=== PATIENT | male | born 1945 | race Caucasian/White ===

== ENCOUNTER 2017-08-15 12:27 | Inpatient (IN) | payer OTHER ==
[~2017-08-15] VITALS: Ht 170.2 cm; Wt 67.6 kg
--- NOTE | ~2017-08-15 | HC ---
[facility] [place] [address] CONSULTATION Name: BENIGNO CASTILLO Room #: 411-P [facility] IN M.R.#: [id number] Admission: 08/15/17 Attend Phys: Sushil De Santiago DO Discharge: 08/19/17 Date of : 41 Report #: [id number] THIS REPORT FOR: //name// CC: Sushil Frederick [facility] DATE OF SERVICE: 08/16/2017 REASON FOR CONSULTATION: COPD. IMPRESSION: 1. Possible bronchitis. 2. Probable chronic obstructive pulmonary disease. 3. Obstructive sleep apnea. 4. Recurrent ventral hernia. 5. History of Crohn's. 6. Coronary artery disease, paroxysmal atrial fibrillation. 7. Gastroesophageal reflux disease. 8. History of deep venous thrombosis. 9. Obstructive sleep apnea. 10. Tobacco use. PLAN: We will check a sputum culture and start Rocephin, aerosol therapy. Although, he is on Eliquis because of impending surgery, we will check venous Dopplers, may even need to consider a lung scan to check for PE. HISTORY OF PRESENT ILLNESS: A 72-year-old admitted through the Emergency Room because of abdominal pain. He does complain of some shortness of breath and discolored sputum. No fever, chills or night sweats. PAST SURGICAL HISTORY: Bowel resections, appendectomy, brain tumor, cholecystectomy. FAMILY HISTORY: Coronary artery disease. SOCIAL HISTORY: Positive tobacco. Negative ETOH. ALLERGIES: CLARITIN, DARVON AND SULFA. REVIEW OF SYSTEMS: Cough, sputum production, history of paroxysmal atrial fibrillation, DVT, question PE, neuropathy, hyperlipidemia, FRANCHESCA on CPAP of 14. PHYSICAL EXAMINATION: VITAL SIGNS: Temperature 97.9, pulse 85, respiratory rate 20, BP 116/59. EYES: Negative icterus. NECK: Negative JVD. [facility] [address] [place] [address] CONSULTATION Name: BENIGNO CASTILLO Quin Room #: 411-P [facility] IN M.R.#: [id number] Admission: 08/15/17 Attend Phys: Sushil De Santiago DO Discharge: 08/19/17 Date of : 41 Report #: [id number] LUNGS: Showed no definite wheeze. HEART: Regular with murmur. ABDOMEN: Bowel sounds present, tender. EXTREMITIES: Showed trace edema. NEUROLOGIC: Alert and oriented. LABORATORY DATA: CT abdomen yesterday showed base of lungs clear. No definite mass. White count 4.9, hemoglobin 10.8, platelets 203, bands 2. BUN 18, creatinine 1.3. We will follow closely with you. <ELECTRONICALLY SIGNED> By: Carolina Granger MD 09/04/17 2219 [id number] Carolina Granger MD /nt
--- NOTE | ~2017-08-15 | HC ---
[facility] [place] [address] CONSULTATION Name: BENIGNO CASTILLO Room #: 411-P [facility] IN M.R.#: [id number] Admission: 08/15/17 Attend Phys: Sushil De Santiago DO Discharge: 08/19/17 Date of : 41 Report #: [id number] THIS REPORT FOR: //name// CC: Sushil Frederick [facility] DATE OF SERVICE: 08/15/2017 HISTORY OF PRESENT ILLNESS: The patient is a 72-year-old male patient who is admitted today from the Emergency Room having marked and worsening of the abdominal discomfort. He has been seen by Dr. Claire and had had prior extensive surgery at , and I do not have those records. There are multiple areas of hernia through the ventral wall and CT scan is pending. The pain became worse. He is scheduled for surgery by Dr. Claire next week and a nuclear stress test in our office tomorrow, but he came to the office with significant abdominal discomfort. Recently saw his pulmonary physician who also suggested the Emergency Room. He has been fairly stable from my perspective. He has been anticoagulated with a novel agent, this is for recurrent DVT. The patient has moderate carotid disease, 60-70% on the right, which we have been following and stable. He has had prior cardioversions. His ejection fraction has been preserved. He has been compliant with medications, which have been Eliquis 5 b.i.d., baby aspirin, Lipitor 10, diltiazem 180, metformin 500 b.i.d., Protonix, Mirapex, Lyrica and Ambien. PAST MEDICAL HISTORY: Positive for Crohn disease with multiple bowel resections, mild disease from a catheterization in 2012, paroxysmal AFib, DVT, PE, diabetes, fibromyalgia, history of TIA, hypercholesterolemia, neuropathy, sleep apnea on CPAP and polycythemia requiring monthly phlebotomies, appendectomy, brain tumor excision and cholecystectomy. Prior hernia and multiple bowel resections as stated. FAMILY HISTORY: Father had premature coronary artery disease, had an infarct. SOCIAL HISTORY: He lives with his significant other. He is a daily smoker. No alcohol use, heavy caffeine, relatively sedentary. Had been more of an avid walker in the past. ALLERGIES: SULFA, DARVON AND CLARITIN. REVIEW OF SYSTEMS: Negative except for the intermittent and significant bowel issues, now with recurrent diarrhea and all as stated above. EKG is sinus rhythm with right bundle branch block. LABORATORY WORK: Lipase 259, potassium 4.3, chloride 24, creatinine 1.3, total protein 7.1. GFR 54. H and H are 10.8 and 33, white count 4.9[place] [address] CONSULTATION Name: BENIGNO CASTILLO Quin Room #: 411-P [facility] IN M.R.#: [id number] Admission: 08/15/17 Attend Phys: Sushil De Santiago DO Discharge: 08/19/17 Date of : 41 Report #: [id number] scan is pending of the abdomen. PHYSICAL EXAMINATION: VITAL SIGNS: Pulse is 90s, blood pressure 140/76. HEENT: Eyes reveal xanthelasmas. Pharynx is clear. NECK: Shows preserved upstrokes. A right-sided bruit is noted. No JVD. LUNGS: Prolonged expiratory phase, slightly diminished in the bases. CARDIOVASCULAR: S1, S2. Faint holosystolic murmur is noted. ABDOMEN: Diffusely tender. There are multiple well-healed incisions and irregularities with hernia formation and possible bowel within the hernia and diffusely tender. Bowel sounds are noted. EXTREMITIES: Reveal trace of edema. Distal pulses were intact. NEUROLOGIC: Nonfocal. SKIN: Warm and dry without xanthoma or ulcer. MUSCULOSKELETAL: Generalized arthritic changes, slow gait. ASSESSMENT: 1. Significant recurrent ventral hernia with possible bowel involvement. 2. History of multiple abdominal surgeries with history of Crohn's. 3. Moderate coronary artery disease from remote catheterization. 4. Paroxysmal atrial fibrillation. 5. History of deep venous thrombosis. 6. Reflux. 7. History of transient ischemic attack. 8. Sleep apnea. 9. Continued tobacco abuse. RECOMMENDATIONS AND PLAN: The patient is being admitted. Dr. Claire of general surgery is well aware. We will proceed with nuclear stress testing in the morning to clear him for surgery next week. We will need to hold on the novel agents over the weekend for surgery, hopefully early part of next week. I will review the echo, but it was relatively normal in the office previously. We will continue to follow with you. Thank you for asking me to assist in the care of this patient. <ELECTRONICALLY SIGNED> By: Gentry Macario MD, FACC 08/20/17 0902 1612 0112 Gentry Macario MD, FACC /nt
--- NOTE | ~2017-08-15 | HC ---
[facility] [place] [address] CONSULTATION Name: BENIGNO CASTILLO Room #: 411-P ADM IN M.R.#: [id number] Admission: 08/15/17 Attend Phys: Sushil De Santiago DO Discharge: Date of : 43 Report #: [id number] THIS REPORT FOR: //name// CC: Sushil Frederick [facility] DATE OF SERVICE: 08/15/2017 GENERAL SURGERY CONSULT REFERRING PROVIDER: Sushil De Santiago DO REASON FOR CONSULT: Abdominal pain. HISTORY OF PRESENT ILLNESS: The patient is a 72-year-old male with a past medical history of hypertension, Crohn's disease, diabetes, sleep apnea and multiple abdominal operations, who has been seeing me as an outpatient for recurrent incisional ventral herniation with a non-healing abdominal wall wound. The patient does have synthetic mesh, which was placed at his most recent operation and there is suspected mesh infection with this draining sinus tract. The patient was seeing Dr. Macario in the office to initiate cardiac clearance before complex abdominal wall reconstruction procedure and as he was having horrible abdominal pain and nausea, he presented to the Emergency Room for evaluation. The patient underwent workup in the form of laboratories and a CT scan of the abdomen and pelvis. While his laboratories are normal, his CT scan shows recurrent incisional hernia, but no evidence of bowel obstruction or any other intra-abdominal process. The patient is having a productive cough and shortness of breath and as such he is admitted and I am asked to evaluate from a surgical standpoint. PAST MEDICAL AND SURGICAL HISTORY: Hypertension, Crohn's disease, diabetes mellitus, obstructive sleep apnea and multiple abdominal operations for cholecystectomy, incisional ventral hernia repairs, he also has a diagnosis of fibromyalgia, prior DVT, TIAs, paroxysmal atrial fibrillation and slight dementia since craniotomy in 2006 for removal of a brain tumor. HOME MEDICATIONS: Omeprazole, metformin, Colace, vitamin D, Ambien, mesalamine, pramipexole, Lyrica, and modafinil. ALLERGIES: SULFA AND PROPOXYPHENE. FAMILY HISTORY: Reviewed and noncontributory. SOCIAL HISTORY: The patient smokes approximately 1 pack per day and has done so for 50 years, does not utilize alcohol or illicit drugs. He is accompanied by his boyfriend at the bedside today. [address] [address] CONSULTATION Name: BENIGNO CASTILLO Room #: [facility] IN .R.#: [id number] Admission: 08/15/17 Attend Phys: Sushil De Santiago DO Discharge: Date of : 43 Report #: [id number] REVIEW OF SYSTEMS: GENERAL: The patient denies nocturnal fevers or chills. HEENT: No change in vision, change in hearing. NECK: No swelling or difficulty swallowing. HEART: No chest pain or palpitations. LUNGS: No cough or shortness of breath. ABDOMEN: Chronic abdominal pain. GENITOURINARY: No dysuria or hematuria. ENDOCRINE: No polyuria or polydipsia. HEMATOLOGIC: No history of bleeding or easy bruising. EXTREMITIES: No history weakness or limited range of motion. NEUROLOGIC: No history of syncope or near syncopal episodes. SKIN AND INTEGUMENT: No history of abnormal lesions or moles outside of his non-healing abdominal wall wound. PSYCHIATRIC: History of dementia, but no depression. PHYSICAL EXAMINATION: VITAL SIGNS: Temperature 98.2, pulse 85, respirations 16, blood pressure 116/62, he is 5 feet 7 inches tall and weighs 149 pounds. GENERAL: He is alert, in no acute distress. HEENT: Normocephalic, atraumatic. Pupils equal, round, reactive to light. NECK: Supple, without lymphadenopathy. Trachea midline. HEART: Regular rate and rhythm. LUNGS: Clear to auscultation bilaterally. ABDOMEN: Soft, nondistended. He does have diffuse tenderness to palpation, although no guarding, rebound or peritoneal signs or symptoms. He has an easily palpable incisional ventral hernia with an overlying eschar and a small draining sinus tract. GENITOURINARY: Normal external male genitalia. EXTREMITIES: No clubbing, cyanosis or edema. NEUROLOGIC: Cranial nerves 2-12 are grossly intact. PSYCHIATRIC: Normal mood and affect. SKIN AND INTEGUMENT: No other abnormal lesions or moles. LABORATORY AND X-RAY DATA: CBC shows white blood cell count of 4.9000, hemoglobin 10.8, platelets 203,000. Creatinine is 1.3. Liver function enzymes are normal. Albumin is 3.4. Urinalysis is negative. Abdominal x-ray shows no acute process. CT scan of his abdomen and pelvis shows no evidence of bowel obstruction or inflammatory mass, ascites or mass effect. He does have a wide-mouthed hernia defect of the anterior abdominal wall. ASSESSMENT AND PLAN: A 72-year-old male with subjective chronic abdominal pain, although he does have recurrent incisional ventral hernia and a small eschar overlying with a draining sinus tract worrisome for mesh infection. As the patient does not have any evidence of an obstruction or other [address] [address] CONSULTATION Name: BENIGNO CASTILLO Room #: 411-P [facility] IN M.R.#: [id number] Admission: 08/15/17 Attend Phys: Sushil De Santiago DO Discharge: Date of : 43 Report #: [id number] intra-abdominal process ongoing, he is being seen by Cardiology and Pulmonology for preoperative clearance to proceed forward with definitive surgical management of his hernia and likely infected mesh. Once cleared from a medical standpoint, we will proceed to the operating room, although this might not be for up to 1 weeks' time due to scheduling issues with this long procedure. In addition, the patient does have a productive cough with green sputum and as such, I would request pulmonary to optimize him prior to operative intervention. All the above was discussed with the patient in detail and he agrees to proceed as outlined. I sincerely appreciate this consult. I will follow along and leave any further recommendations in the patient's chart as appropriate. <ELECTRONICALLY SIGNED> By: Eva Claire MD, FACS 08/18/17 1015 1255 51 Eva Claire MD, FACS /nt
[~2017-08-15 12:27] MED LIST: ADULT LOW DOSE81 MG; AMBIEN 10 MG TA10 MG PO; APRISO0.375 GM PO; ASACOL400 MG PO; ASPIRIN EC81 M1 PO; B12INJ; CIPROFLOXACIN500 M1 PO; COLACE100 MG PO; FLAGYL500 MG; FLAGYL500 MG PO; FLONASE 0.05%50 MCG NS; FLORANEX TABLE1 EACH; LORTAB PO; LYRICA 50 MG50 M1 PO; LYRICA 50 MG50 MG; LYRICA100 MG PO; METFORMIN HCL500 MG PO; MIRAPEX1 MG PO; MIRAPEX1.5 MG PO; MODAFINIL200 MG PO; NAMENDA 5 MG TAB5 M1; NAMENDA10 MG/5 ML PO; NORCO 5-325 TA1 EACH PO; OMEPRAZOLE 20 M20 M1 PO; OMEPRAZOLE20 MG PO; PERCOCET 5-3251 EACH PO; PREGABALIN PO; PROTONIX40 M2; REGLAN 10 MG TA10 MG PO; TAMSULOSIN HCL0.4 M1; VALIUM5 MG PO; VITAMIN B12 5500 MC1 IM; VITAMIN D 11000 UNIT PO; VITAMIN D1000 UNI1 PO; VITAMIN D400 UNI1; ZPAK PO
[2017-08-15 13:10] LABS: URINE BILIRUBIN NEGATIVE (Negative); URINE BLOOD TRACE (Negative); URINE CLARITY CLEAR; URINE COLOR YELLOW; URINE GLUCOSE-RANDOM* NEGATIVE (Negative); URINE KETONES NEGATIVE (Negative); URINE LEUKOCYTES-REFLEX NEGATIVE (Negative); URINE NITRITE-REFLEX NEGATIVE (Negative); URINE PROTEIN (DIPSTICK) TRACE (Negative); URINE SPECIFIC GRAVITY 1.025 (1.005-1.035); URINE UROBILINOGEN 0.2 E.U./dl (0.2-1.0)
[2017-08-15 14:11] VITALS: BP 116/62
[2017-08-15 15:01] LABS: HEMATOCRIT 33.2 % (42.0-52.0); HEMOGLOBIN 10.8 gm/dL (14.0-18.0); MCH 26.4 pg (26.0-34.0); MCHC 32.5 g/dL (28.0-37.0); MCV 81.4 fL (80.0-100.0); PLATELET COUNT 203 thou/uL (150-400); RBC 4.08 mil/uL (4.50-6.00); RDW 18.8 % (10.5-14.5); WBC 4.9 thou/uL (4.0-11.0)
[2017-08-15 15:08] LABS: CALCIUM 8.7 mg/dL (8.5-10.1); CREATININE 1.3 mg/dL (0.7-1.3); POTASSIUM 4.3 mmol/L (3.5-5.1)
[2017-08-15 15:14] LABS: ALBUMIN 3.4 g/dL (3.4-5.0); TOTAL BILIRUBIN 0.3 mg/dL (<0.1-1.0); TOTAL PROTEIN 7.1 g/dL (6.4-8.2)
[2017-08-15 15:43] LABS: ABSOLUTE NEUTROPHILS 3.4 thou/uL (1.4-8.2); ANISOCYTOSIS 1+
[2017-08-16 07:20] LABS: HEMATOCRIT 32.9 % (42.0-52.0); HEMOGLOBIN 10.4 gm/dL (14.0-18.0); MCH 26.1 pg (26.0-34.0); MCHC 31.5 g/dL (28.0-37.0); MCV 82.7 fL (80.0-100.0); PLATELET COUNT 202 thou/uL (150-400); RBC 3.98 mil/uL (4.50-6.00); RDW 18.5 % (10.5-14.5); WBC 4.7 thou/uL (4.0-11.0)
[2017-08-16 07:28] LABS: CALCIUM 8.1 mg/dL (8.5-10.1); CREATININE 1.1 mg/dL (0.7-1.3); MAGNESIUM 1.8 mg/dL (1.8-2.4); POTASSIUM 4.1 mmol/L (3.5-5.1)
[2017-08-16 09:18] LABS: ABSOLUTE NEUTROPHILS 3.2 thou/uL (1.4-8.2); PLATELET ESTIMATE NORMAL
[2017-08-16 09:19] LABS: ANISOCYTOSIS 1+
[2017-08-16 11:04] VITALS: BP 132/71
[2017-08-16 11:15] VITALS: BP 134/64
[2017-08-16 11:45] VITALS: BP 133/67
[2017-08-16 13:35] LABS: BE(vivo) -5.6 mmol/L (-2 to +3); HCO3 18.2 mmol/L (22.0-26.0); PCO2 30.1 mmHg (35.0-45.0); PO2 69.6 mmHg (80.0-100.0)
[2017-08-16 13:36] LABS: sO2 94.3 % (92.0-98.0)
[2017-08-16 16:25] VITALS: BP 116/59
[2017-08-16 20:00] VITALS: BP 135/68
[2017-08-17 04:00] VITALS: BP 138/71
[2017-08-17 08:00] VITALS: BP 138/63
[2017-08-17 16:26] VITALS: BP 129/72
[2017-08-17 19:40] VITALS: BP 144/73
[2017-08-18 03:27] VITALS: BP 122/69
[2017-08-18 03:57] LABS: ABSOLUTE NEUTROPHILS 3.2 thou/uL (1.4-8.2); BASOPHILS 0.4 % (0.0-2.0); EOSINOPHILS 0.9 % (0.0-3.0); HEMOGLOBIN 9.6 gm/dL (14.0-18.0); LYMPHOCYTES 15.9 % (24.0-44.0); MCH 26.4 pg (26.0-34.0); MCHC 32.2 g/dL (28.0-37.0); MCV 82.1 fL (80.0-100.0); MONOCYTES 11.6 % (1.0-8.0); PLATELET COUNT 187 thou/uL (150-400); POLYS 71.2 % (36.0-66.0); RBC 3.65 mil/uL (4.50-6.00); RDW 18.3 % (10.5-14.5); WBC 4.5 thou/uL (4.0-11.0)
[2017-08-18 04:10] LABS: CREATININE 1.1 mg/dL (0.7-1.3); POTASSIUM 3.5 mmol/L (3.5-5.1)
[2017-08-18 09:10] VITALS: BP 136/64
[2017-08-18 20:00] VITALS: BP 130/64
[2017-08-19 03:56] VITALS: BP 132/65
[2017-08-19 08:00] VITALS: BP 131/74
[2017-08-19] MEDS ORDERED: ATORVASTATIN CA10 MG PO (08:44)
[2017-08-19] MEDS ORDERED: ELIQUIS5 MG PO (08:44)
[2017-08-19] MEDS ORDERED: HYDROCODON-ACE1 EAC7 PO (08:45)
[2017-08-19 09:48] VITALS: BP 131/74
[2017-08-23] MEDS ORDERED: ASPIR 8181 MG PO (09:55)
[2017-08-23] MEDS ORDERED: B12INJ IM (09:56)
[2017-08-23] MEDS ORDERED: ONDANSETRON HCL4 M2 PO (09:57)
[2017-08-23] MEDS ORDERED: PROTONIX 20 MG20 M1 PO (09:58)
[2017-08-23] MEDS ORDERED: AMBIEN CR12.5 MG PO (09:59)
[2017-08-23] MEDS ORDERED: LYRICA 50 MG50 MG PO (09:59)
[2017-08-23] MEDS ORDERED: ELIQUIS5 MG PO (10:09)
[2017-08-23] MEDS ORDERED: LIPITOR10 MG PO (10:10)
[2017-08-23] MEDS ORDERED: NORCO 5-325 TA1 EACH PO (10:11)
== END 2017-08-19 10:00 | disposition home or self-care (01) | DRG 394 ==
LOC: ER 12:27 → EROBS 15:16 → 4N 15:16 → ENTRNSPT 08-19 09:55 → EDTRNSPTSTS 08-19 09:56 → 4N 08-19 10:00
PROVIDERS: Emergency Medicine; Family Medicine; Internal Medicine Pulmonary Disease; Nurse Practitioner
DX: K43.2 Incisional hernia without obstruction or gangrene (principal); K50.90 Crohn's disease, unspecified, without complications; I10 Essential (primary) hypertension; F17.210 Nicotine dependence, cigarettes, uncomplicated; I48.0 Paroxysmal atrial fibrillation; E78.00 Pure hypercholesterolemia, unspecified; E11.40 Type 2 diabetes mellitus with diabetic neuropathy, unspecified; I25.10 Atherosclerotic heart disease of native coronary artery without angina pectoris; K21.9 Gastro-esophageal reflux disease without esophagitis; G47.33 Obstructive sleep apnea (adult) (pediatric); J44.9 Chronic obstructive pulmonary disease, unspecified; Z86.718 Personal history of other venous thrombosis and embolism; Z86.73 Personal history of transient ischemic attack (TIA), and cerebral infarction without residual deficits; Z90.49 Acquired absence of other specified parts of digestive tract; Z79.899 Other long term (current) drug therapy; Z88.8 Allergy status to other drugs, medicaments and biological substances; Z86.711 Personal history of pulmonary embolism; Z82.49 Family history of ischemic heart disease and other diseases of the circulatory system; Z88.2 Allergy status to sulfonamides
CPT/HCPCS: 10790

== ENCOUNTER 2017-08-26 05:23 | Inpatient (IN) | payer OTHER ==
[~2017-08-26] VITALS: Ht 170.2 cm; Wt 61.5 kg
[2017-08-26] VITALS (10 sets, daily range): BP systolic 120–164; BP diastolic 62–86
--- NOTE | ~2017-08-26 | HC ---
[facility] [place] [address] CONSULTATION Name: BENIGNO CASTILLO Room #: 363-P [facility] IN ..#: [id number] Admission: 08/26/17 Attend Phys: Eva Claire MD, Discharge: 09/09/17 Date of : 41 Report #: [id number] THIS REPORT FOR: //name// CC: Otoniel Claire DATE OF SERVICE: 09/05/2017 HISTORY OF PRESENT ILLNESS: The patient is a 72-year-old white male with an incarcerated ventral incisional hernia, who was admitted and underwent exploratory laparotomy with debridement with complex abdominal wall reconstruction with mesh. Postoperative course has included ileus and healthcare-associated pneumonia with aspiration. He is being advanced to clear liquids. He does have COPD. He continues on TPN. We are seeing him in rehabilitation medicine consultation. He has medical complexity with generalized debilitation. PAST MEDICAL HISTORY: Includes hypertension, Crohn's disease, diabetes, obstructive sleep apnea, paroxysmal atrial fibrillation, TIAs, craniotomy in 2006 for a benign brain tumor, slight dementia, fibromyalgia, DVT, cholecystectomy, and partial right hemicolectomy. ALLERGIES: SULFA AND PROPOXYPHENE. MEDICATIONS: Please see the full medication listing. FAMILY HISTORY: Noncontributory. HABITS: History of tobacco abuse. No significant alcohol intake. 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 They live in a house, one step in. He did not utilize assistive devices. Significant other is retired. REVIEW OF SYSTEMS: Notes history of fibromyalgia. He was diagnosed with neuropathy before that. Apparently, went up to the [facility] for diagnosis. No current complaints of chest pain or shortness of breath. He has some abdominal discomfort as expected. He does have the chronic pain with his fibromyalgia. PHYSICAL EXAMINATION: GENERAL: The patient is a 72-year-old white male, no obvious distress. VITAL SIGNS: Last recorded temperature is 98.6, pulse 77, respirations 16, and blood pressure 117/56. The patient is alert. HEENT: Appeared to be benign. NEUROLOGIC: Cranial nerves are grossly intact. Facies are symmetric. He has [address] [address] CONSULTATION Name: BENIGNO CASTILLO Room #: 363-P [facility] IN M.R.#: [id number] Admission: 08/26/17 Attend Phys: Eva Claire MD, Discharge: 09/09/17 Date of : 41 Report #: [id number] functional range of motion of both upper extremities with strength grade 4-/5. DTRs are trace to 1. Lower extremities; no focal calf swelling, functional range of motion with strength grade 3+ to 4-/5. DTRs are trace to 1. He is min assist with sit to stand. Gait is 50 feet contact guard with front-wheeled walker. ASSESSMENT: A 72-year-old white male with the following problem list: 1. Medical complexity with generalized debilitation. 2. Incarcerated ventral incisional hernia, status post debridement and complex abdominal wall reconstruction with mesh, 08/26/2017. 3. Healthcare-associated pneumonia/aspiration. 4. Ileus. 5. Chronic obstructive pulmonary disease. 6. History of Crohn's disease. 7. History of fibromyalgia. 8. Prior history of a neuropathy. PLAN: We are monitoring the patient regarding his rehab therapy needs. Would anticipate that he could be a candidate for an acute in-hospital inpatient rehabilitation stay as he further medically stabilizes. We will be glad to follow along with you regarding his rehab therapy needs. <ELECTRONICALLY SIGNED> By: Jason Regalado MD 09/13/17 1408 1222 1850 Jason Regalado MD /nt
--- NOTE | ~2017-08-26 | EKG ---
[address] [place] [address] ELECTROCARDIOGRAM REPORT Name: BENIGNO CASTILLO Quin Room #: 246-P ADM IN M.R.#: [id number] Admission: 08/26/17 Attend Phys: Eva Claire MD, Discharge: Date of : 41 Report #: [id number] THIS REPORT FOR: //name// [facility] Test Date: 2017-08-27 Test Time: 19:36:06 Pat Name: BENIGNO CASTILLO Department: Room: 246 Gender: M Thoracic Medicine Specialist: Julio C ZULUAGA : 1945 Requested By: Suleiman Edmonds Order Number: [id number] MD: Goyo Mills Measurements Intervals [place] Rate: 97 P: 59 HI: 146 QRS: 92 QRSD: 105 T: 53 QT: 351 QTc: 446 Interpretive Statements Sinus rhythm Low voltage, extremity and precordial leads Consider right ventricular hypertrophy Compared to ECG 09/16/2012 02:18:05 Low QRS voltage now present Sinus tachycardia no longer present Electronically Signed On 08-28-2017 8:11:25 LARRY OPERATOR by Goyo Mills [email or web address] <ELECTRONICALLY SIGNED> By: Goyo Mills MD 08/28/17 0811 35 35 Goyo Mills MD /EPI
--- NOTE | ~2017-08-26 | HC ---
[facility] [address] [place] [address] CONSULTATION Name: BENIGNO CASTILLO Room #: 418-P ADM IN M.R.#: [id number] Admission: 08/26/17 Attend Phys: Eva Claire MD, Discharge: Date of : 41 Report #: [id number] THIS REPORT FOR: //name// CC: Otoniel Claire REASON FOR CONSULTATION: I was asked to evaluate concerning ventral hernia mesh infection. HISTORY OF PRESENT ILLNESS: The patient was a 72-year-old with a past history of Crohn's disease who is now off immunosuppression, who had had recurring ventral hernias. He had a small-bowel obstruction several months ago at [facility]. He has undergone a right hemicolectomy and small bowel resection previously. Subsequently, he had ventral mesh placed for his hernia. This became infected and up with a chronic sinus tract. From the previous records, no evidence of enterocutaneous fistula identified. He was taken to surgery today for explantation of the synthetic mesh and repair of the abdominal wall. An extensive surgery was undertaken including extensive lysis of adhesions, debridement of ischemic infected fascia with explantation of infected synthetic mesh, complex abdominal wall reconstruction with repair of incarcerated incisional ventral hernia using prior resorbable Phasix mesh, bilateral component separation of the abdominal wall, open repair of incarcerated right inguinal hernia with bioabsorbable Phasix mesh. No evidence of active Crohn's disease was identified. No intra-abdominal abscess. I do not have any predating cultures of his sinus tract. He was hospitalized here last week where he was diagnosed with Haemophilus bronchitis. No fevers prior to his admission, but continued abdominal pain. He tends to be constipated. PAST MEDICAL HISTORY: Hypertension, Crohn's disease, diabetes, obstructive sleep apnea, paroxysmal atrial fibrillation, TIAs, craniotomy in 2006 for benign brain tumor, slight dementia, fibromyalgia, DVT, incisional ventral hernia repairs, cholecystectomy, partial right hemicolectomy. ALLERGIES: SULFA, PROPOXYPHENE. MEDICATIONS: As noted on his MAR, now on cefazolin. FAMILY HISTORY: Noncontributory. SOCIAL HISTORY: Smoker of cigarettes. No significant alcohol intake. 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 PHYSICAL EXAMINATION: VITAL SIGNS: The patient was postop on pain meds, lethargic, but would arouse. HEENT: Unremarkable. NG tube in place. Nasal cannula oxygen in place. NECK: Supple. LUNGS: Coarse breath sounds bilaterally. Most of [place] [address] CONSULTATION Name: BENIGNO CASTILLO Room #: 418-P [facility] IN ..#: [id number] Admission: 08/26/17 Attend Phys: Eva Claire MD, Discharge: Date of : 41 Report #: [id number] HEART: Regular, without murmur. ABDOMEN: Diffusely tender, incisional VAC in place. Two KARLEY drains with bloody output. GENITOURINARY: External genitalia unremarkable with indwelling Antonio catheter. EXTREMITIES: Unremarkable. LABORATORY STUDIES: From 08/18/2017, creatinine is 1.1. From the same date, hemoglobin is 9.6, white count 4.5, platelet count 187,000. IMPRESSION: A 72-year-old with infected abdominal wall mesh. Underlying quiescent Crohn's disease. No evidence of enterocutaneous fistula identified at surgery. Unclear as to the microbiology of this current infection. No cultures were obtained today. I do not have any outpatient cultures to go off. With his recent hospitalizations and chronicity of this infection, would consider polymicrobial organisms possible including Gram negatives. Recommend Zosyn for the next couple of days until the patient stabilizes and we will adjust antibiotics once taking enterally. <ELECTRONICALLY SIGNED> By: Michael Garrido MD 08/27/17 1543 09 20 Michael Garrido MD /nt
--- NOTE | ~2017-08-26 | 2DMMODE ---
[facility] [address] [place] [address] 2 D/M-MODE ECHOCARDIOGRAM Name: ANNABENIGNO J Room #: 246-P [facility] IN ..#: [id number] Admission: 08/26/17 Attend Phys: Eva Claire, Discharge: Date of : 41 Date of Service: 08/28/17 1053 Report #: [id number] THIS REPORT FOR: //name// APPROVED REPORT Study performed: 08/28/2017 08:20:33 EXAM: Comprehensive 2D, Doppler, and color-flow Echocardiogram Patient Location: Bedside Room #: 246 Status: routine BSA: 1.79 HR: 92 bpm BP: 102/63 mmHg Rhythm: NSR Other Information Study Quality: Technically Difficult Technically limited study due to post operative dressings, inability to position patient, lung disease. Indications COPD Hypertension/HDD Pulmonary Edema 2D Dimensions RVDd: 42.98 mm LVEF(%): 52.98 (>50%) IVSd: 11.28 (7-11mm) LVOT Diam: 20.29 (18-24mm) LVDd: 40.99 mm PWd: 11.10 (7-11mm) Ascending Ao: 31.62 (22-36mm) LVDs: 29.96 (25-40mm) Aortic Root: 30.63 mm Bolaños's LVEF: 52.98 % Volumes Left Atrial Volume (Systole) Single Plane 4CH: 52.75 mL Single Plane 2CH: 34.86 mL LA ESV Index: 27.00 mL/m2 Aortic Valve AoV Peak Wiliam.: 1.43 m/s AO Peak Gr.: 8.22 mmHg LVOT Max P.51 mmHg LVOT Max V: 0.94 m/s [facility] [address] [place] [address] 2 D/M-MODE ECHOCARDIOGRAM Name: BENIGNO CASTILLO Room #: 246-[facility] IN ..#: [id number] Admission: 08/26/17 Attend Phys: Eva Claire, Discharge: Date of : 41 Date of Service: 08/28/17 1053 Report #: [id number] JAYMIE Vmax: 2.11 cm2 Mitral Valve E/A Ratio: 0.8 MV Decel. Time: 135.81 ms MV E Max Wiliam.: 0.77 m/s MV A Wiliam.: 0.96 m/s MV PHT: 39.39 ms IVRT: 55.36 ms Pulmonary Valve PV Peak Wiliam.: 0.86 m/s PV Peak Gr.: 2.97 mmHg Pulmonary Vein P Vein S: 0.57 m/s P Vein A: 0.31 m/s P Vein D: 0.36 m/s P Vein A Dur.: 133.8 msec P Vein S/D Ratio: 1.58 Tricuspid Valve TR Peak Wiliam.: 3.22 m/s TR Peak Gr.: 41.59 mmHg PA Pressure: 42.00 mmHg Left Ventricle The left ventricle is normal size. There is normal left ventricular wall thickness. Left ventricular systolic function is within lower limits of normal. LVEF is 50-55%. Grade I - abnormal relaxation pattern. Right Ventricle Right ventricle is at the upper limits of normal. The right ventricular systolic function is normal. Atria The left atrium size is normal. Right atrium is at the upper limits of normal. Aortic Valve The Aortic valve is calcified. Trace aortic regurgitation. There is no aortic valvular stenosis. Mitral Valve Mild mitral annular calcification. No evidence of mitral valve stenosis. Tricuspid Valve [facility] [address] [place] [address] 2 D/M-MODE ECHOCARDIOGRAM Name: BENIGNO CASTILLO Quin Room #: 246-P [facility] IN ..#: [id number] Admission: 08/26/17 Attend Phys: Eva Claire, Discharge: Date of : 41 Date of Service: 08/28/17 1053 Report #: [id number] The tricuspid valve is normal in structure. Mild to moderate tricuspid regurgitation. Estimated PAP 42 mmHg plus Right Atrial Pressure. Pulmonic Valve Pulmonic valve is grossly normal in structure. Trace pulmonic regurgitation. Great Vessels The aortic root is normal in size. The ascending aorta is normal in size. IVC is not well visualized due to post-operative dressings. Pericardium There is no pericardial effusion. <Conclusion> The left ventricle is normal size. LVEF is 50-55%. Grade I - abnormal relaxation pattern. Right ventricle is at the upper limits of normal. The right ventricular systolic function is normal. The left atrium size is normal. The Aortic valve is calcified. There is no aortic valvular stenosis. Mild mitral annular calcification. Mild to moderate tricuspid regurgitation. Estimated PAP 42 mmHg plus Right Atrial Pressure. There is no pericardial effusion. <ELECTRONICALLY SIGNED> By: Gentry Macario MD, FACC 08/28/17 [phone] Gentry Macario MD, FACC /INF
--- NOTE | ~2017-08-26 | D ---
[facility] [place] [address] [address] [place] [address] DISCHARGE SUMMARY Name: BENIGNO CASTILLO Room #: 363-P ADM IN M.R.#: [id number] Admission: 08/26/17 Attend Phys: Eva Claire MD, Discharge: Date of : 41 Report #: [id number] THIS REPORT FOR: //name// CC: Otoniel Sixtoglenis Claire DATE OF SERVICE: 09/07/2017 HOSPITAL COURSE: The patient was admitted and taken to the operating room for a complex abdominal wall reconstruction with explantation of infected mesh and repair of incarcerated recurrent incisional hernia. The patient's postoperative course was fairly uneventful with the exception of a prolonged ileus that ultimately resolved with conservative measures. The patient has now since been advanced to a regular diet for the past several days, which he is tolerating and having normal bowel movements with no abdominal distention and his abdominal pain is under good pain control at this time. The patient is ambulatory and participating in activities with physical and occupational therapy. The patient's wound is clean and healing nicely without breakdown. His blood sugars have been under good control as he is a diabetic. PLAN: At this time is to proceed with a dismissal to a longterm facility of his choice and he will follow up in 2 weeks' time for ongoing wound evaluation with likely staple removal at that time. He is discharged in stable condition. <ELECTRONICALLY SIGNED> By: Eva Claire MD, FACS 09/08/17 1041 [id number] Eva Claire MD, FACS /nt
--- NOTE | ~2017-08-26 | O ---
[facility] [place] [address] [place] [address] OPERATIVE REPORT Name: BENIGNO CASTILLO Quin Room #: 418-P ADM IN M.R.#: [id number] Admission: 08/26/17 Attend Phys: Eva Claire MD, Discharge: Date of : 41 Report #: [id number] THIS REPORT FOR: //name// CC: Otoniel Claire DATE OF SERVICE: 08/26/2017 PREOPERATIVE DIAGNOSES: 1. Incarcerated recurrent incisional ventral hernia. 2. Chronic abdominal pain. 3. Nonhealing abdominal wall wound with draining sinus tract. 4. Diabetes mellitus. 5. Prior Crohn's colitis. 6. Hypercholesterolemia. 7. History of transient ischemic attack. 8. Hypertension. 9. Coronary artery disease, status post stenting. 10. Chronic urinary incontinence. 11. Obstructive sleep apnea. POSTOPERATIVE DIAGNOSES: 1. Incarcerated recurrent incisional ventral hernia. 2. Chronic abdominal pain. 3. Nonhealing abdominal wall wound with draining sinus tract. 4. Diabetes mellitus. 5. Prior Crohn's colitis. 6. Hypercholesterolemia. 7. History of transient ischemic attack. 8. Hypertension. 9. Coronary artery disease, status post stenting. 10. Chronic urinary incontinence. 11. Obstructive sleep apnea. 12. 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 13. Incarcerated recurrent right inguinal hernia. 14. Loss of abdominal domain. 15. Ischemic abdominal wall fascia. PROCEDURES PERFORMED: 1. Exploratory laparotomy. 2. Extensive lysis of adhesions lasting 125 minutes. 3. Debridement of ischemic/infected fascia with explantation of infected synthetic mesh. 4. Complex abdominal wall reconstruction with open repair of an incarcerated recurrent incisional ventral hernia using bioresorbable Phasix mesh. 5. Bilateral component separation of the abdominal wall. [address] [address] OPERATIVE REPORT Name: BENIGNO CASTILLO Room #: 418-P [facility] IN .R.#: [id number] Admission: 08/26/17 Attend Phys: Eva Claire MD, Discharge: Date of : 41 Report #: [id number] 6. Open repair of an incarcerated recurrent right inguinal hernia with bioresorbable Phasix mesh. 7. Adjacent tissue transfer closure of the anterior abdominal wall measuring 39 x 36 cm in dimension (1404 square cm). 8. Excision of scar, redundant skin, and nonhealing sinus tract. 9. Placement of a topical wound VAC (Prevena) device. 10. Modifier 22 procedure for extreme difficulty of procedure secondary to the lengthy lysis of adhesions of greater than 2 hours and the need to explant infected synthetic mesh as well as perform complex abdominal wall closure techniques due to loss of abdominal domain to repair his incarcerated recurrent incisional ventral hernia. In addition, this necessitated takedown of a draining sinus tract that had fistulized to the infected mesh and total operative time was greater than 3 hours as opposed to the usual [id number] procedure, owed secondary to the overall complexity of the procedure. SURGEON: Eva Claire M.D. PATIENT REGISTRATION SPECIALIST: Guanako Corado DO ANESTHESIA: General endotracheal anesthesia. ESTIMATED BLOOD LOSS: Minimal (less than 50 mL). COMPLICATIONS: None appreciated. SPECIMENS: 1. Infected synthetic hernia mesh to Pathology. 2. Skin to Pathology. 3. Nonviable/ischemic and infected fascia to Pathology. INDICATIONS: The patient is a 72-year-old male who initially underwent an open right inguinal hernia repair in childhood that presumably was done without mesh. In addition, the patient had a prior appendectomy and most recently approximately 9 months ago underwent exploratory laparotomy with segmental colon resection for Crohn's colitis at [facility]. The patient developed an incisional hernia and underwent repair with synthetic mesh; however, has had easily palpable recurrence to his midline abdominal wound with a CT scan showing a recurrent incarcerated incisional hernia containing loops of small bowel and omentum. The patient does have significant pain as well as a nonhealing wound since his most recent incisional hernia repair, which showed a draining sinus tract, tunneling directly to the synthetic mesh, which by definition led to a diagnosis of infected synthetic abdominal wall mesh. Through the course of the exploration today, the patient had incarcerated omentum contained within a recurrent right inguinal hernia that required definitive management as well. [address] [address] OPERATIVE REPORT Name: HERSONLARYBENIGNO Room #: 418-P [facility] IN M.R.#: [id number] Admission: 08/26/17 Attend Phys: Eva Claire MD, Discharge: Date of : 41 Report #: [id number] DESCRIPTION OF PROCEDURE: After explaining the risks, benefits and alternatives of the procedure to the patient in detail and obtaining consent, the patient was brought to the operating room and placed supine on the operating room table. After conducting a thorough timeout procedure verifying correct patient and procedure, the patient was given general endotracheal anesthesia. Once adequate anesthesia was obtained, his SCDs were hooked up to pneumatic compression device. He was given a preoperative dose of antibiotics in line with the SCIP protocol. The patient's abdomen was prepped and draped in standard surgical sterile fashion. #10 bladed scalpel was used to create an elliptical incision longitudinally around his prior incision site and around the site of the draining sinus tract in the upper abdomen. Electrocautery was used to carry this down through skin and subcutaneous tissues to ensure hemostasis. In the subxiphoid region, I gained intra-abdominal access quite easily and proceeded to open the longitudinal midline wound in a controlled fashion with a finger in the abdomen to prevent injury to the underlying structures from electrocautery burn and was able to open the longitudinal midline wound, which incorporated transecting the synthetic mesh down the midline. I now carried out a greater than 2 hour lysis of adhesions using a combination of electrocautery and Metzenbaum scissor dissection to take down all adhesions in the abdomen as there were numerous segments of small bowel that appeared to have partial obstructive findings with marked adhesions causing stricturing and narrowing. At the completion of the lysis of adhesions, the entire enteric tract was without adhesions and was normal in caliber. It appears the patient had a prior right hemicolectomy with an ileocolic reanastomosis. Once we had taken all the adhesions of omentum and small bowel down from the abdominal wall, I proceeded to trace the draining sinus tract, which went directly to the synthetic mesh and by definition led to an infected mesh. The mesh itself had become dislodged from the fascia and led to the incarcerated recurrence nonetheless. The mesh itself was grasped with Alexander clamps and I proceeded to remove this with electrocautery, staying right on the level of the mesh to preserve as much of the abdominal wall as possible. This was done for both remaining halves of mesh and once removed, was passed off the field as specimen. I now proceeded to circumferentially debride all nonviable fascia from the mid portion of the wound and passed this off as a specimen as well, which led to healthy vascularized fascia down the midline. Unfortunately, due to the patient's numerous prior hernia repairs, there was no peritoneum or posterior fascia viable in the upper abdomen. As it was going to be extremely difficult to get into the transversus space at this juncture, we attempted to reapproximate the midline fascial wound with Alexander clamps, which could be brought together at the midline, but there was tension in the upper abdomen. As such, I did perform a bilateral component separation in a limited fashion from the umbilicus cephalad on each side, taking down the lateral border of the rectus abdominis muscle bilaterally with electrocautery. This allowed significant medial mobilization of the midline fascial wound. I could now bring the fascia together in a tension-free fashion down the midline. In order to do so, I did have to create a large subcutaneous flaps and as such, electrocautery was used to clean off fascia [address] [address] OPERATIVE REPORT Name: BENIGNO CASTILLO Room #: 418-P [facility] IN ..#: [id number] Admission: 08/26/17 Attend Phys: Eva Claire MD, Discharge: Date of : 41 Report #: [id number] circumferentially throughout the abdominal domain. Upon doing so, we did encounter an incarcerated omentum contained within a recurrent right inguinal hernia. This omentum was reduced and the inguinal ring was evaluated. I proceeded to elevate the fascia and take down the peritoneum in the lower right abdomen. This was carried as low on the abdominal wall and pelvic brim as possible, staying well away from the bladder, which appeared healthy throughout. I now selected a piece of Phasix mesh measuring 10 x 15 cm in dimension. The mesh was placed into the preperitoneal space in the right groin and anchored into position using 0 PDS in several locations staying away from the nerves and the triangle of doom. I now proceeded to reperitonealize with several sutures of 3-0 PDS. I now proceeded to place 2 pieces of Interceed and a large piece of Seprafilm into the abdomen to hopefully prevent future adhesion formation. Now that I debrided all infected fascia and explanted infected mesh as well as perform the bilateral component separation and fixed the incarcerated recurrent right inguinal hernia with mesh, I elected to close the midline fascial wound. This was closed using 2 separate sutures of looped #1 PDS in standard running fashion from inferior to superior and the second suture from superior to inferior. Where the sutures met, they were tied together completing the fascial closure. I then selected another piece of Phasix bioresorbable mesh that measured 20 x 25 cm in dimension. This was placed as an onlay in liv configuration, which gave us excellent overlap outside of the midline fascial wound as well as the bilateral component separation releases in the upper abdomen. We had approximately 5 cm overlap outside of the released fascia. I now proceeded to sew this into place using several sutures of 0 PDS in standard interrupted fashion throughout the abdominal wall. Approximately 40 sutures were placed to hold the mesh to the abdominal wall. I then utilized 20 mL of Tisseel and sprayed this all along the mesh ensuring that it penetrated the mesh and welded it to the fascia throughout. I then placed two 19-Syriac round Bladimir-Hong drains, one emanating from the right lower quadrant, the other from the left lower quadrant, which were anchored to the skin using 2-0 nylon in standard fashion. Each drain crossed low in the pelvis and ran up the subcutaneous gutter. I now performed an adjacent tissue transfer closure of the abdominal wall after excising all redundant skin. These large skin flaps were elevated and counterincisions were made internally using electrocautery, which allowed me to medially rotate vascularized pedicles of subcutaneous tissue to cover the bioresorbable mesh. These were anchored down the midline using several layers of interrupted inverted 3-0 Vicryl sutures and allowed for vascularized healthy tissue overlying the mesh in question. Additional 3-0 Vicryl was placed in the dermis to anchor the dermal layer and then skin malachi were placed longitudinally down the midline. The wound was then dressed with a topical wound VAC Prevena device showing no evidence of a leak. At the end of the procedure, all instrument, needle and sponge counts were correct. The patient tolerated the complex procedure without issue, was awakened in the [address] [address] OPERATIVE REPORT Name: BENIGNO CASTILLO Room #: 418-P [facility] IN M.R.#: [id number] Admission: 08/26/17 Attend Phys: Eva Claire MD, Discharge: Date of : 41 Report #: [id number] operating room and transitioned to the recovery room in stable condition with no apparent complications. <ELECTRONICALLY SIGNED> By: Eva Claire MD, FACS 08/27/17 0757 [id number] Eva Claire MD, FACS /nt
--- NOTE | ~2017-08-26 | HC ---
[facility] [place] [address] CONSULTATION Name: BENIGNO CASTILLO Room #: 356-P ADM IN M.R.#: [id number] Admission: 08/26/17 Attend Phys: Eva Claire MD, Discharge: Date of : 41 Report #: [id number] THIS REPORT FOR: //name// CC: Otoniel Claire HISTORY OF PRESENT ILLNESS: The patient is a 72-year-old male, known to myself. He is status post ventral abdominal surgery. He has had multiple prior surgeries. Dr. Claire did this yesterday. He had some transient issues of some shortness of breath and hypotension. Troponin of 0.1 is probably not clinically significant here. He had only mild coronary artery disease with a catheterization back in 2012, and there has been a more recent nuclear stress test at [facility]. He is hemodynamically stable and alert in the ICU right now. Echo Doppler preliminary looks to have preserved LV function with mild pulmonary hypertension. He has a history of moderate carotid disease with a 60-70% lesion on the right. He has been compliant with his medications. 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 HOME MEDICATIONS: Lipitor 10, diltiazem 180, metformin 500 b.i.d., Protonix, Mirapex, Lyrica and Ambien. PAST MEDICAL HISTORY: Positive for the mild coronary artery disease, diabetes, history of transient ischemic attack, carotid stenosis on the left, Crohn disease, sleep apnea, CPAP, polycythemia, cholecystectomy, brain tumor and multiple bowel resections. ALLERGIES: SULFA AND DARVON. FAMILY HISTORY: Father had an infarct prematurely. SOCIAL HISTORY: He lives with significant other. Still a tobacco user. No alcohol, heavy caffeine. He is retired. REVIEW OF SYSTEMS: Essentially negative except for stated above. LABORATORY DATA: Sodium 136, potassium 4.8, creatinine 1.8, this is elevated, baseline is around 1.3. Troponin 0.07, 0.12, not significant, do not need to repeat any further. H and H is 9.2 and 28, white count 10.9, platelets 214. Lower extremity venous study has been ordered. PHYSICAL EXAMINATION: GENERAL: He is in no significant distress currently. VITAL SIGNS: Pulse is 80s, blood pressure 100/50. HEENT: Eyes reveal xanthelasmas. Pharynx is clear. NECK: Shows preserved upstrokes without JVD or bruits. LUNGS: Clear anteriorly. CARDIAC: Regular rate and rhythm, S1, S2, distant heart sounds. Faint [facility] [address] [place] [address] CONSULTATION Name: BENIGNO CASTILLO Room #: 356-P [facility] IN .R.#: [id number] Admission: 08/26/17 Attend Phys: Eva Claire MD, Discharge: Date of : 41 Report #: [id number] holosystolic murmur. ABDOMEN: Postop. Minimal bowel sounds are noted. Obviously, mildly tender. EXTREMITIES: Reveal trace of edema. Distal pulses are markedly diminished. SKIN: Warm and dry without xanthoma or ulcer. MUSCULOSKELETAL: Generalized arthritic changes. ASSESSMENT: 1. Transient hypoxemia, hypotension, resolved postop. 2. Postop recurrent abdominal ventral hernia repair. 3. Troponin of 0.07 and 0.12, not clinically significant, does not signify an ischemic event. 4. Chronic obstructive pulmonary disease. 5. Diabetes. 6. History of transient ischemic attack. 7. History of sleep apnea. RECOMMENDATIONS AND PLAN: Preliminary echo Doppler does not show any significant change in left ventricular function, pulmonary pressure is elevated. Okay to transfer the patient to the CCU. His cardiac status appears to be stable. We will follow with you. Slowly reinstitute home medications, may need to use IV for rate control, is currently getting IV Lopressor. <ELECTRONICALLY SIGNED> By: Gentry Macario MD, FACC 08/29/17 2137 0917 1226 Gentry Macario MD, FACC /nt
--- NOTE | ~2017-08-26 | S ---
[facility] [address] [place] [address] SURGICAL PATH RPT PROCEDURE Name: VICTOR HUGO KENNEDY Room #: 418-P ADM IN M.R.#: [id number] Admission: 08/26/17 Date of : 41 Discharge: Report #: [id number] Path Case #: [id number] PATHOLOGY REPORT COLLECTION DATE: 08/26/2017 RECEIVED DATE: 08/26/2017 SUBMITTING PHYS: Dr. Eva Claire OTHER PHYS: Dr. Guanako Corado, DO Dr. Otoniel Orona SPECIMEN(S) RECEIVED: A.Explanted mesh B.Omentum C.Hernia sac D.Abdominal wall E.Abdominal skin * * * * * * * * * * * * FINAL DIAGNOSIS: A. Explanted mesh, removal: - Two synthetic material fragments received 15.7 cm and 10.0 cm. - Fibroadipose connective tissue with foreign body-type polarizable material as well as giant cell reaction. B. Omentum, omentectomy: - 17.5 cm of omentum showing fat necrosis, as well as dystrophic calcifications. C. Hernia sac, repair: - Fibrovascular connective tissue lined by mesothelium, consistent with hernia sac. - Reactive changes. D. Abdominal wall, resection: - Dense fibrovascular and fibroadipose connective tissue with giant cell reaction, macrophages, as well as mild chronic inflammation. E. Skin, abdominal skin, excision: - Congestion and reactive changes. - Negative for malignancy. (IUV:db; 08/27/2017) PATHOLOGIST: Sachi Solomon M.D. REPORT ELECTRONICALLY SIGNED BY: Sachi Solomon M.D. DATE/TIME: 08/27/2017 16:30 * * * * * * * * * * * * GROSS PATHOLOGY: A. The specimen is received in formalin, labeled "Victor Hugo Kennedy, explanted mesh," and consists of 2 [place] [address] SURGICAL PATH RPT PROCEDURE Name: VICTOR HUGO KENNEDY Room #: 418-P [facility] IN [facility].#: [id number] Admission: 08/26/17 Date of : 41 Discharge: Report #: [id number] Path Case #: [id number] with attached yellow-orange soft tissue measuring 15.7 x 8.8 x 0.7 cm and 10.0 x 5.3 x 0.5 cm. Dock Builder sections are submitted in cassette A1 and gross photos are taken. B. Received in formalin labeled "Victor Hugo Kennedy, omentum," is a segment of lobulated fibroadipose tissue measuring 17.5 x 6.3 x 2.4 cm in maximum dimensions. Sectioning reveals areas of fat necrosis with the remaining cut surfaces are unremarkable yellow lobulated. No additional masses or lesions identified. Dock Builder tissue is submitted in cassette B1 following decalcification. C. Received in formalin labeled "Victor Hugo Kennedy, hernia sac," are 3 segments of fibroadipose tissue measuring 5.1 x 2.8 x 1.1 cm in aggregate dimensions. No nodules or lesions are identified. Dock Builder tissue is submitted in cassette C1. D. The specimen is received in formalin, labeled "Victor Hugo Kennedy, abdominal wall," and consists of a segment of yellow-orange adipose tissue attached to pink-perry fibrous soft tissue measuring 6.2 x 2.6 x 1.1 cm. Sectioning reveals no masses or lesions. Dock Builder sections are submitted in cassette D1. E. The specimen is received in formalin, labeled "Victor Hugo Kennedy, skin," and consists of 4 segments of perry skin and yellow-orange to pink-perry fibroadipose tissue measuring 9.3 x 4.1 x 1.0 cm in aggregate dimensions. The skin shows areas of dark brown discoloration measuring up to 5.0 cm in greatest dimension. Dock Builder sections are submitted as follows: E1: Skin discoloration E2: Soft tissue (SDY; 08/26/2017) CLINICAL HISTORY: Ventral hernia INITIAL CPT CODE(S): A; 66945 B; 32122, 75384 C; 26077 D; 12813 E; 86734 Professional services performed by [facility] at [address], [place] [address] Technical services performed by [facility] at [address] [place] [address], [address], [place] [address]. [facility] [address] [address] SURGICAL PATH RPT PROCEDURE Name: VICTOR HUGO KENNEDY Room #: 418-P ADM IN M.R.#: [id number] Admission: 08/26/17 Date of : 41 Discharge: Report #: [id number] Path Case #: [id number] [address] PHONE: [phone] DIRECTOR: Mekhi Burr M.D. * * * END OF REPORT * * *
[~2017-08-26 05:23] MED LIST changes: +AMBIEN CR12.5 MG PO; +ASPIR 8181 MG PO; +ATORVASTATIN CA10 MG PO; +B12INJ IM; +ELIQUIS5 MG PO; +HYDROCODON-ACE1 EAC7 PO; +LIPITOR10 MG PO; +LYRICA 50 MG50 MG PO; +ONDANSETRON HCL4 M2 PO; +PROTONIX 20 MG20 M1 PO
[2017-08-27] VITALS (12 sets, daily range): BP systolic 74–125; BP diastolic 44–71
[2017-08-27 06:33] LABS: HEMOGLOBIN 12.2 gm/dL (14.0-18.0); MCH 26.2 pg (26.0-34.0); MCHC 31.3 g/dL (28.0-37.0); MCV 83.9 fL (80.0-100.0); RBC 4.65 mil/uL (4.50-6.00); RDW 19.6 % (10.5-14.5); WBC 14.8 thou/uL (4.0-11.0)
[2017-08-27 06:58] LABS: CALCIUM 7.9 mg/dL (8.5-10.1); CREATININE 1.3 mg/dL (0.7-1.3); POTASSIUM 5.6 mmol/L (3.5-5.1)
[2017-08-27 17:22] LABS: BE(vivo) -4.3 mmol/L (-2 to +3); HCO3 20.1 mmol/L (22.0-26.0); PCO2 34.5 mmHg (35.0-45.0); pH 7.384 (7.360-7.450); sO2 87.7 % (92.0-98.0)
[2017-08-27 17:24] LABS: PO2 53.5 mmHg (80.0-100.0)
[2017-08-28] VITALS (9 sets, daily range): BP systolic 90–123; BP diastolic 48–68
[2017-08-28 04:30] LABS: BE(vivo) -5.2 mmol/L (-2 to +3); HCO3 20.2 mmol/L (22.0-26.0); PCO2 38.7 mmHg (35.0-45.0); PO2 79.4 mmHg (80.0-100.0); pH 7.335 (7.360-7.450); sO2 95.1 % (92.0-98.0)
[2017-08-28 05:06] LABS: ABSOLUTE NEUTROPHILS 9.5 thou/uL (1.4-8.2); BASOPHILS 0.2 % (0.0-2.0); HEMATOCRIT 28.8 % (42.0-52.0); LYMPHOCYTES 4.9 % (24.0-44.0); MCH 26.1 pg (26.0-34.0); MCV 81.7 fL (80.0-100.0); MONOCYTES 8.4 % (1.0-8.0); PLATELET COUNT 214 thou/uL (150-400); POLYS 86.5 % (36.0-66.0); RBC 3.53 mil/uL (4.50-6.00); RDW 18.9 % (10.5-14.5); WBC 10.9 thou/uL (4.0-11.0)
[2017-08-28 05:11] LABS: HEMOGLOBIN 9.2 gm/dL (14.0-18.0)
[2017-08-28 05:31] LABS: ALBUMIN 2.3 g/dL (3.4-5.0); CALCIUM 7.4 mg/dL (8.5-10.1); CREATININE 1.8 mg/dL (0.7-1.3); MAGNESIUM 2.1 mg/dL (1.8-2.4); PHOSPHORUS 3.6 mg/dL (2.5-4.9); POTASSIUM 4.8 mmol/L (3.5-5.1); TOTAL BILIRUBIN 0.4 mg/dL (<0.1-1.0); TOTAL PROTEIN 6.2 g/dL (6.4-8.2); TROPONIN-I 0.12 ng/mL (<0.06)
[2017-08-29 03:35] VITALS: BP 125/74
[2017-08-29 04:29] LABS: ABSOLUTE NEUTROPHILS 6.8 thou/uL (1.4-8.2); BASOPHILS 0.1 % (0.0-2.0); EOSINOPHILS 0.1 % (0.0-3.0); HEMATOCRIT 27.7 % (42.0-52.0); LYMPHOCYTES 8.2 % (24.0-44.0); MCH 26.2 pg (26.0-34.0); MCHC 32.3 g/dL (28.0-37.0); MCV 80.9 fL (80.0-100.0); MONOCYTES 6.9 % (1.0-8.0); PLATELET COUNT 214 thou/uL (150-400); POLYS 84.7 % (36.0-66.0); RBC 3.43 mil/uL (4.50-6.00); RDW 19.3 % (10.5-14.5)
[2017-08-29 04:32] LABS: CALCIUM 7.6 mg/dL (8.5-10.1); CREATININE 1.6 mg/dL (0.7-1.3)
[2017-08-29 09:13] VITALS: BP 146/72
[2017-08-29 19:05] VITALS: BP 137/63
[2017-08-30 06:14] VITALS: BP 149/72
[2017-08-30 07:52] VITALS: BP 144/69
[2017-08-30 08:22] LABS: HEMATOCRIT 28.4 % (42.0-52.0); MCH 25.8 pg (26.0-34.0); MCHC 31.8 g/dL (28.0-37.0); RBC 3.51 mil/uL (4.50-6.00); RDW 19.3 % (10.5-14.5); WBC 5.8 thou/uL (4.0-11.0)
[2017-08-30 08:35] LABS: CALCIUM 8.4 mg/dL (8.5-10.1); CREATININE 1.1 mg/dL (0.7-1.3); POTASSIUM 4.3 mmol/L (3.5-5.1)
[2017-08-30 12:19] LABS: BE(vivo) -3.9 mmol/L (-2 to +3); HCO3 19.1 mmol/L (22.0-26.0); PCO2 28.3 mmHg (35.0-45.0); PO2 66.9 mmHg (80.0-100.0); pH 7.448 (7.360-7.450); sO2 94.4 % (92.0-98.0)
[2017-08-30 12:36] VITALS: BP 152/67
[2017-08-30 16:15] VITALS: BP 147/75
[2017-08-30 19:30] VITALS: BP 132/72
[2017-08-31 04:17] VITALS: BP 120/73
[2017-08-31 08:14] VITALS: BP 139/73
[2017-08-31 11:36] VITALS: BP 139/82
[2017-08-31 15:40] VITALS: BP 144/73
[2017-08-31 19:40] VITALS: BP 126/72
[2017-09-01 04:00] VITALS: BP 127/74
[2017-09-01 07:40] VITALS: BP 145/75
[2017-09-01 10:27] LABS: HEMATOCRIT 37.1 % (42.0-52.0); MCH 25.6 pg (26.0-34.0); MCHC 31.7 g/dL (28.0-37.0); MCV 80.8 fL (80.0-100.0); RBC 4.59 mil/uL (4.50-6.00); RDW 19.2 % (10.5-14.5); WBC 7.1 thou/uL (4.0-11.0)
[2017-09-01 10:33] LABS: HEMOGLOBIN 11.7 gm/dL (14.0-18.0)
[2017-09-01 10:36] LABS: CALCIUM 9.1 mg/dL (8.5-10.1); CREATININE 1.2 mg/dL (0.7-1.3); MAGNESIUM 2.4 mg/dL (1.8-2.4); POTASSIUM 4.7 mmol/L (3.5-5.1)
[2017-09-01 11:30] VITALS: BP 116/68
[2017-09-01 15:22] VITALS: BP 126/69
[2017-09-01 20:00] VITALS: BP 134/67
[2017-09-02 03:40] VITALS: BP 122/68
[2017-09-02 08:00] VITALS: BP 122/62
[2017-09-02 13:30] VITALS: BP 117/68
[2017-09-02 16:44] VITALS: BP 116/76
[2017-09-02 19:28] VITALS: BP 104/60
[2017-09-03 04:09] VITALS: BP 108/55
[2017-09-03 08:03] VITALS: BP 112/70
[2017-09-03 14:27] LABS: HEMATOCRIT 32.4 % (42.0-52.0); HEMOGLOBIN 10.3 gm/dL (14.0-18.0); MCH 25.5 pg (26.0-34.0); MCHC 31.9 g/dL (28.0-37.0); MCV 79.9 fL (80.0-100.0); RBC 4.05 mil/uL (4.50-6.00); RDW 19.1 % (10.5-14.5); WBC 6.1 thou/uL (4.0-11.0)
[2017-09-03 14:42] LABS: ALBUMIN 2.6 g/dL (3.4-5.0); CALCIUM 8.6 mg/dL (8.5-10.1); CREATININE 1.4 mg/dL (0.7-1.3); MAGNESIUM 2.7 mg/dL (1.8-2.4); PHOSPHORUS 4.4 mg/dL (2.5-4.9); POTASSIUM 4.2 mmol/L (3.5-5.1); TOTAL BILIRUBIN 0.3 mg/dL (<0.1-1.0); TOTAL PROTEIN 7.1 g/dL (6.4-8.2)
[2017-09-03 17:45] VITALS: BP 110/72
[2017-09-04 04:00] VITALS: BP 130/73
[2017-09-04 06:02] LABS: HEMATOCRIT 29.8 % (42.0-52.0); HEMOGLOBIN 9.6 gm/dL (14.0-18.0); MCH 25.9 pg (26.0-34.0); MCHC 32.4 g/dL (28.0-37.0); RBC 3.72 mil/uL (4.50-6.00); RDW 19.5 % (10.5-14.5); WBC 5.3 thou/uL (4.0-11.0)
[2017-09-04 06:21] LABS: ALBUMIN 2.4 g/dL (3.4-5.0); CALCIUM 8.4 mg/dL (8.5-10.1); CREATININE 1.4 mg/dL (0.7-1.3); MAGNESIUM 3.1 mg/dL (1.8-2.4); PHOSPHORUS 3.3 mg/dL (2.5-4.9); POTASSIUM 3.8 mmol/L (3.5-5.1); TOTAL BILIRUBIN 0.3 mg/dL (<0.1-1.0); TOTAL PROTEIN 6.6 g/dL (6.4-8.2)
[2017-09-04 08:43] VITALS: BP 127/65
[2017-09-04 14:24] VITALS: BP 144/67
[2017-09-04 16:02] VITALS: BP 125/64
[2017-09-04 19:09] VITALS: BP 116/70
[2017-09-05 03:45] VITALS: BP 127/62
[2017-09-05 06:11] LABS: HEMATOCRIT 32.1 % (42.0-52.0); HEMOGLOBIN 10.1 gm/dL (14.0-18.0); MCHC 31.6 g/dL (28.0-37.0); MCV 79.3 fL (80.0-100.0); RBC 4.05 mil/uL (4.50-6.00); RDW 19.7 % (10.5-14.5); WBC 6.1 thou/uL (4.0-11.0)
[2017-09-05 06:35] LABS: CALCIUM 8.6 mg/dL (8.5-10.1); CREATININE 1.4 mg/dL (0.7-1.3); MAGNESIUM 2.7 mg/dL (1.8-2.4); PHOSPHORUS 3.8 mg/dL (2.5-4.9); POTASSIUM 4.2 mmol/L (3.5-5.1)
[2017-09-05 08:36] VITALS: BP 117/56
[2017-09-05 13:29] VITALS: BP 120/72
[2017-09-05 15:04] VITALS: BP 123/66
[2017-09-05 20:00] VITALS: BP 126/73
[2017-09-06 04:00] VITALS: BP 132/69
[2017-09-06 06:22] LABS: HEMATOCRIT 32.3 % (42.0-52.0); HEMOGLOBIN 10.3 gm/dL (14.0-18.0); MCH 25.7 pg (26.0-34.0); MCV 80.3 fL (80.0-100.0); RBC 4.02 mil/uL (4.50-6.00); RDW 19.9 % (10.5-14.5); WBC 6.5 thou/uL (4.0-11.0)
[2017-09-06 06:33] LABS: CALCIUM 8.8 mg/dL (8.5-10.1); CREATININE 1.4 mg/dL (0.7-1.3); MAGNESIUM 2.4 mg/dL (1.8-2.4); PHOSPHORUS 4.1 mg/dL (2.5-4.9); POTASSIUM 4.2 mmol/L (3.5-5.1)
[2017-09-06 08:50] VITALS: BP 133/68
[2017-09-06 16:20] VITALS: BP 109/71
[2017-09-06 19:00] VITALS: BP 116/76
[2017-09-07 03:10] VITALS: BP 107/66
[2017-09-07 07:33] VITALS: BP 107/60
[2017-09-07] MEDS ORDERED: NYSTATIN100000 UNI SWISH&SPIT (09:38)
[2017-09-07] MEDS ORDERED: AUGMENTIN 875-1 EACH PO (09:38)
[2017-09-07 11:40] VITALS: BP 116/65
[2017-09-07 15:43] VITALS: BP 119/74
[2017-09-07 19:35] VITALS: BP 127/69
[2017-09-08 03:10] VITALS: BP 110/68
[2017-09-08 07:46] VITALS: BP 112/65
[2017-09-08 16:10] VITALS: BP 113/62
[2017-09-08 19:34] VITALS: BP 118/71
[2017-09-09 03:01] VITALS: BP 112/63
[2017-09-09 07:30] VITALS: BP 128/57
[2017-09-09 07:50] LABS: ABSOLUTE NEUTROPHILS 5.6 thou/uL (1.4-8.2); BASOPHILS 0.4 % (0.0-2.0); EOSINOPHILS 1.3 % (0.0-3.0); LYMPHOCYTES 11.8 % (24.0-44.0); MCH 25.3 pg (26.0-34.0); MCHC 31.2 g/dL (28.0-37.0); MCV 81.3 fL (80.0-100.0); MONOCYTES 7.6 % (1.0-8.0); PLATELET COUNT 262 thou/uL (150-400); POLYS 78.9 % (36.0-66.0); RBC 3.57 mil/uL (4.50-6.00); RDW 20.3 % (10.5-14.5); WBC 7.1 thou/uL (4.0-11.0)
[2017-09-09 08:02] LABS: CALCIUM 8.2 mg/dL (8.5-10.1); CREATININE 1.4 mg/dL (0.7-1.3); MAGNESIUM 2.1 mg/dL (1.8-2.4)
[2017-09-09 11:26] VITALS: BP 111/57
== END 2017-09-09 14:06 | DRG 901 ==
LOC: OR 05:23 → TBA 05:23 → EDSTATUS 06:00 → TBA 06:01 → 4E 06:01 → OR 09:09 → 4E 13:57 → ICU 08-27 18:27 → 3W 08-28 14:47
PROVIDERS: Hospitalist; Internal Medicine Pulmonary Disease; Nurse Practitioner; Surgery
PROC: 0WUF0JZ Supplement Abdominal Wall with Synthetic Substitute, Open Approach (ICD-10-PCS; principal; 2017-08-26)
PROC: 0DN80ZZ Release Small Intestine, Open Approach (ICD-10-PCS; principal; 2017-08-26)
PROC: 0JB80ZZ Excision of Abdomen Subcutaneous Tissue and Fascia, Open Approach (ICD-10-PCS; principal; 2017-08-26)
PROC: 0WPG0JZ Removal of Synthetic Substitute from Peritoneal Cavity, Open Approach (ICD-10-PCS; principal; 2017-08-26)
PROC: 0JX80ZZ Transfer Abdomen Subcutaneous Tissue and Fascia, Open Approach (ICD-10-PCS; principal; 2017-08-26)
PROC: 5A09357 Assistance with Respiratory Ventilation, Less than 24 Consecutive Hours, Continuous Positive Airway Pressure (ICD-10-PCS; 2017-08-28)
PROC: 02HV33Z Insertion of Infusion Device into Superior Vena Cava, Percutaneous Approach (ICD-10-PCS; 2017-09-03)
DX: T85.79XA Infection and inflammatory reaction due to other internal prosthetic devices, implants and grafts, initial encounter (principal); A41.9 Sepsis, unspecified organism; J69.0 Pneumonitis due to inhalation of food and vomit; J96.91 Respiratory failure, unspecified with hypoxia; K43.0 Incisional hernia with obstruction, without gangrene; K40.31 Unilateral inguinal hernia, with obstruction, without gangrene, recurrent; K50.90 Crohn's disease, unspecified, without complications; N17.9 Acute kidney failure, unspecified; K56.7 Ileus, unspecified; I50.30 Unspecified diastolic (congestive) heart failure; I13.0 Hypertensive heart and chronic kidney disease with heart failure and stage 1 through stage 4 chronic kidney disease, or unspecified chronic kidney disease; G89.29 Other chronic pain; R10.9 Unspecified abdominal pain; R32 Unspecified urinary incontinence; G47.33 Obstructive sleep apnea (adult) (pediatric); I48.0 Paroxysmal atrial fibrillation; F03.90 Unspecified dementia, unspecified severity, without behavioral disturbance, psychotic disturbance, mood disturbance, and anxiety; I95.9 Hypotension, unspecified; J44.9 Chronic obstructive pulmonary disease, unspecified; E11.40 Type 2 diabetes mellitus with diabetic neuropathy, unspecified; N18.9 Chronic kidney disease, unspecified; T40.605A Adverse effect of unspecified narcotics, initial encounter; E11.22 Type 2 diabetes mellitus with diabetic chronic kidney disease; R40.0 Somnolence; E78.00 Pure hypercholesterolemia, unspecified; I25.10 Atherosclerotic heart disease of native coronary artery without angina pectoris; Z95.5 Presence of coronary angioplasty implant and graft; Z86.718 Personal history of other venous thrombosis and embolism; Z86.73 Personal history of transient ischemic attack (TIA), and cerebral infarction without residual deficits; Z90.49 Acquired absence of other specified parts of digestive tract; Z88.2 Allergy status to sulfonamides; Z88.8 Allergy status to other drugs, medicaments and biological substances; Z79.82 Long term (current) use of aspirin; Z79.899 Other long term (current) drug therapy; Z86.711 Personal history of pulmonary embolism
CPT/HCPCS: 10078; 10779; 10790; 10879; 27000; 50010; 50093; 50101; 50331; 50386; 50455; 50953; 51412; 51437; 54109; 55075; 56524; 56525; 56527; 56530; 56771; 57092; 62110; 62900; 70005

== ENCOUNTER 2017-10-23 21:47 | Inpatient (IN) | payer OTHER ==
[~2017-10-23] VITALS: Ht 172.7 cm; Wt 65.9 kg
--- NOTE | ~2017-10-23 | 2DMMODE ---
[facility] [address] [place] [address] 2 D/M-MODE ECHOCARDIOGRAM Name: ANNABENIGNO J Room #: 457-P [facility] IN ..#: [id number] Admission: 10/24/17 Attend Phys: Dylon Ware, Discharge: Date of : 41 Date of Service: 10/28/17 1254 Report #: [id number] THIS REPORT FOR: //name// APPROVED REPORT Study performed: 10/28/2017 11:20:06 EXAM: Comprehensive 2D, Doppler, and color-flow Echocardiogram Patient Location: Bedside Room #: [facility] Status: routine BSA: 1.78 HR: 80 bpm BP: 128/59 mmHg Other Information Study Quality: Adequate Indications Diabetes Dyspnea Hypertension/HDD 2D Dimensions RVDd: 41.09 mm LVEF(%): 44.84 (>50%) IVSd: 10.64 (7-11mm) LVOT Diam: 19.40 (18-24mm) LVDd: 49.05 mm PWd: 10.72 (7-11mm) Ascending Ao: 27.27 (22-36mm) LVDs: 38.11 (25-40mm) Aortic Root: 30.12 mm IVC: 23.00 mm Bolaños's LVEF: 44.84 % Volumes Left Atrial Volume (Systole) Single Plane 4CH: 42.24 mL Single Plane 2CH: 38.16 mL LA ESV Index: 25.00 mL/m2 Aortic Valve AoV Peak Wiliam.: 1.60 m/s AO Peak Gr.: 10.27 mmHg LVOT Max P.05 mmHg LVOT Max V: 1.01 m/s JAYMIE Vmax: 1.85 cm2 Mitral Valve E/A Ratio: 1.4 [facility] [employer] [place] [address] 2 D/M-MODE ECHOCARDIOGRAM Name: BENIGNO CASTILLO Room #: 457-P [facility] IN ..#: [id number] Admission: 10/24/17 Attend Phys: Dylon Ware, Discharge: Date of : 41 Date of Service: 10/28/17 1254 Report #: [id number] MV Decel. Time: 147.05 ms MV E Max Wiliam.: 1.07 m/s MV A Wiliam.: 0.79 m/s MV PHT: 42.65 ms IVRT: 69.20 ms Pulmonary Valve PV Peak Wiliam.: 1.08 m/s PV Peak Gr.: 4.63 mmHg Pulmonary Vein P Vein S: 0.59 m/s P Vein A: 0.34 m/s P Vein D: 0.47 m/s P Vein A Dur.: 96.9 msec P Vein S/D Ratio: 1.26 Tricuspid Valve TR Peak Wiliam.: 3.58 m/s TR Peak Gr.: 51.27 mmHg PA Pressure: 61.00 mmHg Left Ventricle The left ventricle is normal size. There is normal left ventricular wall thickness. Left ventricular systolic function is borderline. LVEF is 50%. The left ventricular diastolic function is normal. Right Ventricle Right ventricle is at the upper limits of normal. The right ventricular systolic function is normal. Atria The left atrium size is normal. Right atrium is at the upper limits of normal. Aortic Valve The aortic valve is normal in structure. Trace aortic regurgitation. There is no aortic valvular stenosis. Mitral Valve The mitral valve is normal in structure. Trace mitral regurgitation. No evidence of mitral valve stenosis. Tricuspid Valve The tricuspid valve is normal in structure. There is mild tricuspid regurgitation. Estimated PAP 61 mmHg. There is [place] [address] 2 D/M-MODE ECHOCARDIOGRAM Name: BENIGNO CASTILLO Room #: 457-P [facility] IN ..#: [id number] Admission: 10/24/17 Attend Phys: Dylon Ware, Discharge: Date of : 41 Date of Service: 10/28/17 1254 Report #: [id number] Pulmonic Valve The pulmonary valve is normal in structure. There is no pulmonic valvular regurgitation. Great Vessels The aortic root is normal in size. IVC is dilated and collapses <50% with inspiration. Pericardium There is no pericardial effusion. <Conclusion> The left ventricle is normal size. Left ventricular systolic function is borderline. LVEF is 50%. The left ventricular diastolic function is normal. Right ventricle is at the upper limits of normal. The left atrium size is normal. The aortic valve is normal in structure. Trace mitral regurgitation. There is mild tricuspid regurgitation. Estimated PAP 61 mmHg. There is moderate pulmonary hypertension. IVC is dilated and collapses <50% with inspiration. There is no pericardial effusion. <ELECTRONICALLY SIGNED> By: Gentry Macario MD, FACC 10/28/17 1254 1254 1254 Gentry Macario MD, FACC /INF
--- NOTE | ~2017-10-23 | HC ---
[facility] [place] [address] [address] CONSULTATION Name: VICTOR HUGO KENNEDY Room #: 457-P [facility] IN M.R.#: [id number] Admission: 10/24/17 Attend Phys: Dylon Ware MD Discharge: Date of : 41 Report #: [id number] THIS REPORT FOR: //name// CC: Eva Ware DATE OF SERVICE: 10/26/2017 CONSULTATION: Infectious Diseases. HISTORY OF PRESENT ILLNESS: Victor Hugo Kennedy is a 72-year-old white male, admitted to [facility] on 10/24/2017 with complaints of increase of his chronic diarrhea, now associated with nausea and vomiting. CT scan was suggestive of a small-bowel obstruction or an ileus. The patient was treated with n.p.o. Surgical consultation felt that conservative therapy was appropriate. While the patient was on IV fluids and n.p.o., receiving pain medicine, he was quite somnolent. His GI symptoms did respond to this regimen, but he became increasingly hypoxic. A CT angiogram showed no clot, but what was described as extensive infiltrates, particularly on the right side. Infectious Disease consultation was requested to assist with antibiotic management. The patient has a long history of abdominal problems. He has had cholecystectomy, appendectomy and partial colectomy. He has a diagnosis of Crohn disease. He developed ventral hernia, repaired with mesh. 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 Most recently he had removal of a large amount of mesh on 08/26/2017. He was in the hospital for an additional 2 weeks and then discharged to rehabilitation. I do not know how long he has been home from rehab before he returns to the hospital with his complaints of nausea, vomiting, diarrhea and increased abdominal pain. PAST MEDICAL HISTORY: Includes diabetes, hypertension, deep vein thrombosis, atrial fibrillation, sleep apnea, fibromyalgia, chronic cough. 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 ALLERGIES: THE PATIENT NOTES ALLERGY TO SULFA DRUGS. MEDICATION RECONCILIATION: Current medications include guaifenesin 1200 mg p.o. b.i.d., hydrocodone q.4 hours p.r.n., fentanyl 25 mcg IV q.3 hours p.r.n., Tylenol 650 mg q.4 hours p.r.n., benzonatate 100 mg every 8 hours p.r.n., insulin sliding scale, pregabalin 25 mg at bedtime, aspirin 81 mg daily, dextrose and glucose as needed for glycemic control, albuterol 2.5 mg aerosol every 4 hours, pramipexole 1 mg t.i.d., nystatin swish and swallow, pantoprazole 20 mg p.o. b.i.d., docusate 100 mg p.o. b.i.d. p.r.n., Zofran 4 mg IV p.r.n., morphine 4 mg q.4 hours p[address]r.n. [address] [address] CONSULTATION Name: VICTOR HUGO KENNEDY Room #: 457-P 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 He does continue to smoke cigarettes about half a pack per day. No history of alcohol or drugs. REVIEW OF SYSTEMS: Somewhat difficult as the patient is somewhat somnolent. He will arouse and say that he does not feel good. He notes no fevers, chills or sweats. Denies any head or neck complaints. He does note cough and dyspnea. He notes that the nausea, vomiting and diarrhea have resolved. He continues to have a chronic abdominal pain described as a burning in his stomach. No urinary complaints. No pain in the extremities. PHYSICAL EXAMINATION: GENERAL: The patient appears older than his stated age, ill, uncomfortable, but not in distress. VITAL SIGNS: Show maximum measured temperature 100.3. Blood pressure 114/54. SKIN: Pale, but without rash, lesions nor exanthem. ENT: Negative. NECK: Supple. HEART: Sounds distant S1, S2. CHEST: Breath sounds are diminished. ABDOMEN: Belly shows midline surgical wound, which is well healed. There is no redness, warmth, fluctuance, nor any drainage from the abdominal wall. The abdomen is diffusely tender to a [id number] degree. There is no guarding of the abdomen. Bowel sounds are present. EXTREMITIES: Thin, warm, but otherwise unremarkable. LABORATORY DATA: White count is 9.2. Hemoglobin is down to 7.5. The platelets are 193,000. During the previous hospitalization, the hemoglobin was in the 9-12 range and was 9.0 upon discharge. The chemistries are unremarkable, BUN 19, creatinine 1.2, glucose is 51. The chest x-ray showed some diffuse infiltrates, right greater than left. CT angiogram was remarkable for extensive infiltrates on the right with a little bit on the left as well. Additional labs show the iron is very low at 11, TIBC in range at 295, but with only 4% saturation. B-type natriuretic peptide was 3190. B12 and folate were fine. The influenza antigen is negative. ASSESSMENT AND PLAN: In summary, the patient is chronically ill with cough and abdominal pain. He has a number of abdominal diagnoses including Crohn disease, recent removal of infected mesh and has recently had surgery and been in a rehab unit. He returned with GI symptoms, but then developed pulmonary symptoms. This certainly could represent community-acquired pneumonia. I do not know how long this patient has been out of the hospital and long term, so this could even be considered a healthcare-associated pneumonia. I suspect there is a significant component of heart failure given the fact that the patient has been [facility] [address] [place] [address] CONSULTATION Name: ANNAVICTOR HUGO Quin Room #: 457-P ADM IN M.R.#: [id number] Admission: 10/24/17 Attend Phys: Dylon Ware MD Discharge: Date of : 41 Report #: [id number] on IV fluids and now has a BNP of over 3000. At this time, I would like to check a nasal swab for respiratory viruses, not just influenza. I would like to obtain a sputum for culture if possible. I think we should initiate antibiotic therapy with azithromycin and ceftazidime. With the patient's GI history, we will give probiotics. The patient may need more aggressive treatment for possible fluid overload with followup chest x-rays. It would be good if we can minimize the narcotic sedation as I suspect this may be exacerbating the patient's atelectasis and pulmonary infiltrates. At this time, I do not think we have a significant acute infection in the abdomen. I appreciate the opportunity of input in the care of this complex gentleman. I will be happy to follow him through the weekend until Dr. Michael Garrido returns on Saturday. Thank you for requesting Infectious Disease consultation. <ELECTRONICALLY SIGNED> By: Otoniel Lopez MD 10/27/17 1823 1726 2159 Otoniel Lopez MD /nt
--- NOTE | ~2017-10-23 | HC ---
[facility] [place] [address] [address] [place] [address] CONSULTATION Name: BENIGNO CASTILLO Room #: 457-P [facility] IN M.R.#: [id number] Admission: 10/24/17 Attend Phys: Dylon Ware MD Discharge: Date of : 41 Report #: [id number] THIS REPORT FOR: //name// CC: Eva Ware DATE OF SERVICE: 10/24/2017 REFERRING PROVIDER: Dylon Ware MD. REASON FOR CONSULT: Abdominal pain, nausea and vomiting. HISTORY OF PRESENT ILLNESS: The patient is a 72-year-old male who presented to the hospital complaining of a 3-day history of abdominal pain, nausea and vomiting and diarrhea. The patient does have chronic abdominal pain, which he has had for several years and he states his pain is no worse than usual. However, he has continued with chronic coughing, which he feels exacerbates his abdominal pain as well. Workup in the Emergency Room in the form of laboratories and a CT scan of the abdomen and pelvis were obtained. The patient's labs were within normal limits and his CT scan showed air fluid levels within the small bowel without any overt transition zone and this was concerning for an ileus versus a partial small-bowel obstruction. As the patient is having overt diarrhea with nausea and vomiting, he was admitted and I am asked to evaluate. 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 HOME MEDICATIONS: Vitamin D, metformin, Mirapex ER, modafinil, Colace, aspirin, vitamin B12, Zofran, Protonix, Lyrica, Ambien, Eliquis, and Lipitor. ALLERGIES: SULFA AND PROPOXYPHENE. SOCIAL HISTORY: The patient does not utilize alcohol or illicit drugs. He does smoke a half a pack of cigarettes daily and has done so for many years. FAMILY HISTORY: Reviewed and noncontributory. REVIEW OF SYSTEMS: GENERAL: The patient denies nocturnal fevers or chills. HEENT: No change in vision or change in hearing. NECK: No swelling or difficulty swallowing. HEART: No chest pain or palpitations. LUNGS: No cough or shortness of breath. [address] [address] CONSULTATION Name: BENIGNO CASTILLO Quin Room #: 457-P [facility] IN M.R.#: [id number] Admission: 10/24/17 Attend Phys: Dylon Ware MD Discharge: Date of : 41 Report #: [id number] ABDOMEN: Positive for nausea and vomiting and diarrhea. GENITOURINARY: No dysuria or hematuria. ENDOCRINE: No polyuria or polydipsia. HEMATOLOGIC: No history of bleeding or easy bruising. EXTREMITIES: No history of weakness or limited range of motion. NEUROLOGIC: No history of syncope or near syncopal episodes. SKIN AND INTEGUMENT: No history of abnormal lesions or moles. PSYCHIATRIC: No history of anxiety or depression. PHYSICAL EXAMINATION: VITAL SIGNS: Temperature 98.5, pulse 96, respirations 20, blood pressure 113/64. He is 5 feet 8 inches tall and weighs 145 pounds. GENERAL: Alert and oriented, in no acute distress. HEENT: Normocephalic, atraumatic. Pupils equal, round, reactive to light. NECK: Supple, without lymphadenopathy. Trachea midline. HEART: Regular rate and rhythm. LUNGS: Clear to auscultation bilaterally. ABDOMEN: Soft, nondistended. He has normal bowel sounds. He is diffusely tender to deep palpation as per standard, but he has no rebound or guarding or other peritoneal signs or symptoms. GENITOURINARY: Normal external male genitalia. EXTREMITIES: No clubbing, cyanosis or edema. NEUROLOGIC: Cranial nerves 2-12 are grossly intact. PSYCHIATRIC: Normal mood and affect. SKIN AND INTEGUMENT: No abnormal lesions or moles. His midline abdominal incision is well healed without herniation appreciated. LABORATORY AND X-RAY DATA: CBC shows white blood cell count of 9700, hemoglobin 8.2, platelets 219,000. Creatinine 1.3. Liver function enzymes normal. Lipase is slightly elevated at 429. Lactic acid normal at 1.5. Urinalysis is negative. CT scan of the abdomen and pelvis as per HPI shows air fluid levels within the small bowel with no definite transition zone. Chest x-ray shows a lateral, right mid lung focal density thought to be atelectasis versus possible pneumonia. ASSESSMENT AND PLAN: A 72-year-old male with a complex abdominal surgical history who presents with air fluid levels within the small bowel, a 3-day history of nausea, vomiting and diarrhea and a baseline abdominal pain. It is possible the patient does have a partial small-bowel obstruction versus an ileus; however, this could also just be gastroenteritis with no evidence of an overt transition zone being seen. I did discuss the patient's workup for greater than 60 minutes with the patient at the bedside today and ultimately, he understands that the treatment for this is going to be supportive care with bowel rest and IV fluid rehydration. I will obtain a small bowel series on him tomorrow to further investigate his possible bowel obstruction versus an ileus. [address] [address] CONSULTATION Name: BENIGNO CASTILLO Room #: 457-P ADM IN M.R.#: [id number] Admission: 10/24/17 Attend Phys: Dylon Ware MD Discharge: Date of : 41 Report #: [id number] I sincerely appreciate this consult. I will follow along while he is hospitalized and leave any further recommendations in the patient's chart as appropriate. <ELECTRONICALLY SIGNED> By: Eva Claire MD, FACS 10/28/17 1014 1023 1927 Eva Claire MD, FACS /nt
[~2017-10-23 21:47] MED LIST changes: +AUGMENTIN 875-1 EACH PO; +NYSTATIN100000 UNI SWISH&SPIT
[2017-10-23 21:48] VITALS: BP 144/70
[2017-10-23 23:02] LABS: ABSOLUTE NEUTROPHILS 7.3 thou/uL (1.4-8.2); BASOPHILS 0.8 % (0.0-2.0); HEMOGLOBIN 8.2 gm/dL (14.0-18.0); MCH 23.6 pg (26.0-34.0); MCHC 31.5 g/dL (28.0-37.0); MCV 74.8 fL (80.0-100.0); MONOCYTES 7.6 % (1.0-8.0); PLATELET COUNT 219 thou/uL (150-400); POLYS 75.6 % (36.0-66.0); RBC 3.47 mil/uL (4.50-6.00); WBC 9.7 thou/uL (4.0-11.0)
[2017-10-23 23:06] LABS: CALCIUM 9.1 mg/dL (8.5-10.1); CREATININE 1.3 mg/dL (0.7-1.3); POTASSIUM 4.7 mmol/L (3.5-5.1)
[2017-10-23 23:27] LABS: ALBUMIN 3.3 g/dL (3.4-5.0); TOTAL BILIRUBIN 0.3 mg/dL (<0.1-1.0); TOTAL PROTEIN 7.8 g/dL (6.4-8.2)
[2017-10-24] VITALS (7 sets, daily range): BP systolic 108–126; BP diastolic 51–68
[2017-10-24 00:10] LABS: URINE BILIRUBIN NEGATIVE (Negative); URINE BLOOD TRACE (Negative); URINE CLARITY CLEAR; URINE COLOR YELLOW; URINE GLUCOSE-RANDOM* NEGATIVE (Negative); URINE KETONES NEGATIVE (Negative); URINE LEUKOCYTES-REFLEX NEGATIVE (Negative); URINE NITRITE-REFLEX NEGATIVE (Negative); URINE PROTEIN (DIPSTICK) TRACE (Negative); URINE SPECIFIC GRAVITY 1.015 (1.005-1.035); URINE UROBILINOGEN 0.2 E.U./dl (0.2-1.0)
[2017-10-25 04:48] VITALS: BP 123/54
[2017-10-25 05:33] LABS: CALCIUM 8.2 mg/dL (8.5-10.1); CREATININE 1.2 mg/dL (0.7-1.3); POTASSIUM 4.3 mmol/L (3.5-5.1)
[2017-10-25 06:47] LABS: HEMOGLOBIN 7.4 gm/dL (14.0-18.0); MCH 23.7 pg (26.0-34.0); MCHC 30.8 g/dL (28.0-37.0); MCV 76.8 fL (80.0-100.0); RBC 3.13 mil/uL (4.50-6.00); RDW 21.3 % (10.5-14.5); WBC 9.1 thou/uL (4.0-11.0)
[2017-10-25 08:00] VITALS: BP 126/60
[2017-10-25 16:00] VITALS: BP 124/67
[2017-10-25 21:12] VITALS: BP 134/70
[2017-10-26 04:05] VITALS: BP 131/73
[2017-10-26 06:03] LABS: HEMATOCRIT 24.9 % (42.0-52.0); HEMOGLOBIN 7.5 gm/dL (14.0-18.0); MCH 23.5 pg (26.0-34.0); MCHC 30.2 g/dL (28.0-37.0); MCV 77.8 fL (80.0-100.0); RBC 3.2 mil/uL (4.50-6.00); RDW 21.1 % (10.5-14.5); WBC 9.2 thou/uL (4.0-11.0)
[2017-10-26 07:28] VITALS: BP 123/60
[2017-10-26 15:25] LABS: % SATURATION 4 % (20-39); IRON 11 ug/dL (65-175); TIBC 295 ug/dL (250-450)
[2017-10-26 15:35] VITALS: BP 114/54
[2017-10-26 19:17] VITALS: BP 103/55
[2017-10-27 04:24] VITALS: BP 123/66
[2017-10-27 06:29] LABS: HEMATOCRIT 20.6 % (42.0-52.0); MCH 23.8 pg (26.0-34.0); MCHC 31.1 g/dL (28.0-37.0); MCV 76.7 fL (80.0-100.0); RBC 2.69 mil/uL (4.50-6.00); RDW 20.8 % (10.5-14.5); WBC 6.3 thou/uL (4.0-11.0)
[2017-10-27 06:32] LABS: HEMOGLOBIN 6.4 gm/dL (14.0-18.0)
[2017-10-27 06:34] LABS: CALCIUM 8.6 mg/dL (8.5-10.1); CREATININE 1.1 mg/dL (0.7-1.3); MAGNESIUM 2.3 mg/dL (1.8-2.4); POTASSIUM 3.9 mmol/L (3.5-5.1)
[2017-10-27 12:05] VITALS: BP 121/70; BP 124/65
[2017-10-27 16:00] VITALS: BP 112/62
[2017-10-27 16:57] LABS: HEMATOCRIT 26.1 % (42.0-52.0)
[2017-10-28 00:08] LABS: GLYCOHEMOGLOBIN (HGB A1C) 5.8 % (4.8-5.6)
[2017-10-28 03:53] VITALS: BP 110/54
[2017-10-28 06:33] LABS: HEMOGLOBIN 7.7 gm/dL (14.0-18.0); MCH 24.2 pg (26.0-34.0); MCHC 30.7 g/dL (28.0-37.0); MCV 78.7 fL (80.0-100.0); RBC 3.17 mil/uL (4.50-6.00); RDW 21.4 % (10.5-14.5); WBC 5.5 thou/uL (4.0-11.0)
[2017-10-28 06:47] LABS: CALCIUM 8.5 mg/dL (8.5-10.1); CREATININE 1.2 mg/dL (0.7-1.3); MAGNESIUM 1.9 mg/dL (1.8-2.4); POTASSIUM 3.6 mmol/L (3.5-5.1)
[2017-10-28 07:04] VITALS: BP 128/59
[2017-10-28 16:05] VITALS: BP 145/68
[2017-10-28 19:26] VITALS: BP 144/77
[2017-10-29 03:50] VITALS: BP 144/88
[2017-10-29 06:03] LABS: HEMATOCRIT 26.6 % (42.0-52.0); HEMOGLOBIN 8.4 gm/dL (14.0-18.0); MCH 24.4 pg (26.0-34.0); MCHC 31.5 g/dL (28.0-37.0); MCV 77.6 fL (80.0-100.0); RBC 3.43 mil/uL (4.50-6.00); RDW 22.2 % (10.5-14.5); WBC 5.4 thou/uL (4.0-11.0)
[2017-10-29 06:15] LABS: CALCIUM 8.7 mg/dL (8.5-10.1); MAGNESIUM 1.8 mg/dL (1.8-2.4)
[2017-10-29 08:19] VITALS: BP 148/80
[2017-10-29 15:44] VITALS: BP 142/69
[2017-10-29 20:05] VITALS: BP 133/53
[2017-10-29 22:09] LABS: ADENOVIRUS Negative (Negative); INFLUENZA A Negative (Negative); INFLUENZA B Negative (Negative); METAPNEUMOVIRUS Negative (Negative); PARAINFLUENZA 1 Negative (Negative); PARAINFLUENZA 2 Negative (Negative); PARAINFLUENZA 3 Negative (Negative); RHINOVIRUS Positive (Negative); RSV A Negative (Negative); RSV B Negative (Negative)
[2017-10-30 03:35] VITALS: BP 158/73
[2017-10-30 06:33] LABS: HEMATOCRIT 30.4 % (42.0-52.0); HEMOGLOBIN 9.5 gm/dL (14.0-18.0); MCH 24.5 pg (26.0-34.0); MCHC 31.4 g/dL (28.0-37.0); RBC 3.89 mil/uL (4.50-6.00); RDW 21.8 % (10.5-14.5); WBC 4.8 thou/uL (4.0-11.0)
[2017-10-30 06:44] LABS: CREATININE 1.1 mg/dL (0.7-1.3); POTASSIUM 4.4 mmol/L (3.5-5.1)
[2017-10-30 08:27] VITALS: BP 149/78
[2017-10-30 17:21] VITALS: BP 124/62
[2017-10-30 19:31] VITALS: BP 109/63
[2017-10-31 03:36] VITALS: BP 118/63
[2017-10-31 07:48] VITALS: BP 109/52
[2017-10-31] MEDS ORDERED: IRON325 PO (09:09)
[2017-10-31] MEDS ORDERED: NYSTATIN100000 UNI SWISH&SPIT (09:09)
[2017-10-31] MEDS ORDERED: AUGMENTIN 875-1 EACH PO (09:09)
[2017-10-31] MEDS ORDERED: REGLAN 5 MG TAB5 MG PO (09:10)
== END 2017-10-31 16:20 | DRG 388 ==
LOC: ER 21:47 → 4W 10-24 01:08 → EROBS 10-24 01:08 → 4W 10-24 01:50
PROVIDERS: Emergency Medicine; Family Medicine; Internal Medicine; Internal Medicine Infectious Disease
PROC: 30233N1 Transfusion of Nonautologous Red Blood Cells into Peripheral Vein, Percutaneous Approach (ICD-10-PCS; principal; 2017-10-27)
DX: K56.600 Partial intestinal obstruction, unspecified as to cause (principal); E43 Unspecified severe protein-calorie malnutrition; J96.01 Acute respiratory failure with hypoxia; J69.0 Pneumonitis due to inhalation of food and vomit; K50.90 Crohn's disease, unspecified, without complications; E11.9 Type 2 diabetes mellitus without complications; F03.90 Unspecified dementia, unspecified severity, without behavioral disturbance, psychotic disturbance, mood disturbance, and anxiety; F17.210 Nicotine dependence, cigarettes, uncomplicated; G89.29 Other chronic pain; R10.9 Unspecified abdominal pain; G47.33 Obstructive sleep apnea (adult) (pediatric); I48.0 Paroxysmal atrial fibrillation; D63.8 Anemia in other chronic diseases classified elsewhere; I50.9 Heart failure, unspecified; K43.9 Ventral hernia without obstruction or gangrene; D50.9 Iron deficiency anemia, unspecified; B34.8 Other viral infections of unspecified site; K56.7 Ileus, unspecified; I11.0 Hypertensive heart disease with heart failure; Z86.718 Personal history of other venous thrombosis and embolism; Z86.73 Personal history of transient ischemic attack (TIA), and cerebral infarction without residual deficits; Z90.49 Acquired absence of other specified parts of digestive tract; Z88.2 Allergy status to sulfonamides; Z88.8 Allergy status to other drugs, medicaments and biological substances; Z68.22 Body mass index [BMI] 22.0-22.9, adult
CPT/HCPCS: 10045

== ENCOUNTER 2017-12-31 16:31 | Inpatient (IN) | payer OTHER ==
[~2017-12-31] VITALS: Ht 170.2 cm; Wt 65.8 kg
--- NOTE | ~2017-12-31 | EKG ---
[address] [address] ELECTROCARDIOGRAM REPORT Name: BENIGNO CASTILLO Room #: 412-P ADM IN M.R.#: [id number] Admission: 12/31/17 Attend Phys: Dylon Ware MD Discharge: Date of : 41 Report #: [id number] THIS REPORT FOR: //name// [facility] Test Date: 2018-01-05 Test Time: 08:43:31 Pat Name: BENIGNO CASTILLO Department: Room: 412 P Gender: M Unit Coordinator: bs : 1945 Requested By: Dylon Ware Order Number: [id number] MD: Maykel aMthis Measurements Intervals [place] Rate: 73 P: 63 IA: 141 QRS: 68 QRSD: 144 T: 52 QT: 422 QTc: 465 Interpretive Statements Sinus rhythm Right bundle branch block Compared to ECG 08/27/2017 19:36:06 Right bundle-branch block now present Electronically Signed On 01-05-2018 13:01:07 CDT by Maykel Mathis [email or web address] <ELECTRONICALLY SIGNED> By: Maykel Mathis MD 01/05/18 1301 0843 MD ILSA Ortega
--- NOTE | ~2017-12-31 | HC ---
[facility] [place] [address] CONSULTATION Name: BENIGNO CASTILLO Room #: 412-P [facility] IN M.R.#: [id number] Admission: 12/31/17 Attend Phys: Dylon Ware MD Discharge: 01/05/18 Date of : 41 Report #: [id number] THIS REPORT FOR: //name// CC: Dylon Ware DATE OF SERVICE: 01/03/2018 GENERAL SURGERY CONSULTATION REFERRING PROVIDER: Dylon Ware MD REASON FOR CONSULTATION: Abdominal pain. HISTORY OF PRESENT ILLNESS: The patient is a 72-year-old male well known to me as he is approximately 4 months status post complex abdominal wall reconstruction with explantation of infected mesh. The patient has been admitted over the past few days for pneumonia in the setting of tobaccoism and has been undergoing therapy with IV antibiotics, breathing treatments and cough suppressants. The patient does continue to complain of ongoing abdominal pain and as such, I was asked to evaluate. PAST MEDICAL HISTORY: Extensive and includes chronic pain disorder, fibromyalgia, Crohn disease, diabetes mellitus, obstructive sleep apnea with CPAP dependency, prior DVTs and TIAs, hypertension, prior cholecystectomy, appendectomy, colon resection, atrial fibrillation and multiple abdominal hernia repairs. HOME MEDICATIONS: Include metformin, Mirapex, modafinil, Colace, aspirin, Protonix, Lyrica, Ambien, Eliquis and Lipitor. ALLERGIES: SULFA AND PROPOXYPHENE. SOCIAL HISTORY: The patient smokes a pack of cigarettes daily and denies alcohol or illicit drug use. FAMILY HISTORY: Reviewed and noncontributory. REVIEW OF SYSTEMS: GENERAL: The patient denies nocturnal fevers or chills. HEENT: No change in vision, change in hearing. NECK: No swelling or difficulty swallowing. HEART: No chest pain or palpitations. LUNGS: Chronic cough and intermittent shortness of breath. ABDOMEN: Chronic abdominal wall pain. No nausea, no vomiting. GENITOURINARY: No dysuria or hematuria. ENDOCRINE: No polyuria, polydipsia. [facility] [address] [place] [address] CONSULTATION Name: ANNABENIGNO Quin Room #: 412-[facility] IN M.R.#: [id number] Admission: 12/31/17 Attend Phys: Dylon Ware MD Discharge: 01/05/18 Date of : 41 Report #: [id number] HEMATOLOGIC: No history of bleeding or easy bruising. EXTREMITIES: No history weakness or limited range of motion. NEUROLOGIC: No history of syncope or near syncopal episodes. SKIN AND INTEGUMENT: No history of abnormal lesions or moles. PSYCHIATRIC: No history of anxiety or depression. PHYSICAL EXAMINATION: VITAL SIGNS: Temperature 97.5, pulse 86, respirations 18, blood pressure 136/78. He is 5 feet 7 inches tall and weighs 145 pounds. GENERAL: Alert and oriented, in no acute distress. HEENT: Normocephalic, atraumatic. Pupils equal, round, reactive to light. NECK: Supple, without lymphadenopathy. Trachea midline. HEART: Regular rate and rhythm. LUNGS: Decreased air entry at their bases bilaterally with crackles throughout both lung angeles. ABDOMEN: Soft, nontender, nondistended. He has normoactive bowel sounds. His wounds are well healed without palpable recurrent herniation. He complains of tenderness throughout his abdominal wall, but this is not elicited on physical examination. GENITOURINARY: Normal external male genitalia. EXTREMITIES: No clubbing, cyanosis or edema. NEUROLOGIC: Cranial nerves 2-12 are grossly intact. PSYCHIATRIC: Normal mood and affect. SKIN AND INTEGUMENT: No abnormal lesions or moles. LABORATORY AND X-RAY DATA: CBC shows white blood cell count of 6.4 thousand, hemoglobin 8.6, platelets 146,000. Creatinine is 1.4. Chest x-ray shows atelectasis versus pneumonitis. ASSESSMENT AND PLAN: A 72-year-old male, who is slightly greater than 4 months status post complex abdominal wall reconstruction with explantation of infected mesh, who has ongoing complaints of abdominal wall pain. The patient has no evidence of recurrent herniation and his wounds are well healed. I did have a long discussion with him regarding that this is likely nerve pain, especially in the setting of his chronic pain disorder and fibromyalgia. We will initiate Neurontin at this time to augment his pain control and hopefully that will work for him. If not, I recommend he see pain service for further evaluation. I sincerely appreciate this consult. I will follow along while hospitalized and leave any further recommendations in the patient's chart as appropriate. <ELECTRONICALLY SIGNED> By: Eva Claire MD, FACS 01/07/1809 1240 57 Eva Claire MD, FACS /nt
[~2017-12-31 16:31] MED LIST changes: +IRON325 PO; +REGLAN 5 MG TAB5 MG PO
[2017-12-31 16:35] VITALS: BP 124/58
[2017-12-31 17:23] LABS: URINE BILIRUBIN NEGATIVE (Negative); URINE BLOOD 1+ (Negative); URINE CLARITY CLEAR; URINE COLOR YELLOW; URINE GLUCOSE-RANDOM* NEGATIVE (Negative); URINE KETONES NEGATIVE (Negative); URINE LEUKOCYTES-REFLEX NEGATIVE (Negative); URINE NITRITE-REFLEX NEGATIVE (Negative); URINE PROTEIN (DIPSTICK) TRACE (Negative); URINE SPECIFIC GRAVITY 1.025 (1.005-1.035); URINE UROBILINOGEN 0.2 E.U./dl (0.2-1.0)
[2017-12-31 17:34] LABS: BACTERIA-REFLEX 1-9 Few /HPF (None Seen); CASTS None Seen /LPF (None Seen); CRYSTALS None Seen /LPF (None Seen); SQUAMOUS 0-3 Few /LPF (0-3); URINE RBC 0-2 Rare /HPF (0-2); URINE WBC-REFLEX None Seen /HPF (0-5)
[2017-12-31 18:11] LABS: CALCIUM 8.7 mg/dL (8.5-10.1); CREATININE 1.2 mg/dL (0.7-1.3); POTASSIUM 4.4 mmol/L (3.5-5.1)
[2017-12-31 18:14] LABS: ABSOLUTE NEUTROPHILS 4.6 thou/uL (1.4-8.2); BASOPHILS 0.6 % (0.0-2.0); EOSINOPHILS 1.6 % (0.0-3.0); HEMATOCRIT 30.1 % (42.0-52.0); HEMOGLOBIN 9.6 gm/dL (14.0-18.0); LYMPHOCYTES 13.9 % (24.0-44.0); MCH 25.3 pg (26.0-34.0); MCHC 31.8 g/dL (28.0-37.0); MCV 79.6 fL (80.0-100.0); MONOCYTES 9.1 % (1.0-8.0); PLATELET COUNT 179 thou/uL (150-400); POLYS 74.8 % (36.0-66.0); RBC 3.78 mil/uL (4.50-6.00); RDW 21.7 % (10.5-14.5); WBC 6.2 thou/uL (4.0-11.0)
[2017-12-31 18:17] LABS: ALBUMIN 3.6 g/dL (3.4-5.0); TOTAL BILIRUBIN 0.2 mg/dL (<0.1-1.0); TOTAL PROTEIN 7.1 g/dL (6.4-8.2)
[2017-12-31 19:25] LABS: ANISOCYTOSIS 2+; BURR CELLS OCCASIONAL
[2017-12-31 21:12] VITALS: BP 128/69
[2017-12-31 21:33] VITALS: BP 128/69
[2017-12-31 22:00] VITALS: BP 130/62
[2018-01-01 03:52] VITALS: BP 151/63
[2018-01-01 05:59] LABS: HEMATOCRIT 26.3 % (42.0-52.0); HEMOGLOBIN 8.2 gm/dL (14.0-18.0); MCH 24.9 pg (26.0-34.0); MCHC 31.1 g/dL (28.0-37.0); MCV 80.1 fL (80.0-100.0); RBC 3.29 mil/uL (4.50-6.00); RDW 21.5 % (10.5-14.5); WBC 4.8 thou/uL (4.0-11.0)
[2018-01-01 09:09] VITALS: BP 122/61
[2018-01-01 15:55] VITALS: BP 113/62
[2018-01-01 20:00] VITALS: BP 154/63
[2018-01-02 04:00] VITALS: BP 122/61
[2018-01-02 08:00] VITALS: BP 132/68
[2018-01-02 16:30] VITALS: BP 154/86
[2018-01-02 20:00] VITALS: BP 148/83
[2018-01-03 05:58] VITALS: BP 142/81
[2018-01-03 07:15] VITALS: BP 140/83
[2018-01-03 10:48] LABS: HEMATOCRIT 27.1 % (42.0-52.0); HEMOGLOBIN 8.6 gm/dL (14.0-18.0); MCH 25.2 pg (26.0-34.0); MCHC 31.6 g/dL (28.0-37.0); MCV 79.6 fL (80.0-100.0); RBC 3.41 mil/uL (4.50-6.00); RDW 21.6 % (10.5-14.5); WBC 6.4 thou/uL (4.0-11.0)
[2018-01-03 11:00] LABS: CALCIUM 8.3 mg/dL (8.5-10.1); CREATININE 1.4 mg/dL (0.7-1.3)
[2018-01-03 16:25] VITALS: BP 136/7
[2018-01-03 20:30] VITALS: BP 144/65
[2018-01-04 04:11] VITALS: BP 139/78
[2018-01-04 08:25] VITALS: BP 149/87
[2018-01-04 16:39] VITALS: BP 146/71
[2018-01-04 20:25] VITALS: BP 144/72
[2018-01-05 05:06] VITALS: BP 143/69
[2018-01-05 07:55] VITALS: BP 143/67
[2018-01-05] MEDS ORDERED: LEVAQUIN 500 M500 M2 PO (08:30)
[2018-01-05 10:59] VITALS: BP 143/67
== END 2018-01-05 15:43 | disposition home or self-care (01) | DRG 177 ==
LOC: ER 16:31 → 4N 20:38 → EROBS 20:38 → 4N 21:33
PROVIDERS: Family Medicine; Physician Assistant
DX: J15.6 Pneumonia due to other Gram-negative bacteria (principal); E43 Unspecified severe protein-calorie malnutrition; K50.90 Crohn's disease, unspecified, without complications; K52.9 Noninfective gastroenteritis and colitis, unspecified; D64.9 Anemia, unspecified; G89.29 Other chronic pain; E11.9 Type 2 diabetes mellitus without complications; G47.33 Obstructive sleep apnea (adult) (pediatric); F17.210 Nicotine dependence, cigarettes, uncomplicated; F03.90 Unspecified dementia, unspecified severity, without behavioral disturbance, psychotic disturbance, mood disturbance, and anxiety; S40.861A Insect bite (nonvenomous) of right upper arm, initial encounter; I48.91 Unspecified atrial fibrillation; I10 Essential (primary) hypertension; Z86.718 Personal history of other venous thrombosis and embolism; Z86.73 Personal history of transient ischemic attack (TIA), and cerebral infarction without residual deficits; Z90.49 Acquired absence of other specified parts of digestive tract; Z88.2 Allergy status to sulfonamides; Z88.8 Allergy status to other drugs, medicaments and biological substances
CPT/HCPCS: 10790

== ENCOUNTER 2018-02-10 13:51 | Inpatient (IN) | payer OTHER ==
[~2018-02-10] VITALS: Ht 172.7 cm; Wt 65.3 kg
--- NOTE | ~2018-02-10 | EKG ---
[place] [address] [facility] [place] [address] ELECTROCARDIOGRAM REPORT Name: BENIGNO CASTILLO Quin Room #: 170-4 ADM IN M.R.#: [id number] Admission: 02/10/18 Attend Phys: Dylon Ware MD Discharge: Date of : 43 Report #: [id number] THIS REPORT FOR: //name// [facility] ED Test Date: 2018-02-10 Test Time: 14:42:23 Pat Name: BENIGNO CASTILLO Department: Room: Gender: M Patient Companion: : 1945 Requested By: Yudi Palomino Order Number: [id number] MD: Edison Tate Measurements Intervals [place] Rate: 72 P: 46 WA: 168 QRS: 75 QRSD: 146 T: 42 QT: 443 QTc: 485 Interpretive Statements Sinus rhythm Right bundle branch block Compared to ECG 01/05/2018 08:43:31 No significant changes Electronically Signed On 02-10-2018 17:09:58 CDT by Edison Tate [email or web address] <ELECTRONICALLY SIGNED> By: Edison Tate MD, [facility] 02/10/18 1709 144 144 Edison Tate MD, FACC /EPI
[2018-02-10 13:51] VITALS: BP 134/62
[~2018-02-10 13:51] MED LIST changes: +LEVAQUIN 500 M500 M2 PO
[2018-02-10 14:53] LABS: ABSOLUTE NEUTROPHILS 4.1 thou/uL (1.4-8.2); BASOPHILS 0.3 % (0.0-2.0); EOSINOPHILS 1.2 % (0.0-3.0); HEMATOCRIT 34.9 % (42.0-52.0); HEMOGLOBIN 11.2 gm/dL (14.0-18.0); LYMPHOCYTES 19.4 % (24.0-44.0); MCH 25.8 pg (26.0-34.0); MCHC 32.1 g/dL (28.0-37.0); MCV 80.4 fL (80.0-100.0); MONOCYTES 7.3 % (1.0-8.0); PLATELET COUNT 159 thou/uL (150-400); POLYS 71.8 % (36.0-66.0); RBC 4.34 mil/uL (4.50-6.00); RDW 21.4 % (10.5-14.5); WBC 5.7 thou/uL (4.0-11.0)
[2018-02-10 15:08] LABS: ANION GAP 10 mmol/L (7-16); BUN 15 mg/dL (7-18); CALCIUM 8.5 mg/dL (8.5-10.1); CHLORIDE 107 mmol/L (98-107); CO2 21 mmol/L (21-32); CREATININE 1.4 mg/dL (0.7-1.3); GLUCOSE 163 mg/dL (74-106); SODIUM 138 mmol/L (136-145)
[2018-02-10 15:12] LABS: DIRECT BILIRUBIN 0.1 mg/dL (<0.1-0.3); LIPASE 378 U/L (73-393); SGOT 28 U/L (15-37); SGPT 34 U/L (30-65); TOTAL BILIRUBIN 0.4 mg/dL (<0.1-1.0); TROPONIN-I <0.06 ng/mL (<0.06)
[2018-02-10 15:31] LABS: ANISOCYTOSIS 2+; POLYCHROMASIA SLIGHT
[2018-02-10 18:20] VITALS: BP 117/60
[2018-02-10] MEDS ORDERED: CARDIZEM CD180 MG PO (20:45)
[2018-02-10] MEDS ORDERED: ONDANSETRON HCL4 M2 PO (20:48)
[2018-02-10] MEDS ORDERED: PROTONIX 20 MG20 M1 PO (20:49)
[2018-02-10] MEDS ORDERED: PRAMIPEXOLE DI1.5 MG PO (20:52)
[2018-02-10 21:33] LABS: URINE BILIRUBIN NEGATIVE (Negative); URINE BLOOD 1+ (Negative); URINE CLARITY CLEAR; URINE COLOR YELLOW; URINE GLUCOSE-RANDOM* NEGATIVE (Negative); URINE KETONES NEGATIVE (Negative); URINE LEUKOCYTES NEGATIVE (Negative); URINE NITRITE NEGATIVE (Negative); URINE PROTEIN (DIPSTICK) NEGATIVE (Negative); URINE UROBILINOGEN 0.2 E.U./dl (0.2-1.0)
[2018-02-10 21:40] LABS: CASTS None Seen /LPF (None Seen); CRYSTALS None Seen /LPF (None Seen); SQUAMOUS 0-3 Few /LPF (0-3); URINE WBC None Seen /HPF (0-5)
[2018-02-10 21:41] LABS: BACTERIA 1-9 Few /HPF (None Seen); URINE RBC 0-2 Rare /HPF (0-2)
[2018-02-11 04:57] VITALS: BP 129/68
[2018-02-11 07:37] VITALS: BP 117/64
[2018-02-11 08:00] VITALS: BP 117/64
[2018-02-11 16:20] VITALS: BP 128/64
[2018-02-11 19:36] VITALS: BP 121/66
[2018-02-12 03:04] VITALS: BP 127/68
[2018-02-12 04:47] LABS: URINE BILIRUBIN NEGATIVE (Negative); URINE BLOOD 2+ (Negative); URINE CLARITY CLEAR; URINE COLOR YELLOW; URINE GLUCOSE-RANDOM* NEGATIVE (Negative); URINE KETONES TRACE (Negative); URINE LEUKOCYTES-REFLEX NEGATIVE (Negative); URINE NITRITE-REFLEX NEGATIVE (Negative); URINE PROTEIN (DIPSTICK) NEGATIVE (Negative); URINE SPECIFIC GRAVITY 1.025 (1.005-1.035); URINE UROBILINOGEN 0.2 E.U./dl (0.2-1.0)
[2018-02-12 06:05] LABS: CASTS None Seen /LPF (None Seen); SQUAMOUS 0-3 Few /LPF (0-3)
[2018-02-12 06:06] LABS: AMORPHOUS URATES Few /LPF (None Seen); BACTERIA-REFLEX 1-9 Few /HPF (None Seen); URINE RBC 0-2 Rare /HPF (0-2); URINE WBC-REFLEX 0-5 Rare /HPF (0-5)
[2018-02-12 09:07] VITALS: BP 121/60
[2018-02-12 09:28] LABS: HEMATOCRIT 30.2 % (42.0-52.0); HEMOGLOBIN 9.5 gm/dL (14.0-18.0); MCH 25.9 pg (26.0-34.0); MCHC 31.3 g/dL (28.0-37.0); MCV 82.7 fL (80.0-100.0); RBC 3.66 mil/uL (4.50-6.00); RDW 22.7 % (10.5-14.5); WBC 5.9 thou/uL (4.0-11.0)
[2018-02-12 09:34] LABS: CALCIUM 7.7 mg/dL (8.5-10.1); CREATININE 1.3 mg/dL (0.7-1.3)
[2018-02-12 16:41] VITALS: BP 129/62
[2018-02-12 21:50] VITALS: BP 119/63
[2018-02-13 04:50] VITALS: BP 132/58
[2018-02-13 07:27] VITALS: BP 133/76
[2018-02-13 14:50] VITALS: BP 133/76
== END 2018-02-13 15:20 | disposition home or self-care (01) | DRG 388 ==
LOC: ER 13:51 → 4W 16:09 → EROBS 16:09 → 4W 18:31 → ENTRNSPT 02-13 15:07 → EDTRNSPTSTS 02-13 15:10 → 4W 02-13 15:20
PROVIDERS: Emergency Medicine; Family Medicine
DX: K56.7 Ileus, unspecified (principal); E43 Unspecified severe protein-calorie malnutrition; K50.90 Crohn's disease, unspecified, without complications; K91.2 Postsurgical malabsorption, not elsewhere classified; I10 Essential (primary) hypertension; I48.91 Unspecified atrial fibrillation; F03.90 Unspecified dementia, unspecified severity, without behavioral disturbance, psychotic disturbance, mood disturbance, and anxiety; E11.9 Type 2 diabetes mellitus without complications; D64.9 Anemia, unspecified; Z79.899 Other long term (current) drug therapy; Z68.21 Body mass index [BMI] 21.0-21.9, adult; Z86.718 Personal history of other venous thrombosis and embolism; Z86.73 Personal history of transient ischemic attack (TIA), and cerebral infarction without residual deficits; Z90.49 Acquired absence of other specified parts of digestive tract; Z88.2 Allergy status to sulfonamides; Z88.8 Allergy status to other drugs, medicaments and biological substances
CPT/HCPCS: 10040

== ENCOUNTER 2018-03-12 10:52 | Emergency (ER) | payer OTHER ==
[~2018-03-12] VITALS: Ht 170.2 cm; Wt 66.2 kg
--- NOTE | ~2018-03-12 | EKG ---
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
[~2018-03-12 10:52] MED LIST changes: +CARDIZEM CD180 MG PO; +PRAMIPEXOLE DI1.5 MG PO
[2018-03-12 11:24] LABS: ABSOLUTE NEUTROPHILS 5.4 thou/uL (1.4-8.2); BASOPHILS 0.7 % (0.0-2.0); EOSINOPHILS 1.1 % (0.0-3.0); HEMATOCRIT 35.4 % (42.0-52.0); HEMOGLOBIN 10.9 gm/dL (14.0-18.0); LYMPHOCYTES 15.9 % (24.0-44.0); MCH 25.1 pg (26.0-34.0); MCHC 30.7 g/dL (28.0-37.0); MCV 81.6 fL (80.0-100.0); MONOCYTES 6.4 % (1.0-8.0); PLATELET COUNT 187 thou/uL (150-400); POLYS 75.9 % (36.0-66.0); RBC 4.34 mil/uL (4.50-6.00); RDW 20.9 % (10.5-14.5); WBC 7.1 thou/uL (4.0-11.0)
[2018-03-12 11:31] LABS: ANION GAP 13 mmol/L (7-16); BUN 17 mg/dL (7-18); CALCIUM 8.9 mg/dL (8.5-10.1); CHLORIDE 103 mmol/L (98-107); CO2 20 mmol/L (21-32); CREATININE 1.3 mg/dL (0.7-1.3); GLUCOSE 128 mg/dL (74-106); POTASSIUM 4.4 mmol/L (3.5-5.1); SODIUM 136 mmol/L (136-145)
[2018-03-12 11:42] LABS: LIPASE 471 U/L (73-393); SGOT 45 U/L (15-37); SGPT 32 U/L (30-65); TOTAL BILIRUBIN 0.4 mg/dL (<0.1-1.0); TROPONIN-I <0.06 ng/mL (<0.06)
[2018-03-12] MEDS ORDERED: ZOFRAN ODT4 MG PO (14:15)
[2018-03-12] MEDS ORDERED: LOPERAMIDE 2 MG2 M1 PO (14:15)
== END 2018-03-12 14:56 | disposition home or self-care (01) ==
LOC: ER 10:52
PROVIDERS: Physician Assistant
DX: R19.7 Diarrhea, unspecified (principal); R11.2 Nausea with vomiting, unspecified; M79.7 Fibromyalgia; K50.90 Crohn's disease, unspecified, without complications; E11.9 Type 2 diabetes mellitus without complications; I10 Essential (primary) hypertension; I48.91 Unspecified atrial fibrillation; Z90.49 Acquired absence of other specified parts of digestive tract; G47.30 Sleep apnea, unspecified; F17.210 Nicotine dependence, cigarettes, uncomplicated; Z88.2 Allergy status to sulfonamides; Z88.8 Allergy status to other drugs, medicaments and biological substances

== ENCOUNTER 2018-03-14 12:37 | Inpatient (IN) | payer OTHER ==
[~2018-03-14] VITALS: Ht 170.2 cm; Wt 65.3 kg
[~2018-03-14 12:37] MED LIST changes: +LOPERAMIDE 2 MG2 M1 PO; +ZOFRAN ODT4 MG PO
[2018-03-14 12:53] VITALS: BP 138/83
[2018-03-14 14:28] LABS: HEMATOCRIT 32.6 % (42.0-52.0); HEMOGLOBIN 10.1 gm/dL (14.0-18.0); MCH 25.5 pg (26.0-34.0); MCV 82.2 fL (80.0-100.0); RBC 3.97 mil/uL (4.50-6.00); RDW 20.8 % (10.5-14.5); WBC 4.3 thou/uL (4.0-11.0)
[2018-03-14] MEDS ORDERED: ELIQUIS5 MG PO (14:32)
[2018-03-14 14:42] LABS: ALBUMIN 3.5 g/dL (3.4-5.0); CALCIUM 8.5 mg/dL (8.5-10.1); CREATININE 1.2 mg/dL (0.7-1.3); POTASSIUM 3.9 mmol/L (3.5-5.1); TOTAL BILIRUBIN 0.4 mg/dL (<0.1-1.0); TOTAL PROTEIN 6.7 g/dL (6.4-8.2)
[2018-03-14 15:18] VITALS: BP 126/68
[2018-03-14 19:46] VITALS: BP 128/73
[2018-03-15] VITALS (7 sets, daily range): BP systolic 124–155; BP diastolic 64–79
[2018-03-16 04:25] VITALS: BP 150/68
[2018-03-16 07:30] VITALS: BP 145/72
[2018-03-16 10:13] LABS: HEMATOCRIT 33.7 % (42.0-52.0); HEMOGLOBIN 10.4 gm/dL (14.0-18.0); MCH 25.1 pg (26.0-34.0); RBC 4.15 mil/uL (4.50-6.00); RDW 19.9 % (10.5-14.5); WBC 4.7 thou/uL (4.0-11.0)
[2018-03-16 10:23] LABS: CALCIUM 8.7 mg/dL (8.5-10.1); CREATININE 1.1 mg/dL (0.7-1.3); POTASSIUM 3.6 mmol/L (3.5-5.1)
[2018-03-16 11:20] VITALS: BP 145/69
[2018-03-16 15:45] VITALS: BP 148/76
[2018-03-16 19:25] VITALS: BP 149/67
[2018-03-17 03:04] VITALS: BP 152/85
[2018-03-17 07:37] VITALS: BP 149/77
[2018-03-17 11:13] VITALS: BP 148/81
[2018-03-17 14:13] VITALS: BP 148/81
[2018-03-17 14:26] VITALS: BP 148/81
== END 2018-03-17 14:49 | disposition home or self-care (01) | DRG 439 ==
LOC: 3W 12:37
PROVIDERS: Family Medicine
DX: K85.90 Acute pancreatitis without necrosis or infection, unspecified (principal); K91.2 Postsurgical malabsorption, not elsewhere classified; M79.7 Fibromyalgia; B37.9 Candidiasis, unspecified; E11.9 Type 2 diabetes mellitus without complications; F03.90 Unspecified dementia, unspecified severity, without behavioral disturbance, psychotic disturbance, mood disturbance, and anxiety; I48.91 Unspecified atrial fibrillation; I10 Essential (primary) hypertension; R19.7 Diarrhea, unspecified; Z79.01 Long term (current) use of anticoagulants; Z79.84 Long term (current) use of oral hypoglycemic drugs; Z79.899 Other long term (current) drug therapy; Z86.718 Personal history of other venous thrombosis and embolism; Z86.73 Personal history of transient ischemic attack (TIA), and cerebral infarction without residual deficits; Z90.49 Acquired absence of other specified parts of digestive tract; Z88.2 Allergy status to sulfonamides; Z88.8 Allergy status to other drugs, medicaments and biological substances
CPT/HCPCS: 10779

== ENCOUNTER 2018-04-17 12:33 | Inpatient (IN) | payer OTHER ==
[~2018-04-17] VITALS: Ht 154.9 cm; Wt 61.2 kg
--- NOTE | ~2018-04-17 | PATH ---
[facility] [address] [place] [address] PATHOLOGY RPT PROCEDURE Name: VICTOR HUGO KENNEDY Room #: 426-P DIS IN M.R.#: [id number] Admission: 04/17/18 Date of : 41 Discharge: 04/23/18 Report #: [id number] Path Case #: [id number] [facility] Accession Number: [id number] . 01 Material submitted: . PART A: BX, SUSPECTED ADENOMA IN DUODENUM PART B: BX, SMALL BOWEL R/O CROHN'S PART C: BX,ANTRUM R/O H. PYLORI PART D: BX, ILEUS ASSESS FOR CROHN'S PART E: BX,RANDOM COLON ASSESS FOR CROHN'S PART F: POLYP AT SIGMOID COLON X 2 . 01 Clinician provided ICD-10: D13.2 . 01 Clinical history: . Duodenum adenoma history Abdominal pain, colon polyps . 02 Diagnosis: A. Small bowel, suspected adenoma in duodenum, endoscopic biopsy: - Tubular adenoma. - Negative for high-grade dysplasia. . B. Small bowel mucosa, small bowel R/O Crohn's, endoscopic biopsy: - Mild peptic duodenitis. - Negative for Crohn's disease. - Negative for celiac disease. . C. Gastric mucosa, antrum R/O H. pylori, endoscopic biopsy: - Mild reactive gastropathy with focal intestinal metaplasia. - Negative for atrophy or dysplasia. - Negative for Helicobacter pylori (properly controlled immunohistochemical stain performed). . D. Small bowel mucosa, ileum assess for Crohn's, endoscopic biopsy: - Negative for acute inflammation. - No significant diagnostic abnormalities. - Negative for dysplasia or malignancy. . E. Large intestinal mucosa, random colon assess for Crohn's, endoscopic biopsy: - Focal nonspecific changes including mild focal acute inflammation, see comment. - Negative for microscopic colitis. - Negative for dysplasia or malignancy. . F. Polyp x 2, sigmoid colon, endoscopic biopsy: [facility] [address] [place] [address] PATHOLOGY RPT PROCEDURE Name: VICTOR HUGO KENNEDY Quin Room #: 426-P DIS IN M.R.#: [id number] Admission: 04/17/18 Date of : 41 Discharge: 04/23/18 Report #: [id number] Path Case #: [id number] - One fragment showing a tubular adenoma without high-grade dysplasia. - One fragment showing hyperplastic polyp without dysplasia. (IUV:andie; 04/23/2018) QMS/04/23/2018 . 02 Comment: Sections of the colonic mucosa designated "random colon" show focal cryptitis, and a moderately cellular lamina propria composed predominantly of lymphocytes and plasma cells and occasional eosinophils. Surface ulceration is not identified. There are no crypt abscesses, granulomas or viral inclusions. The process affects all the fragments with a similar intensity. Given the description, the differential diagnosis includes mild focal acute colitis of self-limited etiology, changes due to bowel preparation, acute colitis due to infectious-type of etiology, acute diverticulitis, early inflammatory bowel disease, as well as medication-induced colitis. Please correlate with clinical as well as endoscopic findings. (IUV:andie; 04/23/2018) . 02 Electronically signed: . Sachi Solomon MD, Pathologist NPI- [id number] . 01 Gross description: . A. The specimen is received in formalin, labeled "Victor Hugo Kennedy, KATIANA suspected adenoma in duodenum" and consists of 3 soft and friable fragments of pink-perry tissue measuring between 0.1 x 0.1 x 0.1 cm and 0.3 x 0.2 x 0.1 cm. They are entirely submitted in A1. . B. The specimen is received in formalin, labeled "Victor Hugo Kennedy, BX small bowel rule out Crohn's" and consists of 2 fragments of soft pink-perry tissue measuring 0.4 x 0.2 x 0.1 cm and 0.3 x 0.1 x 0.1 cm. They are entirely submitted in B1. . C. The specimen is received in formalin, labeled "Victor Hugo Kennedy, BX antrum rule out H. pylori" and consists of a fragment of soft pink-perry tissue measuring 0.3 x 0.2 x 0.1 cm which is entirely submitted in C1. . D. The specimen is received in formalin, labeled "Victor Hugo Kennedy, BX ileus assess for Crohn's" and consists of 2 fragments of soft perry tissue measuring 0.6 x 0.2 x 0.1 cm and 0.3 x 0.2 x 0.1 cm. They are entirely submitted in D1. . E. The specimen is received in formalin, labeled "Hunter Kennedyy, BX random colon assess for Crohn's" and consists of 4 fragments of soft perry tissue measuring between 0.2 x 0.2 x 0.1 cm and 0.4 x 0.2 x 0.1 cm. They are entirely submitted in E1. [facility] [address] [place] [address] PATHOLOGY RPT PROCEDURE Name: VICTOR HUGO KENNEDY Room #: 426-P DIS IN M.R.#: [id number] Admission: 04/17/18 Date of : 41 Discharge: 04/23/18 Report #: [id number] Path Case #: [id number] . F. The specimen is received in formalin, labeled "Victor Hugo Kennedy, polyp at sigmoid colon x2" and consists of 3 fragments of soft perry tissue measuring between 0.3 x 0.2 x 0.1 cm and 0.5 x 0.2 x 0.1 cm. They are entirely submitted in F1. (SDY; 04/22/2018) SYU/SYU . 02 Pathologist provided ICD-10: D13.2, K29.80, K31.9, D12.5, K63.5 . 02 CPT . 030980, 838845, 553375, 535099, 288962, 028080, [id number] Specimen Comment: A courtesy copy of this report has been sent to Specimen Comment: [phone], . Specimen Comment: Report sent to and Performed at: [address], [place], [place] [id number] MD Aureliano Gill MD Phone: [phone] Performed at: [address] [id number] MD Sachi Solomon MD Phone: [phone]
[2018-04-17 12:38] VITALS: BP 115/58
[2018-04-17 13:54] LABS: ABSOLUTE NEUTROPHILS 9.4 thou/uL (1.4-8.2); BASOPHILS 0.6 % (0.0-2.0); EOSINOPHILS 0.1 % (0.0-3.0); HEMATOCRIT 37.1 % (42.0-52.0); HEMOGLOBIN 11.7 gm/dL (14.0-18.0); LYMPHOCYTES 5.3 % (24.0-44.0); MCH 24.6 pg (26.0-34.0); MCHC 31.5 g/dL (28.0-37.0); MONOCYTES 5.9 % (1.0-8.0); PLATELET COUNT 194 thou/uL (150-400); POLYS 88.1 % (36.0-66.0); RBC 4.76 mil/uL (4.50-6.00); RDW 19.2 % (10.5-14.5); WBC 10.7 thou/uL (4.0-11.0)
[2018-04-17 14:04] LABS: CALCIUM 9.3 mg/dL (8.5-10.1); CREATININE 2.1 mg/dL (0.7-1.3); POTASSIUM 4.1 mmol/L (3.5-5.1)
[2018-04-17 14:10] LABS: ALBUMIN 4.3 g/dL (3.4-5.0); TOTAL BILIRUBIN 0.6 mg/dL (<0.1-1.0); TOTAL PROTEIN 8.8 g/dL (6.4-8.2)
[2018-04-17 14:20] LABS: ANISOCYTOSIS 1+; PLATELET ESTIMATE NORMAL; POLYCHROMASIA 1+
[2018-04-17 16:32] VITALS: BP 105/61
[2018-04-17 17:25] VITALS: BP 105/61
[2018-04-17 18:08] VITALS: BP 127/70
[2018-04-17 20:00] VITALS: BP 124/73; BP 127/123
[2018-04-17] MEDS ORDERED: LYRICA 50 MG50 MG PO (20:31)
[2018-04-17] MEDS ORDERED: GLUCOPHAGE XR500 MG PO (20:32)
[2018-04-17] MEDS ORDERED: MIRAPEX1.5 MG PO (20:34)
[2018-04-17] MEDS ORDERED: TRAMADOL 50 MG50 MG PO (20:37)
[2018-04-17] MEDS ORDERED: LANTUS100 UNIT/M SUBQ (23:44)
[2018-04-18 04:30] VITALS: BP 115/60
[2018-04-18 07:05] VITALS: BP 110/68
[2018-04-18 12:59] LABS: CREATININE 1.4 mg/dL (0.7-1.3); POTASSIUM 3.8 mmol/L (3.5-5.1)
[2018-04-18 14:41] VITALS: BP 127/68
[2018-04-18 19:50] VITALS: BP 124/71
[2018-04-19 04:14] VITALS: BP 132/71
[2018-04-19 07:41] VITALS: BP 123/73
[2018-04-19 10:26] LABS: WBC 3.7 thou/uL (4.0-11.0)
[2018-04-19 10:27] LABS: HEMATOCRIT 27.8 % (42.0-52.0); MCH 25.3 pg (26.0-34.0); MCHC 31.7 g/dL (28.0-37.0); MCV 79.7 fL (80.0-100.0); RBC 3.48 mil/uL (4.50-6.00); RDW 18.6 % (10.5-14.5)
[2018-04-19 10:38] LABS: HEMOGLOBIN 8.8 gm/dL (14.0-18.0)
[2018-04-19 10:42] LABS: CALCIUM 7.7 mg/dL (8.5-10.1); CREATININE 1.2 mg/dL (0.7-1.3); POTASSIUM 3.7 mmol/L (3.5-5.1)
[2018-04-19 15:36] VITALS: BP 117/63
[2018-04-20 04:30] VITALS: BP 116/58
[2018-04-20 07:50] VITALS: BP 115/59
[2018-04-20 09:52] LABS: HEMATOCRIT 27.4 % (42.0-52.0); HEMOGLOBIN 8.7 gm/dL (14.0-18.0); MCH 25.3 pg (26.0-34.0); MCHC 31.9 g/dL (28.0-37.0); MCV 79.2 fL (80.0-100.0); RBC 3.46 mil/uL (4.50-6.00); RDW 18.8 % (10.5-14.5); WBC 4.1 thou/uL (4.0-11.0)
[2018-04-20 09:58] LABS: CALCIUM 8.2 mg/dL (8.5-10.1); CREATININE 1.2 mg/dL (0.7-1.3)
[2018-04-20 16:23] VITALS: BP 132/55
[2018-04-20 20:34] VITALS: BP 12/63; BP 127/63
[2018-04-21 05:46] VITALS: BP 145/73
[2018-04-21 09:09] VITALS: BP 142/75
[2018-04-21 15:26] VITALS: BP 140/67
[2018-04-21 19:01] VITALS: BP 139/84
[2018-04-21 20:40] VITALS: BP 154/75
[2018-04-22 03:54] VITALS: BP 136/69
[2018-04-22 10:31] VITALS: BP 157/74
[2018-04-22 15:15] VITALS: BP 157/74
[2018-04-22 15:46] VITALS: BP 151/82
[2018-04-22 20:00] VITALS: BP 147/77
[2018-04-23 04:00] VITALS: BP 138/68
[2018-04-23] MEDS ORDERED: AUGMENTIN 875-1 EACH PO (07:47)
[2018-04-23] MEDS ORDERED: CARDIZEM CD 18180 M3 PO (07:47)
[2018-04-23] MEDS ORDERED: PREDNISONE 20 M20 M1 PO (07:48)
[2018-04-23] MEDS ORDERED: PANTOPRAZOLE SO40 M1 PO (07:48)
[2018-04-23] MEDS ORDERED: CARAFATE 11 GM/10 M1 PO (07:48)
[2018-04-23 08:14] VITALS: BP 125/51
[2018-04-23 09:24] VITALS: BP 125/51
[2018-04-23 10:52] VITALS: BP 125/51
== END 2018-04-23 12:34 | disposition home or self-care (01) | DRG 871 ==
LOC: ER 12:33 → EROBS 15:42 → 4E 15:42
PROVIDERS: Emergency Medicine; Family Medicine
PROC: 0DBE8ZX Excision of Large Intestine, Via Natural or Artificial Opening Endoscopic, Diagnostic (ICD-10-PCS; principal; 2018-04-22)
PROC: 0DBB8ZX Excision of Ileum, Via Natural or Artificial Opening Endoscopic, Diagnostic (ICD-10-PCS; principal; 2018-04-22)
PROC: 0DB98ZX Excision of Duodenum, Via Natural or Artificial Opening Endoscopic, Diagnostic (ICD-10-PCS; principal; 2018-04-22)
PROC: 0DBN8ZZ Excision of Sigmoid Colon, Via Natural or Artificial Opening Endoscopic (ICD-10-PCS; principal; 2018-04-22)
PROC: 0DB68ZX Excision of Stomach, Via Natural or Artificial Opening Endoscopic, Diagnostic (ICD-10-PCS; principal; 2018-04-22)
PROC: 0DB88ZX Excision of Small Intestine, Via Natural or Artificial Opening Endoscopic, Diagnostic (ICD-10-PCS; principal; 2018-04-22)
DX: A41.9 Sepsis, unspecified organism (principal); N17.0 Acute kidney failure with tubular necrosis; K29.71 Gastritis, unspecified, with bleeding; K29.81 Duodenitis with bleeding; K57.31 Diverticulosis of large intestine without perforation or abscess with bleeding; K22.11 Ulcer of esophagus with bleeding; K50.00 Crohn's disease of small intestine without complications; K52.9 Noninfective gastroenteritis and colitis, unspecified; E11.9 Type 2 diabetes mellitus without complications; I10 Essential (primary) hypertension; I48.91 Unspecified atrial fibrillation; F17.210 Nicotine dependence, cigarettes, uncomplicated; G89.29 Other chronic pain; R10.9 Unspecified abdominal pain; E87.6 Hypokalemia; D64.9 Anemia, unspecified; K44.9 Diaphragmatic hernia without obstruction or gangrene; D12.5 Benign neoplasm of sigmoid colon; K63.5 Polyp of colon; K64.8 Other hemorrhoids; Z86.718 Personal history of other venous thrombosis and embolism; Z86.73 Personal history of transient ischemic attack (TIA), and cerebral infarction without residual deficits; Z90.49 Acquired absence of other specified parts of digestive tract; Z79.899 Other long term (current) drug therapy; Z98.0 Intestinal bypass and anastomosis status
CPT/HCPCS: 10084; 62110; 62900

== ENCOUNTER 2018-06-02 09:56 | Inpatient (IN) | payer OTHER ==
[~2018-06-02] VITALS: Ht 170.2 cm; Wt 59.5 kg
--- NOTE | ~2018-06-02 | HC ---
[facility] [place] [address] [place] [address] CONSULTATION Name: BENIGNO CASTILLO Room #: 239-P [facility] IN M.R.#: [id number] Admission: 06/02/18 Attend Phys: Dylon Ware MD Discharge: Date of : 43 Report #: [id number] THIS REPORT FOR: //name// CC: Dylon Ware DATE OF SERVICE: 06/07/2018 CONSULTATION: Infectious diseases. HISTORY OF PRESENT ILLNESS: The patient is a 73-year-old white male admitted to [facility] on 06/02 when he came to the ER complaining of temperature of up to 105 with diffuse pain, particularly abdominal pain with nausea and shortness of breath. It was notable that the patient had a radiofrequency lumbar ablation 3 days prior to the fever. He said he had not felt well since that procedure was done. He also had a flu shot the day prior to coming to the hospital. The patient had an extensive workup. No specific etiology of his symptoms could be found. He developed respiratory failure and thought to be due to aspiration. He was bronchoscoped and intubated. He then cleared. He was moved from the ICU back to the floor. 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 Rapid response was called. The patient was moved to the ICU. Blood cultures times 2 were obtained. A PICC line was ordered and sepsis protocol was initiated. The patient was started on vancomycin plus Zosyn at dose appropriate for his renal function. Infectious disease consultation was requested when 2/2 blood cultures drawn yesterday are now growing Gram-positive cocci in clusters. PAST MEDICAL HISTORY: Very complex. The patient has a number of diagnoses including diabetes with hypertension. He has Crohn's disease, has had ectomy with complicated abdominal wall hernias. He has had several attempts to repair the hernias and I believe may have some infected mesh still remaining. Other diagnoses include fibromyalgia, sleep apnea, atrial fibrillation, and dementia. PAST SURGICAL HISTORY: Includes cholecystectomy, appendectomy, multiple herniorrhaphies and repairs, and craniotomy for benign tumor. ALLERGIES: The patient has a history of SULFA allergy. FAMILY HISTORY: Noncontributory. SOCIAL HISTORY: The patient has a long-term partner, although he is not . He, according to the chart, smokes about a quarter pack per day. No history of alcohol, nor drugs. [facility] [address] [place] [address] CONSULTATION Name: BENIGNO CASTILLO Room #: 239-P [facility] IN ..#: [id number] Admission: 06/02/18 Attend Phys: Dylon Ware MD Discharge: Date of : 43 Report #: [id number] REVIEW OF SYSTEMS: Unavailable, as the patient is now sedated on a ventilator. MEDICATION RECONCILIATION: The patient's current medications include diltiazem drip, Robitussin 5 mL q. 4h p.r.n., hydrocodone 10/325 q. 4h p.r.n., chlorhexidine mucous membrane swish 15 mL b.i.d., epinephrine drip 4 mg, Glucagon p.r.n., glucose p.r.n., heparin subcutaneous insulin p.r.n.; Venofer 200 mg, five bags, Lidoderm patch, lorazepam 1-2 mg IV q. 1h p.r.n., morphine 4 mg q. 1h p.r.n., saline, Levophed drip, Zofran p.r.n., Ditropan 5 mg b.i.d., pantoprazole 40 mg daily, Zosyn 3.375 mg IV every 8 hours, Mirapex 1.5 mg daily, Lyrica 50 mg b.i.d., Compazine 10 mg IV p.r.n. Diprivan drip, sodium bicarbonate, Carafate suspension, vancomycin 750 mg IV every 12 hours, Pitressin drip, Versed drip, and Ambien p.r.n. PHYSICAL EXAMINATION: GENERAL: The patient appears sedated on a ventilator, not uncomfortable, nor in distress. VITAL SIGNS: Show the temperature was up to 102 on 06/06. He has been afebrile, almost hypothermic through the course of today. SKIN: Shows no rash, no lesions. ENT: Negative. HEART: Sounds normal. LUNGS: Clear. ABDOMEN: Belly not tender. PICC line in the right arm appears unremarkable. EXTREMITIES: Unremarkable. LABORATORY DATA: The white count was 6.7 that went up to 15.7 with a rapid response and now down to 13,000. Hemoglobin was 6.9 yesterday and up to 10.4 after transfusion. Electrolytes normal. BUN 16, creatinine 1.7. IMAGING DATA: Chest x-ray shows bilateral cloudiness in the bases, which could be effusions and infiltrates or atelectasis. These really are not changed. IMPRESSION: Staphylococcus bacteremia. The patient has been in the hospital. I would most likely look to IV access devices as the source of sepsis. The PICC line, which is now present, was placed after the septic episode began, so it will not be the source. We would need to watch her for the past with a PICC line becoming secondarily infected and may need to be replaced after the bacteremia clears. The patient has a history of a number of abdominal wall procedures and it is possible there may be Methicillin-resistant Staphylococcus aureus related to his herniorrhaphy and mesh. For now, I will discontinue the Zosyn and treat the patient for staph bacteremia [facility] [address] [place] [address] CONSULTATION Name: BENIGNO CASTILLO Room #: 239-P ADM IN .R.#: [id number] Admission: 06/02/18 Attend Phys: Dylon Ware MD Discharge: Date of : 43 Report #: [id number] with vancomycin. When the cultures are complete, we may be able to deescalate if this is not a Methicillin-resistant Staphylococcus aureus. <ELECTRONICALLY SIGNED> By: Otoniel Lopez MD 06/09/18 0148 0022 0405 Otnoiel Lopez MD /nt
--- NOTE | ~2018-06-02 | PATH ---
[facility] [address] [place] [address] PATHOLOGY RPT PROCEDURE Name: BENIGNO CASTILLO Room #: 239-P ADM IN M.R.#: [id number] Admission: 06/02/18 Date of : 41 Discharge: Report #: [id number] Path Case #: [id number] Note [facility] Accession Number: [id number] TESTS RESULT FLAG UNITS REF RANGE LAB Clinician Provided Cytology Information No. of containers..01 Other (Miscellaneous) Source: LT PLEURAL FLUID DIAGNOSIS: LT PLEURAL FLUID NEGATIVE FOR MALIGNANT CELLS. REACTIVE MESOTHELIAL CELLS ARE PRESENT. Signed out by: 02 Sachi Solomon MD, Pathologist NPI- [id number] Performed by: Tess Kinsey, Battery Engineer ([facility]) Gross description: 01 15 ML, YELLOW, CLOUDY /LCS FLAG LEGEND: L-Low Normal,H-High Normal,LL-Alert Low,HH-Alert High <-Panic Low,>-Panic High,A-Abnormal,AA-Critical Abnormal Performed at: [address] [place] [address] Aureliano Gill MD, [address] [address] Sachi Solomon MD, Specimen Comment: A courtesy copy of this report has been sent to Specimen Comment: [phone]. Specimen Comment: Report sent to Specimen Comment: A duplicate report has been generated due to demographic updates. Performed at: [address], [place], [place] [id number] MD Aureliano Gill MD Phone: [phone]
--- NOTE | ~2018-06-02 | O ---
[facility] [place] [address] [place] [address] OPERATIVE REPORT Name: BENIGNO CASTILLO Room #: 239-P [facility] IN M.R.#: [id number] Admission: 06/02/18 Attend Phys: Dylon Ware MD Discharge: Date of : 43 Report #: [id number] THIS REPORT FOR: //name// CC: Dylon Ware PROCEDURE: Emergent intubation. CLINICAL HISTORY: This is a 73-year-old white male with recent aspiration, with severe respiratory distress. DESCRIPTION OF PROCEDURE: The patient was given approximately 5 mL of Diprivan. Following adequate sedation, a #3 blade was utilized to intubate. The vocal cords were noted. There was significant amount of bilious secretions emanating from the airways. There was also significant amount of bilious secretions from the esophagus. This was suctioned. Then, a 7 mm ET tube was then introduced with a stylet. ET tube was then secured at 24 cm at the lip. There was confirmation by the capnographic color change. Portable chest x-ray is pending. <ELECTRONICALLY SIGNED> By: Raul Solorio MD 06/06/18 1634 0348 0401 Raul Solorio MD /nt
--- NOTE | ~2018-06-02 | HC ---
[facility] [place] [address] CONSULTATION Name: BENIGNO CASTILLO Room #: 239-P [facility] IN .R.#: [id number] Admission: 06/02/18 Attend Phys: Dylon Ware MD Discharge: Date of : 41 Report #: [id number] THIS REPORT FOR: //name// CC: Dylon Ware DATE OF SERVICE: 06/23/2018 REASON FOR CONSULTATION: Tracheotomy tube request. HISTORY OF PRESENT ILLNESS: The patient is a 73-year-old male who was admitted with fever, low back pain, hip pain, abdominal pain and was treated for abdominal pain, sacral pain and anemia, who had respiratory distress on 06/06/2018. He was intubated and has been ventilated and intubated for over 20 days. We have been asked to evaluate him for possible tracheotomy tube placement. PAST MEDICAL HISTORY: Crohn's disease, hypertension, diabetes, atrial fibrillation, DVT, brain tumor, polycythemia, fibromyalgia, COPD and obstructive sleep apnea. PAST SURGICAL HISTORY: Appendectomy, cholecystectomy, ventral hernia repair, small-bowel obstruction. ALLERGIES: TO SULFA. MEDICATIONS: Listed in the MAR. SOCIAL HISTORY: No tobacco. No alcohol abuse. REVIEW OF SYSTEMS: Unobtainable as the patient is ventilated, sedated, and is minimally responsive. PHYSICAL EXAMINATION: GENERAL: He is a well-developed male who is resting comfortably supine in bed. NECK: Currently, extended to the right. He has normal anatomic structures on the anterior neck. No evidence of crepitation and the trachea is midline. IMPRESSION: Ventilator dependence for greater than 20 days. PLAN: He is a good candidate for tracheotomy tube placement. I will discuss this with my partners and we will proceed accordingly. By: 1652 1714 Robin Choi MD /nt
--- NOTE | ~2018-06-02 | O ---
[facility] [place] [place] [address] OPERATIVE REPORT Name: BENIGNO CASTILLO Room #: 239-P ADM IN M.R.#: [id number] Admission: 06/02/18 Attend Phys: Dylon Ware MD Discharge: Date of : 43 Report #: [id number] THIS REPORT FOR: //name// CC: Michael Macario MD [facility] Dylon Solorio MD DATE OF SERVICE: 06/26/2018 SURGEON: Freddy Torres M.D. PREOPERATIVE DIAGNOSES: Respiratory failure and aspiration pneumonia. POSTOPERATIVE DIAGNOSES: Respiratory failure and aspiration pneumonia. OPERATIVE PROCEDURE: Tracheostomy tube placement. ANESTHESIA: General. ESTIMATED BLOOD LOSS: Less than 5 mL. INDICATIONS FOR SURGERY: The patient is a 73-year-old male who has atrial fibrillation, diabetes, hypertension, and DVT. He was admitted on 06/02 with fever, abdominal pain and aspiration pneumonia with bacteremia. He has been intubated in the ICU. Tracheostomy has been requested for continued ventilator support. He is being seen by multiple consultants and managed in the Intensive Care Unit. DESCRIPTION OF PROCEDURE: The patient was positioned in the bed in the supine position in the operating room. His neck was extended. After general anesthesia was achieved via his endotracheal tube and intravenously, attention was turned to the neck. I injected the subcutaneous tissue above the sternal notch with 7 mL of lidocaine with epinephrine for vasoconstriction. The neck was then prepped with Betadine. A 2 cm horizontal incision was made just above the sternal notch. I dissected down through the subcutaneous tissue to the strap muscles and between the strap muscles down to the cricoid cartilage. Overlying the cricoid cartilage was the thyroid gland. I divided the isthmus of the thyroid gland with cautery. This was done to access the cricoid and the anterior trachea. I used cautery to get good hemostasis of the thyroid remnants laterally. I then used edge of the soft tissue dissection of the trachea to expose the first three tracheal rings with upward retraction on the cricoid. The patient has a very low neck with most of the trachea in the chest and only the cricoid in the neck. I then used a fit 11 blade knife to excise the anterior aspect of the third tracheal ring. The anterior 1.5 cm trachea was [address] [address] OPERATIVE REPORT Name: ANNABENIGNO Room #: 239-P [facility] IN .R.#: [id number] Admission: 06/02/18 Attend Phys: Dylon Ware MD Discharge: Date of : 43 Report #: [id number] removed exposing the trachea. The endotracheal tube was slowly withdrawn. A tracheostomy seamless tube drawer was used to stretch open this tracheostomy. A #8 Shiley cuffless tracheostomy tube was inserted into the tracheostomy. The disposable inner cannula was inserted. The cuff was inflated. The patient was successfully ventilated through the tracheostomy tube. The tracheostomy tube was secured to the neck with 2-0 nylon sutures. I packed around the tracheostomy tube a small amount of Surgicel to minimize bleeding. Tracheostomy ties were applied. The patient was taken to the Intensive Care Unit in stable condition. By: 1708 1812 Freddy Torres MD /nt
--- NOTE | ~2018-06-02 | PATH ---
[facility] [address] [place] [address] PATHOLOGY RPT PROCEDURE Name: VICTOR HUGO KENNEDY Room #: 239-P ADM IN M.R.#: [id number] Admission: 06/02/18 Date of : 43 Discharge: Report #: [id number] Path Case #: [id number] [facility] Accession Number: [id number] . 01 Material submitted: . PART A: DUODENAL BIOPSY PART B: DISTAL BULB BIOPSY PART C: GASTRITIS . 01 Clinical history: . History of duodenal adenoma, epigastric pain and distention, history Crohn's, anorexia Gastritis, history duodenal adenoma . 02 Diagnosis: A. Adenoma / periampullary duodenal, endoscopic biopsy: - Consistent with a tubular adenoma. - Negative for high grade dysplasia. - One separate fragment with squamous mucosa and bacterial aggregates, compatible with a floater from esophagus. . B. Adenoma-appearing tissue, distal bulb, endoscopic biopsy: - Fundic-type mucosa with features of reactive gastropathy and mild active inflammation, compatible with peptic duodenitis. - Negative for dysplasia or malignancy. . C. Gastric mucosa, gastritis, rule out H. pylori, endoscopic biopsy: - Mild reactive gastropathy. - Negative for antral vascular ectasia. - Negative for intestinal metaplasia or atrophy. - Negative for Helicobacter pylori (properly-controlled immunohistochemical stain performed). . (IUV:mml; 06/09/18) QL/06/09/2018 . 02 Electronically signed: . Sachi Solomon MD, Pathologist NPI- [id number] . 01 Gross description: . A. The specimen is received in formalin, labeled "Victor Hugo Kennedy, adenoma/periampullary duodenal biopsy" and consists of multiple fragments of soft perry tissue measuring 1.0 x 0.6 x 0.2 cm in aggregate which are entirely submitted in A1. . B. The specimen is received in formalin, labeled "Victor Hugo Kennedy, adenoma [address] [address] PATHOLOGY RPT PROCEDURE Name: VICTOR HUGO KENNEDY Room #: 239-P [facility] [place] ..#: [id number] Admission: 06/02/18 Date of : 41 Discharge: Report #: [id number] Path Case #: [id number] appearing tissue distal bulb bx" and consists of a fragment of soft perry tissue measuring 0.4 x 0.2 x 0.2 cm which is entirely submitted in B1. . C. The specimen is received in formalin, labeled "Malshady, Victor Hugo, gastritis rule out H. pylori BX" and consists of a fragment soft perry tissue measuring 0.4 x 0.3 x 0.2 cm which is entirely submitted in C1. (SDY; 06/06/2018) SYU/SYU . 02 Pathologist provided ICD-10: D13.2, K31.9, K29.80 . 02 CPT . 224738, 720375, 326403, N12131 Specimen Comment: A courtesy copy of this report has been sent to Specimen Comment: [phone], . Specimen Comment: Report sent to / DR SARMIENTO Performed at: [address], [place] [id number] MD Aureliano Gill MD Phone: [phone] Performed at: [address] [id number] MD Sachi Solomon MD Phone: [phone]
--- NOTE | ~2018-06-02 | HC ---
[facility] [place] [address] CONSULTATION Name: BENIGNO CASTILLO Room #: 239-P ADM IN M.R.#: [id number] Admission: 06/02/18 Attend Phys: Dyoln Ware MD Discharge: Date of : 43 Report #: [id number] THIS REPORT FOR: //name// CC: Dylon Ware DATE OF SERVICE: 06/25/2018 REFERRING PROVIDER: Dylon Ware MD. REASON FOR CONSULT: Abdominal distention. HISTORY OF PRESENT ILLNESS: The patient is a 73-year-old male, known to me, as he is 10 months status post a complex abdominal wall reconstruction for incarcerated recurrent incisional ventral hernias. The patient has done well in a postoperative standpoint until recently when he was admitted for aspiration pneumonia over 3 weeks ago. The patient has been in respiratory failure and sepsis with bacteremia and remains intubated and is scheduled to undergo tracheostomy placement tomorrow by ENT. The patient has gone into atrial fibrillation with RVR and is currently on a Cardizem drip, but is not requiring pressor support. I have been asked to evaluate the patient secondary to abdominal distention and concern for a small-bowel obstruction. The patient did receive a CT enterography yesterday showing uniform dilatation of the small bowel and the colon to the mid transverse colon all concerning for a severe ileus likely secondary to his underlying illness. PAST MEDICAL HISTORY: Extensive including chronic pain disorder, fibromyalgia, Crohn's disease, diabetes mellitus, obstructive sleep apnea, prior DVTs and TIAs, hypertension, atrial fibrillation and multiple abdominal hernia repairs. HOME MEDICATIONS: Metformin, Mirapex, modafinil, Colace, aspirin, Protonix, Lyrica, Ambien, Eliquis, and Lipitor. ALLERGIES: TO SULFA AND PROPOXYPHENE. FAMILY HISTORY: Reviewed and noncontributory. SOCIAL HISTORY: The patient has been smoking a pack of cigarettes daily and denies alcohol or illicit drug use, otherwise. REVIEW OF SYSTEMS: GENERAL: The patient is intubated, but awake and responsive and denies nocturnal fevers or chills. HEENT: No change in vision or change in hearing. NECK: No swelling or difficulty swallowing. HEART: No chest pain or palpitations. LUNGS: Chronic coughing and intermittent shortness of breath. [address] [address] CONSULTATION Name: BENIGNO CASTILLO Room #: 239-P [facility] IN M.R.#: [id number] Admission: 06/02/18 Attend Phys: Dylon Ware MD Discharge: Date of : 43 Report #: [id number] ABDOMEN: Chronic abdominal wall pain that is improved as of late. No nausea, no vomiting. GENITOURINARY: No dysuria or hematuria. ENDOCRINE: No polyuria or polydipsia. HEMATOLOGIC: No history of bleeding or easy bruising. EXTREMITIES: No history of weakness or limited range of motion. NEUROLOGIC: No history of syncope or near syncopal episodes. SKIN AND INTEGUMENT: No history of abnormal lesions or moles. PSYCHIATRIC: No history of anxiety or depression. PHYSICAL EXAMINATION: VITAL SIGNS: Temperature 98.8, pulse 77, respirations 26, blood pressure 111/56. GENERAL: Generally intubated and somnolent, but arouses with stimulation and he is in no distress. HEENT: Normocephalic, atraumatic. Pupils equal, round, reactive to light. NECK: Supple, without lymphadenopathy. Trachea midline. HEART: Irregularly irregular rhythm. LUNGS: Decreased air entry at the bases bilaterally. ABDOMEN: Soft, nontender, minimally distended. He has normoactive bowel sounds and has no evidence of recurrent herniation. GENITOURINARY: Normal external male genitalia. EXTREMITIES: No clubbing, cyanosis or edema. NEUROLOGIC: Cranial nerves 2-12 are grossly intact. PSYCHIATRIC: Somnolent, but otherwise with normal mood and affect. SKIN AND INTEGUMENT: No abnormal lesions or moles. LABORATORY AND X-RAY DATA: CBC this morning showed a white blood cell count 3800, hemoglobin 8.9, platelets 235,000. Creatinine 1.1. CT enterography was reviewed showing uniform dilatation of small bowel as well as colon to the mid transverse colon. This is concerning for an ileus versus less likely a small-bowel obstruction with no transition point identified. ASSESSMENT AND PLAN: A 73-year-old male 10 months status post complex abdominal wall reconstruction, who was admitted with bacteremia, sepsis and aspiration pneumonia as well as atrial fibrillation. At this time, I believe the patient likely has a severe ileus secondary to his overall condition. He is scheduled for tracheostomy placement tomorrow afternoon by ENT and at that time, he should be converted from an OG tube to an NG tube and we will therefore allow slow tube feeds to be initiated at that time. I sincerely appreciate this consult. I will follow along with serial abdominal [facility] [address] [place] [address] CONSULTATION Name: BENIGNO CASTILLO Room #: 239-P ADM IN M.R.#: [id number] Admission: 06/02/18 Attend Phys: Dylon Ware MD Discharge: Date of : 43 Report #: [id number] exams, labs and x-rays as indicated and leave all further recommendations in the patient's chart as appropriate. <ELECTRONICALLY SIGNED> By: Eva Claire MD, FACS 06/28/18 1558 1019 1324 Eva Claire MD, FACS /nt
--- NOTE | ~2018-06-02 | EKG ---
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
--- NOTE | ~2018-06-02 | HC ---
[facility] [place] [address] CONSULTATION Name: BENIGNO CASTILLO Room #: 239-P ADM IN M.R.#: [id number] Admission: 06/02/18 Attend Phys: Dylon Ware MD Discharge: Date of : 43 Report #: [id number] THIS REPORT FOR: //name// CC: Dylon Ware DATE OF SERVICE: 06/06/2018 PULMONARY CONSULTATION REFERRING PHYSICIAN: Dr. Ware. REASON FOR REFERRAL: Acute respiratory distress. HISTORY OF PRESENT ILLNESS: The patient is a 73-year-old gentleman who was admitted with fever, low back pain, hip pain and abdominal pain. Since admission, he has been treated for anemia, chronic abdominal pain and sacral pain. Overnight, the patient became acutely distressed. Nursing felt the patient may have aspirated. Chest x-ray performed just now shows bibasilar atelectasis. Arterial blood gas revealed pH 7.28, pCO2 of 36 and pO2 of 215. He is currently in moderately severe distress, tachypneic, respiratory rate in the 30s. He states that he just does not feel well. PAST MEDICAL HISTORY: Notable for history of Crohn's disease, hypertension, diabetes, atrial fibrillation, history of DVT, brain tumor, polycythemia, fibromyalgia, COPD, FRANCHESCA. PAST SURGICAL HISTORY: Remarkable for appendectomy, cholecystectomy, ventral herniorrhaphy, small bowel obstruction. ALLERGIES: SULFA, WHICH CAUSES TONGUE SWELLING AND BLEEDING AND PROPOXYPHENE, REACTIONS NOT SPECIFIED. MEDICATIONS: List are reviewed, is in the MAR. FAMILY HISTORY: Noncontributory. SOCIAL HISTORY: History of tobacco use. No history of alcohol abuse. REVIEW OF SYSTEMS: Deferred as the patient is in distress. [facility] [address] [place] [address] CONSULTATION Name: BENIGNO CASTILLO Room #: 239-P [facility] IN M.R.#: [id number] Admission: 06/02/18 Attend Phys: Dylon Ware MD Discharge: Date of : 43 Report #: [id number] PHYSICAL EXAMINATION: GENERAL: He is awake, moderately dyspneic, in distress. VITAL SIGNS: Temperature maximum is 100 degrees Fahrenheit, pulse currently is 98.6 degrees, pulse is 70, respiratory rate is 36, blood pressure 130/60 mmHg, saturation 97%. HEENT: Normocephalic, atraumatic. NECK: Supple, without any lymphadenopathy or thyromegaly. CHEST: Breath sounds are decreased, mild coarse breath sounds in the bases, rales. CARDIOVASCULAR: Normal S1, S2. There is no murmur or gallop. There is no JVD, no carotid bruit. Pulses are 2+/4+ bilaterally. ABDOMEN: Moderately distended, but soft. No masses felt. GENITOURINARY: Deferred. RECTAL: Deferred. EXTREMITIES: There is no edema, cyanosis or clubbing. LABORATORY DATA: Portable chest x-ray as mentioned above. ABG as mentioned above. BMP is pending. Recent BMP showed sodium 139, potassium 4.6, chloride 104, CO2 is 24, BUN is 19, creatinine is 1.7. Liver enzymes are mildly abnormal. Hemoglobin 7.5, WBC 3900. IMPRESSION: 1. Acute respiratory distress in this 73-year-old white male. He is felt to have aspirated. Chest x-ray now shows bibasilar atelectasis, infiltrates. 2. Anemia, question of gastrointestinal bleed. 3. Abdominal pain. 4. History of duodenal adenoma. 5. History of Crohn's disease. 6. Atrial fibrillation, on chronic anticoagulation. 7. Gastroesophageal reflux disease. RECOMMENDATIONS AND DISCUSSION: 1. Although his oxygenation is adequate on 100% nonrebreather, he is very tachypneic. Concerns are for eventual fatigue resulting in overt respiratory failure. Would recommend proceeding with intubation. 2. Broad spectrum antibiotics for presumed aspiration pneumonia. 3. Deep venous thrombosis and gastrointestinal prophylaxis will be addressed. Thank you for this consultation. <ELECTRONICALLY SIGNED> By: Raul Solorio MD 06/07/18 1538 0322 [id number] Raul Solorio MD /nt
--- NOTE | ~2018-06-02 | O ---
[facility] [place] [address] OPERATIVE REPORT Name: BENIGNO CASTILLO Room #: 239-P ADM IN M.R.#: [id number] Admission: 06/02/18 Attend Phys: Dylon Ware MD Discharge: Date of : 43 Report #: [id number] THIS REPORT FOR: //name// CC: Dylon Ware DATE OF SERVICE: 06/06/2018 CLINICAL HISTORY: A 73-year-old white male with massive aspiration. Therapeutic bronchoscopy was performed. Because of critical illness, the procedure was performed under medical necessity. POSTOPERATIVE DIAGNOSES: 1. Mild mucosal edema. 2. No evidence of significant secretions. DESCRIPTION OF PROCEDURE: Performed under medical necessity due to severity of illness. A flexible fiberoptic bronchoscope was introduced through the previously placed ET tube. Distal trachea was unremarkable. Michelle was unremarkable. Left main stem bronchus, left upper lobe, left lower lobe were unremarkable. Right mainstem bronchus, right upper lobe, right middle lobe and right lower lobe were unremarkable. The patient was given approximately 10 mL of 1% lidocaine. No specimen was obtained as there were no significant secretions. The patient tolerated the procedure well. Vital signs and saturation throughout the study were within normal range. <ELECTRONICALLY SIGNED> By: Raul Solorio MD 06/07/18 1538 1609 1804 Raul Solorio MD /cat
--- NOTE | ~2018-06-02 | 2DMMODE ---
[facility] [address] [place] [address] 2 D/M-MODE ECHOCARDIOGRAM Name: BENIGNO CASTILLO Quin Room #: 239-P [facility] IN [facility]#: [id number] Admission: 06/02/18 Attend Phys: Dylon Ware, Discharge: Date of : 43 Date of Service: 06/21/18 0738 Report #: [id number] THIS REPORT FOR: //name// APPROVED REPORT Study performed: 06/20/2018 14:45:54 EXAM: Comprehensive 2D, Doppler, and color-flow Echocardiogram Patient Location: In-Patient Room #: 239 Status: routine BSA: 1.79 HR: 89 bpm BP: 163/81 mmHg Other Information Study Quality: Adequate Indications Atrial Fibrillation 2D Dimensions IVSd: 10.66 (7-11mm) LVOT Diam: 21.61 (18-24mm) LVDd: 56.30 mm PWd: 9.89 (7-11mm) LVDs: 28.88 (25-40mm) Left Atrium: 32.82 (27-40mm) Aortic Root: 29.65 mm IVC: 2.60 mm Volumes Left Atrial Volume (Systole) Single Plane 4CH: 39.97 mL Aortic Valve AoV Peak Wiliam.: 1.42 m/s AO Peak Gr.: 9.60 mmHg LVOT Max P.28 mmHg LVOT Max V: 0.76 m/s JAYMIE Vmax: 1.95 cm2 Mitral Valve E/A Ratio: 1.0 MV Decel. Time: 148.10 ms MV E Max Wiliam.: 0.79 m/s MV A Wilaim.: 0.76 m/s MV PHT: 42.95 ms [facility] [address] [place] [address] 2 D/M-MODE ECHOCARDIOGRAM Name: BENIGNO CASTILLO Room #: 239-[facility]#: [id number] Admission: 06/02/18 Attend Phys: Dylon Ware, Discharge: Date of : 43 Date of Service: 06/21/18 0738 Report #: [id number] Pulmonary Valve PV Peak Wiliam.: 1.07 m/s PV Peak Gr.: 4.56 mmHg Pulmonary Vein P Vein A: 0.36 m/s P Vein A Dur.: 128.0 msec Tricuspid Valve TR Peak Wiliam.: 2.26 m/s RAP Estimate: 3.00 mmHg TR Peak Gr.: 20.35 mmHg PA Pressure: 23.00 mmHg Left Ventricle The left ventricle is normal size. Borderline concentric left ventricular hypertrophy. Left ventricular systolic function is normal. LVEF is >55%. Grade II - pseudonormal filling dynamics. Right Ventricle Right ventricle is dilated. Atria Left atrium is at the upper limits of normal. The right atrium size is normal. Aortic Valve Aortic valve is not well visualized. Trace aortic regurgitation. Mitral Valve The mitral valve is normal in structure. Trace mitral regurgitation. Tricuspid Valve The tricuspid valve is normal in structure. Trace tricuspid regurgitation. Pulmonic Valve Pulmonic valve is not well visualized. Trace pulmonic regurgitation. Great Vessels The aortic root is normal in size. IVC is normal in size and collapses >50% with inspiration. [facility] [address] [place] [address] 2 D/M-MODE ECHOCARDIOGRAM Name: ANNABENIGNO Quin Room #: 239-P [facility] IN ..#: [id number] Admission: 06/02/18 Attend Phys: Dylon Ware, Discharge: Date of : 43 Date of Service: 06/21/18737 Report #: [id number] Pericardium There is no pericardial effusion. <Conclusion> The left ventricle is normal size. LVEF is >55%. Right ventricle is dilated. The right atrium size is normal. Aortic valve is not well visualized. Trace aortic regurgitation. The mitral valve is normal in structure. Trace mitral regurgitation. The tricuspid valve is normal in structure. Trace tricuspid regurgitation. Pulmonic valve is not well visualized. Trace pulmonic regurgitation. There is no pericardial effusion. <ELECTRONICALLY SIGNED> By: Beni Worthy MD 06/21/18737 7 7 Beni Worthy MD /INF
--- NOTE | ~2018-06-02 | EKG ---
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1945 Requested By: Leonor Pineda Order Number: [id number] MD: Goyo Mills Measurements Intervals [place] Rate: 94 P: 49 AL: 157 QRS: 135 QRSD: 128 T: 35 QT: 376 QTc: 471 Interpretive Statements Sinus rhythm Nonspecific intraventricular conduction delay Borderline T abnormalities, anterior leads Compared to ECG 06/26/2018 08:15:16 T-wave abnormality now present Atrial flutter no longer present AV block, advanced (high-grade) no longer present Electronically Signed On 06-30-2018 8:27:14 RETURN TO SERVICE INSPECTOR by Goyo Mills [email or web address] <ELECTRONICALLY SIGNED> By: Goyo Mills MD 06/30/18 0827 0757 0757 Goyo Mills MD /EPI
--- NOTE | ~2018-06-02 | EKG ---
[place] [address] [facility] [employer] [place] [address] ELECTROCARDIOGRAM REPORT Name: HERSONLARYBENIGNO 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
--- NOTE | ~2018-06-02 | P ---
[facility] [place] [address] PROCEDURE REPORT Name: BENIGNO CASTILLO Room #: 455-P [facility] [place].R.#: [id number] Admission: 06/02/18 Attend Phys: Dylon Ware MD Discharge: Date of : 41 Report #: [id number] THIS REPORT FOR: //name// CC: Otoniel Ware MD DATE OF SERVICE: 06/05/2018 PROCEDURE: Esophagogastroduodenoscopy with biopsy. A patient of Dr. Dylon Ware and Otoniel Orona. INDICATION FOR PROCEDURE: This patient has had epigastric distention and pain, nausea, inability to eat. He has a history of Crohn disease. Informed consent for this procedure was obtained prior to the administration of any medication. The risks of the procedure, which include bleeding, perforation, infection, complications of sedation and the possibility I could miss something have been explained to the patient and he has indicated his consent by signing. Propofol was slowly titrated before and during this procedure for patient comfort by the Anesthesia Service. The Olympus upper videoscope was introduced through the upper esophageal sphincter and advanced under direct visualization to the third portion of the duodenum. Findings were noted on withdrawal of the scope. The visualized portions of the distal second portion of the duodenum appeared normal distal to the ampulla. The ampulla itself in the second portion of the duodenum is covered by what appears to be adenomatous tissue just grossly. Biopsies were obtained x 2 from this tissue for histopathology. There is further adenomatous tissue in the distal bulb and duodenal sweep and biopsies were obtained x 2 to evaluate this to be certain that is the correct diagnosis. The duodenal bulb itself contains normal appearing mucosa. Pylorus, normal mucosa. Antrum, in the antrum there is apparent faint appearance of a watermelon stomach with some erythema. Biopsies were obtained x2 for histopathology. Body, normal mucosa. Cardia and fundus, normal mucosa. Retroflexed view does reveal the presence of a small hiatal hernia. The scope was withdrawn into the esophagus. The Z-line is appropriately located at the top of the gastric folds and appears normal. The esophageal mucosa appears normal throughout its entirety. The scope was withdrawn. The patient went to the recovery area in stable condition. He tolerated the procedure well. Good hemostasis was noted after all biopsies. IMPRESSION: 1. Adenomatous appearing tissue surrounding the ampulla. Biopsies pending. [address] [address] PROCEDURE REPORT Name: ANNABENIGNO Quin Room #: 455-P [facility] [place].R.#: [id number] Admission: 06/02/18 Attend Phys: Dylon Ware MD Discharge: Date of : 41 Report #: [id number] 2. Adenomatous appearing tissue extending through the duodenal sweep and up into the distal bulb. Biopsies pending. 3. Normal pylorus. 4. Possible watermelon stomach with antral erythema. Biopsies pending. The more proximal stomach appears normal. 5. Small hiatal hernia. RECOMMENDATIONS: My recommendations are to await the biopsy results. I did not think that I saw anything that explained the patient's current symptomatology, and I think it might be spencer to proceed with the next test, which would be a Gastrografin small bowel follow through or possible enterography with CT scanning. Thank you very much once again for allowing me to participate in his care, Dr. Ware. <ELECTRONICALLY SIGNED> By: Bernie Pickett DO 06/05/18 [id number] Bernie Pickett DO /nt
[~2018-06-02 09:56] MED LIST changes: +CARAFATE 11 GM/10 M1 PO; +CARDIZEM CD 18180 M3 PO; +GLUCOPHAGE XR500 MG PO; +LANTUS100 UNIT/M SUBQ; +PANTOPRAZOLE SO40 M1 PO; +PREDNISONE 20 M20 M1 PO; +TRAMADOL 50 MG50 MG PO
[2018-06-02 09:58] VITALS: BP 115/46
[2018-06-02 11:11] LABS: HEMATOCRIT 22.8 % (42.0-52.0); MCH 23.6 pg (26.0-34.0); MCHC 30.8 g/dL (28.0-37.0); MCV 76.5 fL (80.0-100.0); PLATELET COUNT 169 thou/uL (150-400); RBC 2.98 mil/uL (4.50-6.00); RDW 22.3 % (10.5-14.5); WBC 3.9 thou/uL (4.0-11.0)
[2018-06-02 11:18] LABS: ANION GAP 11 mmol/L (7-16); BUN 19 mg/dL (7-18); CALCIUM 8.8 mg/dL (8.5-10.1); CHLORIDE 104 mmol/L (98-107); CO2 24 mmol/L (21-32); CREATININE 1.7 mg/dL (0.7-1.3); GLUCOSE 140 mg/dL (74-106); POTASSIUM 4.6 mmol/L (3.5-5.1); SODIUM 139 mmol/L (136-145)
[2018-06-02 11:26] LABS: ALBUMIN 3.3 g/dL (3.4-5.0); SGOT 28 U/L (15-37); SGPT 27 U/L (30-65); TOTAL BILIRUBIN 0.6 mg/dL (<0.1-1.0); TOTAL PROTEIN 7.1 g/dL (6.4-8.2); TROPONIN-I <0.06 ng/mL (<0.06)
[2018-06-02 12:24] LABS: ABSOLUTE NEUTROPHILS 3.1 thou/uL (1.4-8.2); ANISOCYTOSIS 1+
[2018-06-02 16:17] LABS: URINE BILIRUBIN NEGATIVE (Negative); URINE BLOOD NEGATIVE (Negative); URINE CLARITY CLEAR; URINE COLOR YELLOW; URINE GLUCOSE-RANDOM* NEGATIVE (Negative); URINE KETONES NEGATIVE (Negative); URINE LEUKOCYTES-REFLEX NEGATIVE (Negative); URINE NITRITE-REFLEX NEGATIVE (Negative); URINE PROTEIN (DIPSTICK) TRACE (Negative); URINE SPECIFIC GRAVITY 1.025 (1.005-1.035); URINE UROBILINOGEN 0.2 E.U./dl (0.2-1.0)
[2018-06-02 18:03] VITALS: BP 108/62
[2018-06-02 19:43] VITALS: BP 124/62
[2018-06-02] MEDS ORDERED: AMBIEN 5 MG TABL5 M1 PO (19:53)
[2018-06-02] MEDS ORDERED: MODAFINIL200 MG PO (19:55)
[2018-06-02] MEDS ORDERED: ONDANSETRON HCL4 M2 PO (19:56)
[2018-06-02] MEDS ORDERED: LIDOCAINE PAIN1 EACH TRANSDERM (19:57)
[2018-06-02] MEDS ORDERED: DETROL2 M1 PO (19:57)
[2018-06-02] MEDS ORDERED: CARAFATE1 GM PO (19:58)
[2018-06-02] MEDS ORDERED: B12INJ IM (20:00)
[2018-06-02 20:02] VITALS: BP 124/62
[2018-06-03 03:28] VITALS: BP 116/54
[2018-06-03 06:28] LABS: BASOPHILS 0.5 % (0.0-2.0); EOSINOPHILS 1.3 % (0.0-3.0); HEMATOCRIT 21.4 % (42.0-52.0); HEMOGLOBIN 6.6 gm/dL (14.0-18.0); LYMPHOCYTES 10.1 % (24.0-44.0); MCH 23.8 pg (26.0-34.0); MCHC 30.9 g/dL (28.0-37.0); MCV 77.2 fL (80.0-100.0); MONOCYTES 11.7 % (1.0-8.0); PLATELET COUNT 135 thou/uL (150-400); POLYS 76.4 % (36.0-66.0); RBC 2.77 mil/uL (4.50-6.00); RDW 22.2 % (10.5-14.5); WBC 3.9 thou/uL (4.0-11.0)
[2018-06-03 08:00] VITALS: BP 128/60
[2018-06-03 09:05] LABS: INR 1.1
[2018-06-03 09:10] LABS: APTT 22.6 Seconds (24.5-32.8)
[2018-06-03 10:10] LABS: ANISOCYTOSIS 3+; HYPOCHROMASIA 1+; MICROCYTES 2+
[2018-06-03 10:51] VITALS: BP 105/54; BP 107/56
[2018-06-03 12:25] VITALS: BP 107/56
[2018-06-03 14:00] VITALS: BP 114/55
[2018-06-03 14:36] LABS: HEMATOCRIT 22.6 % (42.0-52.0); HEMOGLOBIN 7.1 gm/dL (14.0-18.0)
[2018-06-03 20:03] VITALS: BP 107/54
[2018-06-04 03:28] VITALS: BP 114/59
[2018-06-04 04:48] LABS: % SATURATION 16 % (20-39); IRON 49 ug/dL (65-175); TIBC 307 ug/dL (250-450)
[2018-06-04 09:09] VITALS: BP 115/60
[2018-06-04 15:11] VITALS: BP 105/50
[2018-06-04 19:33] VITALS: BP 119/56
[2018-06-05 03:50] VITALS: BP 105/72
[2018-06-05 06:25] LABS: HEMATOCRIT 24.7 % (42.0-52.0); HEMOGLOBIN 7.5 gm/dL (14.0-18.0)
[2018-06-05 12:26] VITALS: BP 136/62
[2018-06-05 15:01] VITALS: BP 131/69
[2018-06-05 20:07] VITALS: BP 130/60
[2018-06-06] VITALS (58 sets, daily range): BP systolic 68–139; BP diastolic 34–67
[2018-06-06 02:59] LABS: BE(vivo) -8.7 mmol/L (-2 to +3); HCO3 17.2 mmol/L (22.0-26.0); PCO2 36.9 mmHg (35.0-45.0); sO2 99.3 % (92.0-98.0)
[2018-06-06 03:02] LABS: pH 7.286 (7.360-7.450)
[2018-06-06 04:01] LABS: CALCIUM 7.8 mg/dL (8.5-10.1); CREATININE 1.2 mg/dL (0.7-1.3); POTASSIUM 4.4 mmol/L (3.5-5.1)
[2018-06-06 04:02] LABS: FIBRINOGEN 442.2 mg/dL (210-360); INR 1.1; PROTIME 11.9 Seconds (9.3-11.4)
[2018-06-06 04:18] LABS: BE(vivo) -8.1 mmol/L (-2 to +3); HCO3 18.1 mmol/L (22.0-26.0); PCO2 39.9 mmHg (35.0-45.0); PO2 244.9 mmHg (80.0-100.0); sO2 99.5 % (92.0-98.0)
[2018-06-06 04:19] LABS: pH 7.275 (7.360-7.450)
[2018-06-06 04:36] LABS: MCHC 31.4 g/dL (28.0-37.0); WBC 6.7 thou/uL (4.0-11.0)
[2018-06-06 04:37] LABS: HEMATOCRIT 25.6 % (42.0-52.0); MCH 25.2 pg (26.0-34.0); MCV 80.4 fL (80.0-100.0); RBC 3.18 mil/uL (4.50-6.00); RDW 22.8 % (10.5-14.5)
[2018-06-06 15:04] LABS: BE(vivo) -8.5 mmol/L (-2 to +3); HCO3 16.8 mmol/L (22.0-26.0); PCO2 33.4 mmHg (35.0-45.0); PO2 104.8 mmHg (80.0-100.0); sO2 97.5 % (92.0-98.0)
[2018-06-06 16:30] LABS: ABSOLUTE NEUTROPHILS 6.9 thou/uL (1.4-8.2); HEMOGLOBIN 6.9 gm/dL (14.0-18.0); WBC 7.6 thou/uL (4.0-11.0)
[2018-06-06 16:32] LABS: BASOPHILS 0.2 % (0.0-2.0); HEMATOCRIT 22.2 % (42.0-52.0); LYMPHOCYTES 4.5 % (24.0-44.0); MCH 25.4 pg (26.0-34.0); MCHC 31.1 g/dL (28.0-37.0); MCV 81.8 fL (80.0-100.0); MONOCYTES 3.8 % (1.0-8.0); PLATELET COUNT 114 thou/uL (150-400); POLYS 91.5 % (36.0-66.0); RBC 2.71 mil/uL (4.50-6.00); RDW 22.7 % (10.5-14.5)
[2018-06-06 16:38] LABS: CREATININE 1.7 mg/dL (0.7-1.3); POTASSIUM 3.7 mmol/L (3.5-5.1)
[2018-06-06 16:43] LABS: ALBUMIN 2.1 g/dL (3.4-5.0); TOTAL BILIRUBIN 0.6 mg/dL (<0.1-1.0)
[2018-06-06 16:47] LABS: APTT 38.5 Seconds (24.5-32.8); FIBRINOGEN 432.1 mg/dL (210-360); INR 1.3; PROTIME 13.4 Seconds (9.3-11.4)
[2018-06-06 17:47] LABS: URINE BLOOD NEGATIVE (Negative); URINE CLARITY CLOUDY; URINE COLOR YELLOW; URINE GLUCOSE-RANDOM* NEGATIVE (Negative); URINE KETONES 1+ (Negative); URINE LEUKOCYTES-REFLEX NEGATIVE (Negative); URINE NITRITE-REFLEX NEGATIVE (Negative); URINE PROTEIN (DIPSTICK) 1+ (Negative); URINE SPECIFIC GRAVITY 1.025 (1.005-1.035); URINE UROBILINOGEN 0.2 E.U./dl (0.2-1.0)
[2018-06-06 17:53] LABS: ICTOTEST (BILI CONFIRMATORY) Negative (Negative); URINE BILIRUBIN NEGATIVE (Negative)
[2018-06-06 17:59] LABS: CASTS None Seen /LPF (None Seen); SQUAMOUS None Seen /LPF (0-3); URINE RBC None Seen /HPF (0-2)
[2018-06-06 18:00] LABS: AMORPHOUS URATES Moderate /LPF (None Seen); URINE WBC-REFLEX 0-5 Rare /HPF (0-5)
[2018-06-06 22:05] LABS: CALCIUM 6.8 mg/dL (8.5-10.1); CREATININE 1.7 mg/dL (0.7-1.3); POTASSIUM 3.8 mmol/L (3.5-5.1)
[2018-06-07] VITALS (97 sets, daily range): BP systolic 88–146; BP diastolic 38–71
[2018-06-07 00:47] LABS: CREATININE 1.7 mg/dL (0.7-1.3); POTASSIUM 3.9 mmol/L (3.5-5.1)
[2018-06-07 05:52] LABS: BE(vivo) -11.3 mmol/L (-2 to +3); HCO3 14.4 mmol/L (22.0-26.0); PCO2 31.6 mmHg (35.0-45.0); PO2 118.9 mmHg (80.0-100.0); sO2 97.9 % (92.0-98.0)
[2018-06-07 05:53] LABS: pH 7.276 (7.360-7.450)
[2018-06-07 06:30] LABS: HEMATOCRIT 30.4 % (42.0-52.0); MCH 26.3 pg (26.0-34.0); MCHC 31.4 g/dL (28.0-37.0); MCV 83.9 fL (80.0-100.0); RBC 3.63 mil/uL (4.50-6.00); RDW 21.7 % (10.5-14.5); WBC 15.7 thou/uL (4.0-11.0)
[2018-06-07 06:33] LABS: HEMOGLOBIN 9.5 gm/dL (14.0-18.0)
[2018-06-07 06:38] LABS: CALCIUM 6.9 mg/dL (8.5-10.1); CREATININE 1.7 mg/dL (0.7-1.3); POTASSIUM 4.1 mmol/L (3.5-5.1)
[2018-06-07 11:59] LABS: BE(vivo) -10.8 mmol/L (-2 to +3); HCO3 14.4 mmol/L (22.0-26.0); PCO2 30.1 mmHg (35.0-45.0); PO2 104.1 mmHg (80.0-100.0); pH 7.298 (7.360-7.450); sO2 97.3 % (92.0-98.0)
[2018-06-07 17:12] LABS: ABSOLUTE NEUTROPHILS 11.9 thou/uL (1.4-8.2); BASOPHILS 0.3 % (0.0-2.0); EOSINOPHILS 0.2 % (0.0-3.0); HEMATOCRIT 31.9 % (42.0-52.0); HEMOGLOBIN 10.4 gm/dL (14.0-18.0); LYMPHOCYTES 4.5 % (24.0-44.0); MCH 27.1 pg (26.0-34.0); MCHC 32.5 g/dL (28.0-37.0); MCV 83.3 fL (80.0-100.0); MONOCYTES 3.5 % (1.0-8.0); PLATELET COUNT 126 thou/uL (150-400); POLYS 91.5 % (36.0-66.0); RBC 3.83 mil/uL (4.50-6.00); RDW 21.8 % (10.5-14.5)
[2018-06-07 17:26] LABS: CALCIUM 7.2 mg/dL (8.5-10.1); CREATININE 1.7 mg/dL (0.7-1.3); POTASSIUM 3.9 mmol/L (3.5-5.1)
[2018-06-08] VITALS (53 sets, daily range): BP systolic 86–130; BP diastolic 43–72
[2018-06-08 05:11] LABS: CALCIUM 7.2 mg/dL (8.5-10.1); CREATININE 1.5 mg/dL (0.7-1.3); POTASSIUM 3.7 mmol/L (3.5-5.1)
[2018-06-08 05:23] LABS: BE(vivo) -7.5 mmol/L (-2 to +3); PCO2 36.6 mmHg (35.0-45.0); PO2 77.1 mmHg (80.0-100.0); sO2 94.4 % (92.0-98.0)
[2018-06-08 07:03] LABS: ABSOLUTE NEUTROPHILS 7.6 thou/uL (1.4-8.2); BASOPHILS 0.5 % (0.0-2.0); EOSINOPHILS 0.4 % (0.0-3.0); HEMATOCRIT 31.2 % (42.0-52.0); LYMPHOCYTES 5.1 % (24.0-44.0); MCV 84.4 fL (80.0-100.0); MONOCYTES 4.3 % (1.0-8.0); PLATELET COUNT 115 thou/uL (150-400); POLYS 89.7 % (36.0-66.0); RDW 22.5 % (10.5-14.5); WBC 8.4 thou/uL (4.0-11.0)
[2018-06-08 08:37] LABS: ANISOCYTOSIS 3+
[2018-06-08 08:38] LABS: OVALOCYTES FEW; POLYCHROMASIA SLIGHT
[2018-06-08 16:45] LABS: CALCIUM 7.9 mg/dL (8.5-10.1); CREATININE 1.4 mg/dL (0.7-1.3); POTASSIUM 3.3 mmol/L (3.5-5.1)
[2018-06-09] VITALS (24 sets, daily range): BP systolic 92–131; BP diastolic 46–76
[2018-06-09 05:34] LABS: BE(vivo) -5.6 mmol/L (-2 to +3); HCO3 18.8 mmol/L (22.0-26.0); PO2 62.1 mmHg (80.0-100.0); pH 7.374 (7.360-7.450); sO2 91.6 % (92.0-98.0)
[2018-06-09 05:50] LABS: HEMATOCRIT 29.3 % (42.0-52.0); HEMOGLOBIN 9.3 gm/dL (14.0-18.0); MCH 26.8 pg (26.0-34.0); MCHC 31.7 g/dL (28.0-37.0); MCV 84.5 fL (80.0-100.0); RBC 3.47 mil/uL (4.50-6.00); RDW 22.6 % (10.5-14.5); WBC 8.1 thou/uL (4.0-11.0)
[2018-06-09 06:02] LABS: CALCIUM 7.5 mg/dL (8.5-10.1); CREATININE 1.2 mg/dL (0.7-1.3); POTASSIUM 3.6 mmol/L (3.5-5.1)
[2018-06-10] VITALS (24 sets, daily range): BP systolic 102–153; BP diastolic 45–76
[2018-06-10 04:41] LABS: HEMATOCRIT 29.3 % (42.0-52.0); HEMOGLOBIN 9.3 gm/dL (14.0-18.0); MCH 26.8 pg (26.0-34.0); MCHC 31.6 g/dL (28.0-37.0); MCV 84.7 fL (80.0-100.0); RBC 3.46 mil/uL (4.50-6.00); RDW 23.8 % (10.5-14.5); WBC 6.3 thou/uL (4.0-11.0)
[2018-06-10 04:49] LABS: CALCIUM 7.7 mg/dL (8.5-10.1); CREATININE 1.1 mg/dL (0.7-1.3); POTASSIUM 3.6 mmol/L (3.5-5.1)
[2018-06-11] VITALS (24 sets, daily range): BP systolic 107–133; BP diastolic 51–68
[2018-06-11 05:02] LABS: CALCIUM 7.9 mg/dL (8.5-10.1); CREATININE 1.1 mg/dL (0.7-1.3); POTASSIUM 3.7 mmol/L (3.5-5.1)
[2018-06-11 11:27] LABS: BE(vivo) -5.8 mmol/L (-2 to +3); HCO3 19.3 mmol/L (22.0-26.0); PCO2 36.2 mmHg (35.0-45.0); PO2 73.4 mmHg (80.0-100.0); pH 7.344 (7.360-7.450); sO2 94.1 % (92.0-98.0)
[2018-06-12] VITALS (24 sets, daily range): BP systolic 116–143; BP diastolic 49–71
[2018-06-12 11:17] LABS: HEMATOCRIT 29.7 % (42.0-52.0); HEMOGLOBIN 9.5 gm/dL (14.0-18.0); MCHC 31.8 g/dL (28.0-37.0); MCV 84.9 fL (80.0-100.0); RBC 3.5 mil/uL (4.50-6.00); RDW 24.6 % (10.5-14.5); WBC 4.1 thou/uL (4.0-11.0)
[2018-06-12 11:29] LABS: ALBUMIN 1.5 g/dL (3.4-5.0); CALCIUM 8.4 mg/dL (8.5-10.1); CREATININE 1.1 mg/dL (0.7-1.3); POTASSIUM 3.6 mmol/L (3.5-5.1); TOTAL BILIRUBIN 0.3 mg/dL (<0.1-1.0)
[2018-06-13] VITALS (24 sets, daily range): BP systolic 116–151; BP diastolic 58–75
[2018-06-13 05:26] LABS: BE(vivo) 3.8 mmol/L (-2 to +3); HCO3 28.5 mmol/L (22.0-26.0); PCO2 43.3 mmHg (35.0-45.0); PO2 107.2 mmHg (80.0-100.0); pH 7.436 (7.360-7.450)
[2018-06-13 06:26] LABS: HEMATOCRIT 29.1 % (42.0-52.0); HEMOGLOBIN 9.4 gm/dL (14.0-18.0); MCH 27.2 pg (26.0-34.0); MCHC 32.3 g/dL (28.0-37.0); MCV 84.2 fL (80.0-100.0); PLATELET COUNT 226 thou/uL (150-400); RBC 3.45 mil/uL (4.50-6.00); RDW 25.1 % (10.5-14.5); WBC 4.2 thou/uL (4.0-11.0)
[2018-06-13 06:32] LABS: CALCIUM 8.3 mg/dL (8.5-10.1); POTASSIUM 3.3 mmol/L (3.5-5.1)
[2018-06-13 07:48] LABS: ABSOLUTE NEUTROPHILS 2.2 thou/uL (1.4-8.2); METAMYELOCYTES 3 %; MYELOCYTES 5 %; NUCLEATED RBCS 1 /100WBC
[2018-06-13 07:49] LABS: ANISOCYTOSIS 3+; POLYCHROMASIA SLIGHT
[2018-06-14] VITALS (24 sets, daily range): BP systolic 111–150; BP diastolic 47–74
[2018-06-14 07:23] LABS: ALBUMIN 2.2 g/dL (3.4-5.0); CALCIUM 8.1 mg/dL (8.5-10.1); CREATININE 0.9 mg/dL (0.7-1.3); MAGNESIUM 1.9 mg/dL (1.8-2.4); POTASSIUM 3.1 mmol/L (3.5-5.1); TOTAL BILIRUBIN 0.3 mg/dL (<0.1-1.0); TOTAL PROTEIN 6.1 g/dL (6.4-8.2)
[2018-06-14 09:52] LABS: BE(vivo) 2.2 mmol/L (-2 to +3); PCO2 43.2 mmHg (35.0-45.0); PO2 60.3 mmHg (80.0-100.0); pH 7.414 (7.360-7.450); sO2 91.4 % (92.0-98.0)
[2018-06-14 11:18] LABS: BE(vivo) 5.2 mmol/L (-2 to +3); HCO3 30.2 mmol/L (22.0-26.0); PCO2 46.3 mmHg (35.0-45.0); PO2 63.1 mmHg (80.0-100.0); pH 7.432 (7.360-7.450); sO2 92.6 % (92.0-98.0)
[2018-06-15] VITALS (22 sets, daily range): BP systolic 121–146; BP diastolic 57–74
[2018-06-15 04:41] LABS: CALCIUM 8.3 mg/dL (8.5-10.1); MAGNESIUM 1.9 mg/dL (1.8-2.4); PHOSPHORUS 3.6 mg/dL (2.5-4.9); POTASSIUM 3.4 mmol/L (3.5-5.1)
[2018-06-16] VITALS (17 sets, daily range): BP systolic 110–150; BP diastolic 55–79
[2018-06-17] VITALS (29 sets, daily range): BP systolic 114–161; BP diastolic 55–138
[2018-06-17 05:09] LABS: ALBUMIN 3.4 g/dL (3.4-5.0); CALCIUM 8.8 mg/dL (8.5-10.1); CREATININE 0.9 mg/dL (0.7-1.3); MAGNESIUM 2.3 mg/dL (1.8-2.4); PHOSPHORUS 4.1 mg/dL (2.5-4.9); POTASSIUM 3.9 mmol/L (3.5-5.1); TOTAL BILIRUBIN 0.4 mg/dL (<0.1-1.0); TOTAL PROTEIN 7.2 g/dL (6.4-8.2)
[2018-06-17 05:27] LABS: HEMOGLOBIN 9.3 gm/dL (14.0-18.0); MCH 26.9 pg (26.0-34.0); MCHC 30.9 g/dL (28.0-37.0); MCV 86.8 fL (80.0-100.0); RBC 3.45 mil/uL (4.50-6.00); RDW 25.9 % (10.5-14.5); WBC 4.7 thou/uL (4.0-11.0)
[2018-06-17 09:14] LABS: BE(vivo) 0.5 mmol/L (-2 to +3); HCO3 26.1 mmol/L (22.0-26.0); PCO2 46.1 mmHg (35.0-45.0); PO2 74.9 mmHg (80.0-100.0); sO2 94.6 % (92.0-98.0)
[2018-06-17 12:34] LABS: BE(vivo) -2.9 mmol/L (-2 to +3); HCO3 23.5 mmol/L (22.0-26.0); PCO2 47.6 mmHg (35.0-45.0); PO2 67.8 mmHg (80.0-100.0); sO2 91.8 % (92.0-98.0)
[2018-06-17 12:35] LABS: pH 7.311 (7.360-7.450)
[2018-06-18] VITALS (24 sets, daily range): BP systolic 122–180; BP diastolic 63–92
[2018-06-18 05:37] LABS: CALCIUM 8.9 mg/dL (8.5-10.1); CREATININE 0.9 mg/dL (0.7-1.3); POTASSIUM 3.9 mmol/L (3.5-5.1)
[2018-06-18 08:08] LABS: BE(vivo) -2.5 mmol/L (-2 to +3); HCO3 22.8 mmol/L (22.0-26.0); PCO2 41.4 mmHg (35.0-45.0); PO2 68.4 mmHg (80.0-100.0); pH 7.359 (7.360-7.450)
[2018-06-19] VITALS (24 sets, daily range): BP systolic 127–169; BP diastolic 63–90
[2018-06-19 06:52] LABS: CREATININE 0.9 mg/dL (0.7-1.3); POTASSIUM 4.1 mmol/L (3.5-5.1)
[2018-06-20] VITALS (12 sets, daily range): BP systolic 100–173; BP diastolic 49–90
[2018-06-20 05:51] LABS: HEMATOCRIT 31.3 % (42.0-52.0); HEMOGLOBIN 9.7 gm/dL (14.0-18.0); MCH 27.3 pg (26.0-34.0); MCHC 31.1 g/dL (28.0-37.0); MCV 87.9 fL (80.0-100.0); RBC 3.56 mil/uL (4.50-6.00); RDW 26.4 % (10.5-14.5); WBC 7.5 thou/uL (4.0-11.0)
[2018-06-20 06:05] LABS: ALBUMIN 4.4 g/dL (3.4-5.0); CREATININE 0.9 mg/dL (0.7-1.3); MAGNESIUM 2.2 mg/dL (1.8-2.4); PHOSPHORUS 4.1 mg/dL (2.5-4.9); POTASSIUM 4.2 mmol/L (3.5-5.1)
[2018-06-20 13:04] LABS: BE(vivo) -7.1 mmol/L (-2 to +3); HCO3 20.2 mmol/L (22.0-26.0); PCO2 48.6 mmHg (35.0-45.0); PO2 80.8 mmHg (80.0-100.0); sO2 93.8 % (92.0-98.0)
[2018-06-20 13:05] LABS: pH 7.237 (7.360-7.450)
[2018-06-21] VITALS (25 sets, daily range): BP systolic 87–139; BP diastolic 40–65
[2018-06-21 02:39] LABS: ANION GAP 8 mmol/L (7-16); BUN 51 mg/dL (7-18); CALCIUM 9.3 mg/dL (8.5-10.1); CHLORIDE 105 mmol/L (98-107); CO2 27 mmol/L (21-32); CREATININE 1.1 mg/dL (0.7-1.3); SODIUM 140 mmol/L (136-145); TROPONIN-I <0.06 ng/mL (<0.06)
[2018-06-21 02:49] LABS: POTASSIUM 5.6 mmol/L (3.5-5.1)
[2018-06-21 02:53] LABS: GLUCOSE 311 mg/dL (74-106)
[2018-06-21 04:49] LABS: BE(vivo) -6.8 mmol/L (-2 to +3); HCO3 23.1 mmol/L (22.0-26.0); PO2 81.9 mmHg (80.0-100.0); pH 7.122 (7.360-7.450); sO2 91.6 % (92.0-98.0)
[2018-06-21 04:50] LABS: PCO2 72.5 mmHg (35.0-45.0)
[2018-06-21 08:08] LABS: BE(vivo) -5.1 mmol/L (-2 to +3); HCO3 22.7 mmol/L (22.0-26.0); PCO2 55.9 mmHg (35.0-45.0); PO2 94.1 mmHg (80.0-100.0); pH 7.226 (7.360-7.450); sO2 95.7 % (92.0-98.0)
[2018-06-22] VITALS (25 sets, daily range): BP systolic 97–141; BP diastolic 45–67
[2018-06-22 09:59] LABS: BE(vivo) -3.4 mmol/L (-2 to +3); HCO3 23.3 mmol/L (22.0-26.0); PCO2 49.9 mmHg (35.0-45.0); PO2 99.4 mmHg (80.0-100.0); pH 7.287 (7.360-7.450); sO2 96.8 % (92.0-98.0)
[2018-06-23] VITALS (19 sets, daily range): BP systolic 98–125; BP diastolic 47–62
[2018-06-23 05:21] LABS: HEMATOCRIT 28.2 % (42.0-52.0); HEMOGLOBIN 8.7 gm/dL (14.0-18.0); MCH 27.6 pg (26.0-34.0); MCHC 30.9 g/dL (28.0-37.0); MCV 89.3 fL (80.0-100.0); RBC 3.15 mil/uL (4.50-6.00); RDW 26.1 % (10.5-14.5); WBC 4.2 thou/uL (4.0-11.0)
[2018-06-23 05:28] LABS: ALBUMIN 3.4 g/dL (3.4-5.0); CALCIUM 9.1 mg/dL (8.5-10.1); CREATININE 1.5 mg/dL (0.7-1.3); POTASSIUM 5.2 mmol/L (3.5-5.1); TOTAL BILIRUBIN 0.4 mg/dL (<0.1-1.0); TOTAL PROTEIN 7.2 g/dL (6.4-8.2)
[2018-06-23 05:29] LABS: APTT 32.9 Seconds (24.5-32.8); INR 1.2; PROTIME 12.3 Seconds (9.3-11.4)
[2018-06-23 11:06] LABS: CLARITY HAZY; COLOR YELLOW; SOURCE PLEURAL FLUID; TOTAL VOLUME 60 mL
[2018-06-23 13:11] LABS: BF NUCLEATED CELLS 502; BF RBC 1850
[2018-06-23 14:00] LABS: BF MACROPHAGE 42; BF NEUTROPHILS 3
[2018-06-24] VITALS (32 sets, daily range): BP systolic 109–136; BP diastolic 46–67
[2018-06-24 05:40] LABS: ALBUMIN 3.3 g/dL (3.4-5.0); CREATININE 1.3 mg/dL (0.7-1.3); TOTAL BILIRUBIN 0.4 mg/dL (<0.1-1.0); TOTAL PROTEIN 7.1 g/dL (6.4-8.2)
[2018-06-24 05:41] LABS: HEMATOCRIT 27.3 % (42.0-52.0); HEMOGLOBIN 8.8 gm/dL (14.0-18.0); MAGNESIUM 2.1 mg/dL (1.8-2.4); MCH 28.1 pg (26.0-34.0); MCHC 32.4 g/dL (28.0-37.0); MCV 86.7 fL (80.0-100.0); PHOSPHORUS 4.4 mg/dL (2.5-4.9); RBC 3.14 mil/uL (4.50-6.00); RDW 26.2 % (10.5-14.5)
[2018-06-24 05:44] LABS: POTASSIUM 3.8 mmol/L (3.5-5.1)
[2018-06-24 11:07] LABS: BODY FLUID ALBUMIN 2.7 g/dL (()); BODY FLUID AMYLASE 49 U/L (()); BODY FLUID CREATININE 1.5 mg/dL (()); BODY FLUID GLUCOSE 174 mg/dL (()); BODY FLUID LDH 184 IU/L (()); BODY FLUID PROTEIN 4.2 g/dL (())
[2018-06-25] VITALS (37 sets, daily range): BP systolic 91–154; BP diastolic 50–75
[2018-06-25 06:20] LABS: HEMATOCRIT 28.2 % (42.0-52.0); HEMOGLOBIN 8.9 gm/dL (14.0-18.0); MCH 27.9 pg (26.0-34.0); MCHC 31.7 g/dL (28.0-37.0); MCV 87.9 fL (80.0-100.0); RBC 3.21 mil/uL (4.50-6.00); RDW 25.6 % (10.5-14.5); WBC 3.8 thou/uL (4.0-11.0)
[2018-06-25 06:34] LABS: CALCIUM 9.1 mg/dL (8.5-10.1); CREATININE 1.1 mg/dL (0.7-1.3); MAGNESIUM 2.1 mg/dL (1.8-2.4); PHOSPHORUS 2.9 mg/dL (2.5-4.9); POTASSIUM 3.2 mmol/L (3.5-5.1)
[2018-06-25 09:20] LABS: SOURCE PLEURAL
[2018-06-26] VITALS (45 sets, daily range): BP systolic 103–140; BP diastolic 53–78
[2018-06-26 05:41] LABS: HEMATOCRIT 28.5 % (42.0-52.0); HEMOGLOBIN 9.3 gm/dL (14.0-18.0); MCH 28.5 pg (26.0-34.0); MCHC 32.6 g/dL (28.0-37.0); MCV 87.4 fL (80.0-100.0); RBC 3.26 mil/uL (4.50-6.00); RDW 25.3 % (10.5-14.5); WBC 4.1 thou/uL (4.0-11.0)
[2018-06-26 05:48] LABS: CALCIUM 8.8 mg/dL (8.5-10.1); MAGNESIUM 1.9 mg/dL (1.8-2.4); PHOSPHORUS 3.4 mg/dL (2.5-4.9)
[2018-06-26 05:54] LABS: POTASSIUM 2.8 mmol/L (3.5-5.1)
[2018-06-27] VITALS (24 sets, daily range): BP systolic 99–151; BP diastolic 58–76
[2018-06-27 06:45] LABS: HEMATOCRIT 31.1 % (42.0-52.0); HEMOGLOBIN 10.3 gm/dL (14.0-18.0); MCH 28.4 pg (26.0-34.0); MCHC 32.9 g/dL (28.0-37.0); MCV 86.2 fL (80.0-100.0); RBC 3.62 mil/uL (4.50-6.00); RDW 26.2 % (10.5-14.5); WBC 6.9 thou/uL (4.0-11.0)
[2018-06-27 07:05] LABS: CALCIUM 9.2 mg/dL (8.5-10.1); MAGNESIUM 1.9 mg/dL (1.8-2.4); PHOSPHORUS 3.4 mg/dL (2.5-4.9)
[2018-06-28] VITALS (26 sets, daily range): BP systolic 88–129; BP diastolic 46–72
[2018-06-28 05:35] LABS: HEMATOCRIT 31.1 % (42.0-52.0); HEMOGLOBIN 10.3 gm/dL (14.0-18.0); MCH 28.9 pg (26.0-34.0); MCHC 33.3 g/dL (28.0-37.0); RBC 3.57 mil/uL (4.50-6.00); RDW 26.1 % (10.5-14.5); WBC 6.2 thou/uL (4.0-11.0)
[2018-06-28 05:46] LABS: CALCIUM 8.8 mg/dL (8.5-10.1); CREATININE 1.1 mg/dL (0.7-1.3); POTASSIUM 3.6 mmol/L (3.5-5.1)
[2018-06-29] VITALS (19 sets, daily range): BP systolic 93–127; BP diastolic 45–70
[2018-06-29 05:20] LABS: CALCIUM 9.2 mg/dL (8.5-10.1); CREATININE 1.3 mg/dL (0.7-1.3); MAGNESIUM 2.1 mg/dL (1.8-2.4); PHOSPHORUS 4.9 mg/dL (2.5-4.9); POTASSIUM 3.8 mmol/L (3.5-5.1)
[2018-06-30] VITALS (16 sets, daily range): BP systolic 100–129; BP diastolic 55–71
[2018-06-30 05:41] LABS: CALCIUM 8.9 mg/dL (8.5-10.1); CREATININE 1.3 mg/dL (0.7-1.3); MAGNESIUM 2.2 mg/dL (1.8-2.4); POTASSIUM 3.9 mmol/L (3.5-5.1)
[2018-06-30 05:43] LABS: HEMATOCRIT 29.8 % (42.0-52.0); HEMOGLOBIN 9.6 gm/dL (14.0-18.0); MCH 28.1 pg (26.0-34.0); MCV 87.6 fL (80.0-100.0); RBC 3.4 mil/uL (4.50-6.00); RDW 26.4 % (10.5-14.5); WBC 6.3 thou/uL (4.0-11.0)
[2018-07-01] VITALS (21 sets, daily range): BP systolic 87–137; BP diastolic 45–67
[2018-07-01 11:41] LABS: BE(vivo) 3.6 mmol/L (-2 to +3); HCO3 27.7 mmol/L (22.0-26.0); PCO2 39.6 mmHg (35.0-45.0); PO2 105.4 mmHg (80.0-100.0); pH 7.462 (7.360-7.450); sO2 98.1 % (92.0-98.0)
[2018-07-02] VITALS (24 sets, daily range): BP systolic 86–128; BP diastolic 43–67
[2018-07-02 19:48] LABS: BE(vivo) 2.1 mmol/L (-2 to +3); HCO3 26.4 mmol/L (22.0-26.0); PCO2 40.1 mmHg (35.0-45.0); PO2 72.3 mmHg (80.0-100.0); pH 7.436 (7.360-7.450)
[2018-07-03] VITALS (19 sets, daily range): BP systolic 94–179; BP diastolic 43–82
[2018-07-03 05:49] LABS: CALCIUM 9.3 mg/dL (8.5-10.1); CREATININE 1.5 mg/dL (0.7-1.3); MAGNESIUM 2.3 mg/dL (1.8-2.4); POTASSIUM 3.3 mmol/L (3.5-5.1)
[2018-07-04] VITALS (8 sets, daily range): BP systolic 118–135; BP diastolic 62–74
[2018-07-05 05:00] VITALS: BP 136/75
[2018-07-05 05:35] VITALS: BP 136/75
[2018-07-05 07:55] LABS: CREATININE 1.7 mg/dL (0.7-1.3); MAGNESIUM 2.8 mg/dL (1.8-2.4); PHOSPHORUS 6.2 mg/dL (2.5-4.9); POTASSIUM 3.9 mmol/L (3.5-5.1)
[2018-07-05 07:59] VITALS: BP 128/66
[2018-07-05 16:11] VITALS: BP 132/66
[2018-07-05 19:20] VITALS: BP 123/63
[2018-07-06 04:52] VITALS: BP 142/74
[2018-07-06 06:48] LABS: CALCIUM 9.9 mg/dL (8.5-10.1); CREATININE 1.8 mg/dL (0.7-1.3); MAGNESIUM 2.8 mg/dL (1.8-2.4); PHOSPHORUS 4.6 mg/dL (2.5-4.9); POTASSIUM 3.5 mmol/L (3.5-5.1)
[2018-07-06 08:13] VITALS: BP 115/57
[2018-07-06 11:48] VITALS: BP 147/77
[2018-07-06 15:41] VITALS: BP 111/70
[2018-07-07 03:08] VITALS: BP 129/76
[2018-07-07 06:05] VITALS: BP 134/76
[2018-07-07 06:25] LABS: HEMATOCRIT 39.7 % (42.0-52.0); HEMOGLOBIN 12.7 gm/dL (14.0-18.0); MCH 28.5 pg (26.0-34.0); MCHC 32.1 g/dL (28.0-37.0); MCV 88.9 fL (80.0-100.0); PLATELET COUNT 240 thou/uL (150-400); RBC 4.46 mil/uL (4.50-6.00); RDW 24.6 % (10.5-14.5); WBC 8.9 thou/uL (4.0-11.0)
[2018-07-07 06:43] LABS: CALCIUM 9.9 mg/dL (8.5-10.1); CREATININE 1.9 mg/dL (0.7-1.3); MAGNESIUM 3.1 mg/dL (1.8-2.4); PHOSPHORUS 5.1 mg/dL (2.5-4.9); POTASSIUM 4.9 mmol/L (3.5-5.1)
[2018-07-07 07:42] VITALS: BP 129/73
[2018-07-07 09:05] LABS: ABSOLUTE NEUTROPHILS 6.9 thou/uL (1.4-8.2); ANISOCYTOSIS 2+; PLATELET ESTIMATE NORMAL
[2018-07-07 12:10] VITALS: BP 146/86
[2018-07-07 15:44] VITALS: BP 121/77
[2018-07-07 19:30] VITALS: BP 109/66
[2018-07-08 03:10] VITALS: BP 106/69
[2018-07-08 06:04] LABS: CALCIUM 9.6 mg/dL (8.5-10.1); CREATININE 1.7 mg/dL (0.7-1.3); MAGNESIUM 2.7 mg/dL (1.8-2.4); PHOSPHORUS 5.2 mg/dL (2.5-4.9); POTASSIUM 5.1 mmol/L (3.5-5.1)
[2018-07-08] MEDS ORDERED: MORPHINE 44 MG/1 ML IV PUSH (07:46)
[2018-07-08] MEDS ORDERED: IPRAT-ALBUT 0.5-3 ML INH (07:51)
[2018-07-08] MEDS ORDERED: PROTONIX IV40 MG IV PUSH (07:51)
[2018-07-08] MEDS ORDERED: SEROQUEL 25 MG25 M1 PO (07:52)
[2018-07-08] MEDS ORDERED: NORCO 10-325 T1 EACH PO (07:52)
[2018-07-08] MEDS ORDERED: LORAZEPAM 22 MG/1 ML IV PUSH (07:52)
[2018-07-08 08:15] VITALS: BP 137/77
[2018-07-08 12:45] VITALS: BP 128/71
== END 2018-07-08 15:03 | DRG 4 ==
LOC: ER 09:56 → 4W 16:03 → EROBS 16:03 → 4W 19:21 → ICU 06-06 02:47 → 3W 07-03 17:20
PROVIDERS: Family Medicine; Hospitalist; Internal Medicine Gastroenterology; Internal Medicine Pulmonary Disease; Nurse Practitioner; Pediatrics; Specialist; Student in an Organized Health Care Education/Training Program
PROC: 30233N1 Transfusion of Nonautologous Red Blood Cells into Peripheral Vein, Percutaneous Approach (ICD-10-PCS; principal; 2018-06-03)
PROC: 0DB98ZX Excision of Duodenum, Via Natural or Artificial Opening Endoscopic, Diagnostic (ICD-10-PCS; 2018-06-05)
PROC: 0DB68ZX Excision of Stomach, Via Natural or Artificial Opening Endoscopic, Diagnostic (ICD-10-PCS; 2018-06-05)
PROC: 02HV33Z Insertion of Infusion Device into Superior Vena Cava, Percutaneous Approach (ICD-10-PCS; 2018-06-06)
PROC: 0BJ08ZZ Inspection of Tracheobronchial Tree, Via Natural or Artificial Opening Endoscopic (ICD-10-PCS; 2018-06-06)
PROC: 0BH17EZ Insertion of Endotracheal Airway into Trachea, Via Natural or Artificial Opening (ICD-10-PCS; 2018-06-06)
PROC: 5A1955Z Respiratory Ventilation, Greater than 96 Consecutive Hours (ICD-10-PCS; 2018-06-06)
PROC: 0D9670Z Drainage of Stomach with Drainage Device, Via Natural or Artificial Opening (ICD-10-PCS; 2018-06-09)
PROC: 0B9D8ZX Drainage of Right Middle Lung Lobe, Via Natural or Artificial Opening Endoscopic, Diagnostic (ICD-10-PCS; 2018-06-16)
PROC: 0W9B3ZZ Drainage of Left Pleural Cavity, Percutaneous Approach (ICD-10-PCS; 2018-06-23)
PROC: 5A1955Z Respiratory Ventilation, Greater than 96 Consecutive Hours (ICD-10-PCS; 2018-06-26)
PROC: 0B110F4 Bypass Trachea to Cutaneous with Tracheostomy Device, Open Approach (ICD-10-PCS; 2018-06-26)
DX: A41.02 Sepsis due to Methicillin resistant Staphylococcus aureus (principal); J69.0 Pneumonitis due to inhalation of food and vomit; R65.21 Severe sepsis with septic shock; E43 Unspecified severe protein-calorie malnutrition; J15.212 Pneumonia due to Methicillin resistant Staphylococcus aureus; J96.21 Acute and chronic respiratory failure with hypoxia; N17.9 Acute kidney failure, unspecified; Z99.11 Dependence on respirator [ventilator] status; K56.690 Other partial intestinal obstruction; E87.2 Acidosis; K50.90 Crohn's disease, unspecified, without complications; K62.5 Hemorrhage of anus and rectum; E87.0 Hyperosmolality and hypernatremia; I50.30 Unspecified diastolic (congestive) heart failure; J90 Pleural effusion, not elsewhere classified; G93.40 Encephalopathy, unspecified; B37.0 Candidal stomatitis; E87.6 Hypokalemia; M79.7 Fibromyalgia; E11.9 Type 2 diabetes mellitus without complications; K44.9 Diaphragmatic hernia without obstruction or gangrene; E87.5 Hyperkalemia; I11.0 Hypertensive heart disease with heart failure; L89.91 Pressure ulcer of unspecified site, stage 1; G30.9 Alzheimer's disease, unspecified; F02.80 Dementia in other diseases classified elsewhere, unspecified severity, without behavioral disturbance, psychotic disturbance, mood disturbance, and anxiety; D13.2 Benign neoplasm of duodenum; D69.59 Other secondary thrombocytopenia; B95.62 Methicillin resistant Staphylococcus aureus infection as the cause of diseases classified elsewhere; B96.1 Klebsiella pneumoniae [K. pneumoniae] as the cause of diseases classified elsewhere; D50.9 Iron deficiency anemia, unspecified; I48.91 Unspecified atrial fibrillation; K21.9 Gastro-esophageal reflux disease without esophagitis; J44.9 Chronic obstructive pulmonary disease, unspecified; G47.33 Obstructive sleep apnea (adult) (pediatric); F17.210 Nicotine dependence, cigarettes, uncomplicated; Z86.73 Personal history of transient ischemic attack (TIA), and cerebral infarction without residual deficits; Z68.20 Body mass index [BMI] 20.0-20.9, adult; Z86.718 Personal history of other venous thrombosis and embolism; Z90.49 Acquired absence of other specified parts of digestive tract; Z79.01 Long term (current) use of anticoagulants; Z79.4 Long term (current) use of insulin; Z79.84 Long term (current) use of oral hypoglycemic drugs; Z88.2 Allergy status to sulfonamides; Z79.899 Other long term (current) drug therapy; Z88.8 Allergy status to other drugs, medicaments and biological substances
CPT/HCPCS: 10045; 10078; 10879; 27000; 50101; 50398; 50517; 56525; 56639; 62110; 62900

== ENCOUNTER 2018-08-26 09:12 | Inpatient (IN) | payer OTHER ==
[~2018-08-26] VITALS: Ht 172.7 cm; Wt 59.2 kg
[~2018-08-26 09:12] MED LIST changes: +AMBIEN 5 MG TABL5 M1 PO; +CARAFATE1 GM PO; +DETROL2 M1 PO; +IPRAT-ALBUT 0.5-3 ML INH; +LIDOCAINE PAIN1 EACH TRANSDERM; +LORAZEPAM 22 MG/1 ML IV PUSH; +MORPHINE 44 MG/1 ML IV PUSH; +NORCO 10-325 T1 EACH PO; +PROTONIX IV40 MG IV PUSH; +SEROQUEL 25 MG25 M1 PO
[2018-08-26 09:38] LABS: HEMATOCRIT 39.4 % (42.0-52.0); HEMOGLOBIN 13.2 gm/dL (14.0-18.0); MCH 31.2 pg (26.0-34.0); MCHC 33.4 g/dL (28.0-37.0); MCV 93.3 fL (80.0-100.0); RBC 4.22 mil/uL (4.50-6.00); RDW 19.5 % (10.5-14.5); WBC 6.7 thou/uL (4.0-11.0)
[2018-08-26 09:40] VITALS: BP 116/70
[2018-08-26 09:46] LABS: CALCIUM 9.7 mg/dL (8.5-10.1); CREATININE 1.7 mg/dL (0.7-1.3); POTASSIUM 5.6 mmol/L (3.5-5.1)
--- NOTE | 2018-08-26 13:09 | NUR ---
PT ARRIVED FROM DR. SARMIENTO'S OFFICE THIS MORNING WITH C/O N/V/DIARRHEA AND ABD PAIN. STATES ALL STARTED RELATIVELY SUDDENLY ON SATURDAY. REPORTS STOOLS TO BE LIQUID AND THE COLOR OF CHOCOLATE SYRUP. CANNOT HOLD FOOD OR FLUIDS DOWN. FINISHING 2ND LITER OF FLUIDS NOW. LABS DRAWN AND RESULTS SENT TO DR. SARMIENTO EARLIER WELL REPORT THAT PT IS STILL C/O TERRIBLE ABD PAIN AND NO RELIEF IN NAUSEA. ALSO PT JUST HAD ONE STOOL. PLANS ARE TO ADMIT PT.
--- NOTE | 2018-08-26 13:27 | NUR ---
COMPLETED INFUSION, 2ND DOSE OF ZOFRAN GIVEN, REFUSED LOPERAMIDE FEELING THAT HE WOULD THROW IT UP. DR. SARMIENTO SENT ADMISSION ORDERS TO ADMITTING. AWAITING BED FOR PT TO GO TO. HE IS WATCHING TV, SITTING IN RECLINER IN THE INFUSION CLINIC WHILE HE AWAITS. SALINE LOCK LEFT IN PLACE. TRANSFER OF CARE GIVEN TO BRO HARPER, WHO WILL BE HERE WITH PT UNTIL HE TRANSFERS TO THE UNIT.
[2018-08-26 15:54] VITALS: BP 133/79
--- NOTE | 2018-08-26 18:43 | NUR ---
ASSUMED CARE AT 1600, ADMISSION AND ASSESSMENT DONE, FLUIDS STARTED. MED REC DONE. VSS. WILL CONTINUE TO ASSESS AND ASSIST WITH ADLs NEEDED.
[2018-08-26 20:00] VITALS: BP 131/83
[2018-08-27 04:30] VITALS: BP 134/83
--- NOTE | 2018-08-27 05:08 | NUR ---
ASSUMED PT CARE AROUND 1900. A&OX4. C/O ABDOMINAL PAIN AFTER TAKING BEDTIME MEDS. MORPHINE GIVEN PER DR ORDER. PT STATED PAIN RESOLVED. UP WITH ASSIST AND CANE TO BTR. TOLERATED WELL. PT HAD ONE LOOSE STOOL THIS SHIFT. CDIFF SAMPLE SENT TO LAB. PT SLEPT MOST OF THE NIGHT. RESP EVEN AND UNLABORED. PT SLEPT WITH HOME CPAP MACHINE. FALL PRECAUTIONS IN PLACE. PROGRESSING TOWARD POC GOALS. WILL CONTINUE TO MONITOR FURTHER.
[2018-08-27 05:32] LABS: HEMATOCRIT 30.3 % (42.0-52.0); MCH 31.5 pg (26.0-34.0); MCHC 33.5 g/dL (28.0-37.0); RBC 3.22 mil/uL (4.50-6.00); RDW 18.7 % (10.5-14.5)
[2018-08-27 05:37] LABS: HEMOGLOBIN 10.2 gm/dL (14.0-18.0)
[2018-08-27 05:45] LABS: CREATININE 1.2 mg/dL (0.7-1.3)
[2018-08-27 05:53] LABS: POTASSIUM 3.9 mmol/L (3.5-5.1)
[2018-08-27 07:49] VITALS: BP 120/71
--- NOTE | 2018-08-27 15:10 | NUR ---
ASSESSMENT-PT LIVES AT HOME WITH HIS S.Juan HERRERA. PT DISCHARGED FROM [facility] 08/01/18. PT TELLS ME HE IS GOING TO OUTPT THERAPY USUALLY 2X A WEEK BUT CANNOT TELL ME THE NAME OF THE PLACE HE IS GOING. HIS S.O SHARON ASSIST WITH ALL HOUSEHOLD THINGS. PT USES A C-PAP AT NIGHT. PT HAS A CANE AND WALKER AT HOME IF NEEDED. FOLLOWING TO ASSIST WITH DC PLANNING. PT IS HOPEFUL TO RETURN HOME SOON.
[2018-08-27 17:35] VITALS: BP 153/97
[2018-08-27 19:21] VITALS: BP 123/83
[2018-08-27 20:27] LABS: HCO3 21.5 mmol/L (22.0-26.0); PCO2 36.5 mmHg (35.0-45.0); PO2 61.2 mmHg (80.0-100.0); pH 7.387 (7.360-7.450); sO2 91.4 % (92.0-98.0)
--- NOTE | 2018-08-27 20:35 | NUR ---
MAGISTRATE JUDGE ACTIVATED FOR DECREASING O2 SATS AND INCREASING O2 DEMANDS. PT ON RA PRIOR TO MAGISTRATE JUDGE BUT REQUIRING 6L AFTER EPISODE OF VOMITING. CALLED AND UPDATED ON PT STATUS WITH ORDERS TO TX TO CCT. SEE RAPID RESPONSE DOCUMENTATION FOR FURTHER DETAILS.
--- NOTE | 2018-08-27 22:30 | NUR ---
PATIENT WAS TRANSFERRED AT 2145 THIS SHIFT. HIS STATUS HAS CHANGED TO CCT. PATIENT HAS VOMITED COFFEE GROUND EMESIS AT TRANSFER. CXR SHOWED NG TUBE NOT IN CORRECT PLACE. NG TUBE PULLED WITH PATIENT REFUSING REPLACEMENT. DOCTOR TORSTEN CONTACTED AND INSTRUCTED NURSE TO ALLOW PATIENT TO MAKE OWN DECISION. PATIENT BREATHING BETTER SINCE NG REMOVED.
--- NOTE | 2018-08-27 22:51 | NUR ---
AT APPROX 1999,THIS NURSE WAS CALLED TO THE PT'S ROOM BC HIS O2 SAT WAS IN THE 7O'S.ON ARRIVAL TO PT'S ROOM,RT WAS IN THERE ALREADY TRYING TO PUT CONT PULSE OX ON PT.PT WAS PUT ON 02 AT 5L,SAT WAS ABLE TO COME UP TO LOWER 90'S.WHILE IN THERE,PT STARTED THROWING UP DARK BLACK EMESIS,GOT 500CC,LUNG SOUND COARSE AND ABD DISTENDED AND FIRM.RAT TEAM CALLED AND FOOD SUPERVISOR CALLED DR SARMIENTO AFTER PUTTING IN SOME OTHERS.XRAY OF CHEST AND ABD DONE,ABG ALSO DONE BY RT. NG TUBE PUT IN AND PT WAS TRANSFERRED TO CCT PER ORDERS AT APPROX 2119 IN A STABLE CONDITION.REPORT CALLED TO THE NURSE BEFORE PT WAS TRANSFERRED TO CCT.
[2018-08-28 00:05] VITALS: BP 145/88
--- NOTE | 2018-08-28 00:18 | NUR ---
CARE TRANSFERRED TO [facility] AT 0000.
--- NOTE | 2018-08-28 00:32 | NUR ---
ASSUMED CARE AT 2330, PT VERY RESTLESS, WILL NOT GIVE STRAIGHT ANSWER WHEN ASKED ORIENTATION QUESTION, WHEN ASKED WHERE HE IS HE ANSWERED THIS NURSE " I AM IN A PLACE WITH LOUD MOUTH NURSES", INFORMED PATIENT HE WILL BE ASKED THE QUESTION OVER AND OVER IF HE DOES NOT GIVE A STRAIGHT ANSWER. PT BECAME COOPERATIVE, ABLE TO ANSWER WHERE HE IS, CLEANED DUE TO INCONTINENT OF URINE, ON OXYGEN 4 L, CONTINUOUS SAT AT 91%, TACCHY AT 118, NO SOB NOTED, OCCASIONAL NPC COUGH, GIVEN MORPHINE 2 MG IV DUE TO ABD PAIN AND RESTLESS, SCDS TO BLE, EDUCATED TO LEAVE IV OUT FOR EITHER HE WILL BE STUCK AGAIN FOR A NEW ONE OR WILL APPLY RESTRAINT, CURRENTLY RESTING, WILL MONITOR.
[2018-08-28 03:25] VITALS: BP 128/64
--- NOTE | 2018-08-28 04:28 | NUR ---
PT CONTINUE TO REFUSE NGT, PT JUST VOMITTED 300 ML COFFEE GROUND EMESIS, REMAINS TACCHY ON TELE, CPAP ALL NOC. OFF AT THIS TIME DUE TO VOMITING, KEPT ON OXYGEN PER NC, 4 L, UP X1 ASSIST TO THE BEDSIDE COMMODE, DRIBBLED URINE DURING TRANSFER, REMAINS ON ISOLATION FOR MRSA TO NARES, BED ALARM ON, KEPT NPO, NO BM NOTED, MONITORED.
--- NOTE | 2018-08-28 04:53 | NUR ---
PROTONIX GIVEN EARLY DUE TO COFFEE GROUND EMESIS.
--- NOTE | 2018-08-28 05:01 | NUR ---
offered NGT again, pt continue to refuse saying " i am supposed to go home today", explained to him the possibility of not going home due to his change in condition. still refusing ngt insertion.
[2018-08-28 06:37] LABS: HEMATOCRIT 32.5 % (42.0-52.0); HEMOGLOBIN 10.4 gm/dL (14.0-18.0)
--- NOTE | 2018-08-28 07:00 | NUR ---
SENT A PAGE TO DR SARMIENTO, PT JUST VOMITED AGAIN, 250 ML COFFEEGROUND.
[2018-08-28 07:57] VITALS: BP 126/65
[2018-08-28 10:50] VITALS: BP 107/59
--- NOTE | 2018-08-28 13:45 | NUR ---
SW reviewed chart and spoke with nursing. Pt was transferred to from due to change in condition. Pt had NG tube placed due to nausea/vomiting. MARCIE is following to assist as needed with discharge planning.
[2018-08-28 15:16] VITALS: BP 114/61
--- NOTE | 2018-08-28 19:08 | NUR ---
PATIENT ACCEPTED TO HAVE NG PLACED THIS AM AND NG PLACED WITH 600MLS COLLECTED IN THE FIRST HOUR. XRAY LATER SHOWED TUBED WAS IMPROPERLY PLACED. TUBED TAKEN OUT AND REPLACED. DR SARMIENTO CALLED FOR ORDERS TO REPEAT XRAY AND HE STATED IT NOT NECESSARY AT THIS TIME. PATIENT IS IN NO DISTRESS. IN FACT HE HAS BEEN SLEEPING THROUGH THE DAY. ABLE TO SWALLOW MEDS. HE DENIE PAIN. ABLE TO AMBULATED TO BATHROOM WITH QUAD CANE. HE IS IMPULSIVE AT TIMES BUT EASILY REDIRECTED. WILL CONT WITH PLAN OF CARE.
[2018-08-28 19:50] VITALS: BP 114/54
[2018-08-29 04:35] VITALS: BP 124/63
--- NOTE | 2018-08-29 05:46 | NUR ---
PT MAKING PROGRESS TOWARDS GOALS. DENIES ANY NAUSEA THROUGHOUT THE NIGHT. ASKING IF THE DOCTOR MAY POSSIBLY ADVANCE HIS DIET TODAY. "I WANT SOME ORANGE JUICE IF THEY DO ADVANCE MY DIET." 450 ML GREENISH NGT DRAINAGE. X2 LARGE SOFT AND DARK BROWN STOOLS OVERNIGHT.
[2018-08-29 08:31] VITALS: BP 110/53
[2018-08-29 11:08] VITALS: BP 132/56
--- NOTE | 2018-08-29 13:38 | NUR ---
SW reviewed chart and spoke with nursing. Pt has NG tube in place. No weekend discharge anticipated. MARCIE is following to assist as needed with discharge planning.
[2018-08-29 14:31] LABS: HEMATOCRIT 26.3 % (42.0-52.0); HEMOGLOBIN 8.8 gm/dL (14.0-18.0); MCH 32.1 pg (26.0-34.0); MCHC 33.5 g/dL (28.0-37.0); MCV 95.7 fL (80.0-100.0); RBC 2.74 mil/uL (4.50-6.00); RDW 18.8 % (10.5-14.5); WBC 3.3 thou/uL (4.0-11.0)
[2018-08-29 14:49] LABS: ALBUMIN 2.5 g/dL (3.4-5.0); CALCIUM 8.1 mg/dL (8.5-10.1); CREATININE 1.1 mg/dL (0.7-1.3); POTASSIUM 3.6 mmol/L (3.5-5.1); TOTAL BILIRUBIN 0.4 mg/dL (<0.1-1.0); TOTAL PROTEIN 6.1 g/dL (6.4-8.2)
--- NOTE | 2018-08-29 14:59 | NUR ---
CONTACT DR. CHAVEZ TO INFORM OF PT'S UNABLE TO TOLERATE LIQUIDS AND INCREASING ABDOMINAL PAIN, AND BG OF 69. 'S RN TOOK THIS MESSAGE AND SAID THAT SHE WILL GIVE TO DR. SARMIENTO TO ADDRESS. WILL CONTINUE TO ASSESS.
[2018-08-29 16:37] VITALS: BP 125/60
[2018-08-29 19:21] VITALS: BP 121/55
[2018-08-30 03:50] VITALS: BP 126/6
--- NOTE | 2018-08-30 07:38 | NUR ---
PT MAKING SLOW PROGRESS TOWARDS GOALS. HAS DENIED ANY NAUSEA OVERNIGHT. TAKING SIPS OF WATER WITH MEDS WITHOUT REPORTED COMPLAINT. THIS AM, NGT NOTED TO BE OUT OF POSITION BY 6-7CM. DID ATTEMPT TO ADVANCE THE NGT BUT PT BECAME VERY AGITATED, YELLING AND ATTEMPTED TO HIT AND BITE THIS RN. SLIGHT SKIN TEAR OCCURREND TO PTS LEFT HAND. TO BE TREATED BY DAY RN. UNABLE TO GAIN PTS COOPERATION, REMOVE MYSELF FROM THE ROOM PER PT REQUEST.
[2018-08-30 07:49] VITALS: BP 130/58
[2018-08-30 10:41] LABS: HEMATOCRIT 28.5 % (42.0-52.0); HEMOGLOBIN 9.7 gm/dL (14.0-18.0); MCH 32.4 pg (26.0-34.0); MCHC 34.2 g/dL (28.0-37.0); MCV 94.8 fL (80.0-100.0); RBC 3.01 mil/uL (4.50-6.00); RDW 18.2 % (10.5-14.5); WBC 3.5 thou/uL (4.0-11.0)
[2018-08-30 10:51] LABS: ALBUMIN 2.6 g/dL (3.4-5.0); CALCIUM 8.5 mg/dL (8.5-10.1); TOTAL BILIRUBIN 0.3 mg/dL (<0.1-1.0); TOTAL PROTEIN 6.4 g/dL (6.4-8.2)
[2018-08-30 11:27] LABS: POTASSIUM 2.9 mmol/L (3.5-5.1)
[2018-08-30 11:55] VITALS: BP 140/67
--- NOTE | 2018-08-30 14:19 | NUR ---
ASSUMED PATIENT CARE AT 0715. A&OX4. COMPLAINTS OF GENERALIZED PAIN. NG TUBE IN PLACE. ADVANCED TO 60. PUTTING OUT GREEN BILE. PATIENT HAS BEEN INCONTINENT SEVERAL TIMES TODAY. ABLE TO USE URINAL IF STAFF IS AT BEDSIDE. KUB AND CXR DONE TODAY. K+ 2.9. K+ ADDED TO FLUIDS AND 20 MEQ GIVEN. NPO FOR NOW. FAMILY AT BEDSIDE. VERY SLOWLY WORKING TOWARDS GOALS.
[2018-08-30 16:19] VITALS: BP 140/66
--- NOTE | 2018-08-30 18:33 | NUR ---
VASCULAR ACCESS CONSULTED TO PLACE PIV ONLY LASTED [address] SARMIENTO DID NOT WANT A PICC LINE SO 4FR ML INSERTED IN JAIDA BASILIC. DISCUSSED WITH PT AND PARTNER BENEFITS AND RISK OF MIDLINE, VERBALIZED UNDERSTANDING. PT WAS PREPPED AND DRAPED FOR MAX BARRIER PRECAUTIONS. 1% LIDOCAINE GIVEN SQ. JAIDA BASILIC WAS WIDELY PATENT WITH USG. 4FR POWER ML TRIMMED TO 12CM INSERTED TO 0CM WITH BRISK BR. ML SECURED AND RELEASED FOR IMMEDIATE USE TO VLADIMIR CRABTREE PER PROTOCOL.
[2018-08-30 19:20] VITALS: BP 140/70
[2018-08-31 03:20] VITALS: BP 132/66
[2018-08-31 07:35] VITALS: BP 143/83
--- NOTE | 2018-08-31 07:54 | NUR ---
PATIENT IS ALERT TO SELF. PATIENT WAS CHARMING AT START OF SHIFT BUT AROND 2 BECAME IMPULSIVE AND COMBATIVE. SECURITY, CALL FROM PARTNER, AND MEDICATION WAS ENFORCED TO PREVENT PATIENT FROM HURTING SELF OR STAFF. PATIENT IS ON 4L NC. PATIENTS LUNG ARE COURSE. PATIENT HAS REDDNESS ON COCCYX BARRIER CREAM APPILIED. PATIENT HAS NG ON LOW INTERMIENT SUCTION. PATIENT IS ACHS. PATIENT IS NSR C BBB. PATIENT HAS LT MIDLINE. PATIENT IS INCONTIENT. WCM
[2018-08-31 08:55] LABS: HEMATOCRIT 27.4 % (42.0-52.0); HEMOGLOBIN 9.2 gm/dL (14.0-18.0); MCH 31.1 pg (26.0-34.0); MCHC 33.6 g/dL (28.0-37.0); MCV 92.6 fL (80.0-100.0); RBC 2.95 mil/uL (4.50-6.00); RDW 17.4 % (10.5-14.5); WBC 4.1 thou/uL (4.0-11.0)
[2018-08-31 09:09] LABS: ALBUMIN 2.7 g/dL (3.4-5.0); CALCIUM 8.5 mg/dL (8.5-10.1); CREATININE 0.9 mg/dL (0.7-1.3); POTASSIUM 3.4 mmol/L (3.5-5.1); TOTAL BILIRUBIN 0.4 mg/dL (<0.1-1.0); TOTAL PROTEIN 6.6 g/dL (6.4-8.2)
[2018-08-31 13:28] VITALS: BP 156/75
[2018-08-31 16:52] VITALS: BP 143/77
--- NOTE | 2018-08-31 19:14 | NUR ---
PATIENT WAS QUIT AGITATIVE THIS AM . ATTEPTING TO LEAVE HIS ROOM. THREATENING NURSE. PRN HALDOL ADMINISTERED AND IT WAS EFFECTIVE HE WAS CALM THE REST OF THE DAY. PATIENT HAS RESTED IN BED MOST OF THE DAY AND USES URINAL CORRECTLY. WILL CONT WITH PLAN OF CARE. NG TUBE DC THIS PM AND NEW DIET ORDER FOR CLEAR LIQUID DIETS.
[2018-08-31 19:15] VITALS: BP 135/70
--- NOTE | 2018-09-01 04:37 | NUR ---
PATIENT IS ALERT TO SELF. PATIENT IS CALM. PATIENT IS ON CPAP. DO NOT RECOMMEND AMBIEN FOR SLEEP AID IN FUTURE. NG TUBE DC YESTERDAY. NO N/V. PATIENT BOWEL SOUNDS HYOACTIVE. NO BM. PATIENT COMPLIENT WITH TREATMENT. PATIENT PENDING DISCHARGE TODAY PER DR SARMIENTO. PATIENT IS ON 3L NC DURING THE DAY AND C PAP HS. PATIENTS PAIN IS TREATED WITH PAIN MEDICATION. WCM. PATIENT IS RESTNG COMFORTABLEY IN BED. PATIENT IS PROGRESSING? TO GOALS.
[2018-09-01 04:50] VITALS: BP 136/65
[2018-09-01 08:06] VITALS: BP 132/67
[2018-09-01 11:53] VITALS: BP 134/56
--- NOTE | 2018-09-01 15:14 | NUR ---
SW reviewed chart and spoke with nursing and attending physician. Pt is progressing towards goals for discharge. Pt's diet is being advanced. PT/OT ordered to evaluate pt for discharge needs. Plan is for pt to discharge home when medically stable. SW is following to assist as needed with discharge planning.
--- NOTE | 2018-09-01 17:16 | NUR ---
DID HAVE A SMALL FORMED BLACK STOOL THIS PM. STATES IT HURTS WHEN HE HAD A BOWEL AND DESCRIBED WHAT SEEMS LIKE ABDOMINAL CRAPS. PRN MS ADMINISTERED TWICE BEFORE HE COULD HAVE RELIEVE. HE ATE BOTH LUNCH AND DINNER REGULAR MEALS AND HAS TOLERATED WELL. USES THE URINAL. TAKE MEDS WHOLE.
[2018-09-01 19:22] VITALS: BP 137/75
--- NOTE | 2018-09-02 02:01 | NUR ---
ASSUMED CARE FOR THE PT THIS EVENING AND HAVE PROVIDED CARE FOR HIM IN THE PAST. VSS, WITH PAIN MANAGEMENT, IVPB ANTIBIOTICS, FLUIDS, AND SLEEP FOR THE MAIN FOCUS. ONLY COMPLAINT THAT WAS VOICED WAS THAT PT COULD NOT SLEEP EVEN WITH THE HELP OF THE AMBIEN. AT REPORT WAS TOLD PT SLEPT ALOT DURING THE DAY. CPAP WAS INITIATED AT APPROX 2200 HOURS. HOURLY ROUNDING.
[2018-09-02 04:06] VITALS: BP 132/75
[2018-09-02 08:07] VITALS: BP 134/73
--- NOTE | 2018-09-02 14:53 | NUR ---
SW reviewed chart and spoke with nursing. Pt is progressing towards goals for discharge. Discharge home is anticipated for tomorrow. MARCIE spoke with pt's s/o, Bernabe, via phone to provide update and notify of anticipated discharge. Bernabe is agreeable with plan. Pt will resume outpatient therapy. MARCIE is following to assist as needed with discharge planning.
[2018-09-02 16:00] VITALS: BP 138/77
--- NOTE | 2018-09-02 18:07 | NUR ---
Assumed care of Pt at 0700. Pt AOx3 in no acute distress. pt reports not felling well enough to d/c. relayed message to attending physician. pt voicing no other concerns at this time. uneventful on telemetry. denies nausea/vomitting. anticipating d/c tomorrow.
[2018-09-02 19:12] VITALS: BP 137/75
[2018-09-03 04:00] VITALS: BP 143/68
--- NOTE | 2018-09-03 04:30 | NUR ---
PT IN [facility] TONIGHT AND SEEMS READY TO GO HOME. PT USES URINAL AT NIGHT, AND CAN AMBULATE WITH WALKER TO BATHROOM. PT CALLS WHEN HE NEEDS SOMETHING. VSS, MANAGING PAIN, AND FOLLOWING POC WITH IVPB ANTIBIOTICS. HOURLY ROUNDING.
[2018-09-03 06:10] LABS: HEMATOCRIT 24.7 % (42.0-52.0); HEMOGLOBIN 8.7 gm/dL (14.0-18.0); MCH 31.7 pg (26.0-34.0); MCHC 35.1 g/dL (28.0-37.0); MCV 90.1 fL (80.0-100.0); RBC 2.74 mil/uL (4.50-6.00); RDW 17.8 % (10.5-14.5); WBC 4.2 thou/uL (4.0-11.0)
[2018-09-03 08:03] VITALS: BP 146/78
[2018-09-03 12:05] VITALS: BP 123/69
--- NOTE | 2018-09-03 12:17 | NUR ---
DISCHARGE PLANNING. ATTENDING RECOMMENDING POST ACUTE CARE AT DISCHARGE. REFERRAL FAXED TO [facility], [facility], PER PATIENT REQUEST. [facility] TO DO BEDSIDE EVAL THIS AFTERNOON. PATIENT IS READY FOR DC TODAY. [facility] AWARE. FOLLOWING TO ASSIST WITH DISCHARGE NEEDS.
--- NOTE | 2018-09-03 12:17 | NUR ---
SW reviewed chart and spoke with nursing and attending physician. Recommendation made for pt to go to post-acute for continued therapy services and medical mgmt. SW met with pt at bedside to discuss discharge plan. Pt has been to [facility] and [facility] in the past. Pt does not wish to return to either facility. Pt requests SW speak with his s/o, Bernabe. SW spoke with Bernabe via phone to provide update and discuss post-acute placement. Per Bernabe, pt was at [facility] and would like for pt to return there. SW explained that insurance auth will be needed and if they do not authorize acute rehab, they will need to consider SNF. Pt's s/o verbalized understanding. SW to leave list of in-network SNFs for pt and s/o to review. Pt's s/o does not know if he will be coming to the hospital, due to the weather. nurse discharge planner faxed info to [facility]. MARCIE notified [facility] liaison, who will do onsite eval this afternoon. MARCIE updated attending physician. Chart copy ordered. MARCIE is following to assist as needed with discharge planning.
--- NOTE | 2018-09-03 13:05 | NUR ---
ASSUMED PATIENT CARE AT 0715. A&OX4, SLIGHTLY FORGETFUL. TOLERATING CARB CONTROL DIET. NO BM TODAY SO FAR. PHYSICIAN IS WANTING TO DC PATIENT TO SNF. CASE MANAGEMENT NOTIFIED. UP WITH ASSISTX1 WITH QUAD CANE. PATIENT WORKING TOWARD DISCHARGE GOALS.
[2018-09-03 17:26] VITALS: BP 140/72
[2018-09-03 19:50] VITALS: BP 121/62
[2018-09-04 03:11] VITALS: BP 155/60
--- NOTE | 2018-09-04 04:38 | NUR ---
Patient making progress towards outcome goals. Vital signs and rhythm stable. Uses call light appropriately for needs. alert and oriented but forgetful Wants to be discharged today. Planned SNF dc today. intake and output adequate. Ambulated around unit with SBA with walker, gait steady. Oxygenation optimal on room air. Tolerated home cpcp x 4 hours. Good low back pain relief after morphine. Sitting up in chair, demanded IVFluids stopped and changed to street clothes.
[2018-09-04 07:24] VITALS: BP 149/82
[2018-09-04 10:04] LABS: HEMATOCRIT 30.2 % (42.0-52.0); HEMOGLOBIN 10.3 gm/dL (14.0-18.0); MCH 31.3 pg (26.0-34.0); MCHC 34.2 g/dL (28.0-37.0); MCV 91.6 fL (80.0-100.0); RBC 3.3 mil/uL (4.50-6.00); RDW 18.2 % (10.5-14.5); WBC 4.4 thou/uL (4.0-11.0)
[2018-09-04 11:24] VITALS: BP 139/81
--- NOTE | 2018-09-04 13:31 | NUR ---
MARCIE reviewed chart and spoke with nursing and attending physician. Pt is medically stable for discharge to post-acute placement. MARCIE discussed with [facility] liaison, who states info has been submitted to insurance for authorization. Awaiting input from insurance at this time. Pt has list of in-network SNFs for review, should insurance deny inpt acute rehab. MARCIE is following to assist as needed with discharge planning.
--- NOTE | 2018-09-04 14:26 | NUR ---
ASSUMED PATIENT CARE AT 0715. A&OX3-4, FORGETFUL. PATIENT STATED THEY THOUGHT IT WAS 10PM INSTEAD OF 10AM THIS MORNING. UP WITH ASSIST OF ONE WITH A GAIT BELT AND CANE. PATIENT DOES NOT USE CAN PROPERLY. EDUCATION WAS GIVEN BY THERAPY AND MYSELF. IV FLUIDS DC'D. WAITING ON INSURANCE AUTH FOR [facility]. PATIENT ANXIOUS TO DISCHARGE. PROBABLY WON'T GET AUTH TODAY PER CASE MANAGEMENT.
[2018-09-04 16:21] VITALS: BP 142/81
[2018-09-04 19:17] VITALS: BP 136/74
[2018-09-05 03:13] VITALS: BP 147/78
--- NOTE | 2018-09-05 04:08 | NUR ---
Patient making progress towards outcome goals. Vital signs and rhythm stable. Uses call light appropriately for needs. Gait steady ambulating with cane/walker. Forgetful at times but easily reoriented. Fluid intake and output adequate. Incontinent of urine most of the time. No nausea.
[2018-09-05 07:27] VITALS: BP 151/80
[2018-09-05] MEDS ORDERED: CEFDINIR300 MG PO (07:56)
[2018-09-05 09:18] VITALS: BP 150/80
--- NOTE | 2018-09-05 14:21 | NUR ---
MARCIE notified by [facility] liaison that insurance denied inpt acute rehab. Option for peer to peer provided. ( [phone]). This information provided to attending physician. Recommendation for SNF. MARCIE met with pt and s/o, Bernabe, via phone to provide update and notify of insurance determination. Reviewed in-network providers. Pt and s/o are agreeable [facility] referral to [facility]. planner scheduler to fax clinical info for review. Will require insurance authorization for SNF. MARCIE updated nursing and attending physician. MARCIE is following to assist as needed with discharge planning.
--- NOTE | 2018-09-05 14:42 | NUR ---
ASSUMED PATIENT CARE AT 0715. A&OX3-4 BUT FORGETFUL. COMPLAINTS OF BACK PAIN. MORPHINE FOR PAIN. SIGNIFICANT OTHER AT BEDSIDE. INSURANCE DENIED [facility] STAY. PHYSICIAN NOTIFIED. SNF SUGGESTED. NOW WAITING ON INSURANCE AUTH FOR [facility]. UP WITH ASSISTX1. INCONTINENT. COCCYX RED, BARRIER CREAM APPLIED. ABLE TO MAKE NEEDS KNOWN.
== END 2018-09-05 17:17 | DRG 177 ==
LOC: LAB 09:12 → OPONC 09:12 → 4E 15:33 → OPONC 15:35 → 3W 15:35 → 4E 15:35 → 3W 08-27 21:20
PROVIDERS: ADMIT Family Medicine
DX: J69.0 Pneumonitis due to inhalation of food and vomit (principal); E43 Unspecified severe protein-calorie malnutrition; N17.9 Acute kidney failure, unspecified; K56.600 Partial intestinal obstruction, unspecified as to cause; K50.90 Crohn's disease, unspecified, without complications; Z68.1 Body mass index [BMI] 19.9 or less, adult; E11.9 Type 2 diabetes mellitus without complications; I48.91 Unspecified atrial fibrillation; I10 Essential (primary) hypertension; F03.90 Unspecified dementia, unspecified severity, without behavioral disturbance, psychotic disturbance, mood disturbance, and anxiety; G89.29 Other chronic pain; E87.6 Hypokalemia; R10.9 Unspecified abdominal pain; E87.5 Hyperkalemia; Z87.11 Personal history of peptic ulcer disease; Z88.2 Allergy status to sulfonamides; Z88.8 Allergy status to other drugs, medicaments and biological substances; Z86.718 Personal history of other venous thrombosis and embolism; Z90.49 Acquired absence of other specified parts of digestive tract; Z87.891 Personal history of nicotine dependence; Z86.73 Personal history of transient ischemic attack (TIA), and cerebral infarction without residual deficits; Z79.899 Other long term (current) drug therapy
CPT/HCPCS: 10183; 10779; 10783; 10879; 27000; 95113

== ENCOUNTER 2018-10-12 08:54 | Inpatient (IN) | payer OTHER ==
[~2018-10-12] VITALS: Ht 172.7 cm; Wt 60.8 kg
[~2018-10-12 08:54] MED LIST changes: +CEFDINIR300 MG PO
[2018-10-12 09:10] VITALS: BP 118/77
[2018-10-12 10:04] LABS: ABSOLUTE NEUTROPHILS 8.9 thou/uL (1.4-8.2); BASOPHILS 0.3 % (0.0-2.0); EOSINOPHILS 0.3 % (0.0-3.0); HEMATOCRIT 37.4 % (42.0-52.0); HEMOGLOBIN 12.3 gm/dL (14.0-18.0); LYMPHOCYTES 13.6 % (24.0-44.0); MCH 29.9 pg (26.0-34.0); MCHC 32.9 g/dL (28.0-37.0); MCV 90.9 fL (80.0-100.0); MONOCYTES 6.2 % (1.0-8.0); PLATELET COUNT 267 thou/uL (150-400); POLYS 79.6 % (36.0-66.0); RBC 4.11 mil/uL (4.50-6.00); WBC 11.1 thou/uL (4.0-11.0)
[2018-10-12 10:09] LABS: CALCIUM 9.9 mg/dL (8.5-10.1); CREATININE 1.6 mg/dL (0.7-1.3); POTASSIUM 5.1 mmol/L (3.5-5.1)
[2018-10-12 10:15] LABS: ALBUMIN 4.4 g/dL (3.4-5.0); DIRECT BILIRUBIN 0.1 mg/dL (<0.1-0.3); TOTAL BILIRUBIN 0.4 mg/dL (<0.1-1.0); TOTAL PROTEIN 9.2 g/dL (6.4-8.2)
[2018-10-12] MEDS ORDERED: REGLAN 10 MG TA10 MG PO (11:10)
[2018-10-12] MEDS ORDERED: LIPITOR10 MG PO (11:10)
[2018-10-12] MEDS ORDERED: PROTONIX40 M2 PO (11:11)
[2018-10-12] MEDS ORDERED: AMBIEN CR12.5 MG PO (11:12)
[2018-10-12 11:13] VITALS: BP 116/58
[2018-10-12 12:28] VITALS: BP 105/55; BP 105/72
[2018-10-12 13:00] VITALS: BP 125/80
--- NOTE | 2018-10-12 14:04 | NUR ---
ADM PT CAME IN FROM ER. PROVIDER NOTIFIED. ADM ORDERS CARIED OUT. L NARE NG TUBE INTACT, LOW INT. SUCTIONING STARTED WITH LARGE AMOUNT OF BROWNSH OUTPUT. PRN PAIN AND NAUSEA MED GIVEN-SEE SEP. WILL CONTINUE TO MONITOR.
[2018-10-12 20:19] VITALS: BP 122/79
--- NOTE | 2018-10-13 04:06 | NUR ---
PATIENT AOX4 MAKES NEEDS KNOWN. PATIENT HAS NG TUBE, ON LEFT NARE. PATIENT IS NPO THIS SHIFT. NAUSEA AND PAIN CONTRLED. PATIENT HAS BEEN HAVING .1,000ML OF OUT PUT. PATIENT BLOOD SUGAR HAS BEEN WNL. PATIENT HAS BEEN INCONTINENT THIS SHIFT.PERICARE AND BARRIER CREAM APPLIED NEEDED. PATIENT NEED MAXIMUM ASSISTANCE WITH ADL, BED MOBILITY, AND TOILETING. PATIENT IN BED ASLEEP AT THIS TIME BREATHING REGULAR AND UNLABOURED.
[2018-10-13 06:04] VITALS: BP 126/76
[2018-10-13 07:20] VITALS: BP 123/77
[2018-10-13 08:29] LABS: URINE BILIRUBIN NEGATIVE (Negative); URINE BLOOD NEGATIVE (Negative); URINE CLARITY CLEAR; URINE COLOR YELLOW; URINE GLUCOSE-RANDOM* NEGATIVE (Negative); URINE KETONES NEGATIVE (Negative); URINE LEUKOCYTES-REFLEX NEGATIVE (Negative); URINE NITRITE-REFLEX NEGATIVE (Negative); URINE PROTEIN (DIPSTICK) 1+ (Negative); URINE UROBILINOGEN 0.2 E.U./dl (0.2-1.0)
[2018-10-13 08:38] LABS: AMORPHOUS URATES Few /LPF (None Seen); BACTERIA-REFLEX 1-9 Few /HPF (None Seen); CASTS None Seen /LPF (None Seen); SQUAMOUS None Seen /LPF (0-3); URINE RBC None Seen /HPF (0-2); URINE WBC-REFLEX None Seen /HPF (0-5)
--- NOTE | 2018-10-13 13:42 | NUR ---
INITIAL ASSESSMENT: SW reviewed chart and spoke with nursing and attending physician. Pt was admitted from home due to SBO. Pt has NG tube in place. Pt to have xray this afternoon. MARCIE met with pt at bedside. Introduced role of SW. Pt is alert/orientated x 4. Pt reports he lives at home with his s/o, Bernabe. Prior to admission, pt was using a cane to assist with ambulation. Pt was recently discharged from [facility] to [facility] on 09/05. Pt has also been to [facility] in the past. Pt requesting SW contact his s/o, Bernabe for additional info. SW left voice message for Bernabe. Pt has declined HH in the past. Pt's PCP is Dr. Ware. SW is following to assist as needed with discharge planning.
[2018-10-13 14:25] LABS: ALBUMIN 3.1 g/dL (3.4-5.0); CALCIUM 8.3 mg/dL (8.5-10.1); CREATININE 1.4 mg/dL (0.7-1.3); POTASSIUM 4.7 mmol/L (3.5-5.1); TOTAL BILIRUBIN 0.3 mg/dL (<0.1-1.0); TOTAL PROTEIN 6.9 g/dL (6.4-8.2)
[2018-10-13 16:24] VITALS: BP 134/85
--- NOTE | 2018-10-13 16:50 | EKG ---
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1945 Requested By: Trina Garza Order Number: [id number] MD: Edison Tate Measurements Intervals [place] Rate: 110 P: -24 CT: 129 QRS: 94 QRSD: 137 T: 54 QT: 366 QTc: 496 Interpretive Statements Sinus tachycardia RBBB and LPFB Consider right ventricular hypertrophy Compared to ECG 06/30/2018 07:57:14 No significant change was found Electronically Signed On 10-13-2018 16:50:42 CDT by Edison Tate [email or web address] ��������������������������������������������� <ELECTRONICALLY SIGNED> ���������������������������������������� By: Edison Tate MD, [facility] ��������������������������������������������� 10/13/18 1650 0939 [id number] Edison Tate MD, [facility] /EPI
[2018-10-13 19:33] VITALS: BP 134/70
[2018-10-14 03:16] VITALS: BP 145/82
--- NOTE | 2018-10-14 04:06 | NUR ---
PATIENT AOX3 MAKES NEEDS KNOWN. PATIENT HAD SEVERAL BOWEL MOVEMENT THIS SHIFT, BROWN LIQUID STOOL IN COLOR. PATIENT INCONTINENT PERICARE AND BARRIER CREAM APPLIED NEEDED. PAIN CONTROLLED THIS SHIFT. PATIENT HAD NAUSEA AND VOMIT X1 THIS SHIFT. PATIENT NG IS CLAMPED AT THIS TIME PER ORDER. PATIENT IN BED ASLEEP AT THIS TIME BREATHING REGULAR AND UNLABOURED.
[2018-10-14 08:20] VITALS: BP 138/84
--- NOTE | 2018-10-14 13:58 | NUR ---
SW reviewed chart and spoke with nursing. NG Tube clamped earlier today. Surgery consulted. SW met with pt and s/o, Bernabe. Pt was at [facility] for about 3 weeks. Pt and s/o are hoping to return home when medically stable. Pt has done outpatient therapy in the past. Pt states he would not want HH services. Pt and s/o would be agreeable with short term SNF placement if needed. SW is following to assist as needed with discharge planning.
[2018-10-14 15:03] VITALS: BP 156/86
--- NOTE | 2018-10-14 19:45 | NUR ---
PATIENT RESTED QUIETLY IN BED MOST OF THE DAY. MEDICATED X 1 WITH FENTANYL FOR ALL OVER PAIN AND PATIENT THEN SLEPT. INCONTINENT, PERICARE GIVEN. NO SKIN BREAKDOWN NOTED. NO OUTPUT NOTED FROM NG TUBE. PATIENT TOOK IN SOME ICE CHIPS AND APPLE JUICE. HAD LARGE LOOSE INCONTINENT BOWELL MOVEMENT. CLAMPED NG NO OUTPUT THROUGHOUT THE DAY. FALL PRECAUTIONS IN PLACE.
[2018-10-14 20:10] VITALS: BP 143/82
[2018-10-15 04:03] VITALS: BP 137/65
--- NOTE | 2018-10-15 05:10 | NUR ---
A/O, calm and cooperative; c/o abd pain, pain medication given and worked; abd soft, bowl sound present; reported passing gas; no n/v; day nurse voiced during the report that patient is on lear liquid, the Diet Order is still NPO, will pass this to the day nurse.
[2018-10-15 08:00] VITALS: BP 147/72
[2018-10-15 15:00] VITALS: BP 138/56
[2018-10-15 19:52] VITALS: BP 165/84
--- NOTE | 2018-10-15 20:37 | NUR ---
Assumed pt care this am, NG tube intact but clampped. VEry minimam output noted. Pt reports faltus through out the night and has had no nausea or vomiting during the shift. Seen by Dr. Ware, pt to start clear liquids to be taken slowly and if tolerated NG tube it to be removed. Pt has tried nectar thich liquids and is tolerating well, pt requested to keep tube untile before he slept to try and observe tonight, endorsed to the night nurse. POC followed.
--- NOTE | 2018-10-16 02:23 | NUR ---
Assumed care at 1845. Pt resting in bed no episode of N/V. Pt has been able to drink honey thick nectar and sips of water without issue. Also checked for residual which wasnt significant. Was able to pull out the NG tube with no issues. No identified needs at the moment. Will continue to monitor.
[2018-10-16 04:00] VITALS: BP 146/79
[2018-10-16 08:10] VITALS: BP 158/82
[2018-10-16 11:41] VITALS: BP 158/82
[2018-10-16 12:31] VITALS: BP 166/81
--- NOTE | 2018-10-16 13:27 | NUR ---
DISCHARGE NOTE: SW reviewed chart and spoke with nursing and attending physician. Pt is medically stable for discharge home today. Pt's s/o to provide transportation home. No discharge needs identified at this time, but is available to assist should needs arise.
--- NOTE | 2018-10-16 14:49 | NUR ---
PT A&OX4, VSS. PT HAD C/O OF ABD PAIN, FENTANYL WAS GIVEN AND CONTROLLED PAIN. PT HAS ALL BELONGINGS. PT HAS DISCHARGE PAPERWORK WITH INSTRUCTIONS TO FOLLOW UP WITH PRIMARY. NO PRESCRIPTIONS SENT HOME.
== END 2018-10-16 15:10 | disposition home or self-care (01) | DRG 389 ==
LOC: ER 08:54 → 4W 11:12 → EROBS 11:12 → 4W 12:41 → ENTRNSPT 10-16 14:12 → 4W 10-16 15:10
PROVIDERS: Emergency Medicine; ADMIT Family Medicine
PROC: 0D9670Z Drainage of Stomach with Drainage Device, Via Natural or Artificial Opening (ICD-10-PCS; principal; 2018-10-13)
DX: K56.600 Partial intestinal obstruction, unspecified as to cause (principal); K91.2 Postsurgical malabsorption, not elsewhere classified; N17.9 Acute kidney failure, unspecified; K50.90 Crohn's disease, unspecified, without complications; I48.91 Unspecified atrial fibrillation; I10 Essential (primary) hypertension; K56.609 Unspecified intestinal obstruction, unspecified as to partial versus complete obstruction; E11.9 Type 2 diabetes mellitus without complications; Z86.718 Personal history of other venous thrombosis and embolism; Z86.73 Personal history of transient ischemic attack (TIA), and cerebral infarction without residual deficits; Z90.49 Acquired absence of other specified parts of digestive tract; Z88.2 Allergy status to sulfonamides; Z88.8 Allergy status to other drugs, medicaments and biological substances; Z87.891 Personal history of nicotine dependence
CPT/HCPCS: 10045

== ENCOUNTER 2018-11-26 10:41 | Inpatient (IN) | payer OTHER ==
[~2018-11-26] VITALS: Ht 172.7 cm; Wt 60.3 kg
--- NOTE | ~2018-11-26 | HC ---
[facility] [place] [address] CONSULTATION Name: BENIGNO CASTILLO Room #: 364-P [facility] IN M.R.#: [id number] Admission: 11/26/18 ������������������ Attend Phys: Dylon Ware MD Discharge: ������������������ Date of : 41 Report #: [id number] THIS REPORT FOR: //name// CC: Dylon Ware TYPE OF REPORT: Nephrology consultation. REASON FOR CONSULTATION: Acute kidney injury. HISTORY OF PRESENT ILLNESS: A 73-year-old patient with recurrent GI illnesses, most recently recurrent small-bowel obstruction versus ileus and a past history of Crohn's disease and bowel resection. He has had nausea, vomiting and diarrhea over the last 24 hours. He became progressively weak and had abdominal pain. He came to the Emergency Room. Creatinine was elevated to 2.3 from a recent baseline of 1.0. PAST MEDICAL HISTORY: He has had some degree of incontinence and urinary retention and has been on Detrol. He has had the recurrent small-bowel obstruction and history of Crohn's disease. There has been history of csb-igvdrwa-malqxymyj diabetes, sleep apnea for which he uses CPAP. He had a brain tumor removed. He has had mild dementia and previous cholecystectomy and appendectomy. He has had polycythemia, previous AFib and has been on Eliquis. He has also had respiratory failure last year with aspiration pneumonia and prolonged ICU stay. HOME MEDICATIONS: As listed include: Seroquel 12.5 mg at bedtime, diltiazem 180 mg daily, Ativan as needed, Lyrica 25 mg b.i.d., Mirapex 1.5 mg at bedtime, modafinil 200 mg p.r.n., Detrol 2 mg b.i.d., Carafate 1 gram q.i.d., Eliquis 2.5 mg b.i.d., metoclopramide 5 mg a.c. and at bedtime, atorvastatin 10 mg daily, Protonix 40 mg daily and Ambien p.r.n. ALLERGIES: Reportedly to SULFA and DARVON. FAMILY HISTORY: Noncontributory. REVIEW OF SYSTEMS: GENERAL: He was feeling reasonably well until the last 24 hours or so. EYES: His vision is reasonably good. ENT: Hearing okay, swallows okay. Mouth seems a little dry and he is thirsty. ENDOCRINE: Positive for the diabetes. RESPIRATORY: Denies shortness of air. CARDIAC: No chest pain, angina or palpitations. GASTROINTESTINAL: No nausea, vomiting, diarrhea as mentioned. GENITOURINARY: Urinary incontinence. No dysuria. MUSCULOSKELETAL: Denies arthritis. NEUROLOGICAL: Apparently, he has just a little bit of confusion and his history is not quite exact. [facility] [address] [place] [place] [address] CONSULTATION Name: BENIGNO CASTILLO Room #: 364-P [facility] IN M.R.#: [id number] Admission: 11/26/18 ������������������ Attend Phys: Dylon Ware MD Discharge: ������������������ Date of : 41 Report #: [id number] PHYSICAL EXAMINATION: GENERAL: This is a reasonably comfortable appearing patient, in no acute distress. SKIN: Unremarkable. MUSCULOSKELETAL: Shows him to be well developed and well nourished. HEENT: Extraocular movements are full. Vision intact. No scleral icterus. Hearing intact. Mucous membranes are dry. Tongue is dry. NECK: Veins are flat. CHEST: Clear to auscultation. HEART: Regular. ABDOMEN: Diffusely tender and somewhat quiet. EXTREMITIES: Show no peripheral edema. Pulses are intact. NEUROLOGICAL: Shows just a little bit of confusion as mentioned. LABORATORY DATA: White count 12.4 with 18% bands and platelets 295. Sodium 137, potassium 4.5, chloride 101, bicarbonate 19, creatinine 2.3 and BUN 35. ASSESSMENT AND PLAN: 1. Acute kidney injury. Creatinine up, likely volume depletion. IV fluids will be given because of the apparent metabolic acidosis. I will add some bicarbonate. 2. Recurrent small-bowel obstruction versus ileus. 3. History of Crohn's disease and bowel resection. 4. Mild dementia. 5. History of hypertension. 6. History of atrial fibrillation. 7. History of obstructive sleep apnea, on continuous positive airway pressure. 8. History of urinary incontinence. ��������������������������������������������� ���������������������������������������� By: ��������������������������������������������� [id number] Gentry Briceno MD /nt
[~2018-11-26 10:41] MED LIST changes: +PROTONIX40 M2 PO
[2018-11-26 10:42] VITALS: BP 97/54
[2018-11-26 11:15] LABS: HEMATOCRIT 38.3 % (42.0-52.0); HEMOGLOBIN 12.4 gm/dL (14.0-18.0); MCH 27.9 pg (26.0-34.0); MCHC 32.4 g/dL (28.0-37.0); MCV 86.1 fL (80.0-100.0); PLATELET COUNT 295 thou/uL (150-400); RBC 4.45 mil/uL (4.50-6.00); RDW 17.5 % (10.5-14.5); WBC 12.4 thou/uL (4.0-11.0)
[2018-11-26 11:21] LABS: ANION GAP 17 mmol/L (7-16); BUN 35 mg/dL (7-18); CALCIUM 9.5 mg/dL (8.5-10.1); CHLORIDE 101 mmol/L (98-107); CO2 19 mmol/L (21-32); CREATININE 2.3 mg/dL (0.7-1.3); GLUCOSE 200 mg/dL (74-106); POTASSIUM 4.5 mmol/L (3.5-5.1); SODIUM 137 mmol/L (136-145)
[2018-11-26 11:32] LABS: ALBUMIN 4.2 g/dL (3.4-5.0); LIPASE 155 U/L (73-393); SGOT 13 U/L (15-37); SGPT 17 U/L (30-65); TOTAL BILIRUBIN 0.6 mg/dL (<0.1-1.0); TOTAL PROTEIN 8.8 g/dL (6.4-8.2); TROPONIN-I <0.06 ng/mL (<0.06)
--- NOTE | 2018-11-26 11:35 | EKG ---
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 : 1945 Requested By: Michael An Order Number: [id number] MD: Goyo Mills Measurements Intervals [place] Rate: 118 P: -1 VA: 142 QRS: 98 QRSD: 133 T: 26 QT: 369 QTc: 518 Interpretive Statements Sinus tachycardia RBBB and LPFB Compared to ECG 10/12/2018 09:39:18 No significant changes Electronically Signed On 11-26-2018 11:35:09 CDT by Goyo Mills [email or web address] ��������������������������������������������� <ELECTRONICALLY SIGNED> ���������������������������������������� By: Goyo Mills MD ��������������������������������������������� 11/26/18 1135 1109 1109 MD ILSA Acevedo
[2018-11-26 12:05] LABS: ABSOLUTE NEUTROPHILS 9.1 thou/uL (1.4-8.2); ANISOCYTOSIS 1+
[2018-11-26 14:13] VITALS: BP 102/64
[2018-11-26] MEDS ORDERED: CARDIZEM CD120 MG PO (14:50)
[2018-11-26] MEDS ORDERED: METFORMIN HCL500 MG PO (14:51)
[2018-11-26 15:19] VITALS: BP 100/63
[2018-11-26 16:25] VITALS: BP 101/65
--- NOTE | 2018-11-26 16:56 | NUR ---
PATIENT ARRIVED FROM ED VIA STRECHER, ALERT AND ORIETED X4. FAMILY AT BEDSIDE. ABD TENDER AND SOFT. VSS AND SR ON THE MONITOR. POC INTIATED AND WILL CONTINUE TO MONITOR.
[2018-11-26 19:39] VITALS: BP 108/69
[2018-11-26 23:25] LABS: URINE BILIRUBIN NEGATIVE (Negative); URINE BLOOD NEGATIVE (Negative); URINE CLARITY CLEAR; URINE COLOR YELLOW; URINE GLUCOSE-RANDOM* NEGATIVE (Negative); URINE KETONES NEGATIVE (Negative); URINE LEUKOCYTES-REFLEX NEGATIVE (Negative); URINE NITRITE-REFLEX NEGATIVE (Negative); URINE PROTEIN (DIPSTICK) TRACE (Negative); URINE SPECIFIC GRAVITY >= 1.030 (1.005-1.035); URINE UROBILINOGEN 0.2 E.U./dl (0.2-1.0)
[2018-11-27 03:29] VITALS: BP 119/74
[2018-11-27 05:34] LABS: HEMATOCRIT 27.5 % (42.0-52.0); MCH 28.8 pg (26.0-34.0); MCHC 33.1 g/dL (28.0-37.0); MCV 86.8 fL (80.0-100.0); RBC 3.17 mil/uL (4.50-6.00); RDW 17.2 % (10.5-14.5); WBC 4.4 thou/uL (4.0-11.0)
[2018-11-27 05:45] LABS: ALBUMIN 2.9 g/dL (3.4-5.0); CALCIUM 8.3 mg/dL (8.5-10.1); CREATININE 1.5 mg/dL (0.7-1.3); PHOSPHORUS 4.4 mg/dL (2.5-4.9); POTASSIUM 3.9 mmol/L (3.5-5.1)
[2018-11-27 05:53] LABS: HEMOGLOBIN 9.1 gm/dL (14.0-18.0); PLATELET COUNT 166 thou/uL (150-400)
--- NOTE | 2018-11-27 06:09 | NUR ---
PT IS FAMILIAR WITH STAFF HERE AT [facility]. PT COMPLAINTS OF NAUSEA WITHOUT ANY EMESIS. OTHER CHIEF COMPLAINT IS ABDOMINAL PAIN. PT IS NPO SINCE ARRIVAL. FOLLOWING POC WITH IVF 1/2NS WITH BICARB INFUSING. PT IN ISOLATION FOR MRSA(RESPIRATORY) ON PAST VISIT AT BEGINNING OF THE YEAR. HOURLY ROUNDING.
[2018-11-27 06:40] LABS: ABSOLUTE NEUTROPHILS 2.9 thou/uL (1.4-8.2); ANISOCYTOSIS 2+; METAMYELOCYTES 5 %
[2018-11-27 07:04] LABS: URINE CREATININE-RANDOM* 176.1 mg/dL
[2018-11-27 08:07] VITALS: BP 125/74
[2018-11-27 12:00] VITALS: BP 125/74
--- NOTE | 2018-11-27 13:56 | NUR ---
INITIAL ASSESSMENT: SW reviewed chart and spoke with nursing. Pt was admitted from home due to SBO. Pt remains NPO at this time. SW met with pt and s/o, Bernabe, at bedside. Introduced role of SW. Pt is alert/orientated x 4. Pt reports he lives at home with his s/o, Bernabe. Prior to admission, pt was using a cane to assist with ambulation. Pt has been to [facility] in the past. Pt has declined HH in the past. Pt's PCP is Dr. Ware. Pt states his plan is to return home when medically stable. SW is following to assist as needed with discharge planning.
[2018-11-27 15:41] VITALS: BP 135/78
--- NOTE | 2018-11-27 18:12 | NUR ---
ASSUMED PATIENT CARE AT 0700. A/O X4. GENERLIZED WEAKNESS. NO N/V. DENIES PAIN. SLOWLY TOWARDS POC GOALS.
[2018-11-27 19:07] VITALS: BP 129/78
[2018-11-28 03:21] VITALS: BP 125/69
--- NOTE | 2018-11-28 04:37 | NUR ---
Medicated for pain and nausea at HS with some relief. He slept fair during the night. Kept NPO per order. Up with assist to bathroom x1 and use of cane. He verbalized feeling weak and had to walk slow. Bed alarm on and SCD's in placed. Cont. on isolation precautions. Wears brief for incontinence and uses urinal at times. Will continue to monitor.
[2018-11-28 06:07] LABS: ALBUMIN 2.8 g/dL (3.4-5.0); CALCIUM 7.8 mg/dL (8.5-10.1); CREATININE 1.1 mg/dL (0.7-1.3); PHOSPHORUS 2.9 mg/dL (2.5-4.9); POTASSIUM 3.5 mmol/L (3.5-5.1)
[2018-11-28 08:04] VITALS: BP 136/78
--- NOTE | 2018-11-28 11:37 | NUR ---
care of pt assumed this am @ ~0700. pt noted to be sleeping in bed. states he is weak and fatigued and needs "some applesauce or i am going to pass out". pt npo, w/ ice chips and ivf's at this time. kub taken this am in bed. pt verbalized his urgency and stress incontinence w/ use of briefs and pads. pt denies soa, pain this am w/ slight nausea w/ activity and movement.
--- NOTE | 2018-11-28 13:51 | NUR ---
SW reviewed chart and spoke with nursing and attending physician. Pt remains NPO. Pt to have repeat KUB due to partial SBO. Discharge plan is for pt to return home when medically stable. Pt has refused HH services in the past. MARCIE is following to assist as needed with discharge planning.
[2018-11-28 16:05] VITALS: BP 131/76
[2018-11-28 20:31] VITALS: BP 138/73
[2018-11-29 04:53] VITALS: BP 140/72
--- NOTE | 2018-11-29 07:18 | NUR ---
Pt. slept better last night. Medicated for pain with good relief (soreness on abdomen). No nausea or vomiting. Active bowel sounds and passing gas. Tolerating full liquids though not much intake last night. Cont. on isolation. Up with assist x1 to bathroom using cane. Wears brief for incontinence then uses urinal at times. Making progress towards care plan goals.
[2018-11-29 07:52] VITALS: BP 155/83
[2018-11-29 11:32] VITALS: BP 146/83
[2018-11-29 15:43] VITALS: BP 133/75
--- NOTE | 2018-11-29 18:29 | NUR ---
assumed patient care at 0700. a/o x4. pleasant. tolerated full liquid diet. c/o nausea but no vomit. slowly towards poc goals.
[2018-11-29 20:15] VITALS: BP 147/84
[2018-11-30 05:00] VITALS: BP 130/76
--- NOTE | 2018-11-30 05:04 | NUR ---
Pt. ambulated to bathroom x1 with assist using his cane. He requested pain med x1 for abdominal soreness worst when he's moving. He verbalized some relief and stated he slept really good last night. No nausea,vomiting or diarrhea. Passing gas but no bm this shift. Tolerated full liquids had a cup of orange juice then iced water. Wears brief for incontinence then other times he uses urinal while standing at bedside. Bed alarm and SCD's on. Making progress towards care plan goals.
[2018-11-30 08:14] VITALS: BP 143/83
[2018-11-30 09:45] LABS: HEMATOCRIT 29.1 % (42.0-52.0); HEMOGLOBIN 9.6 gm/dL (14.0-18.0); MCH 28.3 pg (26.0-34.0); MCHC 32.9 g/dL (28.0-37.0); RBC 3.39 mil/uL (4.50-6.00); RDW 16.8 % (10.5-14.5); WBC 3.7 thou/uL (4.0-11.0)
[2018-11-30 10:00] LABS: CALCIUM 8.8 mg/dL (8.5-10.1); CREATININE 1.1 mg/dL (0.7-1.3); POTASSIUM 4.2 mmol/L (3.5-5.1)
[2018-11-30 12:14] VITALS: BP 1410/79
[2018-11-30 16:35] VITALS: BP 131/70
--- NOTE | 2018-11-30 18:22 | NUR ---
ASSUMED PATIENT CARE AT 0700. A/O X4. C/O ABD PAIN. KUB SHOWS PARALYTIC ILEUS. PATIENT NPO AGIAN. ASSISTED PAIENT AMBULATED IN ROOM THREE TIMES. NOT TOWARDS POC GOALS.
[2018-11-30 19:31] VITALS: BP 152/81
[2018-12-01 04:41] VITALS: BP 141/71
--- NOTE | 2018-12-01 05:05 | NUR ---
Patient complained of no pain but tenderness only upon touch of abdomen. No nausea or vomiting. Patient remained in bed all shift besides to urinate. Patient slept most of shift. Patient noted to be incontinent of urine once in briefs. Bed alarm on, bed in low position, and call light within reach. Progress is being made toward plan of care goals at this time.
[2018-12-01 07:27] VITALS: BP 142/82
--- NOTE | 2018-12-01 15:39 | NUR ---
SW reviewed chart and spoke with nursing and attending physician. Pt's diet is slowly being advanced. Repeat KUB today. Plan is for pt to d/c home when medically stable. SW is following to assist as needed with discharge planning.
[2018-12-01 16:50] VITALS: BP 143/76
--- NOTE | 2018-12-01 18:06 | NUR ---
ASSUMED PATIENT CARE AT 0700. A/O X4. NPO DUE TO ILUES. PATIENT DOES NOT LIKE OUT OFF BED TO WALK. NOT TOWARDS POC GOALS.
[2018-12-01 19:25] VITALS: BP 148/80
[2018-12-02 05:00] VITALS: BP 124/70
--- NOTE | 2018-12-02 05:30 | NUR ---
No acute changes overnight. Patient started to have a "sore pain" in the abdomen region and requested pain meds. Patient had a little nausea from pain but went away once the morphine started to work. Patient ambulated to bathroom and back with cane; he tolerated well. Partial progress toward plan of care at this time.
[2018-12-02 07:45] VITALS: BP 136/75
[2018-12-02 12:00] VITALS: BP 116/54
[2018-12-02 13:08] VITALS: BP 136/75
--- NOTE | 2018-12-02 13:58 | NUR ---
Assumed care of patient at 0700. Patient is alert and oriented x4, forgetful at times. Pleasant and cooperative with staff today. Denies pain. Vitals stable. Able to advance diet per Dr. Ware. If tolerates breakfast and lunch, may discharge home later today. Tolerated both meals; reports no nausea / vomiting or pain. Patient passing gas and had small BM this morning. Up with SBA, gait belt and cane. Sat up in chair after breakfast. Fall precautions in place. Discharge orders received. Reviewed instructions with patient and significant other at bedside. Spoke with patient's pharmacy and Dr. Ware to verify correct home dose of Diltiazem; patient to continue taking 180 mg daily. Also okay to continue taking Eliquis daily per Dr. Ware. Updated patient and significant other. Verbalize understanding. IV and telemetry discontinued. Belongings gathered. Patient denies any home meds in pharmacy or any other belongings locked in security. Patient to transport to private vehicle via wheelchair to discharge home.
--- NOTE | 2018-12-02 14:05 | NUR ---
DISCHARGE NOTE: SW reviewed chart and spoke with nursing. Pt had repeat KUB and diet advanced today. Pt is medically stable for discharge home today. No SW discharge needs identified at this time. Pt's family to provide transportation home. SW is available to assist should needs arise.
== END 2018-12-02 14:28 | disposition home or self-care (01) | DRG 388 ==
LOC: ER 10:41 → EROBS 12:11 → 3W 12:11 → ENTRNSPT 12-02 13:58 → 3W 12-02 14:28
PROVIDERS: Emergency Medicine; Internal Medicine Nephrology; ADMIT Family Medicine
DX: K56.600 Partial intestinal obstruction, unspecified as to cause (principal); N17.0 Acute kidney failure with tubular necrosis; K50.90 Crohn's disease, unspecified, without complications; E11.9 Type 2 diabetes mellitus without complications; M79.7 Fibromyalgia; G47.33 Obstructive sleep apnea (adult) (pediatric); I48.91 Unspecified atrial fibrillation; F41.9 Anxiety disorder, unspecified; R32 Unspecified urinary incontinence; I10 Essential (primary) hypertension; F03.90 Unspecified dementia, unspecified severity, without behavioral disturbance, psychotic disturbance, mood disturbance, and anxiety; K40.90 Unilateral inguinal hernia, without obstruction or gangrene, not specified as recurrent; Z86.73 Personal history of transient ischemic attack (TIA), and cerebral infarction without residual deficits; Z86.718 Personal history of other venous thrombosis and embolism; Z79.84 Long term (current) use of oral hypoglycemic drugs; Z90.49 Acquired absence of other specified parts of digestive tract; Z88.2 Allergy status to sulfonamides; Z88.8 Allergy status to other drugs, medicaments and biological substances; Z87.891 Personal history of nicotine dependence
CPT/HCPCS: 10879

== ENCOUNTER 2019-02-13 12:07 | Inpatient (IN) | payer OTHER ==
[~2019-02-13] VITALS: Ht 172.7 cm; Wt 60.8 kg
[~2019-02-13 12:07] MED LIST changes: +CARDIZEM CD120 MG PO
[2019-02-13 13:08] LABS: HEMATOCRIT 25.2 % (42.0-52.0); HEMOGLOBIN 7.9 gm/dL (14.0-18.0); MCH 25.1 pg (26.0-34.0); MCHC 31.5 g/dL (28.0-37.0); MCV 79.7 fL (80.0-100.0); RBC 3.17 mil/uL (4.50-6.00); WBC 5.7 thou/uL (4.0-11.0)
[2019-02-13 13:33] LABS: ALBUMIN 3.7 g/dL (3.4-5.0); CALCIUM 9.1 mg/dL (8.5-10.1); CREATININE 1.4 mg/dL (0.7-1.3); POTASSIUM 4.7 mmol/L (3.5-5.1); TOTAL BILIRUBIN 0.3 mg/dL (<0.1-1.0); TOTAL PROTEIN 7.4 g/dL (6.4-8.2)
[2019-02-13 13:34] LABS: % SATURATION 7 % (20-39); IRON 28 ug/dL (65-175); TIBC 402 ug/dL (250-450)
[2019-02-13 14:00] VITALS: BP 115/52
--- NOTE | 2019-02-13 15:05 | NUR ---
ASSESSMENT-PT LIVES AT HOME WITH HIS Ingris.Juan HERRERA. PT USES A CANE TO GET AROUND AND DOES HIS OWN ADLS. PT USES A C-PAP AT NIGHT. [facility] THE [facility]ST BUT HAS DECLINED SERVICES. HE HAS ALOS BEEN TO [facility], AND [facility] THE PAST. SHARON ASSIST WITH COOKING, CLEANING, LAUNDRY AND TRANSPORTATION. FOLLOWING TO ASSIST WITH DC PLANNING.
--- NOTE | 2019-02-13 18:14 | NUR ---
PATIENT ADMITTED A DIRECT ADMIT FROM THE DOCTOR'S OFFICE. ALERT AND ORIENTED X 4. UP WITH ASSIST X 1. PATIENT C/O WEAKNESS AND TINGLING WITH BILATERAL LEGS. PATIENT HAS REDNESS BETWEEN CHEEKS, AND MOLES OVER BACK AND CHEST AREA, C/O SORENESS AND TENDERNESS TO ABDOMEN, NO C/O NAUSEA. GI/SANTOS SAW PATIENT, PATIENT ON CLEAR LIQUID DIET. WILL CONTINUE TO MONITOR.
[2019-02-13 19:50] VITALS: BP 113/51
--- NOTE | 2019-02-14 00:59 | NUR ---
CALLED BY PT'S NURSE AND ASKED TO START AN IV. KNOCKED ON DOOR, INTRODUCED MYSELF, AND EXPLAINED WHY I WAS IN THE ROOM. PREPARED SUPPLIES, RAISED THE BED, AND LOWERED A SIDE RAIL TO LOOK AT THE LEFT ARM; ALL WHILE EXPLAINING WHAT I WAS DOING. PT STATED IV TEAM USUALLY PLACED HIS IV'S; EXPLAINED THAT WE NEEDED TO TRY AND PLACE AN IV TONIGHT BUT IF WERE NOT SUCCESSFUL THEN IV TEAM WOULD BE ABLE TO DO IT IN THE AM. MOVED A PILLOW SLIGHTLY AND BEGAN LOOKING AT THE LEFT FOREARM, SLIGHTLY MOVING THE PT'S WATCH; PT STATED THE IV'S CAN'T GO DOWN THAT FAR, THEY NEEDED TO START AT MID ARM. ASKED PT TO EXPLAIN WHY THIS WAS NECCESARY, IF IT WAS JUST A PREFERENCE OR AN ANATOMICAL ISSUE. PT JERKED HIS ARM AWAY, YELLING IV TEAM WOULD JUST DO THE IV. AGAIN, EXPLAINED I NEEDED TO LOOK, AND THAT SOMETIMES AN IV MIGHT BE INCONVENIENTLY LOCATED. PT BEGAN SCREAMING AND CURSING AT THIS RN; ASKED PT NOT TO SPEAK TO ME THAT WAY, AND THAT I WAS TRYING TO DO MY JOB. PT BEGAN YELLING HE WOULD CALL SECURITY, FLAPPING HIS ARM RAPIDLY INTO MY FACE THOUGH SLAPPING WITH THE BACK OF HIS HAND. SCREAMING "BITCH" "WHORE" "DON'T TELL ME WHAT I NEED, YOU AREN'T THE DOCTOR, YOU FUCKING BITCH." AT THIS TIME, THE SHOT BLASTER ENTERED THE ROOM, AND WITNESSED THE PT SCREAMING AND SWINGING HIS ARM INTO MY FACE. ATTEMPTED TO EXPLAIN THE ESCALATION OF THE PT'S BEHAVIOR, AND PT YELLED "YOU'RE A LYING BITCH." SINGLE PASS SOIL STABILIZER OPERATOR ATTEMPTED TO EXPLAIN WHY THE PT NEEDED AN IV AND WHY HIS BEHAVIOR WAS UNACCEPTABLE; PT CONTINUED TO YELL AND SCREAM. THEN YELLING ABOUT WHERE THE BEDSIDE TABLE WAS; EXPLAINED IT WAS STILL THERE BUT THE BED WAS HIGHER UP TO TRY TO START AN IV. PT JUST YELLING ABOUT HOW HE NEEDED HIS STUFF; LOWERED THE BED; LOCKED THE RAILS BACK IN PLACE. SAFETY PRECAUTIONS IN PLACE, EXITED THE ROOM; PT CONTINUED CURSING AND YELLING AT BOTH THIS RN AND THE SHOT BLASTER. INFORMED PT'S NURSE HE WOULD NOT ALLOW AN IV TO BE STARTED.
--- NOTE | 2019-02-14 03:23 | NUR ---
ASSUMED PT CARE 1899. PT ALERT AND ORIENTED. REASSESSMENT COMPLETE. VSS. NO IV ACCESS AT THIS TIME. REPORTS ABDOMINAL PAIN, SEE EMAR. DENIES N/V. CALL LIGHT WITHIN REACH. WILL CONTINUE POC UNTIL EOS.
[2019-02-14 05:55] VITALS: BP 117/62
[2019-02-14 08:29] VITALS: BP 130/75
--- NOTE | 2019-02-14 11:58 | NUR ---
CONSULTED TO PLACE A PIV. PATIENT IS NEEDING CT WITH CONTRAST WELL. HE IS KNOWN WELL TO OUT IV TEAM. MIDLINE SUGGESTED AND VERBAL CONSENT OBTAINED FROM THE PATIENT. PROCEDURE WELL BENIFITS AND RISKS DISCUSSED WITH THE PATIENT AND HE VERBALIZED UNDERSTANDING. THE LUE BASILIC WAS WIDLEY PATENT. A #4F POWER MIDLINE WAS PLACED PER POLICY. LINE WAS TRIMMED TO 15CM AND ADVANCED WITHOUT DIFFICULTY. BRISK BLOOD RETURN AND FLUSH. LINE SECURED AND RELEASED FOR USE
--- NOTE | 2019-02-14 15:13 | NUR ---
ASSESMENT COMPLETED. VSS. A/O. PAIN MANAGED BY MEDS ORDERED. NO NOTED SOA. NO NV. UP WITH STAND BY. MIDLINE TO JAIDA. PT RESTING IN BED. NO CONCERNS VOICED AT THIS TIME. WILL CONT. TO MONITOR.
[2019-02-14 17:04] VITALS: BP 111/63
[2019-02-14 20:00] VITALS: BP 105/60
--- NOTE | 2019-02-15 03:42 | NUR ---
ASSUMED CARE OF PT @1900. PT A&OX4 @ THIS SHIFT. DENIES N/V. PT STATED WILL HE WANTS HIS EVENING MEDS CLOSE TRO MIDNIGHT @23OO. PT EDUCATED AND THIS NURSE DOC MEDS FOR 2300. PT UP TO THE BATHROOM WITH SBA. SLEEPING MEDS GIVEN AND PT USES CPAP AT NIGHT. CALLS AND LETS NEEDS KNOWN. POC DONE AND CALL LIGHT WITHIN REACH WILL CONITNUE TO MONITOR
[2019-02-15 05:00] VITALS: BP 117/72
[2019-02-15 06:02] LABS: HEMATOCRIT 25.9 % (42.0-52.0); HEMOGLOBIN 8.2 gm/dL (14.0-18.0); MCH 24.9 pg (26.0-34.0); MCHC 31.6 g/dL (28.0-37.0); RBC 3.28 mil/uL (4.50-6.00); RDW 18.7 % (10.5-14.5); WBC 6.1 thou/uL (4.0-11.0)
[2019-02-15 06:20] LABS: CREATININE 1.5 mg/dL (0.7-1.3); POTASSIUM 4.2 mmol/L (3.5-5.1)
[2019-02-15 08:07] VITALS: BP 118/54
--- NOTE | 2019-02-15 10:12 | NUR ---
PATIENT CARE WAS ASSUMED AT 0715.PATIENT IS ALERT AND ORIENTED X4.PATIENT HAS IV INTACT AND SALINE LOCKED.PATIENT IS ABLE TO AMBULATE ON HIS OWN .ROOM AIR DURING THE DAY AND CPAP AT NIGHT.ON CONTACT ISOLATIN FOR MRSA IN RESPIRTORY.PATIENT HAS SOME REDNESS ON BUTTOCKS FROM FREQUENT DIARRHEA STOOLS.PT WEARS BRIEF.HAS NO PAIN AT THIS TIME.CALL LIGHT,PHONE, AND PERSONAL BELONGINGS ARE WITHIN REACH.
[2019-02-15 16:42] VITALS: BP 103/45
[2019-02-15 21:40] VITALS: BP 115/63
[2019-02-16 05:05] VITALS: BP 100/58
--- NOTE | 2019-02-16 06:39 | NUR ---
NOC ASSUMED CARE OF PT@ 1900 PT A&OX4 AT THIS SHIFT WITH C/O PAIN , N/V. PAIN AND NAUSEA MEDS GIVEN VIA IV. EMESIS NOTED AFTER GIVEN. PT REFUSED EVENING PO MEDS AND EYE DROP. PT ED PERFORMED. IV FLUIDS INFUSING. POC DONE AND FALL PREC IN PLACE. HOURLY ROUDS DONE. @0500 LAB CAME IN TO DRAW SOME BLOOD PT COMPLAINED OF BEING IN PAIN. FENTANYLGIVEN AND LAB WASN'T ABLE TO GET BLOOD DRAWN. PT REFUSED FOR LABORATORY PHLEBOTOMIST TO TRY AND REDRAW BLOOD STATED IT HURTS. THSI NURSE EDUCATED PT. WILL CONTINUE TO MONITOR TILL EOS
[2019-02-16 08:15] VITALS: BP 115/69
[2019-02-16 08:35] LABS: HEMOGLOBIN 7.3 gm/dL (14.0-18.0); MCHC 31.5 g/dL (28.0-37.0); MCV 79.3 fL (80.0-100.0); RBC 2.9 mil/uL (4.50-6.00); RDW 18.9 % (10.5-14.5); WBC 5.2 thou/uL (4.0-11.0)
[2019-02-16 08:58] LABS: CALCIUM 8.3 mg/dL (8.5-10.1); CREATININE 1.4 mg/dL (0.7-1.3); POTASSIUM 4.3 mmol/L (3.5-5.1)
[2019-02-16 16:50] VITALS: BP 106/55
--- NOTE | 2019-02-16 18:03 | NUR ---
PT ASSESSED AT START OF SHIFT. REFUSED ANYTHING PO EXCEPT CERTAIN MEDS W/ SIP WATER. IV FENTANYL AND ZOFRAN GIVEN W/ RELIEF. NO VOMITING THIS SHIFT. UP TO THE BR W/ STANDBY. NO BM BUT PASSED SOME FLATUS. KUB SHOWING AIR AND STOOL. DULCOLAX SUPP GIVEN W/O RESULTS.
[2019-02-16 23:50] VITALS: BP 127/69
[2019-02-17 05:00] VITALS: BP 127/61
--- NOTE | 2019-02-17 06:39 | NUR ---
ASSUMED CARE OF PT @1900 PT A&OX4 AT THIS SHIFT. PAIN MEDS GIVEN FOR MANAGEMENT SEE EMAR. NAUSEA MEDS GIVEN BUT NO EMESIS NOTED. POC DONE AND FLUIDS INFUSING. PT UP BY SBA TO THE BATHROOM. EVENING MEDS GIVEN. PT STATED HE FEELS ALOT BETTER THAN YESTERDAY. WILL CONTINUE TO MONITOR TILL EOS
[2019-02-17 07:40] VITALS: BP 118/64
[2019-02-17 09:08] LABS: HEMATOCRIT 24.9 % (42.0-52.0); HEMOGLOBIN 7.6 gm/dL (14.0-18.0); MCH 25.3 pg (26.0-34.0); MCHC 30.6 g/dL (28.0-37.0); MCV 82.5 fL (80.0-100.0); RBC 3.02 mil/uL (4.50-6.00); RDW 19.3 % (10.5-14.5); WBC 4.1 thou/uL (4.0-11.0)
[2019-02-17 09:19] LABS: CALCIUM 8.5 mg/dL (8.5-10.1); CREATININE 1.1 mg/dL (0.7-1.3); POTASSIUM 4.2 mmol/L (3.5-5.1)
--- NOTE | 2019-02-17 12:07 | NUR ---
PT A&OX4, AMBULATE WITH STANDBY ASSIST AND CANE.IV INTACT IN L UA. DENIES PAIN, NAUSEA OR VOMITING AT THIS TIME. WILL CONT POC.
[2019-02-17 16:19] VITALS: BP 120/61
[2019-02-17 22:03] VITALS: BP 118/67
--- NOTE | 2019-02-18 05:51 | NUR ---
PATIENT IS PROGRESSING IN HIS CARE PLAN. VITAL SIGNS STABLE WITH PATIENT HAVING NO COMPLAINTS OF PAIN OR NAUSEA. FULLY ORIENTED, PATIENT WAS ABLE TO CALL APPROPRIATELY FOR NEEDS. PATIENT CAN BE ARGUMENTATIVE AT TIMES BUT RESPONDS WHEN STAFF DOES THINGS IN THE ORDER HE IS ACCUSTOMED TO. BREATHING STABLE WITH PATIENT TOLERATING CPAP WELL. PATIENT HAS BEEN UP TO BATHROOM MULTIPLE TIMES WITH ASSISTANCE INCIDENT FREE. CONTINUE PLAN OF CARE.
[2019-02-18 08:52] VITALS: BP 138/70
[2019-02-18 14:10] VITALS: BP 138/70
[2019-02-18 14:16] VITALS: BP 138/70
--- NOTE | 2019-02-18 14:57 | NUR ---
DC ORDERS RECEIVED. MIDLINE REMOVED FROM L UA, DC INSTRUCTIONS AND F/U REVIEWED WITH PT. 3D MODELER ESCORTED PT TO EMERGENCY ENTRANCE WHERE S/O IS WAITING FOR PT.
== END 2019-02-18 15:03 | disposition home or self-care (01) | DRG 388 ==
LOC: 4E 12:07
PROVIDERS: ADMIT Family Medicine
PROC: 05HY33Z Insertion of Infusion Device into Upper Vein, Percutaneous Approach (ICD-10-PCS; principal; 2019-02-14)
DX: K56.699 Other intestinal obstruction unspecified as to partial versus complete obstruction (principal); N17.0 Acute kidney failure with tubular necrosis; K50.90 Crohn's disease, unspecified, without complications; M79.7 Fibromyalgia; E11.9 Type 2 diabetes mellitus without complications; G47.30 Sleep apnea, unspecified; I10 Essential (primary) hypertension; I48.91 Unspecified atrial fibrillation; F17.200 Nicotine dependence, unspecified, uncomplicated; D50.9 Iron deficiency anemia, unspecified; K59.00 Constipation, unspecified; Z88.2 Allergy status to sulfonamides; Z88.8 Allergy status to other drugs, medicaments and biological substances; Z79.899 Other long term (current) drug therapy; Z79.84 Long term (current) use of oral hypoglycemic drugs; Z86.73 Personal history of transient ischemic attack (TIA), and cerebral infarction without residual deficits; Z86.718 Personal history of other venous thrombosis and embolism; Z90.49 Acquired absence of other specified parts of digestive tract; Z90.89 Acquired absence of other organs; Z87.01 Personal history of pneumonia (recurrent); Z87.19 Personal history of other diseases of the digestive system
CPT/HCPCS: 10783; 27000

== ENCOUNTER 2019-05-17 10:58 | Inpatient (IN) | payer OTHER ==
[~2019-05-17] VITALS: Ht 170.2 cm; Wt 61.2 kg
[2019-05-17 11:01] VITALS: BP 120/40
--- NOTE | 2019-05-17 11:10 | NUR ---
PT YELLING AT NURSE WHEN ATTEMPTING VITALS, EKG, TRANSPORTING IN WHEELCHAIR AND ASSISTING WITH GOWN. PT YANKS AWAY FROM STAFF WHEN ATTEMPTING VITALS OR TRANSFER. PT ASKED "WHERE ARE MY BLANKETS?!" IN ROOM WHEN ATTEMPTING TO PROVIDE GOWN & PREP PT FOR MONITORING. PT KICKED NURSE WHEN TELLING PT THAT WE WOULD GET GOWN & MONITORING THEN WOULD GET BLANKETS FOR HIM DIRECTLY AFTER. SECURITY CALLED, CHARGE NURSE TO ROOM, REPORTED TO CHARGE AND
[2019-05-17 11:30] LABS: HEMOGLOBIN 10.5 gm/dL (14.0-18.0); MCHC 31.7 g/dL (28.0-37.0); MCV 91.3 fL (80.0-100.0); PLATELET COUNT 186 thou/uL (150-400); RBC 3.62 mil/uL (4.50-6.00); RDW 18.1 % (10.5-14.5); WBC 10.1 thou/uL (4.0-11.0)
[2019-05-17 11:39] LABS: ANION GAP 10 mmol/L (7-16); BUN 18 mg/dL (7-18); CALCIUM 8.9 mg/dL (8.5-10.1); CHLORIDE 105 mmol/L (98-107); CO2 22 mmol/L (21-32); CREATININE 1.3 mg/dL (0.7-1.3); GLUCOSE 186 mg/dL (74-106); SODIUM 137 mmol/L (136-145)
[2019-05-17 11:46] LABS: TROPONIN-I <0.06 ng/mL (<0.06)
[2019-05-17 11:58] LABS: ALBUMIN 3.7 g/dL (3.4-5.0); DIRECT BILIRUBIN < 0.1 mg/dL (<0.1-0.3); SGOT 12 U/L (15-37); SGPT 10 U/L (30-65); TOTAL BILIRUBIN 0.3 mg/dL (<0.1-1.0); TOTAL PROTEIN 7.5 g/dL (6.4-8.2)
[2019-05-17 12:26] LABS: ABSOLUTE NEUTROPHILS 7.1 thou/uL (1.4-8.2)
[2019-05-17 12:27] LABS: ANISOCYTOSIS 2+; TEARDROPS OCCASIONAL
[2019-05-17 14:06] LABS: URINE BILIRUBIN NEGATIVE (Negative); URINE BLOOD TRACE (Negative); URINE CLARITY CLEAR; URINE COLOR YELLOW; URINE GLUCOSE-RANDOM* NEGATIVE (Negative); URINE KETONES NEGATIVE (Negative); URINE LEUKOCYTES-REFLEX NEGATIVE (Negative); URINE NITRITE-REFLEX NEGATIVE (Negative); URINE PROTEIN (DIPSTICK) TRACE (Negative); URINE SPECIFIC GRAVITY <= 1.005 (1.005-1.035); URINE UROBILINOGEN 0.2 E.U./dl (0.2-1.0)
[2019-05-17 15:01] VITALS: BP 136/70
[2019-05-17 19:38] VITALS: BP 141/87
[2019-05-17 20:04] LABS: ALBUMIN 3.8 g/dL (3.4-5.0); TOTAL PROTEIN 7.2 g/dL (6.4-8.2)
[2019-05-17 20:29] LABS: TSH 2.951 uIU/mL (0.358-3.740)
--- NOTE | 2019-05-18 00:24 | NUR ---
ADMISSION NOTE: HE IS ACCOMPANIED BY HIS S/O AT TIME OF ADMISSION. COMPLAINS OF PAIN. WANTING DIAPERS. HE HAS A CONGESTED COUGH AND STATED THAT HE IS COUGHING UP WHITE SPUTUM. ORIENTED TO ROOM AND SURROUNDINGS. MEDICATIONS STARTED ORDERED.
[2019-05-18 03:07] VITALS: BP 142/84
--- NOTE | 2019-05-18 05:46 | NUR ---
PT REFUSES TO ALLOW NURSING TO CHANGE HIS BRIEF. HE SAYS HE HAS URINATE TONIGHT INTO IT. HE IS WANTING HIS SPECAIL KIND FROM HOME. HE STATED THAT [facility]IAS WILL BRING THEM.
[2019-05-18 06:35] LABS: HEMATOCRIT 30.6 % (42.0-52.0); HEMOGLOBIN 9.8 gm/dL (14.0-18.0); MCH 29.2 pg (26.0-34.0); MCHC 32.1 g/dL (28.0-37.0); MCV 90.9 fL (80.0-100.0); RBC 3.37 mil/uL (4.50-6.00); RDW 17.6 % (10.5-14.5); WBC 8.1 thou/uL (4.0-11.0)
[2019-05-18 06:55] LABS: CALCIUM 8.1 mg/dL (8.5-10.1); CREATININE 1.4 mg/dL (0.7-1.3); POTASSIUM 3.5 mmol/L (3.5-5.1)
[2019-05-18 08:17] VITALS: BP 123/67
--- NOTE | 2019-05-18 09:21 | EKG ---
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
--- NOTE | 2019-05-18 10:15 | NUR ---
ASSESSMENT: CM REVIEWED CHART AND MET WITH PATIENT AT THE BEDSIDE. PT WAS ADMITTED WITH PLEURITIC CHEST PAIN/BRONCHITIS/ABDOMINAL PAIN. PT HAS HX OF CROHNS. PT REPORTS HE LIVES IN A HOUSE WITH HIS SIGNIFICANT OTHER. PT REPORTS NO STEPS TO ENTER THE HOME OR ONCE INSIDE. PT REPORTS HE AMBULATES USING A CANE. PT HAS A CPAP AT HOME. PT REPORTS HAVING A GRAB BAR IN THE SHOWER AND IS INDEPENDENT WITH ADLS. CM DISCUSSED ROLE. [facility]. PT REPORTS HE HAS NOT HAD HH IN THE PAST AND REPORTS HE DOES NOT WANT IT. PT ANTICIPATES DISCHARGING HOME WITH NO NEEDS. CM WILL CONTINUE TO FOLLOW TO ASSIST NEEDED.
[2019-05-18 11:50] VITALS: BP 128/71
[2019-05-18 15:28] VITALS: BP 120/65
[2019-05-18 20:11] VITALS: BP 125/66
[2019-05-19 04:00] VITALS: BP 112/57
[2019-05-19 05:40] LABS: HEMATOCRIT 27.6 % (42.0-52.0); HEMOGLOBIN 9.1 gm/dL (14.0-18.0); MCH 29.8 pg (26.0-34.0); MCHC 33.1 g/dL (28.0-37.0); MCV 89.9 fL (80.0-100.0); RBC 3.07 mil/uL (4.50-6.00); RDW 17.9 % (10.5-14.5); WBC 9.5 thou/uL (4.0-11.0)
[2019-05-19 05:46] LABS: CALCIUM 8.3 mg/dL (8.5-10.1); CREATININE 1.3 mg/dL (0.7-1.3); MAGNESIUM 2.2 mg/dL (1.8-2.4); POTASSIUM 3.6 mmol/L (3.5-5.1)
[2019-05-19 08:04] VITALS: BP 116/69
--- NOTE | 2019-05-19 14:05 | NUR ---
ON-GOING ASSESSMENT: CM REVIEWED CHART AND SPOKE WITH ATTENDING. PT IS TO HAVE COLONOSCOPY TODAY. CM WILL CONTINUE TO FOLLOW TO ASSIST NEEDED.
--- NOTE | 2019-05-19 16:05 | NUR ---
Assumed care approx. 0700 this AM. Patient had light brown, watery stools this AM prior to colonoscopy. Tap water enema administered per orders before colonoscopy. Patient oriented x4, irritable and anxious most of the morning. Patient relieved to have had his colonoscopy complete. Patient concerned about coughing up sputum-pt encouraged to speak with hospitalist about his concerns. Flu swab came back negative. Full liquid diet initiated. Maintenance fluids infusing. Patient progressing toward plan of care.
[2019-05-19 16:32] VITALS: BP 122/66
[2019-05-19 20:28] VITALS: BP 134/69
--- NOTE | 2019-05-20 01:27 | NUR ---
REPORT GIVEN TO 4W NURSE, ALLOWED FOR QUESTIONS. PT AWARE HE IS BEING TRANSFERED TO ROOM 459. WILL COLLECT PT BELONGINGS AND TRANSFER TO NEW ROOM.
--- NOTE | 2019-05-20 01:58 | NUR ---
PT OFF UNIT IN STABLE CONDITION WITH ALL BELONGINGS.
--- NOTE | 2019-05-20 04:26 | NUR ---
PT WAS TRANSFERED FROM FROM 3W THIS AM.PT IS ON CONTACT ISOLATION PREC.PT HAD A COLOSCOPY YESTERDAY.PT IS A/O X4.PT C/O ABDOMINAL PAIN AND ON HYDROMORPHINE FOR PAIN MGT.IV ACCCESS ON RFA ON 0.9%NS /80MLS/HR.PT IS UP WITH SBA TO BSC..SKIN INTACT .PT IS CONTINENT WITH URGENCY.CONTINUE POC TILL EOS
[2019-05-20 05:55] LABS: HEMATOCRIT 28.4 % (42.0-52.0); HEMOGLOBIN 9.3 gm/dL (14.0-18.0); MCH 29.3 pg (26.0-34.0); MCHC 32.8 g/dL (28.0-37.0); MCV 89.2 fL (80.0-100.0); RBC 3.18 mil/uL (4.50-6.00); WBC 6.7 thou/uL (4.0-11.0)
[2019-05-20 06:13] LABS: CALCIUM 7.9 mg/dL (8.5-10.1); CREATININE 1.1 mg/dL (0.7-1.3); MAGNESIUM 1.9 mg/dL (1.8-2.4); POTASSIUM 3.3 mmol/L (3.5-5.1)
--- NOTE | 2019-05-20 06:29 | NUR ---
PY REFUSED TO TAKE OXYBUTYN THIS AM THAT IT DOESNT HELP HIM.
[2019-05-20 07:55] VITALS: BP 144/67
[2019-05-20 13:15] VITALS: BP 144/67
[2019-05-20 13:54] VITALS: BP 144/67
--- NOTE | 2019-05-20 14:13 | NUR ---
RECEIVED PT AROUND 0700. AGGRAVATED AND RUDE. WHEN TRYING TO PROVIDE GATEBELT TO STAND UP AND URINATE PT SWUNG AT NURSE AND REFUSED GAITBELT. AFTER PAINMEDICATION GIVEN MOOD CHANGED BACK TO MORE PLEASANT. PT. INSISTED ON DC TODAY AND MD SARMIENTO PUT IN ORDERS AFTER SPEEKING TO PT. PT. DISCHARGED APPROXIMAL 1400 WITH SIGNIFICANT OTHER. TRANSPORTATION WAS PROVIDED WITH WHEELCHAIR TO EMERGENCY ROOM EXIT. DISCHARGED TO SO. IV REMOVED. DC WITH ALL BELONGINGS TO HOME.
--- NOTE | 2019-05-20 17:06 | PATH ---
[facility] [address] [place] [address] PATHOLOGY RPT PROCEDURE Name: VICTOR HUGO KENNEDY Room #: 458-P DIS IN M.R.#: [id number] Admission: 05/17/19 Date of : 41 Discharge: 05/20/19 Report #: [id number] Path Case #: [id number] LCA Accession Number: [id number] . 01 Material submitted: . small bowel - BIOPSY OF SMALL BOWEL TO R/O CROHNS VS INFX COLITIS . 01 Clinical history: . Abdominal pain, diarrhea . 02 Diagnosis: Small bowel, R/O Crohn's versus infectious colitis, endoscopic biopsy: - Several foci of active inflammation, see comment. - Negative for dysplasia or malignancy. (IUV:andie; 05/20/2019) QMS 05/20/2019 1453 Local . 02 Comment: Examination shows several scattered foci of active surface epithelial inflammation. Ulceration is not identified. There are no crypt abscesses, or areas of granulomatous inflammation. There are no viral inclusions as well. Overall findings may be suggestive of an acute process such as a self-limited process, infectious process, medication/drug induced, including that of bowel preparation. Please correlate clinically. (IUV:andie; 05/20/2019) . 02 Electronically signed: . Sachi Solomon MD, Pathologist NPI- [id number] . 01 Gross description: . Received in formalin labeled "Victor Hugo Kennedy, BX of small bowel," and additionally labeled on the requisition as "to rule out Crohn's versus infx colitis," are 6 segments of perry soft tissue measuring 1.5 x 1.0 x 0.3 cm in aggregate dimensions and ranging from 0.3 to 0.6 cm in maximum dimension. The specimen is submitted entirely in cassette A1. (TSD; 05/19/2019) TOB/TOB 05/19/2019 1650 Local . 02 Pathologist provided ICD-10: K52.9, R10.9, R19.7 . 02 CPT . 304845 Specimen Comment: A courtesy copy of this report has been sent to Specimen Comment: [phone], [place] [address] PATHOLOGY RPT PROCEDURE Name: ANNAVICTOR HUGO Room #: 458-P DIS IN M.R.#: [id number] Admission: 05/17/19 Date of : 41 Discharge: 05/20/19 Report #: [id number] Path Case #: [id number] Specimen Comment: Report sent to / DR CHRISTENSEN Performed at: [address], [place] [id number] MD Aureliano Gill MD Phone: [phone] Performed at: [address] [id number] MD Sachi Solomon MD Phone: [phone]
== END 2019-05-20 14:24 | disposition home or self-care (01) | DRG 386 ==
LOC: ER 10:58 → EROBS 14:51 → 3W 14:51 → 4W 14:51 → 3W 19:12 → 4W 05-20 02:22 → ENTRNSPT 05-20 13:27 → EDTRNSPTSTS 05-20 13:30 → 4W 05-20 14:24
PROVIDERS: Emergency Medicine; Internal Medicine; Nurse Practitioner Family; ADMIT Family Medicine
PROC: 0DBB8ZX Excision of Ileum, Via Natural or Artificial Opening Endoscopic, Diagnostic (ICD-10-PCS; principal; 2019-05-19)
DX: K50.10 Crohn's disease of large intestine without complications (principal); J44.1 Chronic obstructive pulmonary disease with (acute) exacerbation; I50.30 Unspecified diastolic (congestive) heart failure; K52.9 Noninfective gastroenteritis and colitis, unspecified; I48.0 Paroxysmal atrial fibrillation; E11.9 Type 2 diabetes mellitus without complications; I11.0 Hypertensive heart disease with heart failure; F03.90 Unspecified dementia, unspecified severity, without behavioral disturbance, psychotic disturbance, mood disturbance, and anxiety; F17.210 Nicotine dependence, cigarettes, uncomplicated; E78.5 Hyperlipidemia, unspecified; G89.29 Other chronic pain; K63.89 Other specified diseases of intestine; K57.30 Diverticulosis of large intestine without perforation or abscess without bleeding; Z86.718 Personal history of other venous thrombosis and embolism; Z86.73 Personal history of transient ischemic attack (TIA), and cerebral infarction without residual deficits; Z90.49 Acquired absence of other specified parts of digestive tract; Z88.2 Allergy status to sulfonamides; Z88.8 Allergy status to other drugs, medicaments and biological substances; Z76.5 Malingerer [conscious simulation]
CPT/HCPCS: 10879; 62110; 62900; 70005

== ENCOUNTER 2019-05-23 10:57 | Inpatient (IN) | payer OTHER ==
[~2019-05-23] VITALS: Ht 172.7 cm; Wt 65.3 kg
[2019-05-23 10:57] VITALS: BP 116/67
[2019-05-23 12:05] LABS: ABSOLUTE NEUTROPHILS 9.1 thou/uL (1.4-8.2); BASOPHILS 0.3 % (0.0-2.0); HEMATOCRIT 34.5 % (42.0-52.0); HEMOGLOBIN 11.2 gm/dL (14.0-18.0); LYMPHOCYTES 5.7 % (24.0-44.0); MCH 28.8 pg (26.0-34.0); MCHC 32.6 g/dL (28.0-37.0); MCV 88.4 fL (80.0-100.0); MONOCYTES 8.8 % (1.0-8.0); PLATELET COUNT 217 thou/uL (150-400); POLYS 85.2 % (36.0-66.0); RDW 17.9 % (10.5-14.5); WBC 10.7 thou/uL (4.0-11.0)
[2019-05-23 12:20] LABS: CALCIUM 8.8 mg/dL (8.5-10.1); CREATININE 1.7 mg/dL (0.7-1.3); POTASSIUM 3.6 mmol/L (3.5-5.1)
[2019-05-23 12:26] LABS: ALBUMIN 3.2 g/dL (3.4-5.0); TOTAL BILIRUBIN 0.5 mg/dL (<0.1-1.0); TOTAL PROTEIN 7.8 g/dL (6.4-8.2)
[2019-05-23 13:18] LABS: URINE BILIRUBIN NEGATIVE (Negative); URINE BLOOD 1+ (Negative); URINE CLARITY CLEAR; URINE COLOR YELLOW; URINE GLUCOSE-RANDOM* NEGATIVE (Negative); URINE KETONES NEGATIVE (Negative); URINE LEUKOCYTES-REFLEX NEGATIVE (Negative); URINE NITRITE-REFLEX NEGATIVE (Negative); URINE PROTEIN (DIPSTICK) 1+ (Negative); URINE SPECIFIC GRAVITY <= 1.005 (1.005-1.035); URINE UROBILINOGEN 0.2 E.U./dl (0.2-1.0)
[2019-05-23 13:22] VITALS: BP 114/55
[2019-05-23 13:27] LABS: CASTS None Seen /LPF (None Seen); CRYSTALS None Seen /LPF (None Seen); SQUAMOUS 0-3 Few /LPF (0-3)
[2019-05-23 13:28] LABS: BACTERIA-REFLEX 1-9 Few /HPF (None Seen); URINE RBC None Seen /HPF (0-2); URINE WBC-REFLEX None Seen /HPF (0-5)
[2019-05-23 15:14] VITALS: BP 121/66
[2019-05-23 15:37] VITALS: BP 116/65
[2019-05-23 16:44] VITALS: BP 120/66
--- NOTE | 2019-05-23 18:25 | NUR ---
PATIENT ADMITTED TO ROOM AT THIS TIME FROM ER. HE COMPLAINED OF PAIN AND PRN PAIN MEDICATION ADMINISTERED. SEEN BY SURGERY AND NG TUBE PLACEMENT RECOMMENDED BUT PATIENT ABRUPTLY REFUSED. STATES HE DOES NOT NEED IT NOW. RESPIRATIONS ARE EVEN NON LABORED. WILL CONT WITH PLAN OF CARE.
[2019-05-23 19:57] VITALS: BP 118/73
[2019-05-24 04:08] VITALS: BP 115/56
--- NOTE | 2019-05-24 04:20 | NUR ---
PT PLACED BACK IN ISOLATION PRECAUTIONS SINCE LAST MRSA IN RESPIRATORY WAS 01/14. PT REFUSING NG TUBE. PT IS ONLY WANTING PAIN MEDICATION AND NAUSEA MEDICATION. ORDERED HURRICAIN SPRAY TO HELP NUMB PT BUT HE STILL REFUSES. ABDOMEN IS VERY DISTENDED. TRIED MULTIPLE TIMES TO GET PT TO ALLOW. HE STATES HE HAS BLOODY EMESIS DUE TO 2X ATTEMPTS ON DAY SIDE. WILL CONTINUE TO MONITOR AND ASSESS.
[2019-05-24 08:08] VITALS: BP 113/47
[2019-05-24 09:40] LABS: CALCIUM 8.1 mg/dL (8.5-10.1); CREATININE 1.3 mg/dL (0.7-1.3); POTASSIUM 3.9 mmol/L (3.5-5.1)
[2019-05-24 11:10] LABS: HEMATOCRIT 31.7 % (42.0-52.0); HEMOGLOBIN 10.1 gm/dL (14.0-18.0); MCH 28.6 pg (26.0-34.0); MCHC 31.8 g/dL (28.0-37.0); RBC 3.52 mil/uL (4.50-6.00); RDW 17.6 % (10.5-14.5); WBC 6.5 thou/uL (4.0-11.0)
[2019-05-24 11:38] VITALS: BP 122/61
[2019-05-24 17:34] VITALS: BP 133/59
[2019-05-24 19:42] VITALS: BP 114/50
[2019-05-25 03:36] VITALS: BP 130/60
--- NOTE | 2019-05-25 05:48 | NUR ---
PT STILL REFUSING NG TUBE. FOLLOWING POC WITH IVF AND PAIN/NAUSEA CONTROL. PT UP TO BSC WITH X1 ASSIST. PT HAD 1X BOUT OF INCONTINENCE AT 0300. PT WANTS TO EAT AND HAVE SOMETHING TO DRINK. PT STILL NPO. WILL CONTINUE TO MONITOR. HOURLY ROUNDING.
[2019-05-25 08:29] VITALS: BP 128/63
[2019-05-25 09:32] LABS: ABSOLUTE NEUTROPHILS 4.1 thou/uL (1.4-8.2); EOSINOPHILS 0.4 % (0.0-3.0); HEMATOCRIT 28.4 % (42.0-52.0); MCH 28.6 pg (26.0-34.0); MCHC 31.7 g/dL (28.0-37.0); MCV 90.5 fL (80.0-100.0); MONOCYTES 10.7 % (1.0-8.0); PLATELET COUNT 180 thou/uL (150-400); POLYS 78.9 % (36.0-66.0); RBC 3.14 mil/uL (4.50-6.00); RDW 17.5 % (10.5-14.5); WBC 5.2 thou/uL (4.0-11.0)
[2019-05-25 09:52] LABS: ALBUMIN 2.1 g/dL (3.4-5.0); CALCIUM 7.8 mg/dL (8.5-10.1); CREATININE 1.1 mg/dL (0.7-1.3); POTASSIUM 3.4 mmol/L (3.5-5.1); TOTAL BILIRUBIN 0.2 mg/dL (<0.1-1.0); TOTAL PROTEIN 5.9 g/dL (6.4-8.2)
--- NOTE | 2019-05-25 11:47 | NUR ---
Assess due to RD consult received. Admit with recurrent SBO. Pt recently discharged 05/20, readmit 05/23. Hx small bowel resection, crohns, dm. No wt change x 10 months, however did previously lose about 20 lb a yr ago with other past admission. Held NPO for now. Refuses NGT and any surgical intervention. Dehydrated and on ivf at 100ml/hr. SBFT today is pending. No further emesis. Low nutrition risk but continue to follow for timely diet advance with tolerance.
[2019-05-25 11:55] VITALS: BP 138/64
--- NOTE | 2019-05-25 14:15 | NUR ---
INITIAL ASSESSMENT: Received high risk nursing referral. SW reviewed chart and spoke with nursing. Pt was admitted from home due to SBO. Pt is refusing placement of NG tube at this time. Pt was recently discharged home from [facility] on 05/20. SW attempted to meet with pt at bedside. Pt not feeling well and requested SW return at a later time. Pt known to SW from previous hospitalizations. Pt lives at home with his s/o, Bernabe. Pt has a cane to assist with ambulation. Pt has been to [facility] and [facility] in the past for post-acute care. Pt's PCP is Dr. Ware. Pt declines services. SW is following to assist as needed with discharge planning.
--- NOTE | 2019-05-25 16:05 | NUR ---
ASSUMED CARE OF PATIENT AT 0700. VSS. ALERT AND ORIENTED X4. COMPLAINT OF PAIN EARLIER THIS MORNING AND GIVE PAIN MEDICATION. NO COMPLAINT OF PAIN SINCE THEN. PATIENT HAD BARIUM SWALLOW ABDOMINAL XRAY TODAY. PATIENT HAS BEEN SLEEPING AND DROWSY THROUGHOUT DAY. CONTINUING TO MONITOR.
[2019-05-25 16:32] VITALS: BP 142/65
[2019-05-25 19:15] VITALS: BP 131/64
[2019-05-26 05:03] VITALS: BP 135/57
--- NOTE | 2019-05-26 05:36 | NUR ---
ASSUMED CARE OF PT AT 1900. A&Ox4, COOPERATIVE WITH THIS RN. VS STABLE, AFEBRILE. C/O NOT BEING ABLE TO HAVE WATER D/T NPO STATUS. WATER TO RINSE MOUTH PROVIDED. C/O ABDOMINAL PAIN, RATED 7/10. PT REQUESTED PAIN MEDICATION, PROVIDED 1X W/ PARTIAL RELIEF. BED BATH GIVEN BY RESEARCH DEVELOPMENT DIRECTOR. NO ACUTE DISTRESS. PROGRESSING TOWARDS POC GOALS.
[2019-05-26 07:52] VITALS: BP 147/62
[2019-05-26 11:41] VITALS: BP 144/67
--- NOTE | 2019-05-26 15:26 | NUR ---
Assumed care approx. 0700 this AM. Patient oriented x4, but drowsy most of the day. Patient stands to use the urinal to void. No nausea, vomiting or bowel movments noted today. Abdominal discomfort to palpation-pt stated its usually not this bad. Pt stated he hasn't been in pain unless he is touched. Maintenance fluids still infusing. Blood sugars have been stable. GI consulted today due to crohns-pt placed on a clear liquid diet. Pt has been refusing surgical treatment. No interventions planned at this time. Plan of care goals haven't progressed much farther this shift.
[2019-05-26 15:38] VITALS: BP 146/68
[2019-05-26 19:05] VITALS: BP 138/57
[2019-05-27 03:16] VITALS: BP 155/64
--- NOTE | 2019-05-27 06:45 | NUR ---
ASSUMED CARE OF PT AT 1900. A&Ox4, COOPERATIVE W/ THIS RN. VS STABLE. C/O PAIN, MORPHINE GIVEN 1X PER PT REQUEST, PARTIAL RELIEF. HE BECAME CONFUSED THIS MORNING, STATING THERE IS A ROOM NEXT DOOR WITH CANS OF HIS STUFF AND BBQ PLACE BEHIND IS BEDROOM WALL. TOOK PT FOR A SHORT WALK TO LOOK AROUND, WAS STEADY W/ CANE AND 1 ASSIST. TRIED TO HAVE A BM ON WAY BACK, NO BM BUT DID HAVE FLATUS ON THE TOLIET. ASSISTED BACK TO BED, PT WAS MORE ORIENTED. CURRENTLY RESTING. PROGRESSING TOWARDS POC GOALS.
[2019-05-27 07:28] VITALS: BP 147/69
[2019-05-27 11:21] VITALS: BP 142/61
[2019-05-27 13:31] VITALS: BP 142/61
--- NOTE | 2019-05-27 14:19 | NUR ---
ASSUMED CARE OF PATIENT AT 0700. VSS. PATIENT REFUSED HELP AND MEDICATION. ALERT AND ORIENTED X 4 WITH SOME CONFUSION. PATIENT STABLE.
--- NOTE | 2019-05-27 14:25 | NUR ---
DISCHARGE NOTE: SW reviewed chart and spoke with nursing. Pt stable for discharge home today. No discharge needs identified. Pt's s/o to provide transportation home. SW is available to assist should needs arise.
== END 2019-05-27 14:30 | disposition home or self-care (01) | DRG 388 ==
LOC: ER 10:57 → 3W 13:40 → EROBS 13:40 → 3W 15:44 → ENTRNSPT 05-27 14:21 → EDTRNSPTSTS 05-27 14:24 → 3W 05-27 14:30
PROVIDERS: Internal Medicine; Physician Assistant; ADMIT Family Medicine
PROC: 5A09357 Assistance with Respiratory Ventilation, Less than 24 Consecutive Hours, Continuous Positive Airway Pressure (ICD-10-PCS; principal; 2019-05-24)
PROC: 5A09357 Assistance with Respiratory Ventilation, Less than 24 Consecutive Hours, Continuous Positive Airway Pressure (ICD-10-PCS; 2019-05-25)
PROC: 5A09357 Assistance with Respiratory Ventilation, Less than 24 Consecutive Hours, Continuous Positive Airway Pressure (ICD-10-PCS; 2019-05-26)
PROC: 5A09357 Assistance with Respiratory Ventilation, Less than 24 Consecutive Hours, Continuous Positive Airway Pressure (ICD-10-PCS; 2019-05-27)
DX: K56.600 Partial intestinal obstruction, unspecified as to cause (principal); J18.9 Pneumonia, unspecified organism; N17.9 Acute kidney failure, unspecified; K50.90 Crohn's disease, unspecified, without complications; I48.91 Unspecified atrial fibrillation; G89.29 Other chronic pain; M54.2 Cervicalgia; M79.7 Fibromyalgia; E11.9 Type 2 diabetes mellitus without complications; I10 Essential (primary) hypertension; F03.90 Unspecified dementia, unspecified severity, without behavioral disturbance, psychotic disturbance, mood disturbance, and anxiety; F17.210 Nicotine dependence, cigarettes, uncomplicated; D64.9 Anemia, unspecified; G47.30 Sleep apnea, unspecified; E11.649 Type 2 diabetes mellitus with hypoglycemia without coma; K57.30 Diverticulosis of large intestine without perforation or abscess without bleeding; J44.9 Chronic obstructive pulmonary disease, unspecified; Z90.49 Acquired absence of other specified parts of digestive tract; Z88.2 Allergy status to sulfonamides; Z86.718 Personal history of other venous thrombosis and embolism; Z86.73 Personal history of transient ischemic attack (TIA), and cerebral infarction without residual deficits; Z79.899 Other long term (current) drug therapy; Z88.8 Allergy status to other drugs, medicaments and biological substances; Z99.81 Dependence on supplemental oxygen; Z23 Encounter for immunization
CPT/HCPCS: 10879

== ENCOUNTER 2019-08-07 09:33 | Inpatient (IN) | payer OTHER ==
[~2019-08-07] VITALS: Ht 170.2 cm; Wt 60.8 kg
[2019-08-07] VITALS (8 sets, daily range): BP systolic 104–124; BP diastolic 44–85
[2019-08-07 11:49] LABS: BASOPHILS 0.2 % (0.0-2.0); MONOCYTES 9.7 % (1.0-8.0); WBC 3.6 thou/uL (4.0-11.0)
[2019-08-07 11:51] LABS: ABSOLUTE NEUTROPHILS 2.6 thou/uL (1.4-8.2); EOSINOPHILS 0.5 % (0.0-3.0); LYMPHOCYTES 16.3 % (24.0-44.0); MCH 24.8 pg (26.0-34.0); MCHC 29.7 g/dL (28.0-37.0); MCV 83.4 fL (80.0-100.0); PLATELET COUNT 159 thou/uL (150-400); POLYS 73.3 % (36.0-66.0); RBC 1.74 mil/uL (4.50-6.00); RDW 20.6 % (10.5-14.5)
[2019-08-07 11:55] LABS: HEMATOCRIT 14.5 % (42.0-52.0); HEMOGLOBIN 4.3 gm/dL (14.0-18.0)
[2019-08-07 12:05] LABS: ALBUMIN 3.3 g/dL (3.4-5.0); CREATININE 1.3 mg/dL (0.7-1.3); POTASSIUM 4.2 mmol/L (3.5-5.1); TOTAL BILIRUBIN 0.3 mg/dL (<0.1-1.0); TOTAL PROTEIN 6.7 g/dL (6.4-8.2)
[2019-08-07 12:07] LABS: MAGNESIUM 2.3 mg/dL (1.8-2.4); TROPONIN-I <0.06 ng/mL (<0.06)
[2019-08-07 12:10] LABS: CALCIUM 8.3 mg/dL (8.5-10.1)
[2019-08-07 12:28] LABS: FIBRINOGEN 386.4 mg/dL (210-360); PROTIME 10.3 Seconds (9.3-11.4)
[2019-08-07 12:34] LABS: ANISOCYTOSIS 2+
[2019-08-07 12:35] LABS: HYPOCHROMASIA 2+; MICROCYTES 2+
--- NOTE | 2019-08-07 14:30 | EKG ---
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
[2019-08-07 15:32] LABS: % SATURATION 5 % (20-39); IRON 20 ug/dL (65-175); TIBC 367 ug/dL (250-450)
[2019-08-08 02:20] VITALS: BP 124/64
[2019-08-08 09:24] LABS: HEMATOCRIT 18.5 % (42.0-52.0); HEMOGLOBIN 5.9 gm/dL (14.0-18.0)
[2019-08-08 09:44] VITALS: BP 112/61
[2019-08-08 10:43] VITALS: BP 121/63; BP 131/71
[2019-08-08 14:48] LABS: HEMATOCRIT 27.5 % (42.0-52.0)
[2019-08-08 14:52] LABS: HEMOGLOBIN 8.5 gm/dL (14.0-18.0)
[2019-08-08 19:50] VITALS: BP 144/76
[2019-08-09 04:20] VITALS: BP 139/77
[2019-08-09 07:44] VITALS: BP 136/79
--- NOTE | 2019-08-09 09:43 | P ---
[facility] [place] [address] PROCEDURE REPORT Name: BENIGNO CASTILLO Room #: 356-P [facility] IN M.R.#: [id number] Admission: 08/07/19 Attend Phys: Dylon Ware MD Discharge: Date of : 41 Report #: [id number] THIS REPORT FOR: //name// CC: Dylon Ware DATE OF SERVICE: 08/08/2019 PROCEDURE: Upper endoscopy at [facility] in [place] 9. INDICATION: Melena and anemia. The patient has a history of Crohn's disease, status post ileocecectomy and not currently on any treatment. He is on Plavix. Hemoglobin noted to be 4.3. DESCRIPTION OF PROCEDURE: The patient was transfused 2 units of packed red blood cells. After inserting an IV, obtaining patient consent, the patient was placed in the left lateral decubitus position and the adult upper endoscope was advanced under sedation with monitored anesthesia care. The scope was introduced through the mouth and all the way to the second portion of the duodenum and withdrawn carefully with careful inspection. In the esophagus, there was a mild Schatzki's ring that was identified. In the stomach, there was a small hiatal hernia and there was mild diffuse watermelon stomach. This was biopsied for Helicobacter pylori. 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 This was biopsied as well and the exam was then aborted. The patient was recovered per established procedures and protocols. RECOMMENDATIONS: To await biopsy results. Change Protonix drip to 40 mg daily p.o., since the patient has had a colonoscopy in 2017, 2018. Recommend a M2 capsule endoscopy as that has not been performed recently to my knowledge for further evaluation of the small bowel causes of anemia. We will advance his diet to a soft diet and then as tolerated. Trend hemoglobin and hematocrit, transfuse as needed. We will follow along with you. <ELECTRONICALLY SIGNED> By: Baltazar Grier MD 08/09/19 0943 30 Baltazar Grier MD /nt
[2019-08-09 11:44] VITALS: BP 126/73
[2019-08-09 15:27] VITALS: BP 126/61
[2019-08-09 19:17] VITALS: BP 106/47
[2019-08-10 03:14] VITALS: BP 108/48
[2019-08-10 07:51] VITALS: BP 114/59
[2019-08-10 11:21] VITALS: BP 116/55
[2019-08-10 16:50] VITALS: BP 116/55
--- NOTE | 2019-08-11 16:06 | PATH ---
[facility] [address] [place] [address] PATHOLOGY RPT PROCEDURE Name: VICTOR HUGO KENNEDY Room #: 356-P DIS IN M.R.#: [id number] Admission: 08/07/19 Date of : 41 Discharge: 08/10/19 Report #: [id number] Path Case #: [id number] LCA Accession Number: [id number] . 01 Material submitted: . PART A: duodenum - BIOPSY OF DUODENAL NODULE PART B: stomach - BIOPSY OF ANTRUM TO RULE OUT H PYLORI . 01 Clinical history: . Melena, anemia Duodenal nodule, gastritis, hiatal hernia, Schatzki's ring B. Rule out H. pylori . 02 Diagnosis: A. Duodenum, duodenal nodule, endoscopic biopsy: - Tubular adenoma. - Negative for high-grade dysplasia. . B. Gastric mucosa, antrum to rule out H. pylori, endoscopic biopsy: - Moderate reactive gastropathy. - Negative for intestinal metaplasia or atrophy. - Negative for Helicobacter pylori (properly controlled immunohistochemical stain performed). . (IUV:golf course ranger; 08/11/2019) MBR 08/11/2019 1204 Local . 02 Electronically signed: . Sachi Solomon MD, Pathologist NPI- [id number] . 01 Gross description: . A. The specimen is received in formalin, labeled "Victor Hugo Kennedy BX of a duodenal nodule" and consists of multiple fragments of pink-perry tissue measuring 0.9 x 0.6 x 0.3 cm in aggregate which are entirely submitted in A1. . B. The specimen is received in formalin, labeled "Victor Hugo Kennedy BX of antrum" and consists of 3 fragments of pink-perry tissue measuring between 0.2 x 0.2 cm and 0.3 x 0.3 cm which are entirely submitted in B1. (SDY; 08/10/2019) SYU/SYU 08/10/2019 1240 Local . 02 Pathologist provided ICD-10: D13.2, K31.9 . 02 CPT . [address] [address] PATHOLOGY RPT PROCEDURE Name: VICTOR HUGO KENNEDY Room #: 356-P DIS IN M.R.#: [id number] Admission: 08/07/19 Date of : 41 Discharge: 08/10/19 Report #: [id number] Path Case #: [id number] Specimen Comment: A courtesy copy of this report has been sent to [phone] Specimen Comment: [phone] Specimen Comment: Report sent to / DR SARMIENTO Performed at: [address], [place] [id number] MD Aureliano Gill MD Phone: [phone] Performed at: [address] [id number] MD Sachi Solomon MD Phone: [phone]
== END 2019-08-10 17:41 | disposition home or self-care (01) | DRG 378 ==
LOC: ER 09:33 → EROBS 12:19 → 3W 12:19 → ENTRNSPT 08-10 17:19 → 3W 08-10 17:41
PROVIDERS: Anesthesiology; Emergency Medicine; Internal Medicine Gastroenterology; Nurse Practitioner; Physician Assistant; ADMIT Family Medicine
PROC: 30233N1 Transfusion of Nonautologous Red Blood Cells into Peripheral Vein, Percutaneous Approach (ICD-10-PCS; principal; 2019-08-07)
PROC: 0DB68ZX Excision of Stomach, Via Natural or Artificial Opening Endoscopic, Diagnostic (ICD-10-PCS; 2019-08-08)
PROC: 0DB98ZX Excision of Duodenum, Via Natural or Artificial Opening Endoscopic, Diagnostic (ICD-10-PCS; 2019-08-08)
PROC: 5A09357 Assistance with Respiratory Ventilation, Less than 24 Consecutive Hours, Continuous Positive Airway Pressure (ICD-10-PCS; 2019-08-10)
DX: K29.81 Duodenitis with bleeding (principal); D62 Acute posthemorrhagic anemia; K50.90 Crohn's disease, unspecified, without complications; I48.91 Unspecified atrial fibrillation; M79.7 Fibromyalgia; E11.9 Type 2 diabetes mellitus without complications; G47.30 Sleep apnea, unspecified; I10 Essential (primary) hypertension; R05 Cough; F17.210 Nicotine dependence, cigarettes, uncomplicated; J44.9 Chronic obstructive pulmonary disease, unspecified; D13.30 Benign neoplasm of unspecified part of small intestine; I95.9 Hypotension, unspecified; K22.2 Esophageal obstruction; K44.9 Diaphragmatic hernia without obstruction or gangrene; D13.2 Benign neoplasm of duodenum; Z79.01 Long term (current) use of anticoagulants; Z90.89 Acquired absence of other organs; Z90.49 Acquired absence of other specified parts of digestive tract; Z86.718 Personal history of other venous thrombosis and embolism; Z79.899 Other long term (current) drug therapy; Z88.2 Allergy status to sulfonamides; Z88.8 Allergy status to other drugs, medicaments and biological substances; Z87.01 Personal history of pneumonia (recurrent)
CPT/HCPCS: 10879; 62110; 62900; 70005

== ENCOUNTER → 2020-04-27 | Outpatient (CLI) | payer OTHER | LOC: SJCVC 15:02 | PROVIDERS: ATTEND Internal Medicine Cardiovascular Disease | DX: R94.31 Abnormal electrocardiogram [ECG] [EKG] (principal); I45.2 Bifascicular block; I48.0 Paroxysmal atrial fibrillation; D68.59 Other primary thrombophilia; I65.23 Occlusion and stenosis of bilateral carotid arteries; I10 Essential (primary) hypertension; E78.00 Pure hypercholesterolemia, unspecified; E11.9 Type 2 diabetes mellitus without complications; F17.210 Nicotine dependence, cigarettes, uncomplicated; Z79.899 Other long term (current) drug therapy; Z87.19 Personal history of other diseases of the digestive system ==

== ENCOUNTER 2020-07-28 14:11 | Emergency (ER) | payer OTHER ==
[~2020-07-28] VITALS: Ht 172.7 cm; Wt 59.0 kg
[2020-07-28 19:39] LABS: ABSOLUTE NEUTROPHILS 9.3 thou/uL (1.4-8.2); BASOPHILS 0.2 % (0.0-2.0); EOSINOPHILS 0.4 % (0.0-3.0); HEMATOCRIT 34.8 % (42.0-52.0); HEMOGLOBIN 10.9 gm/dL (14.0-18.0); LYMPHOCYTES 11.1 % (24.0-44.0); MCH 24.7 pg (26.0-34.0); MCHC 31.2 g/dL (28.0-37.0); MCV 79.1 fL (80.0-100.0); MONOCYTES 7.8 % (1.0-8.0); PLATELET COUNT 219 thou/uL (150-400); POLYS 80.5 % (36.0-66.0); RBC 4.41 mil/uL (4.50-6.00); WBC 11.6 thou/uL (4.0-11.0)
[2020-07-28 19:46] LABS: ANION GAP 9 mmol/L (7-16); BUN 38 mg/dL (7-18); CALCIUM 9.1 mg/dL (8.5-10.1); CHLORIDE 104 mmol/L (98-107); CO2 23 mmol/L (21-32); CREATININE 1.8 mg/dL (0.7-1.3); GLUCOSE 110 mg/dL (74-106); POTASSIUM 4.4 mmol/L (3.5-5.1); SODIUM 136 mmol/L (136-145)
[2020-07-28 19:56] LABS: ALBUMIN 3.8 g/dL (3.4-5.0); LIPASE 171 U/L (73-393); SGOT 18 U/L (15-37); SGPT 19 U/L (16-63); TOTAL BILIRUBIN 0.4 mg/dL (0.2-1.0); TOTAL PROTEIN 7.4 g/dL (6.4-8.2); TROPONIN-I <0.06 ng/mL (<0.06)
[2020-07-28] MEDS ORDERED: ZOFRAN ODT4 MG PO (21:52)
[2020-07-28 22:19] VITALS: BP 111/57
--- NOTE | 2020-07-29 15:15 | EKG ---
[place] [address] [place] [address] ELECTROCARDIOGRAM REPORT Name: BENIGNO CASTILLO 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: KM : 1945 Requested By: Michael An Order Number: [id number] MD: Edison Tate Measurements Intervals [place] Rate: 90 P: 57 OR: 160 QRS: 101 QRSD: 133 T: 47 QT: 375 QTc: 459 Interpretive Statements Sinus rhythm RBBB and LPFB Baseline wander in lead(s) V1 Compared to ECG 08/07/2019 09:59:50 No significant changes Electronically Signed On 07-29-2020 15:15:10 INDUSTRIAL SALES MANAGER by Edison Tate [email or web address] <ELECTRONICALLY SIGNED> By: Edison Tate MD, [facility] 07/29/20 1515 1657 56 Edison Tate MD, FACC /EPI
== END 2020-07-28 22:06 | disposition home or self-care (01) ==
LOC: ER 14:11
PROVIDERS: Emergency Medicine
DX: K52.9 Noninfective gastroenteritis and colitis, unspecified (principal); I10 Essential (primary) hypertension; E11.9 Type 2 diabetes mellitus without complications; I48.91 Unspecified atrial fibrillation; F17.210 Nicotine dependence, cigarettes, uncomplicated; Z86.73 Personal history of transient ischemic attack (TIA), and cerebral infarction without residual deficits; Z90.49 Acquired absence of other specified parts of digestive tract; Z86.2 Personal history of diseases of the blood and blood-forming organs and certain disorders involving the immune mechanism; Z79.899 Other long term (current) drug therapy; Z88.2 Allergy status to sulfonamides; Z88.8 Allergy status to other drugs, medicaments and biological substances

== ENCOUNTER 2020-11-18 11:13 | Inpatient (IN) | payer OTHER ==
[~2020-11-18] VITALS: Ht 172.7 cm; Wt 57.2 kg
[2020-11-18 12:48] LABS: ABSOLUTE NEUTROPHILS 11.8 thou/uL (1.4-8.2); BASOPHILS 0.3 % (0.0-2.0); EOSINOPHILS 0.3 % (0.0-3.0); HEMATOCRIT 35.2 % (42.0-52.0); HEMOGLOBIN 10.9 gm/dL (14.0-18.0); LYMPHOCYTES 4.6 % (24.0-44.0); MCH 24.6 pg (26.0-34.0); MCV 79.3 fL (80.0-100.0); MONOCYTES 4.3 % (1.0-8.0); PLATELET COUNT 266 thou/uL (150-400); POLYS 90.5 % (36.0-66.0); RBC 4.43 mil/uL (4.50-6.00); RDW 19.7 % (10.5-14.5); WBC 13.1 thou/uL (4.0-11.0)
[2020-11-18 13:17] LABS: CALCIUM 9.6 mg/dL (8.5-10.1); CREATININE 1.8 mg/dL (0.7-1.3); POTASSIUM 4.5 mmol/L (3.5-5.1)
[2020-11-18 13:25] LABS: ALBUMIN 4.2 g/dL (3.4-5.0); DIRECT BILIRUBIN 0.1 mg/dL (<0.1-0.2); TOTAL BILIRUBIN 0.4 mg/dL (0.2-1.0); TOTAL PROTEIN 8.7 g/dL (6.4-8.2)
--- NOTE | 2020-11-18 13:39 | EKG ---
[place] [address] [facility] [place] [address] ELECTROCARDIOGRAM REPORT Name: BENIGNO CASTILLO Room #: [facility].#: [id number] Admission: 11/18/20 Attend Phys: Discharge: Date of : 41 Report #: [id number] [facility] ED Test Date: 2020-11-18 Test Time: 11:36:47 Pat Name: BENIGNO CASTILLO Department: Room: Gender: M Work Adjustment Instructor: GEOVANNY : 1945 Requested By: Rogerio Angel Order Number: [id number] MD: Angel Warren Measurements Intervals [place] Rate: 116 P: 45 DC: 100 QRS: 101 QRSD: 136 T: 54 QT: 335 QTc: 466 Interpretive Statements Sinus tachycardia RBBB and LPFB Compared to ECG 07/28/2020 16:57:25 Sinus rhythm no longer present Electronically Signed On 11-18-2020 13:39:20 CDT by Angel Warren [email or web address] <ELECTRONICALLY SIGNED> By: Angel Warren MD, [facility] 11/18/20 1339 1136 1136 Angel Warren MD, FACC /EPI
[2020-11-18 14:03] LABS: ANISOCYTOSIS 1+; PLATELET ESTIMATE NORMAL
[2020-11-18 16:07] VITALS: BP 112/64
[2020-11-18 17:00] VITALS: BP 114/71
--- NOTE | 2020-11-18 18:46 | NUR ---
ASSUMED PT CARE AROUND 1645. PT ALERT X ORIENTED X 4, IRRITABLE AND ANGRY. DIFFICULTY TO UNDERSTAND IF HE IS IN DISTRESS. IV RT UA WITH NS/80MLS/HR. C/O PAIN, NOT YET TIME TO GIVE PAIN MEDICINE DURING THE SHIFT. REFUSING TO EAT. REFUSED TO CHECK SKIN OF BACK. DOESN'T ALLOW TO TOUCH. PARTNER IN THE ROOM.PARTNER WAS ANSWERING MOST OF THE QUESTION. TEMPERATURE OF 99.3. COUGH. REFUSED TO EXAMINE THE ABDOMEN. PT HAS UPPER AND LOWER DENTURES ON THE TABLE, WATCH ON HAND, MOBILE AND TIE PULLER, CLOTHES IN THE BAG AND A PAIR OF SHOES. FALL EDUCATION GIVEN. FALL PRECAUTION IN PLACE. WILL CONT TO MONITOR. SHIFT REPORT GIVEN TO BRO ALVAREZ.
[2020-11-18 19:37] VITALS: BP 114/71
[2020-11-18 19:51] VITALS: BP 114/71
--- NOTE | 2020-11-19 02:31 | NUR ---
PT AOX4. PT REPORTS 8/10 ABDOMINAL PAIN. PT RECEIVING PRN IV MORPHINE Q4HR. PT DENIES SOB WITH EXERTION, REPORTS SOB WITH PAIN. NO O2 DESATURATIONS NOTED. PT REFUSING O2 ADMINISTRATION, REPORTS CPAP USE AT HS. RT NOTIFIED, CPAP TO BE BROUGHT TO PT ROOM. PT TOLERATING PO INTAKE OF FLUIDS AND CLEAR LIQUID DIET WITHOUT ISSUE. PT REPORTS NAUSEA WITHOUT EMESIS. PT RECEIVING PRN IV ZOFRAN Q4HR. PT VOIDING PER URINAL. PT RESTING IN BED THROUGHOUT SHIFT, FREQUENT REPOSITIONING ENCOURAGED, PT NOTED TO SHIFT INDEPENDENTLY WITH WEAKNESS, REPOSITIONING ASSISTANCE REFUSED. PT REPORTS NUMBNESS AND TINGLING IN BOTH HANDS AND FEET. CAPILLARY REFILL LESS THAN 3SEC IN ALL EXTREMITIES. UPON REVIEW OF ATTENDING PROVIDER PROGRESS NOTES, DIET ORDER TO BE NPO. DIET ORDERS CHANGED FROM CLEAR LIQUIDS TO NPO. PT ENCOURAGED TO NOTIFY STAFF FOR ALL NEEDS, CALL LIGHT WITHIN REACH, BED ALARM ON, BED LOCKED IN LOWEST POSITION, FREQUENT MONITORING WILL CONTINUE.
[2020-11-19 05:22] VITALS: BP 101/61
[2020-11-19 05:25] LABS: HEMATOCRIT 30.5 % (42.0-52.0); HEMOGLOBIN 9.2 gm/dL (14.0-18.0); MCH 24.8 pg (26.0-34.0); MCHC 30.1 g/dL (28.0-37.0); MCV 82.4 fL (80.0-100.0); RBC 3.7 mil/uL (4.50-6.00); RDW 19.8 % (10.5-14.5); WBC 5.2 thou/uL (4.0-11.0)
[2020-11-19 05:29] LABS: CREATININE 1.6 mg/dL (0.7-1.3); POTASSIUM 4.1 mmol/L (3.5-5.1)
[2020-11-19 05:32] LABS: CALCIUM 7.5 mg/dL (8.5-10.1)
[2020-11-19 07:21] VITALS: BP 107/65
--- NOTE | 2020-11-19 13:50 | NUR ---
ASSUMED PT CARE AROUND 0715. PT ALERT X ORIENTED X4, IRRITABLE. IV/RT UA/NS/80MLS/HR. ON ROOM AIR. ON CLEAR LIQUID DIET SINCE TODAY NOON. LIQUIDS TOLERATING WELL. HAD A BM TODAY. NO C/O NAUSEA OR VOMITING. PAIN ABDOME PARTIALLY CONTROLLED BY PAIN MEDS. PARTNER IN THE ROOM. FALL PRECAUTION IN PLACE. REFUSED TO WEAR YELLOW SOCKS. CALL LIGHT IN REACH. WILL CONTINUE TO MONITOR.
[2020-11-19 15:29] VITALS: BP 122/72
[2020-11-19 20:30] VITALS: BP 122/72
--- NOTE | 2020-11-20 02:36 | NUR ---
ASSUMED CARE OF PT AT 1900. PT IS A/O X4 AND IS UP WITH SBA ASSISTANCE WITH A CANE. ROOM AIR. CONTINOUS PULSE OX IN PLACE AND CPAP IN ROOM. PT REFUSED TO USE CPAP THIS NOC. HAS BEEN HESITANT WITH ALL CARES PROVIDED AND REFUSES TO COMPLY WITH FALL PRECAUTIONS. HAS YELLED AT STAFF MEMBERS AND IS AGRESSIVE BOTH PHYSCIALLY AND VERBALLY. C/O PAIN IN HIS ABDOMEN AND NAUSEA. PRN PAIN AND NAUSEA MEDICATION GIVEN DIRECTED. VSS. AFEBRILE. AT THIS TIME PT IS LYING IN HIS BED WITH HOB ELEVATED AND APPEARS TO BE SLEEPING WITH EYES CLOSED. REFUSES TO WEAR SCD'S OR ELEVATE HEELS FROM THE BED DESPITE EDUCATION GIVEN ON THE BENEFITS TO WEARING THEM OR ELEVATING HIS HEELS. BEDALARM IMPLEMENTED, CALL LIGHT IS WITHIN REACH.CALLS OUT APPROPRIATELY.
[2020-11-20 04:54] LABS: HEMATOCRIT 25.3 % (42.0-52.0); HEMOGLOBIN 7.8 gm/dL (14.0-18.0); MCH 24.7 pg (26.0-34.0); MCHC 30.8 g/dL (28.0-37.0); RBC 3.17 mil/uL (4.50-6.00); RDW 19.2 % (10.5-14.5); WBC 4.7 thou/uL (4.0-11.0)
[2020-11-20 05:08] LABS: CALCIUM 7.5 mg/dL (8.5-10.1); CREATININE 1.3 mg/dL (0.7-1.3); POTASSIUM 3.8 mmol/L (3.5-5.1)
[2020-11-20 07:15] VITALS: BP 123/70
--- NOTE | 2020-11-20 12:45 | NUR ---
ASSUMED PT CARE AROUND 0700. PT ALERT X ORIENTED X4. ON 2L/O2/NC. PAIN PARTIALLY CONTROLLED BY PAIN MEDS. IV RT UA/NS/80. ARGUMENTATIVE. REFUSES TO WEAR YELLOW SOCKS. NOT GOOD AT FOLLOWING PRECAUTION. PT'S PARTNER IN THE ROOM. WILL CONTINUE TO MONITOR.
[2020-11-20 15:50] VITALS: BP 125/70
[2020-11-20 19:18] VITALS: BP 123/69
--- NOTE | 2020-11-21 04:00 | NUR ---
ASSUMED PT CARE AT 1900.PT ALERT/CONFUSED AND FORGETFUL.PT'S IV CAME OUT WHILE PT WAS GETTING OUT OF BED WITHOUT ASSIST.PT EDUCATED ON THE NEED TO CALL FOR ASSISTANCE.PT SLEPT WITH HIS CPAP OFF AND ON AT HS.USING HIS NC INTERMITTENTLY.UP WITH A CANE AND SBA TO THE TOILET.PT WITH NON PRODUCTIVE LOOSE COUGH.BG MONITORED NO COVERAGE GIVEN.ATTEMPTED TO REPLACE HI IV,NOT SUCCESSFUL SO FAR.HOUS SENIOR PRODUCTION MANAGER NOTIFIED.
[2020-11-21 04:20] VITALS: BP 136/72
[2020-11-21 05:45] LABS: HEMATOCRIT 26.5 % (42.0-52.0); HEMOGLOBIN 8.2 gm/dL (14.0-18.0); MCH 24.5 pg (26.0-34.0); MCHC 30.8 g/dL (28.0-37.0); MCV 79.5 fL (80.0-100.0); RBC 3.34 mil/uL (4.50-6.00); RDW 19.2 % (10.5-14.5); WBC 4.1 thou/uL (4.0-11.0)
[2020-11-21 05:58] LABS: CALCIUM 7.6 mg/dL (8.5-10.1); CREATININE 1.1 mg/dL (0.7-1.3); POTASSIUM 3.6 mmol/L (3.5-5.1)
[2020-11-21 07:20] VITALS: BP 141/69
--- NOTE | 2020-11-21 12:49 | NUR ---
assessment: CM REVIEWED CHART AND SPOKE WITH PTAIENT AT THE BEDSIDE. PT WAS ADMITTED DUE TO PARTIAL SBO, ABDOMAINL PAIN. PT IS CURRENTLY ON IV FLUIDS AND ANTIEMETICS. PT REPORTS THAT HE LIVES AT HOME WITH HIS SPOUSE SHARON IN A HOUSE. PT REPORTS HAVING NO STEPS TO ENTER OR ONCE INSIDE. PT REPORTS THAT HE HAS A CANE AT HOME, A WALKER, AND A CPAP MACHINE. PT [facility]. CM DISCUSSED ROLE WELL POSSIBLE NEED FOR HH VS POST ACUTE CARE. PT REPORTS HE WANTS TO GO BACK HOME. PT STATING HE DOES NOT WANT HOME HEALTH CARE AND DOES NOT WANT A REFERRAL SENT. PT WANTS TO CONTINUE TO SEE HOW HE IMPROVES. CM WILL CONTINUE TO FOLLOW TO ASSIST NEEDED.
[2020-11-21 15:50] VITALS: BP 134/69
[2020-11-21 16:07] VITALS: BP 139/80
[2020-11-21 18:54] VITALS: BP 124/68
--- NOTE | 2020-11-21 20:35 | NUR ---
Received awake on bed. Due medications given as prescribed. On O2 at 2lpm via nasal cannula; on continous pulse ox. On clear liquid diet- tolerating well; no nausea, no vomiting and no abdominal pain noted. On MS, not on telemetry; no complains and signs of chest pain, crushing sensation and heaviness. Assisted in ADLs. On blood sugar monitoring, taken and recorded accordingly. Pt complaining that he has been having diarrhea- assisted in going to the toilet- none noted- night RN informed re: this. Falls bundle in palce. With NS at 80cc/hr infusing at L FA- pt refusing to be rehooked to IVF- Dr Ware informed re: this; may leave off IVF if no active vomiting and diarrhea- Night RN informed. Complained of pain, due PRN pain meds given as prescribed. Pt's partner/relative at bedside expressed that pt has been having confusion this PM- Dr Ware informed re: this, no new orders obtained- to continue monitoring patient.
--- NOTE | 2020-11-22 01:58 | NUR ---
PT C/O PAIN ON HIS ABD,MANAGED WITH MED.PT CONT ON 2L/NC.PT UP WITH SBA TO THE TOILET,SOB WITH EXERTION NOTED.NO C/O N/V/D NOTED.PT REF CPAP AT HS.LENNY CLEAR LIQUIDS.CALL LIGHT WITHIN REACH.
[2020-11-22 03:27] VITALS: BP 137/76
[2020-11-22 07:28] VITALS: BP 133/60
[2020-11-22 08:11] VITALS: BP 135/90
[2020-11-22 08:15] VITALS: BP 135/90
[2020-11-22 08:53] VITALS: BP 135/90
--- NOTE | 2020-11-22 08:59 | NUR ---
ON-GOING ASSESSMENT: CM REVIEWED CHART AND SPOKE WITH ATTENDING. PT IS GOING TO DISCHARGE HOME TODAY WITH NO NEEDS. SHARON PATIENTS SIGNIFICANT OTHER IS AWARE AND REPORTS HE CAN COME GET HIM WHENEVER HE IS READY. CASE CLOSED.
--- NOTE | 2020-11-22 10:12 | NUR ---
Assumed pt care at 7am.Pt in bed resting and waiting for breakfast.Assessment completed.vss.Pt reported having a bad night.Emotional support given.Dr Cedeno here,dc order noted.Am meds given with breakfast and well tolerated. Dc summary compile and reviewed with pt.Saline lock dc'd.Pt partner notified about dc home this morning and he came to pick pt up around 10am.Pt dc home with partner in wc accompanied by manager ship at 10am.
== END 2020-11-22 11:27 | disposition home or self-care (01) | DRG 388 ==
LOC: ER 11:13 → EROBS 15:00 → 4S 15:00
PROVIDERS: Nurse Practitioner; ADMIT Family Medicine; ATTEND Family Medicine
PROC: 5A09357 Assistance with Respiratory Ventilation, Less than 24 Consecutive Hours, Continuous Positive Airway Pressure (ICD-10-PCS; principal; 2020-11-19)
DX: K56.600 Partial intestinal obstruction, unspecified as to cause (principal); N17.0 Acute kidney failure with tubular necrosis; K50.90 Crohn's disease, unspecified, without complications; I95.89 Other hypotension; I10 Essential (primary) hypertension; M79.7 Fibromyalgia; G47.30 Sleep apnea, unspecified; J44.9 Chronic obstructive pulmonary disease, unspecified; Z20.822 Contact with and (suspected) exposure to COVID-19; Z99.81 Dependence on supplemental oxygen; Z86.718 Personal history of other venous thrombosis and embolism; Z86.73 Personal history of transient ischemic attack (TIA), and cerebral infarction without residual deficits; Z90.49 Acquired absence of other specified parts of digestive tract; Z79.899 Other long term (current) drug therapy; Z88.2 Allergy status to sulfonamides; Z88.8 Allergy status to other drugs, medicaments and biological substances
CPT/HCPCS: 10195

== ENCOUNTER → 2020-11-24 | Outpatient (CLI) | payer OTHER | LOC: SJCVCIMAG 08:45 | PROVIDERS: ATTEND Internal Medicine Cardiovascular Disease | DX: I65.23 Occlusion and stenosis of bilateral carotid arteries (principal); I10 Essential (primary) hypertension; R94.31 Abnormal electrocardiogram [ECG] [EKG]; I48.0 Paroxysmal atrial fibrillation; I45.2 Bifascicular block; E78.00 Pure hypercholesterolemia, unspecified; M19.90 Unspecified osteoarthritis, unspecified site; E11.9 Type 2 diabetes mellitus without complications; G47.33 Obstructive sleep apnea (adult) (pediatric); F17.210 Nicotine dependence, cigarettes, uncomplicated; Z90.49 Acquired absence of other specified parts of digestive tract; Z98.890 Other specified postprocedural states; Z88.8 Allergy status to other drugs, medicaments and biological substances; Z79.899 Other long term (current) drug therapy; Z87.19 Personal history of other diseases of the digestive system; Z86.718 Personal history of other venous thrombosis and embolism; Z82.49 Family history of ischemic heart disease and other diseases of the circulatory system ==

== ENCOUNTER 2021-01-23 08:37 | Inpatient (IN) | payer OTHER ==
[~2021-01-23] VITALS: Ht 170.2 cm; Wt 61.6 kg
[2021-01-23] VITALS (8 sets, daily range): BP systolic 115–155; BP diastolic 47–85
[2021-01-23 09:39] LABS: RBC 1.95 mil/uL (4.50-6.00); WBC 5.7 thou/uL (4.0-11.0)
[2021-01-23 09:41] LABS: MCH 23.4 pg (26.0-34.0); MCHC 29.6 g/dL (28.0-37.0); MCV 79.1 fL (80.0-100.0); PLATELET COUNT 164 thou/uL (150-400); RDW 21.3 % (10.5-14.5)
[2021-01-23 09:46] LABS: CALCIUM 8.1 mg/dL (8.5-10.1); CREATININE 1.3 mg/dL (0.7-1.3); POTASSIUM 4.4 mmol/L (3.5-5.1)
[2021-01-23 09:51] LABS: HEMOGLOBIN 4.6 gm/dL (14.0-18.0)
[2021-01-23 09:52] LABS: HEMATOCRIT 15.4 % (42.0-52.0)
[2021-01-23 10:25] LABS: APTT 29.9 Seconds (24.5-32.8); INR 1.11
[2021-01-23 10:40] LABS: ANISOCYTOSIS 2+; HYPOCHROMASIA 1+; MICROCYTES 1+
[2021-01-23 10:41] LABS: POLYCHROMASIA OCCASIONAL
--- NOTE | 2021-01-23 11:18 | NUR ---
RECEIVING UNIT 4W CALLED FOR PT REPORT. RN PLACED ON HOLD 3-4 MINUTUES EACH TIME. CALL PLACED 4 TIMES. RN WILL PROCEED TO TRANSFERRING PT TO FLOOR AT THIS TIME.
--- NOTE | 2021-01-23 12:46 | NUR ---
VAT CONSULTED FOR PIV, PT IS KNOWN TO VAT. DISCUSSED MIDLINE BENEFITS AND RISK, PT AGREEABLE. JAIDA BRACHIAL WAS WIDELY PATENT WITH USG. 4FR POWER ML TRIMMED TO 14CM INSERTED TO 0CM WITH BRISK BR, X1 STICK. ML RELEASED FOR IMMEDIATE USE PER PROTOCOL TO GLENN CRABTREE. PT TOLERATED WELL
--- NOTE | 2021-01-23 13:36 | NUR ---
PT TRANFER FROM ED TO 454. KAREEN VELAZQUZE GET REPORT FROM ED NURSE. PT IS A&O*4 AND FATIGUE. PATIENT'S VS STABLE AND TELE PUT ON. ADMISSION STRP PRINTED AND SIGNED BY RN IN PATIENT'S CHART. PT COMPLAINED GENERAL ABDOMENAL PAIN AND HAD BLACK COLOR DIARRHEA TODAY. IV PROTONIX GIVEN AND 1 UNIT BLOOD START AT 12:40, VERIFIED WITH CHARGE NURSE GLENN. BED ALARM IS ON AND FAMILY WITH PATIENT IN THE ROOM. PATIENT AND FAMILY EDUCATED FOR CALL LIGHT AND SAFETY PRECAUTION. WILL KEEP FOLLOW ORDERS AND MONITOR VS, SAFETY, AND HEART RHYTHM UNTIL SHIFT CHANGED.
[2021-01-23 15:12] LABS: HEMATOCRIT 17.3 % (42.0-52.0); HEMOGLOBIN 5.2 gm/dL (14.0-18.0)
--- NOTE | 2021-01-23 18:04 | NUR ---
STARTED PATIENT FIRST UNIT ON THE FLOOR AND BE WITH PATIENT IN THE FIRST 15 MINS. VS DONE BEFORE AND AFTER 15 MIN. PT TAKEN DOWN TO GI WITH REST OF FIRST UNIT OF BLOOD. THE SECOND UNIT BLOOD STARTED IN OR. THE END TIME OF FIRST UNIT (VS) AND THE START TIME OF SECOND UNIT OF BLOOD (VS) ON PAPER DOCUMENT SINCE DIFFERENT ROUTINE, WHICH IS PUT INTO PATIENT'S CHART. THE SECOND UNIT STOP AT 17:30. VS IS DONE AND FILL THE PAPER CHART BROUGHT FROM OR. BLOOD BANK CALLED IMMEDIATELY AFTER THE SECOND UNIT DONE. BLOOD BANK CALLED BACK AT 17:54 AND SAID THE BLOOD HAS NOT READY YET. WILL KEEP MONITOR PATIENT'S SAFETY AND KEEP TRACT WITH BLOOD BANK.
--- NOTE | 2021-01-24 01:46 | NUR ---
UPON SHIFT ASSESSMENT, PT AOX4, LETHARGIC AND NOTABLY IRRITABLE WITH STAFF. PT RESPONSIVE TO SOFT VOICE AND THERAPEUTIC COMMUNICATION. PT REPORTS 8-9/10 PAIN IN ABDOMEN. PT RECEIVING PRN IV MORPHINE Q4HR. PT DENIES SOB AT REST WHILE ON ROOM AIR, NOTED TO HAVE SOB WITH EXERTION. PT TOLERATING PO INTAKE OF FLUIDS AND REGULAR DIET WITHOUT ISSUE. PT WITHOUT NAUSEA OR EMESIS. PT VOIDING PER URINAL, STANDS AT SIDE OF BED WITH X1 ASSIST, RESTING IN BED OTHERWISE. FREQUENT REPOSITIONING ENCOURAGED WHILE IN BED, PT NOTED TO SHIFT INDEPENDENTLY WITH INFREQUENT REPOSITIONING DUE TO REPORTS OF INCREASED ABDOMINAL PAIN WITH MOVEMENT. UPON NOTIFYING STAFF FOR TOILETING NEEDS, PT NOTED TO BECOME VERBALLY AGGRESSIVE TOWARDS STAFF USING INAPPROPRIATE LANGUAGE. SENIOR PRICING ANALYST NOTIFIED. UPON ROUNDING PT NOTED TO HAVE O2 SATURATION OF 88-89% WHEN SLEEPING, PT EASILY AROUSABLE. DISCUSSED ASSESSMENT AND CONCERN WITH PT, PT AGREEABLE TO O2, 1.5L O2 VIA NC APPLIED, O2 SATURATION NOTED TO IMPROVE TO 90-92%. PT ENCOURAGED TO NOTIFY STAFF FOR ALL NEEDS, CALL LIGHT WITHIN REACH, BED ALARM ON, BED LOCKED IN LOWEST POSITION, FREQUENT MONITORING WILL CONTINUE.
--- NOTE | 2021-01-24 12:42 | P ---
[facility] [place] [address] PROCEDURE REPORT Name: BENIGNO CASTILLO Room #: 454-P ADM IN M.R.#: [id number] Admission: 01/23/21 Attend Phys: Dylon Ware MD Discharge: Date of : 41 Report #: [id number] THIS REPORT FOR: cc: Dylon Ware MD, Neal A. MD McElhinney, Christian C. MD ~ DOC #: [id number] cc: MD Eliseo Cole MD PROCEDURE PERFORMED: Upper endoscopy. HISTORY OF PRESENT ILLNESS: The patient is a 75-year-old male with a history of dark stools over the last few days and intermittent diarrhea. Admit hemoglobin was 4.6. He has undergone multiple endoscopies in the past. He has a history of Crohn's disease, not on any medications. Apparently, he was followed by a different partners in my group over the years. 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 Reportedly, last colonoscopy done in 2019 showing an ileocolonic anastomosis, mild erythema at the very distal terminal ileum. The patient apparently has had multiple abdominal surgeries in the past who presented last year with the same problem as well as a hemoglobin of 4.5. At that time, they discussed possible M2 capsule as an outpatient. It does not appear this has been done. DESCRIPTION OF PROCEDURE: The risks and benefits of the procedure were explained to the patient, those risks including but not limited to bleeding, perforation and the risk of sedation. He understood these risks and gave informed consent. Sedation was given using propofol per anesthesia. Next, using a standard Olympus upper endoscope, the scope was placed in the patient's mouth and advanced under direct vision through the esophagus, stomach and into the second portion of the duodenum. The esophagus was normal throughout. The GE junction was normal. Upon entering the stomach, a small hiatal hernia was noted. There was a mild gastritis. No evidence of bleeding. No evidence of watermelon stomach. On exam today, the pylorus was normal and patent. The duodenal bulb and first portion were normal. A large adenomatous-appearing area in the major papilla area was noted. The tissue was somewhat friable, but there was no active bleeding. Beyond this was normal-appearing duodenal mucosa. I then removed the standard upper endoscope and replaced it with a side-viewing ERCP scope for further evaluation of the major papilla area. Again a large adenomatous change was seen throughout this area involving the major papilla and surrounding area. No evidence of active bleeding. At this point, the scope was then withdrawn and the procedure terminated. The patient tolerated the procedure well. [address] [address] PROCEDURE REPORT Name: BENIGNO CASTILLO ALEENA Room #: 454-P [facility] IN M.R.#: [id number] Admission: 01/23/21 Attend Phys: Dylon Ware MD Discharge: Date of : 41 Report #: [id number] IMPRESSION: 1. Large adenomatous change again noted in the major papilla area, somewhat friable, but no active bleeding. 2. Mild gastritis. 3. Small hiatal hernia. 4. Otherwise, normal upper endoscopy. RECOMMENDATIONS: The patient has now undergone multiple upper endoscopies and recent colonoscopy in 2019. He has a history of Crohn's disease. He is not on any medications. I would recommend proceeding with a small bowel follow through next to determine if any signs of active Crohn's disease, which could cause chronic anemia. We will continue to monitor hemoglobin closely. Thank you for allowing me to participate in his care. Eliseo Sauceda MD CCM/JOSEPHINE <ELECTRONICALLY SIGNED> By: Eliseo Sauceda MD 01/24/21 [id number] Eliseo Sauceda MD /cat
--- NOTE | 2021-01-24 12:56 | NUR ---
ASSUMED PT CARE THIS AM. PT A&OX4. PATIENT COMPLAINS OF ABDOMINAL PAIN, GAVE PAIN MEDS PER EMAR AND PAIN DECREASED ACCORDINGLY. PATIENT COMPLAINED OF NAUSEA AND ZOFRAN GIVEN. PATIENT USING URINAL NEEDED. PATIENT ON 1.5 LITERS OXYGEN VIA NC. PATIENT IV PATENT, MEDICATION INFUSING. PATIENT REMAINS ON TELE. PATIENT HAD AN XRAY SCHEDULED, INITITIALLY REFUSED TO GO WITH TRANSPORTERS, THEN ALLOWED THEM TO TAKE HIM FOR XRAY THE SECOND TIME THEY ATTEMPTED TO TRANSPORT. FALL PRECAUTIONS ARE IN PLACE, CALL LIGHT WITHIN REACH.
--- NOTE | 2021-01-24 12:56 | NUR ---
Consulted for high risk screening. Attempted to visit pt x 2; out for testing on first attempt, sleeping on second attempt. Currently NPO status r/t ongoing GI testing. Will follow up for full nutrition assessment brooke, 01/25.
--- NOTE | 2021-01-24 15:06 | NUR ---
PT ADMITTED RELATED TO GI BLEED. CM REVIEWED CHART AND SPOKE WITH CARE TEAM. CM MET WITH PT AND SIG OTHER SHARON AT BEDSIDE THIS DAY. PT APPEARED TO BE A&O X4 BUT SO ANSWERED ASSESSMENT QUESTINGS. PT RESIDES IN A HOUSE WITH SO WITH NO STEPS TO ENTER AND NO STEPS INSIDE. SO INDICATED THAT PT HAS A CANE, FWW, AND CPAP FOR HOME USE. SO INDICATED THAT PT HADN'T HAD HH RECENTLY AND THAT PT LIKELY WOULDN'T BE RECEPTIVE TO HH SERVICES UPON DC. PT HAD EGD AND IS TO HAVE SMALL BOWEL SERIES THIS DAY. SO INDICATED THAT PLAN IS FOR PT TO RETURN HOME ONCE MEDICALLY STABLE. CM FOLLOWING REGARDING DC PLANNING.
[2021-01-24 16:45] VITALS: BP 128/71
[2021-01-24 21:15] VITALS: BP 124/63
--- NOTE | 2021-01-25 03:35 | NUR ---
ASSUMED CARE OF PT AT SHIFT CHANGE. PT IS AOX4 AND LETS NEEDS BE KNOWN. FALL PRECAUTION IN PLACE. PT REPORTED PAIN AND NAUSEA; PRNS GIVEN. PROTINIX DRIP CONTINUED. PT PLACED NPO AT WI FOR PROCEDURE IN THE AM. PT WAS ABLE TO GET COMFORTABLE AND SLEEP PART OF THE SHIFT. VSS AND NO S/S OF ACUTE DISTRESS. WILL CONTINUE TO MONITOR.
[2021-01-25 08:04] VITALS: BP 142/78
[2021-01-25 09:17] LABS: HEMATOCRIT 35.2 % (42.0-52.0); MCH 26.5 pg (26.0-34.0); MCHC 31.1 g/dL (28.0-37.0); RBC 4.13 mil/uL (4.50-6.00); RDW 19.8 % (10.5-14.5); WBC 8.5 thou/uL (4.0-11.0)
[2021-01-25 09:29] LABS: CREATININE 1.3 mg/dL (0.7-1.3); POTASSIUM 4.5 mmol/L (3.5-5.1)
[2021-01-25 09:43] LABS: MCV 85.2 fL (80.0-100.0)
--- NOTE | 2021-01-25 10:00 | NUR ---
0745- PT'S NAME AND BIRTHDATE VERIFIED FOR VIDEO ENDOSCOPY AND CONSENT OBTAINED. PT ON TELEMETRY. VERIFIED WITH DR VIZCAINO OK TO PROCEED-STATES OK TO PROCEED. PREMEDICATED WITH REGLAN AND SIMETHICONE. PT EXTREMELY NAUSEATED. BELT, SENSOR, AND MONITOR APPLIED AND CAPSULE PAIRED. CAPSULE SWALLOWED WITHOUT INCIDENT. INSTRUCTIONS FOR NPO FIRST 2 HRS GIVEN TO RN AND PT, AND CL LIQUIDS AT [phone]; THEN LIGHT MEAL AT [phone] IF TOLERATED. VOICES COMPREHENSION OF ABOVE. INSTRUCTED TO Call [phone] FOR ANY QUESTIONS OR PROBLEMS, AND THAT I WILL BE BACK AT 1600 TO REMOVE BELT AND SENSOR.
--- NOTE | 2021-01-25 12:00 | NUR ---
ASSUMED PT CARE THIS AM. PT A&OX4, ABLE TO MAKE NEEDS KNOWN. PATIENT COMPLAINS OF ABDOMINAL PAIN THAT DECREASES WITH PAIN MEDS GIVEN PER EMAR. PATIENT COMPLAINS OF NAUSEA THAT DECREASES WITH NAUSEA MEDS GIVEN PER EMAR. PATIENT REMAINS CONTINENT, USING A URINAL WHEN NEEDED. IV PATENT, MEDICATIONS INFUSING WITHOUT ISSUE. PATIENT HAVING A VIDEO CAPSULE STUDY DONE THIS SHIFT. PATIENT UP WITH ASSIST. TELE WAS DISCONTINUED THIS SHIFT. PATIENT REMAINS ON 2 LITERS OF OXYGEN VIA NC. FALL PRECAUTIONS ARE IN PLACE, CALL LIGHT WITHIN REACH.
--- NOTE | 2021-01-25 13:15 | NUR ---
Follow up: RD able to speak with pt today around lunch time. Noted with ongoing GI studies and small bowel series performed yesterday with no findings. Slow transit time indicated. Has been NPO since admission and states he hasn't had any food since Saturday (3 days). Was sipping on chicken broth trial at time of visit. Reports weight loss but current weight is WNL for stated UBWR 130-140#. Will follow up again tomorrow for GI results and POC for full nutrition assessment.
--- NOTE | 2021-01-25 13:57 | NUR ---
PT HAD M2 CAPSULE STUDY DONE THIS DAY. CARE TEAM INDICATING THAT PT MAY BE MEDICALLY STABLE TO DC HOME TOMORROW. CM FOLLOWING REGARDING DC PLANNING.
[2021-01-25 16:20] VITALS: BP 144/74
[2021-01-25 19:30] VITALS: BP 136/72
--- NOTE | 2021-01-26 04:34 | NUR ---
ASSUEMD CARE OF PT AT SHIFT CHANGE. PT IS AOX4 AND LETS NEEDS BE KNOWN. FALL PRECAUTION IN PLACE. PT REPORTED ABD PAIN; PRNS GIVEN. PT DENIED NAUSEA OR SOA THIS SHIFT. PROTONIX DRIP CONTINUED. PT WAS ABLE TO GET COMFORTABLE AND SLEEP PART OF THE SHIFT. VSS AND NO S/S OF ACUTE DISTRESS. WILL CONTINUE TO MONITOR.
[2021-01-26 07:22] VITALS: BP 134/75
[2021-01-26 09:51] VITALS: BP 134/75
--- NOTE | 2021-01-26 10:32 | NUR ---
Pt awaiting discharge, taking solid food, tolerating well. Reports sore form all the testing, but otherwise good. No need for full nutrition assessment. Low nutrition risk.
--- NOTE | 2021-01-26 10:51 | NUR ---
CARE TEAM INDICATED THAT PT IS MEDICALLY STABLE TO DC HOME THIS DAY. PT IS TO DC HOME TO SELF CARE PT ISN'T RECEPTIVE TO HH UPON DC. PT HAS ALL RECOMMENDED DME. PT'S SO TO PROVIDE TRANSPORT HOME. NO OTHER CM INTERVENTION INDICATED. CASE CLOSE.
--- NOTE | 2021-01-26 16:13 | NUR ---
Received awake on bed. Due medications given as prescribed. On MS, not on telemetry; no complains and signs of chest pain, crushing sensation and heaviness. On O2 at 2lpm via nasal cannula; CPAP HS. On regular diet- tolerating well; no nausea, no vomiting and no abdominal pain noted; encouraged and assisted in eating and drinking. With on and off incontinence; checked frequently and changed as needed. With L upper arm midline- on protonix drip. With SL at R FA. Falls bundle in place. Assisted in ambulating, using cane and gait belt. Pt seen and examined by Dr Ware this AM, discharge orders made. Discharge instructions, follow up schedule given and instructed. Pt's partner requesting for pt to have lorazepam included to his home medications; Dr Velasquez informed and said he will be sending it to pt's pharmacy- pt's partner informed re: this, IV and midline discontinued- no bleeding noted. No telemetry noted. Pt fetched by his partner; brought out of the unit via wheelchair with his personal belongings. Discharge forms signed. Patient discharged.
== END 2021-01-26 11:40 | disposition home or self-care (01) | DRG 378 ==
LOC: ER 08:37 → EROBS 10:50 → 4W 10:50
PROVIDERS: Anesthesiology; Emergency Medicine Emergency Medical Services; ADMIT Family Medicine; ATTEND Family Medicine
PROC: 30233N1 Transfusion of Nonautologous Red Blood Cells into Peripheral Vein, Percutaneous Approach (ICD-10-PCS; principal; 2021-01-23)
PROC: 0DJ08ZZ Inspection of Upper Intestinal Tract, Via Natural or Artificial Opening Endoscopic (ICD-10-PCS; 2021-01-24)
DX: K29.71 Gastritis, unspecified, with bleeding (principal); K50.90 Crohn's disease, unspecified, without complications; K56.609 Unspecified intestinal obstruction, unspecified as to partial versus complete obstruction; E11.9 Type 2 diabetes mellitus without complications; I10 Essential (primary) hypertension; F03.90 Unspecified dementia, unspecified severity, without behavioral disturbance, psychotic disturbance, mood disturbance, and anxiety; I48.91 Unspecified atrial fibrillation; D64.9 Anemia, unspecified; K44.9 Diaphragmatic hernia without obstruction or gangrene; G89.29 Other chronic pain; J44.9 Chronic obstructive pulmonary disease, unspecified; F17.210 Nicotine dependence, cigarettes, uncomplicated; Z86.718 Personal history of other venous thrombosis and embolism; Z86.73 Personal history of transient ischemic attack (TIA), and cerebral infarction without residual deficits; Z90.49 Acquired absence of other specified parts of digestive tract; Z88.2 Allergy status to sulfonamides; Z79.1 Long term (current) use of non-steroidal anti-inflammatories (NSAID)
CPT/HCPCS: 10045; 10047; 27000; 62110; 62900; 70005

== ENCOUNTER 2021-01-28 13:12 | Inpatient (IN) | payer OTHER ==
[~2021-01-28] VITALS: Ht 170.2 cm; Wt 65.8 kg
[2021-01-28 13:16] VITALS: BP 130/63
[2021-01-28 14:01] LABS: ABSOLUTE NEUTROPHILS 8.2 thou/uL (1.4-8.2); EOSINOPHILS 0.1 % (0.0-3.0); HEMATOCRIT 35.2 % (42.0-52.0); HEMOGLOBIN 11.4 gm/dL (14.0-18.0); LYMPHOCYTES 6.3 % (24.0-44.0); MCH 27.2 pg (26.0-34.0); MCHC 32.4 g/dL (28.0-37.0); MONOCYTES 13.5 % (1.0-8.0); PLATELET COUNT 237 thou/uL (150-400); POLYS 80.1 % (36.0-66.0); RBC 4.19 mil/uL (4.50-6.00); RDW 20.4 % (10.5-14.5); WBC 10.2 thou/uL (4.0-11.0)
[2021-01-28 14:18] LABS: CALCIUM 8.8 mg/dL (8.5-10.1); CREATININE 1.8 mg/dL (0.7-1.3); POTASSIUM 3.5 mmol/L (3.5-5.1)
[2021-01-28 14:24] LABS: ALBUMIN 3.4 g/dL (3.4-5.0); TOTAL BILIRUBIN 0.5 mg/dL (0.2-1.0); TOTAL PROTEIN 7.6 g/dL (6.4-8.2)
[2021-01-28 15:30] VITALS: BP 132/68
[2021-01-28 15:33] VITALS: BP 124/69
[2021-01-28 17:00] VITALS: BP 124/69
[2021-01-28 17:17] VITALS: BP 124/69
[2021-01-28 17:50] VITALS: BP 125/68
--- NOTE | 2021-01-28 18:36 | NUR ---
TAKE PATIENT REPORT FROM ER NURSE KLAUDIA. PATIENT IS A&O*4. ROOM AIR. DID NOT BEEN ASSIGNED TO THE PATIENT UNTIL 18:00. FILE THE HISTORY ASSESSMENT AND EDUCATION FOR PATIENT. PARTNER SHARON GALAVIZ CALLED FOR LOCATION UPDATE. PARTENER SAID WOULD COME TO VISIT PATIENT TODAY. CALL LIGHT IS BESIDE OF PT AND EDUCATED FOR FALL RISK. WILL KEEP MONITOR PATINET'S SFAETY UNTIL SHIFT CHANGE.
--- NOTE | 2021-01-29 04:41 | NUR ---
Pt. had about 150 mls of coffee ground emesis one time. He also c/o nausea and zofran given (see emar) with no relief. Pt. also c/o abdominal pain. Rossy HURTADO was notified, see new orders in cpoe. Pain med given for c/o abdominal pain (see emar) with some relief noted. Compazine given (see emar) with some relief of nausea. Up to the comode with assist of one. He also had one large loose stool. Bed alarm is on.
[2021-01-29 07:48] VITALS: BP 138/61
[2021-01-29 09:39] LABS: ALBUMIN 2.4 g/dL (3.4-5.0); CALCIUM 7.5 mg/dL (8.5-10.1); CREATININE 1.2 mg/dL (0.7-1.3); PHOSPHORUS 1.9 mg/dL (2.6-4.7); POTASSIUM 3.5 mmol/L (3.5-5.1)
--- NOTE | 2021-01-29 17:48 | NUR ---
Assumed pt care this am, vs stable. Has several bouts of diarrhea, C-diff negative results back. Pain is managed with medications , partial relief is noted. Nausea noted, managed with medications. Diet and medications tolerated well.
--- NOTE | 2021-01-30 04:25 | NUR ---
Pt. c/o abdominal pain and ivp morphine given (see emar) with some relief noted. He also requested a sleeping pill and prn ambien was given which was mot helpful. Pt. became confused during the night and was wanting to get up and go out to eat. He did not know where he was. Pt. reoriented to place and situation. No c/o nausea. He is currently resting quietly in the bed. Bed alarm is on.
[2021-01-30 07:45] VITALS: BP 146/84
[2021-01-30 09:58] LABS: HEMATOCRIT 30.3 % (42.0-52.0); HEMOGLOBIN 9.8 gm/dL (14.0-18.0); MCH 26.7 pg (26.0-34.0); MCHC 32.4 g/dL (28.0-37.0); MCV 82.6 fL (80.0-100.0); RBC 3.67 mil/uL (4.50-6.00); RDW 20.3 % (10.5-14.5); WBC 7.8 thou/uL (4.0-11.0)
[2021-01-30 10:13] LABS: ALBUMIN 2.6 g/dL (3.4-5.0); CALCIUM 7.5 mg/dL (8.5-10.1); POTASSIUM 3.1 mmol/L (3.5-5.1); TOTAL BILIRUBIN 0.4 mg/dL (0.2-1.0); TOTAL PROTEIN 5.8 g/dL (6.4-8.2)
--- NOTE | 2021-01-30 11:39 | NUR ---
PT IS A&O*4. 1 L OXYGEN THROUGH NASAL CANNULA. BED GET UP BY 1 PERSON ASSISTANCE. BED ALARM IS ON, CALL LIGHT BESIDE OF PT, BED IN LOWEST POSITION. PT'S IV WAS LEAKING FRO D5 NS SOLUTION GOING THROUGH. PT POTASSIUM CAME BACK 3.1. CHARGE NURSE ALYSSA HELPED TO TEXT DR. SARMIENTO AND ORDER IV POTASSIUM. PT IS HARD STICKER AND TWO NURSES ON THE FLOOR TRIED BUT FAILED TO INSET IV. IV TEAM IS ONLY FOR EMERGENCY CENTRAL LINE DUE TO THE HOLIDAY. WILL RETRY INSERT THE IV AND MONITOR PATIENT'S SAFETY.
--- NOTE | 2021-01-30 15:42 | NUR ---
THIS NURSE WAS REQUESTED TO COME TO PT ROOM TO START IV LINE. PT IS VERBALLY ABUSIVE TO STAFF, HITTING AND KICKING AT THIS NURSE. ATTEMPTED TO CALL PT PARTNER PT SEEMS CONFUSED AND UNABLE TO VERBALIZE UNDERSTANDING OF NEED FOR IV LINE TO ADMINISTER MEDICATION ORDERED. PHYSICIAN PAGED TO NOTIFY OF PT REFUSAL TO ALLOW IV LINE PLACEMENT
[2021-01-30 16:00] VITALS: BP 127/71
--- NOTE | 2021-01-30 19:57 | NUR ---
Pt. is non-compliant with iv potassium and ivf. He yells out that his iv is too painful. New peripheral line is patent. Spoke with Dr. Ware and he was informed. Orders to hold ivf and K+ and attempt mid-line insertion tomorrow.
--- NOTE | 2021-01-31 04:30 | NUR ---
Pt. rested quietly at night when checked on during frequent rounds. He offers no c/o pain or nausea. Bed alarm is on. Pt. can get resistive and be verbally inappropriate with staff at times. Bed alarm is on.
[2021-01-31 07:40] VITALS: BP 154/68
[2021-01-31 09:24] LABS: HEMATOCRIT 30.9 % (42.0-52.0); HEMOGLOBIN 9.9 gm/dL (14.0-18.0); MCH 26.5 pg (26.0-34.0); MCV 82.8 fL (80.0-100.0); RBC 3.73 mil/uL (4.50-6.00); RDW 20.2 % (10.5-14.5); WBC 6.6 thou/uL (4.0-11.0)
[2021-01-31 09:37] LABS: CALCIUM 7.9 mg/dL (8.5-10.1); CREATININE 1.1 mg/dL (0.7-1.3)
--- NOTE | 2021-01-31 10:42 | NUR ---
VAT CONSULTED FOR MIDLINE. DISCUSSED BENEFITS AND RISK WITH PT, GAVE VERBAL CONSENT. JOS BRACHIAL WAS WIDELY PATENT WITH USG. 4FR POWER MIDLINE TRIMMED TO 12CM INSERTED X1 STICK. BRISK BLOOD RETURN. PT TOLERATED WELL. ML RELEASED FOR IMMEDIATE USE PER PROTOCOL.
--- NOTE | 2021-01-31 15:28 | NUR ---
PT ADMITTED RELATED TO [facility]. CM REVIEWED CHART AND SPOKE WITH CARE TEAM. CM MET WITH PT AND SIG LALA HERRERA AT BEDSIDE THIS DAY. PT APPEARED TO BE A&O X4 BUT SO ANSWERED ASSESSMENT QUESTINGS. PT HAD DISCHARGED HOME 01/26/21 HOME TO SELF CARE. PT RESIDES IN A HOUSE WITH SO WITH NO STEPS TO ENTER AND NO STEPS INSIDE. SO INDICATED THAT PT HAS A CANE, FWW, AND CPAP FOR HOME USE. PT, SO, AND PHYSICIAN NOW ALL WANTING SKILLED POST ACUTE CARE PLACEMENT. SO ASKED THAT REFERRAL BE SENT TO [facility] FOR REVIEW FOR POSSIBLE ADMISSION. PT HASN'T BEEN RECEPTIVE TO WORKING WITH THERAPY YET OF THIS NOTE. CM AWAITING THERAPY EVALS TO SEND REFERRAL AND HAVE AUTH REQUESTED. CM FOLLOWING REGARDING DC PLANNING.
[2021-01-31 15:50] VITALS: BP 123/57
[2021-01-31 21:58] VITALS: BP 114/61
[2021-02-01 05:56] LABS: CALCIUM 7.5 mg/dL (8.5-10.1)
[2021-02-01 07:29] VITALS: BP 121/59
--- NOTE | 2021-02-01 12:07 | NUR ---
ESTHER SPOKE WITH DR. SARMIENTO THIS AM AND CM INDICATED THAT CM HAD SPOKEN WITH PT AND SIG OTHER AND THAT THEY WANTED REFERRALS SENT TO [facility] FOR REVIEW FOR SKILLED. CM EXPLAINED TO PHYSICIAN THAT PT HAS REFUSED THERAPY SINCE ADMISSION. ESTHER CM MET [facility] PT AND SIG OTHER AND INDICATED THAT CM NEEDED FOR PT TO WORK WITH THERAPY IN ORDER TO GET OUT OF HERE AND TO SKILLED REHAB. HE WORKED WITH OT THIS AM. AWAITING PT TO ASSESS. CM FOLLOWING.
--- NOTE | 2021-02-01 13:11 | NUR ---
PT ANGRY AND AGITATED DURING MORNING ASSESSMENT. VSS, IVF INFUSING PER ORDER. PT DENIES PAIN AT THIS TIME. PT TOLERATES MEDS AND MEALS. PT DID WORK WELL WITH PT/OT. AND IS NOW SITTING UP IN THE CHAIR. PT FAMILY AT BEDSIDE THIS AFTERNOON. WILL CONTINUE TO MONITOR.
[2021-02-01 15:20] VITALS: BP 112/54
[2021-02-01 19:39] VITALS: BP 131/58
--- NOTE | 2021-02-02 03:18 | NUR ---
PT CARE ASSUMED WITH PT IN BED WATCHING TV AT 1900.PT IS A/O X4.PT IS ON 2L OF O2 VIA NC AND USES A CPAP AT NIGHT.PT IS ON CONTINOUOS PULSE OX MONITOR.PT C/O PAINAND PAIN MANAGED WITH MORPHINE.PT HAS A LT UA MIDLINE.AND RFA WITH D5W0.9NS AT 125CC/HR.WILL CONTINUE TO MONITOR PER POC
[2021-02-02 07:50] VITALS: BP 148/86
[2021-02-02] MEDS ORDERED: POTASSIUM20 PO (10:14)
--- NOTE | 2021-02-02 15:07 | NUR ---
[facility] GOT REFERRAL BUT THEY CAN'T ACCEPT BECAUSE THEY WON'T HAVE BEDS UNTIL END OF NEXT WEEK. ESTHER SPOKE WITH SIG OTHER AND HE ASKED THAT REFERRAL BE SENT TO [facility]. ESTHER FAXED REFERAL.
[2021-02-02 17:07] VITALS: BP 128/82
[2021-02-02 19:08] VITALS: BP 131/73
--- NOTE | 2021-02-02 19:34 | NUR ---
Assumed pt care this am, vs stable. Pain is managed with medications partial relief is noted. ON clear liquids, poor intake noted. POC followed, awaiting authorization. Uses the urinal, endorsed to the night nurse.
[2021-02-03 07:50] VITALS: BP 155/83
[2021-02-03 15:36] VITALS: BP 133/52
--- NOTE | 2021-02-03 15:58 | NUR ---
CM SPOKE WITH ADMISSIONS AT [facility]. THEY INDICATED THAT THEY ARE ABLE TO ACCEPT PT AND THAT THEY WILL SUBMIT FOR INSURANCE AUTH FROM [facility] [employer]. NOW AWAITING INSURANCE AUTH FOR ADMISSION TO [place] [facility] .
--- NOTE | 2021-02-04 06:07 | NUR ---
Pt. rested quietly at intervals during the night when checked on during frequent rounds. He can get verbally inappropriate with staff at times. Up to the bedside comode with assist of one. Incontinent of urine at times. C/o abdominal pain and ivp pain med given (see emar) with some relief. No c/o nausea. Bed alarm is on.
[2021-02-04 08:39] VITALS: BP 136/71
--- NOTE | 2021-02-04 11:39 | NUR ---
ASSUMED PT CARE THIS AM. PT A&OX3, ABLE TO MAKE NEEDS KNOWN. PATIENT COMPLAINED OF ABDOMINAL PAIN THAT RESPONDS WELL TO PAIN EMDS GIVEN PER EMAR. PATIENT HAS REPORTED NO NAUSEA OF YET. PATIENT HAS BEEN INCONTINENT THIS SHIFT. PATIENT HAS A LOOSE COUGH. IV REMAINS PATENT, SALINE LOCKED, DOES NOT DRAW BLOOD. PATIENT REMAINS ON 2 LITERS OF OXYGEN VIA NC. UP WITH ASSIST. PATIENT TOOK MORNING MEDS WITHOUT ISSUE. FALL PRECAUTIONS ARE IN PLACE, CALL LIGHT WITHIN REACH.
[2021-02-04 17:21] VITALS: BP 130/70
[2021-02-04 20:08] VITALS: BP 145/74
--- NOTE | 2021-02-05 05:43 | NUR ---
patient non compliant with care. patient has c pap at night. pain controlled this shift. fall precaution in place. patient in bed asleep at this time breathing regular and unlaboured.
[2021-02-05 07:51] VITALS: BP 144/87
--- NOTE | 2021-02-05 11:38 | NUR ---
ASSUMED PT CARE THIS AM. PT A&OX3, ABLE TO MAKE NEEDS KNOWN. IV REMAINS PATENT. PATIENT COMPLAINED OF PAIN IN THE ABDOMEN, RESPONDED WELL TO PAIN MEDS GIVEN PER EMAR. PATIENT HAS BEEN INCONTINENT THIS SHIFT. PATIENT IS ON 2 LITERS OF OXYGEN VIA NC. PATIENT TOOK PO MEDICATIONS WITHOUT ISSUE. FALL PRECAUTIONS ARE IN PLACE, CALL LIGHT WITHIN REACH. PATIENT DENIED NAUSEA, NUMBNESS, OR TINGLING.
[2021-02-05 16:25] VITALS: BP 129/72
[2021-02-05 20:47] VITALS: BP 141/77
--- NOTE | 2021-02-06 04:32 | NUR ---
pain controlled this shift. patient non compliant with care. patient incontient pericare and barrier cream applied as needed. c pap on at around 0300. fall precaution in place. patient in bed asleep at this time breathing regular and unlaboured.
[2021-02-06 07:33] VITALS: BP 192/70
--- NOTE | 2021-02-06 10:32 | NUR ---
AUTH WAS RECEIVED THIS AM FOR PT TO DC TO [facility]. VAN TRANSPORT WITH 2L O2 AT 1300. CM NOTIFIED PT AND SIG OTHER. THEY ARE BOTH AWARE AND AGREEABLE. CHART COPY ORDERED. COVID TEST DONE. CM TO FAX ORDERS AND NEGATIVE COVID. NURSE GIVEN NUMBER FOR REPORT. NO OTHER CM INTERVETION INDICATED. CASE CLOSED.
[2021-02-06 10:59] VITALS: BP 166/75
--- NOTE | 2021-02-06 11:22 | NUR ---
Assumed care of pt at 0700. No c/o pain at this time. Pt will discharge to [facility] today around 1500. Pt aware. Covid-now test sent to lab. On 2L O2. Will give report to RN at facility. Call light within reach. Fall precautions in place. Will continue to monitor.
== END 2021-02-06 13:13 | DRG 682 ==
LOC: ER 13:12 → EROBS 14:55 → 4W 14:55
PROVIDERS: Emergency Medicine; Hospitalist; ADMIT Family Medicine; ATTEND Family Medicine
DX: N17.0 Acute kidney failure with tubular necrosis (principal); E43 Unspecified severe protein-calorie malnutrition; K50.90 Crohn's disease, unspecified, without complications; I10 Essential (primary) hypertension; M79.7 Fibromyalgia; E11.9 Type 2 diabetes mellitus without complications; F03.90 Unspecified dementia, unspecified severity, without behavioral disturbance, psychotic disturbance, mood disturbance, and anxiety; G47.30 Sleep apnea, unspecified; E86.0 Dehydration; E87.6 Hypokalemia; Z20.822 Contact with and (suspected) exposure to COVID-19; Z99.81 Dependence on supplemental oxygen; Z86.718 Personal history of other venous thrombosis and embolism; Z86.73 Personal history of transient ischemic attack (TIA), and cerebral infarction without residual deficits; Z85.841 Personal history of malignant neoplasm of brain; Z90.49 Acquired absence of other specified parts of digestive tract; Z79.899 Other long term (current) drug therapy; Z88.2 Allergy status to sulfonamides; Z88.8 Allergy status to other drugs, medicaments and biological substances
CPT/HCPCS: 10040; 27000

== ENCOUNTER 2021-02-13 19:53 | Inpatient (IN) | payer OTHER ==
[~2021-02-13] VITALS: Ht 170.2 cm; Wt 55.9 kg
--- NOTE | ~2021-02-13 | EMS ---
[address] [address] EMS Patient Care Report Name: BENIGNO CASTILLO Room #: REG KELSIE Villagomez#: [id number] Admission: 02/13/21 Attend Phys: Discharge: Date of : 41 Report #: [id number] THIS REPORT FOR: //name// Report Transmitted: 02/13/2021 19:25 EMS Care Summary [facility] MED-ACT Incident [id number] @ 02/13/2021 19:05 Incident Location [address] [place] [address] Patient BENIGNO CASTILLO Male, 75 Years 1945 Patient Address [address] [place] [address] Patient History Diabetes,Diverticulitis,Crohn's Disease, Patient Allergies Sulfonamides allergy,Other drug allergy, Patient Medications Ondansetron, Oxycodone, Chief Complaint abdominal pain Disposition Transported No Lights/[place] Dispatch Reason Sick Person Transported To [facility] Narrative Staff said the pt has been at the facility for about a week. Since that time, they have noticed his abdomen was distended and painful. The pt said over the [address] [address] EMS Patient Care Report Name: BENIGNO CASTILLO Room #: REG Cas.#: [id number] Admission: 02/13/21 Attend Phys: Discharge: Date of : 41 Report #: [id number] last 3 days he has become nauseated, vomited and had diarrhea. The staff said the doctor wanted the pt taken to [facility] to have his stomach "decompressed." The pt said he hasn't been able to eat much due to the nausea and pain. He denied chest pain, blood in the stool or vomit, headache, fever or cough. He reported that he had both Covid vaccinations about 2 months ago. The pt said he was comfortable if he was in a semi-blanton's position, but became uncomfortable if he was laying flat. He said he was "cold" and asked for a blanket. The pt was laying in bed. HPI, PMH, Exam, vitals. The pt was moved to the cot - unit. En route: Vitals. Biocom to [place]. No orders req'd/rec'd. The pt rested comfortably during transport. He was moved to a hallway bed in the ER. Care released to staff. Initial Vitals @19:46P: 86,R: 18,BP: 134/69,Pain: 4/10,GCS: 15,SpO2: 95,Revised Trauma: 12, @19:27P: 86,R: 18,BP: 126/69,Pain: 4/10,GCS: 15,Temp: 96.2F,SpO2: 95,Revised Trauma: 12, Assessments @19:42MENTAL:Person Oriented,Time Oriented,Place Oriented,Event Oriented,SKIN:HEENT:Head/Face: No Abnormalities,Neck/Airway: No Abnormalities,LUNG SOUNDS:General: Vomiting,General: Diarrhea,General: Nausea,General: Other,ABDOMEN:General: Vomiting,General: Diarrhea,General: Nausea,General: Other,PELVIS//GI:No Abnormalities,EXTREMITIES:Left Arm: No Abnormalities,Right Arm: No Abnormalities,Left Leg: No Abnormalities,Right Leg: No Abnormalities,PULSE:NEURO:No Abnormalities, Impression Abdominal Pain Procedures @19:44Surgical Mask on PatientResponse: Unchanged@PTAOxygen FlowRate: 2 Device: Nasal Cannula (NC) Response: UnchangedSucceeded Timeline FOOD SAMPLER,Oxygen FlowRate: 2 Device: Nasal Cannula (NC) Response: UnchangedSucceeded, 19:04,Call Received 19:04,Psap Call 19:05,Dispatched 19:06,En Route 19:14,On Scene 19:25,At Patient 19:27,BP: 126/69 M,PULSE: 86,RR: 18 R,SPO2: 95 Ox,ETCO2: ,BG: ,PAIN: 4,GCS: 15, 19:37,Depart Scene 19:44,Surgical Mask on Patient,Response: Unchanged [facility] [address] [place] [address] EMS Patient Care Report Name: BENIGNO CASTILLO Room #: REG KELSIE Villagomez#: [id number] Admission: 02/13/21 Attend Phys: Discharge: Date of : 41 Report #: [id number] 19:46,BP: 134/69 M,PULSE: 86,RR: 18 R,SPO2: 95 Ox,ETCO2: ,BG: ,PAIN: 4,GCS: 15, 19:47,At Destination 20:02,Call Closed Disclaimer v1.1 Copyright 2020 [employer] This EMS Care Summary contains data elements from the applicable legal record (which may be displayed differently). It is designed to provide pertinent information for the following purposes: continuity of care, clinical quality, and state data reporting. The complete legal record is available to ED staff and administrators of the receiving hospital in [employer]'s Patient Tracker. All data is provided "as is."
[2021-02-13 19:53] VITALS: BP 131/71
[~2021-02-13 19:53] MED LIST changes: +POTASSIUM20 PO
[2021-02-13] MEDS ORDERED: CALCIUM CARBON600 M1 PO (20:34)
[2021-02-13] MEDS ORDERED: ENSURE CLEAR237 ML PO (20:35)
[2021-02-13] MEDS ORDERED: HYDROCODON-ACE1 EAC7 PO (20:35)
[2021-02-13 20:36] LABS: ABSOLUTE NEUTROPHILS 3.5 thou/uL (1.4-8.2); BASOPHILS 0.6 % (0.0-2.0); EOSINOPHILS 0.7 % (0.0-3.0); HEMATOCRIT 32.9 % (42.0-52.0); HEMOGLOBIN 10.5 gm/dL (14.0-18.0); LYMPHOCYTES 15.9 % (24.0-44.0); MCHC 31.8 g/dL (28.0-37.0); MCV 81.9 fL (80.0-100.0); MONOCYTES 9.7 % (1.0-8.0); PLATELET COUNT 341 thou/uL (150-400); POLYS 73.1 % (36.0-66.0); RBC 4.02 mil/uL (4.50-6.00); WBC 4.8 thou/uL (4.0-11.0)
[2021-02-13 20:54] LABS: ANION GAP 9 mmol/L (7-16); BUN 16 mg/dL (7-18); CALCIUM 8.4 mg/dL (8.5-10.1); CHLORIDE 107 mmol/L (98-107); CO2 27 mmol/L (21-32); CREATININE 1.3 mg/dL (0.7-1.3); GLUCOSE 122 mg/dL (74-106); POTASSIUM 4.5 mmol/L (3.5-5.1); SODIUM 143 mmol/L (136-145)
[2021-02-13 21:06] LABS: ALBUMIN 2.5 g/dL (3.4-5.0); LIPASE 138 U/L (73-393); SGOT 16 U/L (15-37); SGPT 18 U/L (30-65); TOTAL BILIRUBIN 0.4 mg/dL (0.2-1.0); TOTAL PROTEIN 6.7 g/dL (6.4-8.2); TROPONIN-I <0.06 ng/mL (<0.06)
[2021-02-14 00:26] LABS: URINE BILIRUBIN NEGATIVE (Negative); URINE BLOOD NEGATIVE (Negative); URINE CLARITY CLEAR; URINE COLOR YELLOW; URINE GLUCOSE-RANDOM* NEGATIVE (Negative); URINE KETONES TRACE (Negative); URINE LEUKOCYTES-REFLEX NEGATIVE (Negative); URINE NITRITE-REFLEX NEGATIVE (Negative); URINE PROTEIN (DIPSTICK) TRACE (Negative); URINE UROBILINOGEN 0.2 E.U./dl (0.2-1.0)
[2021-02-14 05:05] VITALS: BP 127/84
[2021-02-14 05:06] VITALS: BP 127/84
[2021-02-14 05:40] VITALS: BP 131/75
--- NOTE | 2021-02-14 05:45 | NUR ---
Pt. was admitted to the unit from the emergency room accompanied by staff. Pt. is alert and oriented. He was oriented to rom and staff. He offers no complaints at this time. Bed alarm is on. VSS.
[2021-02-14 09:04] VITALS: BP 130/77
--- NOTE | 2021-02-14 12:00 | NUR ---
ASSUMED PT CARE THIS AM. PT A&OX3, ABLE TO MAKE NEEDS KNOWN. ADMISSION COMPLETED, PATIENT REFUSED SKIN ASSESSMENT TO BE DONE, INFORMED PATIENT IMPORTANCE OF ASSESSING BACKSIDE AND PRESSURE POINTS, WILL ATTEMPT TO ASSESS LATER WELL. PATIENT IS ON 2 LITERS OF OXYGEN. PAIN IS REPORTED AT A 3, BUT DENIES WANTING ANY PAIN MEDICATION. PATIENT IV REMAINS PATENT, MEDICATIONS GIVEN WITHOUT ISSUE. PATIENT HAS REPORTED NO NAUSEA. PATIENT HAS BEEN INCONTINENT THIS SHIFT. FALL PRECAUTIONS ARE IN PLACE, CALL LIGHT WITHIN REACH.
[2021-02-14 14:38] VITALS: BP 134/75
--- NOTE | 2021-02-14 16:19 | NUR ---
PT ADMITTED RELATED TO ILEUS, N/V, CAP. CM REVIEWED CHART AND SPOKE WITH CARE TEAM. CM MET WITH PT AND SIG OTHER SHARON AT BEDSIDE THIS AFTERNOON. PT HAD DISCHARGED TO [facility] ON 02/06/21. SO INDICATED THAT PT HAD BEEN AT THE FACILITY [facility] CONTACT REPRESENTATIVE. PT INDICATED THAT HE DIDN'T WANT TO RETURN THERE ONCE MEDICALLY STABLE BUT SO INDICATED HE'D HAVE TO. AT THAT POINT IN ASSESSMENT PT BECAME INCREASINGLY IRRATABLE. CM INDICATED THAT CM WOULD FOLLOW ALONG AND ASSIST WITH DC PLANNING INDICATED. CM FOLLOWING.
[2021-02-14 21:22] VITALS: BP 134/71
--- NOTE | 2021-02-15 05:40 | NUR ---
ASSUMED PT CARE AT 1930. PT IS ALERT AND ORIENTED. PT IS REFUSED TO EVENING MEDS. PT IS INCONTINENT BUT CALLS WHEN WET TO BE CHANGED. PT WAS IRRITABLE AND REQUESTED FOR ME TO STOP ASSESSMENT MID-WAY. PT DID NOT HAVE A BM ON THIS SHIFT. PT HAS A SMALL OPENED TO THE BUTTOCKS. PT REFUSED FOR HEAD TO BE LOWERED WHEN CHANGING THE CHAUX. PT IS ON 0XYGEN GOING ON 2L. FALL PREACUTIONS IN PLACE WITH CALL LIGHT WITHIN REACH. WILL CONTINUE TO MONITOR.
--- NOTE | 2021-02-15 06:29 | NUR ---
PT REFUSED MORNING MEDS.
[2021-02-15 07:35] VITALS: BP 131/83
[2021-02-15 15:37] VITALS: BP 134/79
--- NOTE | 2021-02-15 16:25 | NUR ---
GI WAS CONSULTED THIS DAY AND PT HAD A KUB. CM FAXED CLINICAL UPDATE TO [facility] FOR OP PT HAD BEEN THERE [employer] AND SO INDICATED HOPEFUL THAT PT COULD RETURN THERE TO RESUME SKILLED REHAB SERVICES. THERAPY ORDERED TODAY. CM FOLLOWING.
--- NOTE | 2021-02-15 19:09 | NUR ---
Assumed pt care this am, VS stable. Pt refusing oral medications MD informed. No nausea, vomiting or bowel movement noted for this shift. Pt becomes beligerent to other staff. at the bedside, kept on clears. POC followed, pain is managed with medications, partial relief is noted. Endorsed to the night nurse.
[2021-02-15 20:18] VITALS: BP 138/78
--- NOTE | 2021-02-16 02:53 | NUR ---
ASSUMED PT CARE AT 1920. PT ALERT AND ORIENTED. PT REFUSED EVENING MEDS AND REQUESTED FOR THEM TO BE GIVEN AT MIDNIGHT BUT STILL REFUSED THEM AT MIDNIGHT. PT WAS IRRITABLE DURING ASSESSMENT AND DID NOT WANT TO BE TOUCHED. PT IS INCONTINENT OF BLADDER AND DID NOT HAVE A BM ON THIS SHIFT. PT USES CPAP AT NIGHT. FALL PRECAUTIONS IN PLACE WITH CALL LIGHT WITHIN REACH. WILL CONTINUE TO MONITOR.
[2021-02-16 05:33] LABS: ABSOLUTE NEUTROPHILS 5.1 thou/uL (1.4-8.2); BASOPHILS 0.4 % (0.0-2.0); EOSINOPHILS 0.2 % (0.0-3.0); HEMATOCRIT 30.7 % (42.0-52.0); LYMPHOCYTES 9.9 % (24.0-44.0); MCH 26.4 pg (26.0-34.0); MCHC 32.7 g/dL (28.0-37.0); MCV 80.7 fL (80.0-100.0); MONOCYTES 12.6 % (1.0-8.0); PLATELET COUNT 287 thou/uL (150-400); POLYS 76.9 % (36.0-66.0); RDW 20.9 % (10.5-14.5); WBC 6.6 thou/uL (4.0-11.0)
[2021-02-16 08:16] VITALS: BP 166/100
--- NOTE | 2021-02-16 15:31 | NUR ---
PT REFUSED THERAPY EVALS THIS DAY. CM CALLED [facility] AND THEY INDICATED THAT THEY AREN'T ABLE TO ACCEPT PT BACK THEY HAVE FILLED ALL THEIR SKILLED BEDS. CM FAXED REFERRAL TO [facility] FOR THEM TO REVIEW WITHOUT THERAPY NOTES. CM TO FAX THERAPY NOTES ONCE HE PARTICIPATES FOR [facility] SKILLED REHAB AUTH. CM FOLLOWING REGARDING DC PLANNING.
--- NOTE | 2021-02-16 19:29 | NUR ---
Assumed pt care this am, vs stable. Refuses to take oral meds, MD informed. Was able to persuade pt to take his bp meds since this was elevated. Incontinent of urine, refused to be turned and cleaned at times. POC followed, endorsed to the night nurse.
[2021-02-16 21:53] VITALS: BP 120/63
--- NOTE | 2021-02-17 02:39 | NUR ---
ASSUMED PT CARE AT 1900. PT IS ALERT AND ORIENTED. PT IS IRRITABLE AND UNCOOPERATIVE. PT REFUSED EVENING MEDS. PT HAD REDNESS TO THE BUTTOCK WITH A SMALL OPEN SORE. ZGUARD WAS APPLIED TO THE BUTTOCK. PT USES CPAP AT [facility]. PT CALLED TO BE CHANGED. NO N/V AND DIARRHEA NOTED ON THIS SHIFT. FALL PREAUTIONS IN PLACE WITH CALL LIGHT WITHIN REACH. WILL CONTINUE TO MONITOR.
[2021-02-17 07:37] VITALS: BP 129/75
--- NOTE | 2021-02-17 09:47 | NUR ---
HOSPITALIST VISITED WITH PT THIS AM AND ENCOURAGED PARTICIPATION WITH THERAPY. CM REITERATED NEED FOR THERAPY. CM SPOKE WITH PT'S SIG SHAW ELY HE ASKED THAT REFERRALS BE SENT TO [facility] AND TO [place] [facility]. CM FAXED REFERRALS AND SPOKE WITH THE ADMISSIONS STAFF TO NOTIFY THEM OF REFERRAL. CM FOLLOWING REGARDING DC PLANNING.
[2021-02-17 15:18] VITALS: BP 112/66
--- NOTE | 2021-02-17 19:47 | NUR ---
Assumed pt care this am, vs stable. Pt is very forgetful and was beligerent towards other staff. Tried to work with PT but was not stable in standing, tried to hit and kick when helped. Was able to take oral medications. Pt is wanting to go home, as per he is not able to care for the pt given the current state. POC followed, CM and aware. Endorsed to the night nurse.
[2021-02-17 20:45] VITALS: BP 125/62
--- NOTE | 2021-02-18 07:36 | NUR ---
ASSUMED CARE OF PT AT SHIFT CHANGE. PT IS AOX2-3 AND LETS NEEDS BE KNOWN. FALL PRECAUTION IN PLACE. PT REPORTED SOME ABD PAIN; PRNS PROVIDED. O2 CONTINUED AT 2L. ASSESSMENT CHARTED. PT WAS INCT THIS SHIFT. PT TOOK ALL MEDS THIS SHIFT. NO S/S OF ACUTE DISTRESS. REPORT GIVEN TO AM RN.
[2021-02-18 08:10] VITALS: BP 134/68
--- NOTE | 2021-02-18 11:41 | NUR ---
ASSUMED PT CARE THIS AM. PT A&OX2, ABLE TO MAKE SOME NEEDS KNOWN WITH CALL LIGHT. PATIENT REMAINS INCONTINENT, CHANGING PATIENT NEEDED. PATIENT REPORTING NO NAUSEA, NUMBNESS, OR TINGLING. IV REMAINS PATENT, MEDICATION INFUSED WITHOUT ISSUE. PATIENT ON 2 LITERS OF OXYGEN VIA NASAL CANNULA. FALL PRECAUTIONS ARE IN PLACE, CALL LIGHT WITHIN REACH. SIGNIFICANT OTHER AT BEDSIDE.
[2021-02-18 15:20] VITALS: BP 122/58
[2021-02-18 19:34] VITALS: BP 109/64
--- NOTE | 2021-02-19 01:25 | NUR ---
PATIENT AOX2 CONFUSED AND FORGETFUL. PATIENT IS VERBALLY ABUSIVE TO STAFF AT TIMES. PATIENT ENCOURAGED FLUIDS.PAIN CONTROLED THIS SHIFT. C PAP ON. FALL PRECAUTION IN PLACE. PATIENT IN BED ASLEEP AT THIS TIME BREATHING REGULAR AND UNLABOURED.
[2021-02-19 07:27] VITALS: BP 123/72
--- NOTE | 2021-02-19 12:08 | NUR ---
ASSUMED PT CARE THIS AM. PT A&OX2, MAKES SOME NEEDS KNOWN. PATIENT REMAINS INCONTINENT, CHANGING NECESSARY. PATIENT REPORTS NO PAIN, NAUSEA, NUMBNESS, OR TINGLING. PATIENT IS ON ROOM AIR. MEDICATIONS TAKEN WITHOUT ISSUE. PATIENT REMAINS ON TELEMETRY. IV PATENT, MEDICATIONS INFUSING WITHOUT ISSUE. FALL PRECAUTIONS ARE IN PLACE, CALL LIGHT WITHIN REACH.
[2021-02-19 16:12] VITALS: BP 122/69
[2021-02-19 20:13] VITALS: BP 121/61
--- NOTE | 2021-02-20 02:41 | NUR ---
patient aox2 confused and forgetful. pain controlled this shift.patient is uncompliant with meds and care. patient is incontinent pericare and barrier cream applied as needed. patient is on 2l of oxygen prn.cpap on.fall precaution in place. patient in bed asleep at this time breathing regular and unlaboured.
[2021-02-20 07:39] VITALS: BP 118/75
--- NOTE | 2021-02-20 11:44 | NUR ---
PT REFUSED THERAPY TIMES 3 TODAY AND ATTEMPTED TO HIT OTL. PT NOT APPROPRIATE FOR OT TODAY. WILL ATTEMPT TOMORROW
--- NOTE | 2021-02-20 13:34 | NUR ---
CM CHECKED IN WITH ADMISSIONS YAEL AT [facility] AND WE ARE STILL AWAITING INSURANCE AUTH THIS AM. CM FAXED OVER UPDATED NOTES. PT REFUSED MULTIPLE ATTEMPTES BUY OT. CM UPDATED PT'S SIG OTHER. CM FOLLOWING WITH HOPEFULL DC TO SKILLED.
[2021-02-20 15:55] VITALS: BP 119/72
--- NOTE | 2021-02-20 16:47 | NUR ---
PT ALERT AND ORIENTED TIMES THREE WITH PERIODS OF CONFUSION AND BLUNTED AFFECT. VSS. SR ON TELE. PT DENIES PAIN/SOA. PT TOLEATES MEDS AND MEALS. PT WORKED WELL WITH PT TODAY AND WAS UP SITING IN THE CHAIR FOR SOME PART OF THE SHIFT. PT AT BEDSIDE THIS AFTERNOON. PT PROGRESSING TOWRADS POC GOALS.
[2021-02-20 20:47] VITALS: BP 125/67
--- NOTE | 2021-02-21 07:14 | NUR ---
ASSUMED CARE OF PT AT SHIFT CHANGE. PT AOX2-3 AND LETS NEEDS BE KNOWN. FALL PERCAUITON IN PLACE. PT REPORTED SOME PAIN BT DENIED NAUSEA OR SOA. ASSESSMENT CHARTED. PT USED CPAP AT HS. PT WAS ABLE TO SLEEP PART OF THE SHIFT. VSS AND NO S/S OF ACUTE DISTRESS. REPORT GIVEN TO ONCOMING RN.
[2021-02-21 07:59] VITALS: BP 131/80
--- NOTE | 2021-02-21 14:49 | NUR ---
ASSUMED PT CARE THIS AM. PT A&OX2, MAKES SOME NEEDS KNOWN. PATIENT REPORTS NO PAIN, NUMBNESS OR TINGLING. PATIENT REMAINS INCONTINENT IN BED. PATIENT IS ON 2 LITERS OF OXYGEN VIA NC. PATIENT REMAINS ON TELE. SIGNIFICANT OTHER AT BEDSIDE. FALL PRECAUTIONS ARE IN PLACE, CALL LIGHT WITHIN REACH.
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
[2021-02-21 17:45] VITALS: BP 124/66
[2021-02-21 19:23] VITALS: BP 126/76
--- NOTE | 2021-02-22 07:29 | NUR ---
PATIENT ON 2L OF OXYGEN NO SOA OR DISTRESS NOTED. PATIENT IS ON C PAP AT NIGHT. FALL PRECAUTION IN PLACE. PATIENT INCONTINENT OF BOWEL AND BLADDER THIS SHIFT, PERICARE AND BARRIER CREAM APPLIED NEEDED.FALL PRECAUTION IN PLACE. PATIENT IN BED ASLEEP AT THIS TIME BREATHING REGULAR AND UNLABOURED.
--- NOTE | 2021-02-22 15:26 | NUR ---
Pt is AxO X3. Very forgetful of past events. IV in left FA is SL. Takes his meds whole. Incontinent of B&B. Lungs are course and diminished. Pt is on 2L/NC. He did have a BM today. warehouse production worker is looking for placement in SNF. Nutricianist put pt. on dietary supplements. Not a big eater. Bd in low position fall precautions in place. Will continue to monitor this patient throughout the shift.
--- NOTE | 2021-02-22 16:13 | NUR ---
[facility] GOT THE AUTH FOR PT TO DC THERE THIS DAY. PT TO DC VIA WC BETWEEN [phone]. CM NOTIFIED PT AND SIG OTHER. CHART COPY MADE. ORDERS FAXED. NURSE GIVEN NUMBER FOR REPORT. NO OTHER CM INTERVENTION INDICATED. CASE CLOSED.
[2021-02-22 16:50] VITALS: BP 115/73
== END 2021-02-22 18:22 | DRG 388 ==
LOC: ER 19:53 → EROBS 02-14 02:53 → 4W 02-14 02:53
PROVIDERS: Emergency Medicine; Nurse Practitioner Family; ADMIT Family Medicine; ATTEND Family Medicine
PROC: 5A09357 Assistance with Respiratory Ventilation, Less than 24 Consecutive Hours, Continuous Positive Airway Pressure (ICD-10-PCS; principal; 2021-02-17)
PROC: 5A09357 Assistance with Respiratory Ventilation, Less than 24 Consecutive Hours, Continuous Positive Airway Pressure (ICD-10-PCS; 2021-02-18)
PROC: 5A09357 Assistance with Respiratory Ventilation, Less than 24 Consecutive Hours, Continuous Positive Airway Pressure (ICD-10-PCS; 2021-02-21)
DX: K56.7 Ileus, unspecified (principal); E43 Unspecified severe protein-calorie malnutrition; J18.9 Pneumonia, unspecified organism; N17.9 Acute kidney failure, unspecified; K50.90 Crohn's disease, unspecified, without complications; Z68.1 Body mass index [BMI] 19.9 or less, adult; E11.9 Type 2 diabetes mellitus without complications; I10 Essential (primary) hypertension; I48.91 Unspecified atrial fibrillation; F17.210 Nicotine dependence, cigarettes, uncomplicated; R53.81 Other malaise; J44.9 Chronic obstructive pulmonary disease, unspecified; E86.0 Dehydration; Z51.5 Encounter for palliative care; Z20.822 Contact with and (suspected) exposure to COVID-19; Z66 Do not resuscitate; G47.33 Obstructive sleep apnea (adult) (pediatric); Z86.718 Personal history of other venous thrombosis and embolism; Z86.73 Personal history of transient ischemic attack (TIA), and cerebral infarction without residual deficits; Z90.49 Acquired absence of other specified parts of digestive tract; Z88.2 Allergy status to sulfonamides; Z88.7 Allergy status to serum and vaccine; Z71.6 Tobacco abuse counseling
CPT/HCPCS: 10045

== ENCOUNTER → 2021-05-17 | Outpatient (CLI) | payer OTHER ==
[~2021-05-17] MED LIST changes: +CALCIUM CARBON600 M1 PO; +ENSURE CLEAR237 ML PO
== END ==
LOC: SJCVC 15:06
PROVIDERS: ATTEND Internal Medicine Cardiovascular Disease
DX: I45.2 Bifascicular block (principal); R94.31 Abnormal electrocardiogram [ECG] [EKG]; I48.0 Paroxysmal atrial fibrillation; I10 Essential (primary) hypertension; E78.00 Pure hypercholesterolemia, unspecified; I65.23 Occlusion and stenosis of bilateral carotid arteries; I25.10 Atherosclerotic heart disease of native coronary artery without angina pectoris; E11.9 Type 2 diabetes mellitus without complications; G47.33 Obstructive sleep apnea (adult) (pediatric); F17.210 Nicotine dependence, cigarettes, uncomplicated; Z86.718 Personal history of other venous thrombosis and embolism; Z79.891 Long term (current) use of opiate analgesic; Z79.899 Other long term (current) drug therapy; Z88.2 Allergy status to sulfonamides; Z88.8 Allergy status to other drugs, medicaments and biological substances

== ENCOUNTER 2021-06-08 09:38 | Inpatient (IN) | payer OTHER ==
[~2021-06-08] VITALS: Ht 177.8 cm; Wt 59.0 kg
[2021-06-08 09:39] VITALS: BP 128/52
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
[2021-06-08 10:57] LABS: HEMATOCRIT 21.3 % (42.0-52.0); MCH 21.1 pg (26.0-34.0); MCHC 29.7 g/dL (28.0-37.0); MCV 70.8 fL (80.0-100.0); RBC 3.01 mil/uL (4.50-6.00); RDW 20.1 % (10.5-14.5); WBC 6.8 thou/uL (4.0-11.0)
[2021-06-08 11:03] LABS: HEMOGLOBIN 6.3 gm/dL (14.0-18.0)
[2021-06-08 11:05] LABS: CALCIUM 8.7 mg/dL (8.5-10.1); CREATININE 1.1 mg/dL (0.7-1.3); POTASSIUM 4.6 mmol/L (3.5-5.1)
--- NOTE | 2021-06-08 11:36 | NUR ---
VAT CONSULTED FOR ACCESS. PT NEEDS CT ABDOMEN. ONLY VESSELS LARGE ENOUGH FOR CANNULATION UPPER ARM DEEP VESSELS, SO THIS RN PLACED LEFT UPPER ARM BRACHIAL ML. TRIMMED 15CM/OEXTERNAL. FLUSHES BRISKLY AND RETURNS BLOOD. RELEASED FOR USE.
[2021-06-08 11:57] LABS: HEMATOCRIT 20.5 % (42.0-52.0); MCH 20.8 pg (26.0-34.0); MCHC 29.5 g/dL (28.0-37.0); MCV 70.6 fL (80.0-100.0); RBC 2.9 mil/uL (4.50-6.00); WBC 4.1 thou/uL (4.0-11.0)
[2021-06-08 14:06] LABS: ATYPICAL LYMPHS 1 %
[2021-06-08 14:30] LABS: ANISOCYTOSIS 2+; HYPOCHROMASIA 2+; MICROCYTES 1+; PLATELET ESTIMATE 160; POIKILOCYTOSIS 2+
[2021-06-08 14:32] LABS: PLATELET COUNT 133 thou/uL (150-400)
[2021-06-08 14:53] LABS: % SATURATION 8 % (20-39); IRON 33 ug/dL (65-175); TIBC 401 ug/dL (250-450)
[2021-06-08 15:21] LABS: FOLIC ACID 15.6 ng/mL (8.6-58.9)
[2021-06-08 16:42] VITALS: BP 132/66; BP 138/61; BP 139/68; BP 151/79
[2021-06-08] MEDS ORDERED: NEURONTIN 300M300 M2 PO (16:55)
[2021-06-08] MEDS ORDERED: DILTIAZEM 24HR120 M1 PO (16:55)
[2021-06-08 23:11] VITALS: BP 159/76
[2021-06-09 00:43] LABS: HEMATOCRIT 26.2 % (42.0-52.0); HEMOGLOBIN 7.8 gm/dL (14.0-18.0)
[2021-06-09 00:54] VITALS: BP 178/77
[2021-06-09 03:11] VITALS: BP 148/73
[2021-06-09 08:45] VITALS: BP 135/60
[2021-06-09 12:05] VITALS: BP 133/67
[2021-06-09 16:11] VITALS: BP 105/55
--- NOTE | 2021-06-09 16:34 | NUR ---
Attempted to see patient but he refused to speak with caset. patient with a admission to [facility] and dc to [facility]. Chart reivewed patient resides with s/o in independent home. Susan following for dc planning.
[2021-06-09 18:32] LABS: HEMATOCRIT 26.1 % (42.0-52.0); HEMOGLOBIN 7.8 gm/dL (14.0-18.0); MCHC 30.1 g/dL (28.0-37.0); MCV 73.2 fL (80.0-100.0); RBC 3.56 mil/uL (4.50-6.00); RDW 20.3 % (10.5-14.5); WBC 3.9 thou/uL (4.0-11.0)
[2021-06-09 18:38] LABS: CALCIUM 8.4 mg/dL (8.5-10.1); CREATININE 1.1 mg/dL (0.7-1.3); POTASSIUM 3.9 mmol/L (3.5-5.1)
[2021-06-09 19:47] VITALS: BP 127/62
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
[2021-06-10 03:52] VITALS: BP 133/62
[2021-06-10 07:17] VITALS: BP 123/66
[2021-06-10 11:21] VITALS: BP 131/71
[2021-06-10 15:06] VITALS: BP 128/67
--- NOTE | 2021-06-10 18:40 | NUR ---
Received pt from shift engineer. Pt had two episodes of emesis between 7:30 and 8am. Gave protonix and zofran and nausea subsided. Pt is able to ambulate to rest room with the use of a cane. He is having loose stools and abdominal pain. No concerns at this time.
[2021-06-10 20:00] VITALS: BP 123/64
[2021-06-10 20:15] VITALS: BP 125/62
[2021-06-11 03:40] VITALS: BP 123/58
--- NOTE | 2021-06-11 05:56 | NUR ---
PT IS A&OX4 AND ABLE TO MAKE WANTS AND NEEDS KNOWN TO STAFF. PT UP WITH SBA X1 TO BR, HAD LIQUID STOOL X3, SAMPLE SENT TO LAB FOR PENDING C-DIFF. RECEIVED NEW ORDER FOR IMMODIUM AND MEDICATED X1 FOR DIARRHEA. PT REFUSED HS MEDICATIONS, STATED "I'M NOT TAKING THAT SHIT." PT EDUCATED REGARDING THE IMPORTANCE OF TAKING MEDICATIONS PRESCRIBED, PT CONTINUED TO REFUSE. PT DID REQUEST AND WAS GIVEN HIS PRN SLEEPING MEDICATION. PT UTILIZED HIS HOME BIPAP MACHINE, RT INSPECTED EQUIPMENT PRIOR TO USE. WILL CONTINUE TO OBSERVE FOR CHANGES.
[2021-06-11 07:16] VITALS: BP 134/68
[2021-06-11 10:57] LABS: CALCIUM 8.2 mg/dL (8.5-10.1); CREATININE 1.1 mg/dL (0.7-1.3); POTASSIUM 3.8 mmol/L (3.5-5.1)
[2021-06-11 11:01] VITALS: BP 115/58
[2021-06-11 12:44] LABS: HEMATOCRIT 25.4 % (42.0-52.0); HEMOGLOBIN 7.5 gm/dL (14.0-18.0); MCH 22.4 pg (26.0-34.0); MCHC 29.7 g/dL (28.0-37.0); MCV 75.4 fL (80.0-100.0); RBC 3.36 mil/uL (4.50-6.00); RDW 20.6 % (10.5-14.5); WBC 3.4 thou/uL (4.0-11.0)
[2021-06-11 15:26] VITALS: BP 115/58
--- NOTE | 2021-06-11 16:17 | NUR ---
PT IS AXOX4, COOPERATIVE BUT NOT ALWAYS PLEASANT; VSS, AFEBRILE, SR ON THE MONITOR. PT C/O GENERALIZED PAIN, WAS DIFFICILT WITH NOC RN IN REGARDS TO MEDICATIONS. DR SARMIENTO CONSULTED; LABS DRAWN. PT TO D/C HOME. D/C EDUCATION CONDUCTED. PT AND PT PARTNER COMMUNICATED UNDERSTANDING. PT D/C HOME WITH NO NEEDS VIA PERSONAL VEHICLE. NO CONCERNS AT THIS TIME.
--- NOTE | 2021-06-11 17:49 | NUR ---
Pt was discharged at 1600. Education was provided and discharge paperwork was explained to pt. Pt stated understanding need for 1 month f/u and other education points. Pt signed discharge paper work and was driven home by his life partner. Pt voiced no concerns.
--- NOTE | 2021-06-12 18:06 | PATH ---
[facility] [address] [place] [address] PATHOLOGY RPT PROCEDURE Name: VICTOR HUGO KENNEDY Room #: 211-P DIS IN M.R.#: [id number] Admission: 06/08/21 Date of : 41 Discharge: 06/11/21 Report #: [id number] Path Case #: [id number] L[facility] Accession Number: [id number] . 01 Material submitted: . PART A: duodenum - DUODENAL POLYP BIOPSY PART B: gastrointestinal site - GASTRIC BIOPSY R/O METAPLASIA . 01 Clinical history: . ANEMIA, PSBO ABD PAIN, DIARRHEA . 02 Diagnosis: A. Duodenal mucosa (polyp biopsy): - Tubular adenoma identified. . B. Gastric mucosa (biopsy): - Mild chronic gastritis, inactive, negative for dysplasia, negative for intestinal metaplasia, negative for Helicobacter-like organisms. LBQ 06/12/2021 1433 Local . 02 Comment: IHC for H. pylori on A1: Negative (SWK/db; 06/12/2021) . 02 Electronically signed: . Mekhi Burr MD, Pathologist NPI- [id number] . 01 Gross description: . A. Received in formalin labeled "Victor Hugo Kennedy duodenal polyp BX" are multiple perry-brown soft tissue fragments measuring in aggregate 0.9 x 0.4 x 0.3 cm. The specimen is submitted entirely in A1. . B. Received in formalin labeled "Victor Hugo Kennedy gastric biopsy rule out metaplasia" are multiple perry-brown soft tissue fragments measuring in aggregate 1.2 x 0.6 x 0.3 cm. The specimen is submitted entirely in B1. ([facility]; 06/10/2021) GZA/GZA 06/10/2021 1036 Local . 02 Pathologist provided ICD-10: D13.1, K29.50 . 02 CPT . 419457, [id number], [id number] Specimen Comment: A courtesy copy of this report has been sent to [phone] [id number], [place] [address] PATHOLOGY RPT PROCEDURE Name: VICTOR HUGO KENNEDY Room #: 211-[facility] M.R.#: [id number] Admission: 06/08/21 Date of : 41 Discharge: 06/11/21 Report #: [id number] Path Case #: [id number] Specimen Comment: [id number] Specimen Comment: Report sent to / DR SARMIENTO Performed at: 01 [facility] [address] [id number] MD Galo Crawford MD Phone: [phone] Performed at: 02 [facility] [address] [id number] MD Mekhi Burr MD Phone: [phone]
== END 2021-06-11 16:20 | disposition home or self-care (01) | DRG 378 ==
LOC: ER 09:38 → EROBS 13:32 → 2N 13:32
PROVIDERS: Emergency Medicine; Nurse Practitioner; Nurse Practitioner Family; ADMIT Family Medicine; ATTEND Family Medicine
PROC: 0DB98ZX Excision of Duodenum, Via Natural or Artificial Opening Endoscopic, Diagnostic (ICD-10-PCS; principal; 2021-06-08)
PROC: 30233N1 Transfusion of Nonautologous Red Blood Cells into Peripheral Vein, Percutaneous Approach (ICD-10-PCS; principal; 2021-06-08)
PROC: 05HA33Z Insertion of Infusion Device into Left Brachial Vein, Percutaneous Approach (ICD-10-PCS; principal; 2021-06-08)
PROC: 0DB68ZX Excision of Stomach, Via Natural or Artificial Opening Endoscopic, Diagnostic (ICD-10-PCS; principal; 2021-06-08)
DX: K26.4 Chronic or unspecified duodenal ulcer with hemorrhage (principal); K56.600 Partial intestinal obstruction, unspecified as to cause; K50.90 Crohn's disease, unspecified, without complications; D13.2 Benign neoplasm of duodenum; E11.9 Type 2 diabetes mellitus without complications; Z20.822 Contact with and (suspected) exposure to COVID-19; I48.91 Unspecified atrial fibrillation; J44.9 Chronic obstructive pulmonary disease, unspecified; F17.210 Nicotine dependence, cigarettes, uncomplicated; D50.9 Iron deficiency anemia, unspecified; Z86.718 Personal history of other venous thrombosis and embolism; Z86.73 Personal history of transient ischemic attack (TIA), and cerebral infarction without residual deficits; Z90.49 Acquired absence of other specified parts of digestive tract; Z88.2 Allergy status to sulfonamides; Z88.8 Allergy status to other drugs, medicaments and biological substances
CPT/HCPCS: 10081; 27000; 62110; 62900; 70005

== ENCOUNTER 2021-07-06 09:09 | Inpatient (IN) | payer OTHER ==
[~2021-07-06] VITALS: Ht 172.7 cm; Wt 59.5 kg
[~2021-07-06 09:09] MED LIST changes: +DILTIAZEM 24HR120 M1 PO; +NEURONTIN 300M300 M2 PO
[2021-07-06 09:10] VITALS: BP 72/45
--- NOTE | 2021-07-06 09:15 | NUR ---
REPEAT BP 71/41
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
[2021-07-06 12:01] LABS: ABSOLUTE NEUTROPHILS 12.1 thou/uL (1.4-8.2); BASOPHILS 0.4 % (0.0-2.0); HEMATOCRIT 22.6 % (42.0-52.0); HEMOGLOBIN 6.9 gm/dL (14.0-18.0); LYMPHOCYTES 9.3 % (24.0-44.0); MCH 27.6 pg (26.0-34.0); MCHC 30.3 g/dL (28.0-37.0); PLATELET COUNT 223 thou/uL (150-400); POLYS 82.3 % (36.0-66.0); RBC 2.49 mil/uL (4.50-6.00); RDW 35.3 % (10.5-14.5); WBC 14.7 thou/uL (4.0-11.0)
[2021-07-06 12:18] LABS: APTT 26.8 Seconds (24.5-32.8); INR 1.29; PROTIME 13.9 Seconds (10.5-12.1)
[2021-07-06 12:34] LABS: ANISOCYTOSIS 1+; HYPOCHROMASIA 1+; PLATELET ESTIMATE NORMAL
[2021-07-06 12:37] LABS: CALCIUM 8.5 mg/dL (8.5-10.1); CREATININE 1.8 mg/dL (0.7-1.3); POTASSIUM 5.8 mmol/L (3.5-5.1)
[2021-07-06 12:46] LABS: ALBUMIN 3.1 g/dL (3.4-5.0); TOTAL BILIRUBIN 0.1 mg/dL (0.2-1.0); TOTAL PROTEIN 5.9 g/dL (6.4-8.2)
--- NOTE | 2021-07-06 13:02 | EKG ---
[place] [address] [address] [facility] [place] [address] ELECTROCARDIOGRAM REPORT Name: BENIGNO CASTILLO Room #: [facility]#: [id number] Admission: 07/06/21 Attend Phys: Discharge: Date of : 41 Report #: [id number] [facility] ED Test Date: 2021-07-06 Test Time: 09:25:26 Pat Name: BENIGNO CASTILLO Department: Room: Gender: M Medical Social Worker: JAMIN : 1945 Requested By: Ramon Lin Order Number: [id number] MD: Angel Warren Measurements Intervals [place] Rate: 113 P: 71 OK: 143 QRS: 91 QRSD: 128 T: 57 QT: 342 QTc: 469 Interpretive Statements Sinus tachycardia RBBB and LPFB Baseline wander in lead(s) I,II,aVR,aVL,V4 Compared to ECG 11/18/2020 11:36:47 No significant changes Electronically Signed On 07-06-2021 13:01:51 MATERIALS ENGINEER by Angel Warren [email or web address] <ELECTRONICALLY SIGNED> By: Angel Warren MD, [facility] 07/06/21 1301 4 4 Angel Warren MD, FAC /EPI
[2021-07-06 14:00] VITALS: BP 104/51; BP 105/54
--- NOTE | 2021-07-06 14:13 | NUR ---
PT. CONT. IN ER AT THIS TIME AND IS APPROPRIATE. PT. HAS BEEN INFORMED OF THE PLAN OF CARE AND WHAT TO EXPECT. PT. S/O HAS BEEN INFORMED WELL. PT. IS CURRENTLY RECEIVING HIS FIRST UNIT OF BLOOD AND IS TOLERATING THE INFUSION SO FAR. PT. IS ON CART, ON MONITOR IS A POSITION OF COMFORT. PT. IS ROUNDED ON OFTEN.
[2021-07-07 01:57] VITALS: BP 105/61
[2021-07-07 04:36] VITALS: BP 105/61
[2021-07-07 06:39] LABS: HEMOGLOBIN 6.5 gm/dL (14.0-18.0)
[2021-07-07 06:41] LABS: HEMATOCRIT 20.8 % (42.0-52.0); MCH 28.3 pg (26.0-34.0); MCHC 31.2 g/dL (28.0-37.0); MCV 90.9 fL (80.0-100.0); RBC 2.28 mil/uL (4.50-6.00); RDW 31.1 % (10.5-14.5); WBC 4.3 thou/uL (4.0-11.0)
[2021-07-07 07:05] LABS: CALCIUM 7.9 mg/dL (8.5-10.1); CREATININE 1.3 mg/dL (0.7-1.3)
[2021-07-07 07:09] LABS: ALBUMIN 2.9 g/dL (3.4-5.0); PHOSPHORUS 3.8 mg/dL (2.6-4.7)
--- NOTE | 2021-07-07 11:27 | NUR ---
RECEIVED CONSENT FROM SHARON (PARTNER) TO GIVE BLOOD TRANSFUSION VIA TELEPHONE, VERIFIED WITH SECOND RN BELINDA FLORES.
[2021-07-07 12:01] VITALS: BP 112/56; BP 125/54; BP 139/65
[2021-07-07 16:33] VITALS: BP 123/67
--- NOTE | 2021-07-07 16:45 | NUR ---
ARRIVED TO 4S FROM ED. A/O X 3- VERY RUDE, KICKING STAFF, TOLD NURSE HER BREATH STINKS, LEAVE HIM ALONE, DONT TOUCH ME. PARTNER IS AT BEDSIDE TRYING TO TALK TO PATIENT. ROOM AIR. RIGHT AC IV WITH PROTONIX INFUSING @ 25 MLS/HR. BRIEF ON. ONE ASSIST WITH CANE. ISO-CDIFF RULE OUT. BILATERAL LEG PAIN.
--- NOTE | 2021-07-07 18:07 | NUR ---
patient requested IV pain medication and nurse asked pain level. patient said just get me IV pain meds. nurse explained that a pain level needs to be known to give meds and iv pain medication is not on emar. nurse explained that po pain meds take longer to work but last longer. patient begins yelling iv pain medication now, go back to school. patient kept yelling and his partner said hel'll take the oral meds and nurse explained that he could not answer for patient. That is needed to be heard from patient that he would take it. nurse asked patient again do you want pain medication and he started yelling again. nurse walked out of room. patient has refused lab draw from lab, refused tele, refused iv fluids hung.
--- NOTE | 2021-07-08 03:26 | NUR ---
UPON SHIFT REPORT, PT SLEEPING WITHOUT OBSERVATION OF PAIN, DISCOMFORT OR SOB WHILE ON ROOM AIR. UPON SHIFT ASSESMENT, PT AOX3, TO PERSON, PLACE, AND TIME. PT NOTED TO HAVE FORGETFULNESS AND IRRITABILITY, SOMEWHAT DIFFICULT TO CONSOLE. PT REPORTS 8/10 PAIN IN LEFT HIP, LEFT THIGH, AND BACK. PT RECEIVING PRN PO OXYCODONE Q6HR WITH PRN PO APAP Q4HR AVAILABLE. SHORTLY AFTER ADMINISTRATION OF PO PRN OXYCODONE, PT NOTED TO BECOME IRRITABLE, REQUESTING "PAIN SHOT". ONCALL TRUCK CAR AND BUS CLEANER NOTIFIED, EMAR UPDATED. PT TOLERATING PO INTAKE OF FLUIDS AND CLEAR LIQUID DIET WITHOUT ISSUE. PT WITHOUT NAUSEA OR EMESIS. PT AMBULATING WITH X1 ASSIST AND CANE TO BATHROOM, OTHERWISE VOIDING PER URINAL AT BEDSIDE, INTERMITTENT INCONTINENCE NOTED. PT RESTING IN BED THROUGHOUT SHIFT, FREQUENT REPOSITIONING ENCOURAGED, PT NOTED TO HAVE WEAKNESS, SLIGHTLY SHIFTING ON HIS OWN, REFUSING REPOSITIONING ASSISTANCE OTHERWISE. SENSATION INTACT, CAPILLARY REFILL LESS THAN 3SEC, PERIPHERAL PULSES PALPABLE IN ALL EXTREMITIES. PT ENCOURAGED TO NOTIFY STAFF FOR ALL NEEDS, CALL LIGHT WITHIN REACH, BED ALARM ON, BED LOCKED IN LOWEST POSITION, ROOM REMAINS NEAR NURSES STATION, SPECIAL CONTACT ISOLATION MAINTAINED, FREQUENT MONITORING WILL CONTINUE.
[2021-07-08 08:16] VITALS: BP 132/62
--- NOTE | 2021-07-08 14:59 | NUR ---
PT ALERT AND ORIENTED TIMES FOUR, WITH BLUNTED AFFECT. VSS. PPN STARTED AND INFUSING PER ORDER. PT C/O PAIN PRN PAIN MEDICATIONS CONTROLLING PAIN WELL. PT AT BEDSIDE THIS MORNING. WILL CONTINUE TO MONITOR.
[2021-07-08 16:08] VITALS: BP 132/62
[2021-07-08 19:47] VITALS: BP 142/64
--- NOTE | 2021-07-09 01:57 | NUR ---
ASSUMED CARE AT 1900 OF 07/08. PATIENT IS A&OX3, REORIENTED TO PLACE. IRRITABLE BUT COOPERATIVE. REPORTS PAIN IN LLE, FENTYNAL PATCH IS MANAGING PAIN. PATCH ON RIGHT UPPER BACK IN PLACE AND INTACT. REMAINS ON PRECAUTIONS FOR C-DIFF RULE OUT, NO BM YET, ONLY PASSING FLATUS. STAND BY ASSIST TO TRANSFER TO TOILET USING CANE, OR URINAL AT BEDSIDE. CAN BE INCONTINENT OF BLADDER, WEARING BRIEFS. ENCOURAGED TO REPOSITION. RIGHT AC PIV IS INPLACE INTACT, NO S/S OF INFECTION OR INFILTRATION NOTED. DRESSING REINFORCED. PPN RUNNING AT 80CC/HR. PATIENT HAS OWN CPAP IN ROOM, CPAP ON WHILE SLEEPING. SLEEPING ON HOURLY ROUNDS, CALL LIGHT WITHIN REACH. WILL CONTINUE TO MONITOR.
[2021-07-09 07:21] VITALS: BP 135/62
[2021-07-09 08:49] LABS: HEMATOCRIT 22.4 % (42.0-52.0); HEMOGLOBIN 7.4 gm/dL (14.0-18.0); MCH 29.6 pg (26.0-34.0); MCHC 32.8 g/dL (28.0-37.0); MCV 90.2 fL (80.0-100.0); RBC 2.48 mil/uL (4.50-6.00); RDW 26.8 % (10.5-14.5); WBC 4.5 thou/uL (4.0-11.0)
[2021-07-09 08:56] LABS: ALBUMIN 2.7 g/dL (3.4-5.0); CALCIUM 8.1 mg/dL (8.5-10.1); CREATININE 0.9 mg/dL (0.7-1.3); PHOSPHORUS 3.8 mg/dL (2.5-4.9)
--- NOTE | 2021-07-09 11:13 | NUR ---
ASSUMED CARE OF PT AT 0700 THIS MORNING. PT IS A/OX4 NO SIGNS OF FORGETFULNESS AT THIS TIME. PT IS IRRITATED AND WAS FUSSING ABOUT GETIING LABS DRAWN. PHLEBOTIMIST WAS UNABLE TO DRAW. PULLED BLOOD FROM PERIPHERAL IV AND GAVE TUBES TO THE PHLEBOTIMIST. ASSESSMENTS NOTED IN CHART AND OTHERWISE UNREMARKABLE. FALL PRECAUTIONS ARE IN PLACE. CALL LIGHT AND OTHER NEEDS ARE IN REACH. MEDS AND TX GIVEN NEEDED AND SCHEDULED. WILL MONITOR PT AND NOTE ANY CHANGES.
[2021-07-09 15:50] VITALS: BP 119/54
[2021-07-09 19:10] VITALS: BP 109/47
[2021-07-10 05:36] LABS: HEMATOCRIT 24.7 % (42.0-52.0); MCH 29.4 pg (26.0-34.0); MCHC 32.4 g/dL (28.0-37.0); MCV 90.9 fL (80.0-100.0); RBC 2.72 mil/uL (4.50-6.00); RDW 27.7 % (10.5-14.5); WBC 4.9 thou/uL (4.0-11.0)
[2021-07-10 06:10] LABS: ALBUMIN 2.9 g/dL (3.4-5.0); CALCIUM 8.5 mg/dL (8.5-10.1); CREATININE 1.1 mg/dL (0.7-1.3); MAGNESIUM 1.7 mg/dL (1.8-2.4); POTASSIUM 4.4 mmol/L (3.5-5.1); TOTAL BILIRUBIN 0.2 mg/dL (0.2-1.0); TOTAL PROTEIN 5.7 g/dL (6.4-8.2)
[2021-07-10 07:17] VITALS: BP 135/51
--- NOTE | 2021-07-10 09:04 | NUR ---
RE-ASSUMED CARE OF PT AT 0700 THIS MORNING. PT HAS BEEN NPO SINCE MIDNIGHT. PT IS TO HAVE AN EGD PERFORMED THIS MORNING. NO OTHER CHANGES SINCE REPORT WAS GIVEN LAST NIGHT. ASSESSMENTS NOTED IN CHART AND OTHERWISE UNREMARKABLE. PT IS UP WITH SB ASST. NO FALL PRECAUTIONS NOTED. CALL LIGHT AND OTHER NEEDS ARE IN REACH. MEDS AND TX GIVEN NEEDED AND SCHEDULED. WILL MONITOR AND NOTE ANY CHANGES.
--- NOTE | 2021-07-10 09:30 | NUR ---
76-year-old male came to the ED with abdominal pain and diarrhea with bloody stool. Patient reports the onset of black bloody stool started this morning. Since that time, he reports cramping epigastric abdominal pain. He is noncompliant with history stating, "look at my records" per Victor Hugo. 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 Chart review. Feliciano tried to visit with Victor Hugo, but he would not take. His spouse bernabe visited with feliciano. Uses cpap at home. independent when he is feeling ok. Has a cane. Bernabe ballard. Been to skilled rehab at [facility] and advanced in the past. Possible going for EGD today.
[2021-07-10 09:46] VITALS: BP 135/51
[2021-07-10 16:59] VITALS: BP 114/48
[2021-07-10 19:21] VITALS: BP 119/64
[2021-07-11 05:07] VITALS: BP 139/72
--- NOTE | 2021-07-11 05:12 | NUR ---
RECEIVED CARE OF THIS PATIENT AT 1900. PATIENT ALERT AND ORIENTED AT BEGINNING OF SHIFT. MIDDLE BECAME CONFUSED TO PLACE AND TIME. PPN INFUSING PER RAC. UP TO BATHROOM WITH SBA ONLY. DENIES PAIN UNLESS TOUCHED. SLEPT OFF AND ON DURING NIGHT.
[2021-07-11 08:21] VITALS: BP 119/57
--- NOTE | 2021-07-11 10:00 | NUR ---
Discussed during los with the attending physician. EDG planned for today. Possible able to dc after egd. Home with his sig other daniela. Will cont following if needs arise.
--- NOTE | 2021-07-11 14:32 | NUR ---
RE-ASSUMED CARE OF PT AT 0700 THIS MORNING. PT IS NPO SINCE MIDNIGHT AND HAVING AN EGD PERFORMED THIS MORNING. PT IS A/OX4 WITH SOME CONFUSION. ASSESSMENTS NOTED IN CHART AND OTEHRWISE UNREMARKABLE. PT IS SB ASST TO AMBULATE TO RESTROOM. NO FALL PRECAUTIONS NEEDED. CALL LIGHT AND OTHER NEEDS ARE IN REACH. PT HAS BEEN ADVANCED TO REGULAR DIET PER DR. MCGUIRE. MEDS AND TX GIVEN NEEDED AND SCHEDULED. PT WENT TO PRE-OP AT 1034 AND RETURNED AT 1146. WILL CONTINUE TO MONITOR PT AND NOTE ANY CHANGES.
[2021-07-11 15:27] VITALS: BP 113/57
[2021-07-11 19:43] VITALS: BP 123/67
--- NOTE | 2021-07-12 04:14 | NUR ---
ASSUMED PT CARE THIS PM. PT IS ALERT AND ORIENTED X4. PT C/O PAIN WHICH WAS MANAGED BY PRN MEDS. PT IS RUDE AND DOES NOT WANT TO BE BOTHERED OR TOUCHED. VS ARE WITHIN NORMAL RANGE AND MEDS WERE GIVEN PER EMAR ORDERS. PT ON RA. NO VISIBLE SIGN OF DISTRESS NOTED. FALL PRECAUTIONS IN PLACE. WILL CONTINUE TO MONITOR.
--- NOTE | 2021-07-12 06:10 | NUR ---
called 2N [id number] to give report, no response
--- NOTE | 2021-07-12 06:24 | HC ---
[facility] [place] [address] CONSULTATION Name: BENIGNO CASTILLO Room #: 436-P ADM IN M.R.#: [id number] Admission: 07/06/21 Attend Phys: Suleiman Edmonds Discharge: Date of : 41 Report #: [id number] THIS REPORT FOR: cc: Dylon Ware MD, Neal A. MD McKittrick, Richard James MD ~ cc: Dylon Ware MD, Baltazar Grier MD, Makenzie Mckenna MD DATE OF SERVICE: 07/11/2021 REQUESTING PHYSICIAN: Dr. Makenzie Mckenna. REASON FOR CONSULTATION: Iron-deficiency. HISTORY OF PRESENT ILLNESS: The patient is a 76-year-old gentleman with mood disorder and possibly some cognitive impairment. His complex GI history is outlined by Dr. Grier and appears to have a history of Alfredo's ulcers, large duodenal adenoma, Crohn's disease, ulcerative colitis. He was admitted with melanotic stool. His recent hemoglobins were notable for on admit 6.9. When he left the hospital on 06/11, it was 7.5. Going back and even in 2018, highest his hemoglobin had been in 2018 was 10.8, back in 2012 and earlier it was 15.4. He also had been found to be iron-deficient this summer and received IV iron in May between 06/08/2021 and 06/11/2021 with Venofer, that was the last time his iron and ferritin levels were checked. His B12 was not checked, as his folate was normal. The patient abruptly asked me to leave the room during the exam and stopped and did not wish to answer questions. I was asking questions about where he grew up and how long he had been in [place]. He said that it is not important and asked me to stop asking questions. I then listened to his chest with his permission and then began feeling for lymph nodes, which he said that hurts, why are you are doing it and he asked me to leave the room. I do note that his significant other was present in the room and did offer some answers to some of the simple questions, but the exam ended at the patient's request. It looks from looking at the chart this was not too unusual for this patient. PAST MEDICAL HISTORY: Notable for hyperlipidemia; history of DVT, not currently on anticoagulation; history of chronic obstructive pulmonary disease, I think that is obstructive lung disease; Crohn's disease; diabetes; COPD; hypertension. He had an EGD back in May that showed Alfredo's lesions in the stomach and also a duodenal adenoma. FAMILY HISTORY: Noncontributory, not available. SOCIAL HISTORY: Not available. MEDICATIONS: At this time in the hospital currently include pantoprazole [address] [address] CONSULTATION Name: BENIGNO CASTILLO Room #: 436-P ADM IN M.R.#: [id number] Admission: 07/06/21 Attend Phys: Suleiman Edmonds Discharge: Date of : 41 Report #: [id number] b.i.d., fentanyl p.r.n. patch, oxycodone p.r.n., zolpidem p.r.n., MiraLax p.r.n., nitroglycerin p.r.n., sucralfate have been given and stopped. IMAGING: Recent imaging had not shown any unusual masses, though had shown diverticulitis. ASSESSMENT AND PLAN: 1. Iron-deficiency. The patient received 5 bags of Venofer on 06/08/2021 through 06/11/2021. We will repeat. We will also check B12, folate and retic count. Sound like efforts need to be directed at blood loss. Dr. Ware has been managing his anemia, as an outpatient and given the difficulties with this patient's interaction with this provider, that may be the patient's best avenue. 2. Extensive GI history including Alfredo's ulcers, diverticulitis, Crohn's disease and melanotic stools. Defer to GI. 3. Chronic obstructive pulmonary disease and sleep apnea per others. 4. Diabetes type 2 in the chart per others. 5. Hypertension history per others. 6. Hyperlipidemia history per others. 7. History of deep venous thrombosis. Anticoagulation not for some time. We will try to follow with you and may be limited by the patient. <ELECTRONICALLY SIGNED> By: Deni Riggs MD 07/12/21 0624 [id number] 35 Deni Riggs MD /nt
[2021-07-12 06:30] LABS: HEMATOCRIT 26.5 % (42.0-52.0); HEMOGLOBIN 8.7 gm/dL (14.0-18.0); MCH 29.9 pg (26.0-34.0); MCHC 32.7 g/dL (28.0-37.0); MCV 91.4 fL (80.0-100.0); RBC 2.9 mil/uL (4.50-6.00); RDW 26.2 % (10.5-14.5); WBC 4.9 thou/uL (4.0-11.0)
[2021-07-12 06:43] LABS: CALCIUM 8.4 mg/dL (8.5-10.1); CREATININE 1.1 mg/dL (0.7-1.3); POTASSIUM 4.5 mmol/L (3.5-5.1)
[2021-07-12 07:35] LABS: % SATURATION 8 % (20-39); IRON 22 ug/dL (65-175); TIBC 287 ug/dL (250-450)
[2021-07-12 07:58] VITALS: BP 115/69
[2021-07-12 10:06] LABS: ABSOLUTE RETIC COUNT 0.1026 10^6/uL; OBSERVED RETIC COUNT 3.4 % (0.6-2.6)
[2021-07-12] MEDS ORDERED: FENTANYL1 EACH TRANSDERM (10:42)
[2021-07-12] MEDS ORDERED: PERCOCET 10-321 EACH PO (10:43)
[2021-07-12] MEDS ORDERED: AMBIEN CR12.5 MG PO (10:44)
--- NOTE | 2021-07-12 10:52 | NUR ---
CM REVIEWED CHART AND SPOKE WITH CARE TEAM. CARE TEAM INDICATED PT IS MEDICALLY STABLE TO DC. PT IS REFUSING HH AND WILL DC WITH NO NEEDS. NO OTHER CM INTERVENTIONS INDICATED.
[2021-07-12] MEDS ORDERED: ELIQUIS5 MG PO (11:48)
[2021-07-12 12:08] VITALS: BP 113/67
[2021-07-12 13:10] VITALS: BP 113/67
[2021-07-12 14:22] VITALS: BP 113/67
--- NOTE | 2021-07-12 14:23 | NUR ---
DISCHARGED PATIENT. EXPLAINED DISCHARGE INSTRUCTIONS TO PATIENT AND SIGNIFICANT OTHER. REMOVED IV TIP WAS INTACT. 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 HIGHLIGHTED MEDICATION CHANGES AND UPCOMING APPOINTMENTS. SHARON PATIENTS PARTNER STATED HE UNDERSTOOD AND DENIED HAVING ANY OTHER QUESTIONS. PATIENT ASKED FOR SHARON CHUN TO SIGN THE DISCHARGE PAPERWORK.
== END 2021-07-12 17:57 | disposition home or self-care (01) | DRG 377 ==
LOC: ER 09:09 → 4S 14:26 → 2N 14:26 → EROBS 14:26 → 4S 07-07 16:34 → 2N 07-12 08:47
PROVIDERS: Emergency Medicine; Internal Medicine; Internal Medicine Hematology & Oncology; ADMIT Hospitalist; ATTEND Hospitalist
PROC: 30233N1 Transfusion of Nonautologous Red Blood Cells into Peripheral Vein, Percutaneous Approach (ICD-10-PCS; principal; 2021-07-06)
PROC: 0DJ08ZZ Inspection of Upper Intestinal Tract, Via Natural or Artificial Opening Endoscopic (ICD-10-PCS; 2021-07-11)
DX: K25.4 Chronic or unspecified gastric ulcer with hemorrhage (principal); N17.0 Acute kidney failure with tubular necrosis; K50.90 Crohn's disease, unspecified, without complications; D50.9 Iron deficiency anemia, unspecified; D13.2 Benign neoplasm of duodenum; E11.9 Type 2 diabetes mellitus without complications; I48.91 Unspecified atrial fibrillation; I10 Essential (primary) hypertension; I95.9 Hypotension, unspecified; E87.5 Hyperkalemia; F17.210 Nicotine dependence, cigarettes, uncomplicated; J44.9 Chronic obstructive pulmonary disease, unspecified; E78.5 Hyperlipidemia, unspecified; F03.90 Unspecified dementia, unspecified severity, without behavioral disturbance, psychotic disturbance, mood disturbance, and anxiety; Z91.19 Patient's noncompliance with other medical treatment and regimen; Z86.718 Personal history of other venous thrombosis and embolism; Z86.73 Personal history of transient ischemic attack (TIA), and cerebral infarction without residual deficits; Z90.49 Acquired absence of other specified parts of digestive tract; Z88.2 Allergy status to sulfonamides; Z88.8 Allergy status to other drugs, medicaments and biological substances; Z79.1 Long term (current) use of non-steroidal anti-inflammatories (NSAID); Z79.01 Long term (current) use of anticoagulants; Z20.822 Contact with and (suspected) exposure to COVID-19
CPT/HCPCS: 10100; 70005